=== PATIENT | female | born 1950 | race Caucasian/White ===

== ENCOUNTER → 2017-12-19 08:38 | Outpatient (CLI) | payer MEDICARE, SELFPAY ==
[2017-12-19 09:57] LABS: Absolute Lymphocyte Count 1.97 X10^3/ul (0.83-4.51); Absolute Neutrophil Count 3.1 X10^3/uL (2.0-7.7); Basophil# 0.03 X10^3/uL; Basophil% 0.5 % (0-1); Eosinophils% 1.7 % (0-5); Hematocrit 41.9 % (37-47); Hemoglobin 14.1 g/dl (12.0-15.0); Lymphocyte # 1.97 X10^3/ul (4.0); Lymphocyte % 34.1 % (19-41); Mean Corp Hgb Conc 33.7 g/gl (32-36); Mean Corpuscular Hgb 29.4 pg (27.0-32.0); Mean Corpuscular Volume 87.3 fL (81-99); Mean Platelet Vol. 10.4 fl (6.2-12.0); Monocyte# 0.55 X10^3/uL; Monocyte% 9.5 % (0-10); Neutrophil # 3.12 X10^3/uL (2.7-7.7); Platelet Count 243 K/mm3 (150-450); RBC Distribution Width CV 12.9 % (11.6-14.6); RBC Distribution Width SD 40.8 fl (35.1-43.9); White Blood Count 5.8 K/mm3 (4.4-11.0)
[2017-12-19 10:00] LABS: POSITIVE COUNT NO; POSITIVE DIFFERENTIAL NO; POSITIVE MORPHOLOGY NO
[2017-12-19 10:33] LABS: ALB/GLOB Ratio 0.9 RATIO (0.9-2.4); AST(SGOT) 13 U/L (15-37); Alanine Aminotransfer ALT/SGPT 21 U/L (13-56); Albumin, Serum 3.5 g/dL (3.2-5.0); Alkaline Phosphatase 87 U/L (45-117); Anion Gap 8 (5-15); BUN 12 mg/dL (7-18); BUN/Creat Ratio 16.1 RATIO (10-20); Calcium,Total 9.2 mg/dL (8.5-10.1); Chloride 103 mmol/L (98-107); Cholesterol 166 mg/dL (200); Creatinine, Serum 0.74 mg/dL (0.55-1.02); EST Glomerular Filtration Rate 83 mL/min (>60); Est Glom Filt Rate - Afr Amer 100 mL/min (>60); Globulin 3.7 g/dL (2.2-4.2); Glucose 88 mg/dL (74-106); High Density Lipoprotein 56 mg/dL; Potassium 4.2 mmol/L (3.5-5.1); Protein, Total 7.2 g/dL (6.4-8.2); Sodium Level 141 mmol/L (136-145); Triglycerides 107 mg/dL; Very Low Density Lipoprotein 21 mg/dL (5-40)
[2017-12-19 10:37] LABS: Vitamin D,25 Hydroxy 19.8 ng/mL (29.95-100.01)
== END ==
PROVIDERS: Family Provider Internal Medicine; PCP Internal Medicine; Visit Provider Internal Medicine
DX: Z13.220 Encounter for screening for lipoid disorders (principal); E55.9 Vitamin D deficiency, unspecified
CPT/HCPCS: 36415; 80053; 80061; 82306; 85025

== ENCOUNTER → 2018-01-02 12:33 | Outpatient (CLI) | payer MEDICARE, SELFPAY ==
--- NOTE | 2018-01-02 12:37 | BI_ITS ---
MAMMOGRAPHY - BILATERAL SCREENING 3-D ANDRES SYNTHESIS REASON FOR EXAM: Female, 67 years old. Bilateral Screening 3-D tomosynthesis PERTINENT HISTORY: Asymptomatic. Left needle biopsy and left excisional biopsy 1990s for calcifications. Family history breast carcinoma mother age 70 sex, sister age 53, first maternal cousin and paternal grandmother. TECHNIQUE: 2-D mammograms and 3-D Andres synthesis of the breast (s) were performed. CAD was performed. COMPARISON: 09/29/2014 mammogram. FINDINGS: The breast composition is heterogeneously dense that can obscure small breast masses. No new asymmetric density, dominant mass, dense spiculated masses, abnormal clustered microcalcifications, architectural distortion, skin thickening or nipple retraction identified. Coarse benign-appearing calcifications. No new abnormality identified with tomosynthesis. There has been no significant change since the prior study. BI/SCREENING MAMM (CAD), BILAT IMPRESSION: No mammographic signs of malignancy. Routine yearly mammograms recommended. ASSESSMENT CATEGORY: BIRADS Category 2: Benign. A letter regarding these results will be sent to the patient by the facility within 30 days. FOLLOW UP RECOMMENDATION: Yearly follow up mammogram recommended. (A) Negative results should not deter biopsy as a palpable lesion should be followed on clinical grounds and biopsy performed if clinically persistent for 3 months or increasing size. Approximately 10% of breast cancers are not detected by mammography. A normal mammogram should not delay biopsy of a clinically suspicious abnormality. Electronically Signed: Servando Dominguez, at 17:25 EDT Tel , Service support ,
== END ==
PROVIDERS: Family Provider Internal Medicine; PCP Internal Medicine; Visit Provider Nurse Practitioner Primary Care
DX: Z12.31 Encounter for screening mammogram for malignant neoplasm of breast (principal)
CPT/HCPCS: 77063; 77067

== ENCOUNTER → 2019-01-11 14:40 | Outpatient (CLI) | payer MEDICARE, SELFPAY ==
--- NOTE | 2019-01-11 14:45 | BI_ITS ---
MAMMOGRAPHY - BILATERAL SCREENING REASON FOR EXAM: Female, 68 years old. Routine annual screening examination. PERTINENT HISTORY: Sister with breast cancer. Mother with breast cancer. TECHNIQUE: Digital bilateral breast andres (3D mammographic acquisition) in the CC and MLO projections. 2-D mediolateral oblique (MLO) and craniocaudad (CC) views of both breasts were obtained. CAD: Full Field Digital Mammography with Computer Added Detection was performed. COMPARISON: Comparison is made with prior study January 02, 2018 FINDINGS: Breast Composition: The breasts are heterogeneously dense, which may obscure small masses. There are no dominant masses or suspicious calcifications. Stable appearance of the benign-appearing bilateral axillary lymph nodes. No other significant abnormalities are identified. There has been no significant change since the prior study. BI/SCREEN MAMM (CAD) W/ANDRES BILAT IMPRESSION: Stable bilateral screening mammogram. Yearly follow-up mammogram recommended. (A) ASSESSMENT CATEGORY: BIRADS Category 2: Benign. A letter regarding these results will be sent to the patient by the facility within 30 days. Approximately 10% of breast cancers are not detected by mammography. A normal mammogram should not delay biopsy of a clinically suspicious abnormality. [id number] Electronically Signed: Blake Zayas, at 15:48 EDT , Service support ,
== END ==
PROVIDERS: Family Provider Internal Medicine; PCP Internal Medicine; Referring Provider Nurse Practitioner Primary Care; Visit Provider Nurse Practitioner Primary Care
DX: Z12.31 Encounter for screening mammogram for malignant neoplasm of breast (principal); Z80.3 Family history of malignant neoplasm of breast
CPT/HCPCS: 77063; 77067

== ENCOUNTER → 2020-01-19 08:30 | Outpatient (CLI) | payer MEDICARE, SELFPAY ==
--- NOTE | 2020-01-19 08:33 | BI_ITS ---
MAMMOGRAPHY - BILATERAL SCREENING 3-D TOMOSYNTHESIS REASON FOR EXAM: Female, 69 years old. Annual screening mammogram. PERTINENT HISTORY: Family history of breast cancer in 2 sisters and mother. History of left needle biopsy and left excisional biopsy. TECHNIQUE: 2-D mammograms and 3-D Tomosynthesis of the breast (s) were performed. CAD was performed. COMPARISON: 01/11/2019, 01/02/2018 FINDINGS: The breast composition is composed of scattered fibroglandular density. Asymmetry in central portion of the left breast seen only on MLO view. The patient should return for compression spot views of this area. If the area persists, ultrasound may also be needed. Right breast unchanged. BI/SCREEN MAMM (CAD) W/ANDRES BILAT IMPRESSION: Asymmetry in the left breast for which further workup is recommended, as outlined above. ASSESSMENT CATEGORY: BIRADS Category 0: Incomplete. Need additional imaging evaluation as above. A letter regarding these results will be sent to the patient by the facility within 30 days. FOLLOW UP RECOMMENDATION: Yearly follow up mammogram recommended. (A) Approximately 10% of breast cancers are not detected by mammography. A normal mammogram should not delay biopsy of a clinically suspicious abnormality. Electronically Signed: Spike Hernandez MD at 16:21 EDT , Service support ,
== END ==
PROVIDERS: PCP Internal Medicine; Referring Provider Nurse Practitioner; Visit Provider Nurse Practitioner
DX: Z12.31 Encounter for screening mammogram for malignant neoplasm of breast (principal); Z80.3 Family history of malignant neoplasm of breast
CPT/HCPCS: 77063; 77067

== ENCOUNTER → 2020-01-24 13:14 | Outpatient (CLI) | payer MEDICARE, SELFPAY ==
--- NOTE | 2020-01-24 13:16 | BI_ITS ---
MAMMOGRAPHY - UNILATERAL DIAGNOSTIC: LEFT BREAST REASON FOR EXAM: Female, 69 years old. Abnormal screening mammogram. PERTINENT HISTORY: Sisters with breast cancer. Mother with breast cancer. Prior left breast biopsy. TECHNIQUE: Compression spot views of the left breast in the mediolateral oblique and craniocaudad views were obtained. CAD: Full Field Digital Mammography with Computer Added Detection was performed. COMPARISON: Comparison is made with prior study dated 01/19/2020. FINDINGS: Breast Composition: There are scattered areas of fibroglandular density. There are no dominant masses or suspicious calcifications. No evidence of architectural distortion at this time. No other significant abnormalities are identified. BI/DIAG MAMM W/CAD, UNILAT IMPRESSION: Unremarkable unilateral diagnostic mammogram. One year follow-up mammogram recommended. (A) ASSESSMENT CATEGORY: BIRADS Category 1: Negative. A letter regarding these results will be sent to the patient by the facility within 30 days. Approximately 10% of breast cancers are not detected by mammography. A normal mammogram should not delay biopsy of a clinically suspicious abnormality. Electronically Signed: Blake Zayas, at 14:22 EDT , Service support ,
== END ==
PROVIDERS: PCP Internal Medicine; Referring Provider Nurse Practitioner; Visit Provider Nurse Practitioner
DX: R92.8 Other abnormal and inconclusive findings on diagnostic imaging of breast (principal); Z80.3 Family history of malignant neoplasm of breast
CPT/HCPCS: 77065

== ENCOUNTER → 2021-02-07 13:04 | Outpatient (CLI) | payer MEDICARE, SELFPAY ==
--- NOTE | 2021-02-07 13:06 | BI_ITS ---
MAMMOGRAPHY - BILATERAL SCREENING REASON FOR EXAM: Female, 70 years old. Routine annual screening examination. PERTINENT HISTORY: Sisters with breast cancer. Mother with breast cancer. TECHNIQUE: Digital bilateral breast andres (3D mammographic acquisition) in the CC and MLO projections. 2-D mediolateral oblique (MLO) and craniocaudad (CC) views of both breasts were obtained. CAD: Full Field Digital Mammography with Computer Added Detection was performed. COMPARISON: Comparison is made with prior study 01/19/2020 and 01/11/2019. FINDINGS: Breast Composition: The breasts are heterogeneously dense, which may obscure small masses. There are no dominant masses or suspicious calcifications. No other significant abnormalities are identified. There has been no significant change since the prior study. BI/SCRN MAMM (CAD)W/ANDRES BILAT IMPRESSION: Stable bilateral screening mammogram. Yearly follow-up mammogram recommended. (A) ASSESSMENT CATEGORY: BIRADS Category 1: Negative. A letter regarding these results will be sent to the patient by the facility within 30 days. Approximately 10% of breast cancers are not detected by mammography. A normal mammogram should not delay biopsy of a clinically suspicious abnormality. [id number] Electronically Signed: Blake Zayas MD at 14:15 EDT , Service support ,
== END ==
PROVIDERS: PCP Internal Medicine; Referring Provider Internal Medicine; Visit Provider Internal Medicine
DX: Z12.31 Encounter for screening mammogram for malignant neoplasm of breast (principal); Z80.3 Family history of malignant neoplasm of breast
CPT/HCPCS: 77063; 77067

== ENCOUNTER → 2022-03-19 | Outpatient (CLI) | payer MEDICARE, SELFPAY ==
--- NOTE | 2022-03-19 10:10 | BI_ITS ---
MAMMOGRAPHY - BILATERAL SCREENING REASON FOR EXAM: Female, 71 years old. Routine annual screening examination. PERTINENT HISTORY: Sisters with breast cancer. Mother with breast cancer. Remote left needle biopsy and excisional breast biopsy. TECHNIQUE: Digital bilateral breast andres (3D mammographic acquisition) in the CC and MLO projections. 2-D mediolateral oblique (MLO) and craniocaudad (CC) views of both breasts were obtained. CAD: Full Field Digital Mammography with Computer Added Detection was performed. COMPARISON: Comparison is made with prior examination of 02/07/2021. FINDINGS: Breast Composition: The breasts are heterogeneously dense, which may obscure small masses. There are no dominant masses or suspicious calcifications. Stable small benign-appearing bilateral lymph nodes. No other significant abnormalities are identified. There has been no significant change since the prior study. BI/SCRN MAMM (CAD)W/ANDRES BILAT IMPRESSION: Stable bilateral screening mammogram. Yearly follow-up mammogram recommended. (A) ASSESSMENT CATEGORY: BIRADS Category 2: Benign. A letter regarding these results will be sent to the patient by the facility within 30 days. Approximately 10% of breast cancers are not detected by mammography. A normal mammogram should not delay biopsy of a clinically suspicious abnormality. [id number] Electronically Signed: Blake Zayas MD at 11:13 EDT ,
== END | disposition home or self-care (01) ==
LOC: OPBI 10:09
PROVIDERS: PCP Internal Medicine; Visit Provider Nurse Practitioner
DX: Z12.31 Encounter for screening mammogram for malignant neoplasm of breast (principal); Z80.3 Family history of malignant neoplasm of breast
CPT/HCPCS: 77063; 77067

== ENCOUNTER → 2023-04-29 | Outpatient (CLI) | payer MEDICARE, SELFPAY ==
--- NOTE | 2023-04-29 12:38 | BI_ITS ---
MAMMOGRAPHY - BILATERAL SCREENING REASON FOR EXAM: Female, 72 years old. Routine annual screening examination. PERTINENT HISTORY: Sisters with breast cancer. Mother with breast cancer. Grandmother with breast cancer. Prior left excisional breast biopsy. TECHNIQUE: Digital bilateral breast andres (3D mammographic acquisition) in the CC and MLO projections. 2-D mediolateral oblique (MLO) and craniocaudad (CC) views of both breasts were obtained. CAD: Full Field Digital Mammography with Computer Added Detection was performed. COMPARISON: Comparison is made with prior examination March 19, 2022 and February 07, 2021. FINDINGS: Breast Composition: The breasts are heterogeneously dense, which may obscure small masses. There are no dominant masses or suspicious calcifications. Stable small benign-appearing bilateral axillary lymph nodes. No other significant abnormalities are identified. There has been no significant change since the prior study. BI/SCRN MAMM (CAD)W/ANDRES BILAT IMPRESSION: Stable bilateral screening mammogram. Yearly follow-up mammogram recommended. (A) ASSESSMENT CATEGORY: BIRADS Category 2: Benign. A letter regarding these results will be sent to the patient by the facility within 30 days. Approximately 10% of breast cancers are not detected by mammography. A normal mammogram should not delay biopsy of a clinically suspicious abnormality. [id number] Electronically Signed: Blake Zayas MD at 15:40 EST ,
== END | disposition home or self-care (01) ==
LOC: OPBI 12:36
PROVIDERS: PCP Internal Medicine; Referring Provider Clinical Nurse Specialist; Visit Provider Clinical Nurse Specialist
DX: Z12.31 Encounter for screening mammogram for malignant neoplasm of breast (principal); Z80.3 Family history of malignant neoplasm of breast
CPT/HCPCS: 77063; 77067

== ENCOUNTER 2023-12-11 02:41 | Emergency (ER) | payer MEDICARE, SELFPAY ==
[2023-12-11] VITALS (8 sets, daily range): BP systolic 103–165; BP diastolic 47–98; PULSE 83–105; RESP 14–19; TEMP 36.5–37.9; O2SAT 92–98; BMI 24.0
[2023-12-11 03:01] LABS: Bacteria 0 SEEN /hpf (None Seen); Mucous, Urine 0 SEEN /hpf (<or=2+); Red Blood Cells-Urine 0 SEEN /hpf (0-5); Squamous Epithelial Cells - UA 0 SEEN /hpf (5-10); White Blood Cells 0 SEEN /hpf (0-5)
[2023-12-11 03:05] LABS: Color, Urine Yellow (Yellow); Glucose, Dipstick Normal (Normal); Ketone-Dipstick Negative (Negative); Leukocyte Esterase-Dipstick Negative /ul (Negative); Nitrite-Dipstick Negative (Negative); Occult Blood-Urine Negative /ul (Negative); Protein-Dipstick Negative (Negative); Urine Bilirubin Dipstick Negative (Negative); Urine Clarity Clear (Clear); Urine Urobilinogen Normal (Normal); Urine pH 6.5 (5.0 - 8.0)
--- NOTE | 2023-12-11 03:34 | RAD_ITS ---
INDICATION: fever EXAMINATION/TECHNIQUE: X-RAY - XR Chest 2 Views COMPARISON: No relevant prior comparison study available FINDINGS: LINES/DEVICES: None. LUNGS: No consolidation. Calcified granuloma at both lung bases. No pneumothorax. MEDIASTINUM: Aorta is atherosclerotic. CARDIAC SILHOUETTE: Not enlarged. BONES AND SOFT TISSUES: No acute abnormalities. Surgical clips right upper abdomen cholecystectomy. RAD/Chest PA and Lateral IMPRESSION: No evidence of active intrathoracic disease. Electronically Signed: Flores Rodríguez MD at 4:52 EDT ,
--- NOTE | 2023-12-11 03:46 | EX.ED.DYSGE1 ---
HPI History of Present Illness Chief Complaint: General Illness Informant: patient Narrative Narrative: Patient is a 73-year-old female with no significant past medical history presenting for an episode of shaking chills. She states she was laying in bed and she started shaking uncontrollably and felt very cold. She took her oral temperature at home and it was 99.5. She denies any recent URI symptoms but she has had a mild cough which she attributes to allergies. Has had some mild nausea but no vomiting. Denies any abdominal pain. Did have a loose bowel movement today but denies true diarrhea. Denies any blood in her stool. Denies any urinary symptoms. However, she does note the last time she had symptoms like that she had a urinary tract infection but that was sometime ago. Does have a mild headache. As had some mild back pain but feels more like her muscles are sore. While here it felt that her hands were tingling/burning but they did not actually feel hot. No other complaints or concerns reported at this time. No sick contacts reported. PFSH PFSH Medical History no medical history Allergy/AdvReac Type Severity Reaction Status Date / Time Penicillins Allergy Mild Rash Verified 12/11/23 02:42 Social History Smoking Status: Never smoker ROS ROS ED Constitutional Constitutional ED: Reports chills and fever(s) Eyes Eyes: Denies change in vision ENT ENT ED: Denies sore throat Cardiovascular Cardiovascular: Denies chest pain Respiratory/Chest Respiratory/Chest: Reports cough; Denies dyspnea Gastrointestinal Gastrointestinal: Reports nausea; Denies abdominal pain, diarrhea or vomiting Genitourinary Genitourinary ED: Denies dysuria or urinary frequency Musculoskeletal Musculoskeletal: Reports back pain; Denies myalgias Integumentary Denies rash Neurologic Neurologic: Reports headache(s); Denies weakness Hematologic/Lymphatic Hematologic/Lymphatic: Denies easy bleeding or easy bruising EXAM Physical Exam Const Vital Signs: 12/11/23 02:43 12/11/23 03:34 12/11/23 03:49 Temperature 97.7 F L 100.3 F H 100.3 F H Temperature Source Temporal Oral Oral Pulse Rate 105 H 100 Respiratory Rate 18 18 Blood Pressure 165/98 H 164/47 H Blood Pressure Mean 120 86 Pulse Ox 98 94 Oxygen Delivery Method Room Air Room Air 12/11/23 04:48 12/11/23 06:00 Temperature 98.4 F 98.1 F Temperature Source Oral Temporal Pulse Rate 98 95 Respiratory Rate 16 19 H Blood Pressure 135/54 H 118/56 L Blood Pressure Mean 81 76 Pulse Ox 92 95 Oxygen Delivery Method Room Air Positive well nourished and well developed General Appearance ED: well developed and NAD HEENT Reports TM's clear and moist mucous membranes Tympanic Membrane ED: Yes TM's clear Eyes PERRL and EOMs intact bilaterally Neck no lymphadenopathy and supple Neck Narrative: No meningeal signs Chest Wall inspection of chest normal Resp normal respiratory effort and clear to auscultation bilaterally Auscultation: Negative for rhonchi or wheezes Cardio regular rhythm Rate: tachycardic GI normal to inspection, nondistended, normoactive bowel sounds and non-tender Palpation: Negative for guarding Back/Spine no CVA tenderness Extremity normal to inspection General Extremety ED: Negative for edema General Extremity: Negative for edema Neuro oriented x3 Sensorium / Orientation: alert Motor Exam: Negative for general weakness Psych mental status grossly normal Skin no rashes or lesions noted MDM MDM MDM Narrative Medical decision making narrative: Patient is evaluated for fever and chills/rigors. She has had some vague symptoms including a mild cough and nausea but no other localized symptoms. States the last time she felt this way she had a urinary tract infection. Patient is tachycardic and has a low-grade fever of 100.3 orally in the ER. Sepsis workup is initiated which is remarkable only for an elevated lactate of 2.7. Patient is given a liter of IV fluid, Tylenol and Zofran. Abdomen is soft and nontender and I do not think she requires any abdominal imaging at this time. Chest x-ray viewed by myself as well as radiology does not show any acute process. Repeat lactate is downtrending to 2.2. Clinically patient is quite well-appearing, her vital signs are normalized. She is ambulated in the emergency room and feels well. She is not hypoxic. Blood cultures are pending but at this time a do not think she requires antibiotics that she is not high risk for infection and we can follow-up on the blood cultures outpatient. She is encouraged to return to the emergency room if she has a progression or worsening of her symptoms. She is quite agreeable this plan of care. Discharged home in improved and stable condition. Lab Data Attestation: I reviewed the patient's lab results. Labs: Laboratory Results - last 24 hr 12/11/23 12/11/23 12/11/23 02:52 03:47 06:27 WBC 6.8 RBC 4.60 Hgb 13.2 Hct 40.1 MCV 87.2 MCH 28.7 MCHC 32.9 RDW Std Deviation 42.2 RDW Coeff of Odalis 13.3 Plt Count 195 MPV 8.9 Immature Gran % (Auto) 0.400 Neut % (Auto) 84.7 H Lymph % (Auto) 12.8 L [facility] % (Auto) 1.3 Eos % (Auto) 0.4 Baso % (Auto) 0.4 Absolute Neuts (auto) 5.7 Absolute Lymphs (auto) 0.87 Nucleated RBC % 0 Sodium 138 Potassium 4.3 Chloride 103 Carbon Dioxide 28.0 Anion Gap 7 BUN 15 Creatinine 0.92 Estim Creat Clear Calc 43.29 Est GFR (MDRD) Af Amer 77 Est GFR (MDRD) Non-Af 64 BUN/Creatinine Ratio 16.3 Glucose 112 H Lactic Acid 2.7 H* 2.2 H* Calcium 9.1 Total Bilirubin 0.70 AST 31 ALT 28 Alkaline Phosphatase 78 Total Protein 6.7 Albumin 3.5 Globulin 3.2 Albumin/Globulin Ratio 1.1 Urine Color Yellow Urine Clarity Clear Urine pH 6.5 Ur Specific [place] 1.010 Urine Protein Negative Urine Glucose (UA) Normal Urine Ketones Negative Urine Occult Blood Negative Urine Nitrite Negative Urine Bilirubin Negative Urine Urobilinogen Normal Ur Leukocyte Esterase Negative Urine RBC 0 SEEN Urine WBC 0 SEEN Ur Squamous Epith Cells 0 SEEN Urine Bacteria 0 SEEN Urine Mucus 0 SEEN Radiography Chest X-Ray - ED: 2 View, Read by ED Physician, Read by Radiologist and No Acute Disease Diagnostic Testing: Clinical Impression(s) from Imaging Studies Chest X-Ray 12/11/23 03:34 IMPRESSION: No evidence of active intrathoracic disease. Electronically Signed: Flores Rodríguez MD at 4:52 EDT , Discharge Plan Triage Chief Complaint: General Illness ED Provider: Noelle Trinh Dx/Rx/DC Orders Clinical Impression: Fever, unknown origin, Elevated lactic acid level Instructions: ED FUO Adult Primary Care Provider: Phoebe Lee Referrals: Phoebe Lee MD [Primary Care Provider] - Activity Restrictions/Additional Instructions: Drink plenty of fluids. Alternate ibuprofen and Tylenol as needed for fever. Return to the ER if you have a progression or worsening of your symptoms or further concerns. You will be contacted within 48 hours if your blood cultures come back positive and you require IV antibiotics. Print Language: Slovak Disposition Disposition: Home, Self Care
[2023-12-11] MEDS: 0.9% Normal Saline (1000mL) 1,000 ML 1000 ML IV (03:50)
[2023-12-11] MEDS: Acetaminophen 325 MG Tablet 650 MG PO (03:50)
[2023-12-11] MEDS: Ondansetron 4 MG/2 ML Vial IV (03:50)
[2023-12-11 03:55] LABS: Absolute Lymphocyte Count 0.87 X10^3/uL (0.83-4.51); Absolute Neutrophil Count 5.7 X10^3/uL (2.0-7.7); Basophil# 0.03 X10^3/uL; Basophil% 0.4 % (0-1); Eosinophil# 0.03 X10^3/uL; Eosinophils% 0.4 % (0-5); Hematocrit 40.1 % (37-47); Hemoglobin 13.2 g/dL (12.0-15.0); Lymphocyte # 0.87 X10^3/ul (0.83-4.51); Lymphocyte % 12.8 % (19-41); Mean Corp Hgb Conc 32.9 g/dL (32-36); Mean Corpuscular Hgb 28.7 pg (27.0-32.0); Mean Corpuscular Volume 87.2 fL (81-99); Mean Platelet Vol. 8.9 fl (6.2-12.0); Monocyte# 0.09 X10^3/uL; Monocyte% 1.3 % (0-10); NRBC Flagged by Analyzer 0 % (0-5); Neutrophil # 5.73 X10^3/uL (2.7-7.7); Neutrophil % 84.7 % (47-70); Platelet Count 195 K/mm3 (150-450); RBC Distribution Width CV 13.3 % (11.6-14.6); RBC Distribution Width SD 42.2 fl (35.1-43.9); White Blood Count 6.8 K/mm3 (4.4-11.0)
[2023-12-11 04:34] LABS: ALB/GLOB Ratio 1.1 RATIO (0.9-2.4); AST(SGOT) 31 U/L (15-37); Alanine Aminotransfer ALT/SGPT 28 U/L (13-56); Albumin, Serum 3.5 g/dL (3.2-5.0); Alkaline Phosphatase 78 U/L (45-117); Anion Gap 7 (5-15); BUN 15 mg/dL (7-18); BUN/Creat Ratio 16.3 RATIO (10-20); Calcium,Total 9.1 mg/dL (8.5-10.1); Chloride 103 mmol/L (98-107); Creatinine, Serum 0.92 mg/dL (0.55-1.02); EST Glomerular Filtration Rate 64 mL/min (>60); Est Glom Filt Rate - Afr Amer 77 mL/min (>60); Estimated Creatinine Clearance 43.29 ml/min; Globulin 3.2 g/dL (2.2-4.2); Glucose 112 mg/dL (74-106); Potassium 4.3 mmol/L (3.5-5.1); Protein, Total 6.7 g/dL (6.4-8.2); Sodium Level 138 mmol/L (136-145)
[2023-12-11 04:35] LABS: Lactic Acid 2.7 mmol/L (0.4-1.9)
[2023-12-11 07:31] LABS: Lactic Acid 2.2 mmol/L (0.4-1.9)
[2023-12-11 07:52] LABS: Reflex Lactate? Y
[2023-12-11 11:06] LABS: Reflex Lactate? Y
== END 2023-12-11 07:55 | disposition home or self-care (01) ==
PROVIDERS: Emergency Provider Emergency Medicine; PCP Internal Medicine; Visit Provider Emergency Medicine
DX: R50.9 Fever, unspecified (principal); R74.02 Elevation of levels of lactic acid dehydrogenase [LDH]
CPT/HCPCS: 36415; 71046; 80053; 81001; 83605; 85025; 87040; 87811; 96360; 96361; 99283; J7030; A4216; J2405

== ENCOUNTER → 2024-05-03 | Outpatient (CLI) | payer MEDICARE, SELFPAY ==
--- NOTE | 2024-05-03 10:30 | BI_ITS ---
MAMMOGRAPHY - BILATERAL SCREENING REASON FOR EXAM: Female, 73 years old. Routine annual screening examination. PERTINENT HISTORY: Sisters with breast cancer. Grandmother with breast cancer. Prior left excisional breast biopsy. TECHNIQUE: Digital bilateral breast andres (3D mammographic acquisition) in the CC and MLO projections. 2-D mediolateral oblique (MLO) and craniocaudad (CC) views of both breasts were obtained. CAD: Full Field Digital Mammography with Computer Added Detection was performed. COMPARISON: Comparison is made with prior study April 21, 2023 and March 19, 2022. FINDINGS: Breast Composition: The breasts are heterogeneously dense, which may obscure small masses. There are no dominant masses or suspicious calcifications. Stable bilateral fat-containing axillary lymph nodes. No other significant abnormalities are identified. There has been no significant change since the prior study. BI/SCRN MAMM (CAD)W/ANDRES BILAT IMPRESSION: Stable bilateral screening mammogram. Yearly follow-up mammogram recommended. (A) ASSESSMENT CATEGORY: BIRADS Category 2: Benign. A letter regarding these results will be sent to the patient by the facility within 30 days. Approximately 10% of breast cancers are not detected by mammography. A normal mammogram should not delay biopsy of a clinically suspicious abnormality. [id number] Electronically Signed: Blake Zayas MD at 14:07 EST ,
== END | disposition home or self-care (01) ==
LOC: OPBI 10:30
PROVIDERS: PCP Internal Medicine; Referring Provider Nurse Practitioner; Visit Provider Nurse Practitioner
DX: Z12.31 Encounter for screening mammogram for malignant neoplasm of breast (principal)
CPT/HCPCS: 77063; 77067

== ENCOUNTER 2024-10-27 19:23 | Emergency (ER) | payer MEDICARE, SELFPAY ==
[2024-10-27 19:24] VITALS: BP 157/72; PULSE 104; RESP 15; TEMP 37; O2SAT 95
[2024-10-27 19:26] VITALS: BP 157/72; PULSE 104; RESP 15; TEMP 37; O2SAT 95
[2024-10-27 21:50] VITALS: BP 163/73; PULSE 97; RESP 16; TEMP 36.9; O2SAT 96; BMI 23.3
[2024-10-27 22:00] VITALS: BP 140/68; PULSE 85; RESP 16; TEMP 36.9; O2SAT 96
--- NOTE | 2024-10-27 22:30 | RAD_ITS ---
PROCEDURE: CHEST PA AND LATERAL 10/27/2024 REASON FOR EXAM: FEVER TECHNIQUE: Frontal and lateral views of the chest. COMPARISON: 12/11/2023. FINDINGS: Hardware: None. Heart: The heart size is normal. Mediastinum: The mediastinal contour is unremarkable. Lungs: Bilateral calcified granulomas. No pleural effusion or pneumothorax. No consolidation. Bones: The bones are unremarkable. RAD/Chest PA and Lateral IMPRESSION: NO ACUTE FINDINGS. Calcified granulomas. Reading Location: [id number]
[2024-10-27 22:33] LABS: Bacteria 0 SEEN /hpf (None Seen); Mucous, Urine 0 SEEN /hpf (<or=2+)
[2024-10-27 22:35] LABS: Absolute Lymphocyte Count 1.61 X10^3/uL (0.83-4.51); Absolute Neutrophil Count 8.3 X10^3/uL (2.0-7.7); Basophil# 0.05 X10^3/uL; Basophil% 0.4 % (0-1); Eosinophil# 0.15 X10^3/uL; Eosinophils% 1.3 % (0-5); Hematocrit 36.9 % (37-47); Hemoglobin 12.2 g/dL (12.0-15.0); Lymphocyte # 1.61 X10^3/ul (0.83-4.51); Lymphocyte % 14.4 % (19-41); Mean Corp Hgb Conc 33.1 g/dL (32-36); Mean Corpuscular Hgb 28.9 pg (27.0-32.0); Mean Corpuscular Volume 87.4 fL (81-99); Mean Platelet Vol. 9.1 fl (6.2-12.0); Monocyte# 0.98 X10^3/uL; Monocyte% 8.8 % (0-10); NRBC Flagged by Analyzer 0 % (0-5); Neutrophil # 8.32 X10^3/uL (2.7-7.7); Neutrophil % 74.4 % (47-70); Platelet Count 271 K/mm3 (150-450); RBC Distribution Width CV 13.5 % (11.6-14.6); RBC Distribution Width SD 43.5 fl (35.1-43.9); Red Blood Count 4.22 M/mm3 (4.2-5.4); White Blood Count 11.2 K/mm3 (4.4-11.0)
[2024-10-27 22:36] LABS: Color, Urine Yellow (Yellow); Glucose, Dipstick Normal (Normal); Ketone-Dipstick 5 mg/dl (Negative); Leukocyte Esterase-Dipstick 100 /ul (Negative); Nitrite-Dipstick Negative (Negative); Occult Blood-Urine 150 /ul (Negative); Protein-Dipstick 15 mg/dl (Negative); Specific Gravity, Urine 1.005 (1.002-1.030); Urine Bilirubin Dipstick Negative (Negative); Urine Clarity Clear (Clear); Urine Urobilinogen Normal (Normal); Urine pH 6.5 (5.0 - 8.0)
[2024-10-27 22:52] LABS: Anion Gap 12 (5-15); BUN 13 mg/dL (4-19); BUN/Creat Ratio 18.8 RATIO (10-20); Carbon Dioxide 23.7 mmol/L (21.0-32.0); Chloride 99 mmol/L (98-108); Creatinine, Serum 0.71 mg/dL (0.70-1.20); EST Glomerular Filtration Rate 89 (>60); Estimated Creatinine Clearance 44.99 ml/min (50-250); Glucose 118 mg/dL (70-99); Sodium Level 135 mmol/L (133-145)
[2024-10-27 23:00] VITALS: BP 146/57; PULSE 84; RESP 16; TEMP 37; O2SAT 99
[2024-10-27 23:15] LABS: Lactic Acid < 1.0 mmol/L (0.0-2.0)
[2024-10-27 23:30] LABS: Red Blood Cells-Urine 0-5 SEEN /hpf (0-5); Squamous Epithelial Cells - UA 0-5 SEEN /hpf (5-10); White Blood Cells 0-5 SEEN /hpf (0-5)
--- NOTE | 2024-10-27 23:42 | EDS_ITS ---
HPI History of Present Illness Chief Complaint: Fever Informant: patient and spouse/S.O. Narrative Narrative: Patient is a 74-year-old female with past medical history of osteoporosis osteoarthritis hyperlipidemia hyperlipidemia. 1 week ago she underwent laparosc opic surgery to remove her ovaries and she states that they plan to remove her uterus as well but it was adhered to her bowel and therefore they did not perform this aspect of the hysterectomy. She states that she stayed roughly 5 hours in PACU and was discharged home. She reports she has been doing well but this evening she felt chills and then checked her temperature and it was elevated at 100.4. She states she did not take any Tylenol or Motrin but with the fever and her recent surgery presents to the ER for evaluation. She states that otherwise she has been feeling normal without significant abdominal pain dysuria nausea vomiting congestion cough or sore throat. PFSH PFSH Medical History (Updated 10/28/24 @ 01:[address] Barrett Almendarez DO) Osteoarthritis Osteoporosis Home Medications ?Medication ?Instructions ?Recorded ?Last Taken ?Type ibuprofen 600 mg tablet 600 mg PO Q6H PRN PRN fever or pain 10/27/24 Unknown History ondansetron 4 mg disintegrating 4 mg PO Q8H PRN PRN na usea and 10/27/24 Unknown History tablet vomiting oxycodone 5 mg tablet 5 mg PO PRN pain 10/27/24 Un known History rosuvastatin 5 mg tablet 5 mg PO DAILY 10/27/24 Unkno wn History Allergy/AdvReac Type Severity Reaction Status Date / Time Penicillins Allergy Mild Rash Verified 10/27/24 19:24 Surgical History (Updated 10/27/24 @ 21:53 by Yasemin Jalloh) Hx of tonsillectomy H/O bilateral salpingo-oophorectomy History of cholecystectomy History of partial hysterectomy Social History Smoking Status: Never smoker ROS ROS ED Constitutional Constitutional ED: Reports chills and fever(s) Eyes Eyes: Denies change in vision ENT ENT ED: Denies rhinorrhea or sore throat Cardiovascular Cardiovascular: Denies chest pain Respiratory/Chest Respiratory/Chest: Denies cough or dyspnea Gastrointestinal Gastrointestinal: Denies abdominal pain, diarrhea, nausea or vomiting Genitourinary Genitourinary ED: Denies dysuria or hematuria Musculoskeletal Musculoskeletal: Denies myalgias Integumentary Denies rash Neurologic Neurologic: Denies headache(s) Hematologic/Lymphatic Hematologic/Lymphatic: Denies easy bleeding or easy bruising EXAM Physical Exam Const Vital Signs: 10/27/24 19:24 10/27/24 19:26 10/27/24 21:50 Temperature 98.6 F 98.6 F 98.5 F Temperature Source Oral Oral Oral Pulse Rate 104 H 104 H 97 Respiratory Rate 15 15 16 Respiratory Effort Respiratory Pattern Blood Pressure 157/72 H 157/72 H 163/73 H Blood Pressure Mean 100 100 103 Pulse Ox 95 95 96 Oxygen Delivery Method Room Air Room Air Room Air 10/27/24 22:00 10/27/24 22:26 10/27/24 23:00 Temperature 98.5 F 98.6 F Temperature Source Oral Oral Pulse Rate 85 84 Respiratory Rate 16 16 Respiratory Effort Normal Respiratory Pattern Normal Blood Pressure 140/68 H 146/57 H Blood Pressure Mean 92 86 Pulse Ox 96 99 Oxygen Delivery Method Room Air Room Air 10/27/24 23:44 Temperature 98.6 F Temperature Source Pulse Rate 84 Respiratory Rate 16 Respiratory Effort Respiratory Pattern Blood Pressure 146/57 H Blood Pressure Mean 86 Pulse Ox 99 Oxygen Delivery Method Positive well nourished and well developed General Appearance ED: well developed HEENT Reports moist mucous membranes HEENT Narrative: No tongue or lip swelling no oral lesions no airway edema or compromise No signs of infection noted in the posterior pharynx Eyes PERRL and EOMs intact bilaterally General Eye ED: Negative for scleral icterus Neck supple Neck Narrative: No nuchal rigidity or meningeal signs Resp normal respiratory effort and clear to auscultation bilaterally Resp Narrative: No nasal flaring retractions tachypnea or accessory muscle use No pleuritic chest pain reported Cardio regular rate and regular rhythm Rate: other Other Details: Regular rate and rhythm without murmurs rubs or gallops Radial and carotid pulses are equal and symmetric GI non-distended and no masses GI Narrative: Abdomen is soft and nondistended with hypoactive bowel sounds. There is mild diffuse pain with palpation consistent with history of recent laparoscopic surgery. The wounds are clean dry and intact. There is no voluntary guarding or rigidity. No pulsatile mass or fluid wave. No peritoneal signs Auscultation: hypoactive bowel sounds Palpation: soft Extremity normal to inspection Extremity Narrative: No asymmetric edema no pitting edema negative Homans' sign bilaterally Neuro oriented x3, CN's II-XII intact bilaterally and no sensory deficits noted Sensorium / Orientation: alert Motor Exam: strength 5/5 throughout Psych mental status grossly normal Skin no rashes or lesions noted Skin Narrative: Postoperative wounds to the abdomen that are clean dry and intact; otherwise skin exam is normal MDM MDM MDM Narrative Medical decision making narrative: Patient presented to the ER hypertensive otherwise with stable vitals. She reported chills at home and secondary to this checked her temperature which was reportedly elevated at 100.4. With her recent surgical history there is concern for postoperative infection such as pneumonia UTI viral infection such as COVID influenza RSV or postoperative abdominal infection. As her temperature was normal in the ER and she did not take any antipyretic medication my concern for systemic infection/sepsis is low. However in order to ensure there is no overt cause for her reported fever basic blood work and a chest x-ray were obtained. Patient's white count is 11.2 which is not a clinically significant elevation. Lactic acid is normal going against systemic infection as well. Urine sample shows no signs of UTI. Chest x-ray reveals no lung pathology such as pneumonia. Vitals remained stable in ER and she did not spike a fever while here. Her abdominal wounds do not show signs of infection and she does not have peritoneal signs going against a postoperative complication leading to intestinal infection. Therefore this time as vitals are stable and workup is negative not showing any signs of systemic infection I do not feel there is need for further evaluation and she is otherwise safe for discharge History & Record Review Discussion w/independent historian: Patient and Significant other Lab Data Attestation: I reviewed the patient's lab results. Labs: Laboratory Results - last 24 hr 10/27/24 10/27/24 22:22 22:27 WBC 11.2 H RBC 4.22 Hgb 12.2 Hct 36.9 L MCV 87.4 MCH 28.9 MCHC 33.1 RDW Std Deviation 43.5 RDW Coeff of [place] 13.5 Plt Count 271 MPV 9.1 Immature Gran % (Auto) 0.700 Neut % (Auto) 74.4 H Lymph % (Auto) 14.4 L [place] % (Auto) 8.8 Eos % (Auto) 1.3 Baso % (Auto) 0.4 Absolute Neuts (auto) 8.3 H Absolute Lymphs (auto) 1.61 Nucleated RBC % 0 Sodium 135 Potassium 4.0 Chloride 99 Carbon Dioxide 23.7 Anion Gap 12 BUN 13 Creatinine 0.71 Estim Creat Clear Calc 44.99 L Est GFR (MDRD) Non-Af 89 BUN/Creatinine Ratio 18.8 Glucose 118 H Lactic Acid < 1.0 Calcium 9.0 Urine Color Yellow Urine Clarity Clear Urine pH 6.5 Ur Specific [place] 1.005 Urine Protein 15 H Urine Glucose (UA) Normal Urine Ketones 5 H Urine Occult Blood 150 H Urine Nitrite Negative Urine Bilirubin Negative Urine Urobilinogen Normal Ur Leukocyte Esterase 100 H Urine RBC 0-5 SEEN Urine WBC 0-5 SEEN Ur Squamous Epith Cells 0-5 SEEN Urine Bacteria 0 SEEN Urine Mucus 0 SEEN Radiography Diagnostic Testing: Clinical Impression(s) from Imaging Studies Chest X-Ray 10/27/24 22:30 IMPRESSION: NO ACUTE FINDINGS. Calcified granulomas. Reading Location: [place] [id number] Chest x-ray is interpreted by the emergency medicine physician reveals no acute infiltrate pneumothorax or pleural effusion Discharge Plan Triage Chief Complaint: Fever ED Provider: Barrett Almendarez Dx/Rx/DC Orders Clinical Impression: Postoperative fever, Hyperlipidemia, Osteoporosis Instructions: ED Fever Control (Adult) Prescriptions: No Action ondansetron 4 mg tablet,disintegrating 4 mg PO Q8H PRN PRN (Reason: nausea and vomiting) oxycodone 5 mg tablet 5 mg PO PRN (Reason: pain) ibuprofen 600 mg tablet 600 mg PO Q6H PRN PRN (Reason: fever or pain) rosuvastatin 5 mg tablet 5 mg PO DAILY Primary Care Provider: Phoebe Lee Referrals: Phoebe Lee MD [Primary Care Provider] - Activity Restrictions/Additional Instructions: Your workup today did not show any signs of infection such as UTI or pneumonia or COVID. Continue to monitor your temperature and if you develop any repeat fever that does not respond to Tylenol/Motrin or you have any further concerns or worsening symptoms please return to the ER for repeat evaluation Print Language: Kinyarwanda Disposition Disposition: Home, Self Care Discharge Date/Time: 10/27/24 23:52
[2024-10-27 23:44] VITALS: BP 146/57; PULSE 84; RESP 16; TEMP 37; O2SAT 99
== END 2024-10-27 23:52 | disposition home or self-care (01) ==
PROVIDERS: Emergency Provider Emergency Medicine; PCP Internal Medicine; Referring Provider Emergency Medicine; Visit Provider Emergency Medicine
DX: R50.82 Postprocedural fever (principal); E78.5 Hyperlipidemia, unspecified; M81.0 Age-related osteoporosis without current pathological fracture; Z79.899 Other long term (current) drug therapy
CPT/HCPCS: 71046; 80048; 81001; 83605; 85025; 87631; 99283; A4216

== ENCOUNTER → 2025-05-12 | Outpatient (CLI) | payer MEDICARE, SELFPAY ==
--- NOTE | 2025-05-12 10:03 | BI_ITS ---
EXAM: SCRN MAMM (CAD)W/ANDRES BILAT DATE: 05/12/2025 CLINICAL HISTORY: F, Age 74 y/o , SCREENING Sisters with breast cancer. Grandmother with breast cancer. Prior left excisional breast biopsy. TECHNIQUE: Procedure Code: [id number] Modality: MG Procedure: SCRN MAMM (CAD)W/ANDRES BILAT COMPARISON: Prior exam(s) dated May 03, 2024.. FINDINGS: TISSUE DENSITY: The breasts are heterogeneously dense, which may obscure small masses. Bilateral Breast Mammographic Findings: No significant masses, calcifications or other abnormalities are identified. Stable benign-appearing bilateral axillary lymph nodes. No suspicious masses, areas of developing architectural distortion, or suspicious calcifications. There has been no significant interval change. BI/SCRN MAMM (CAD)W/ANDRES BILAT IMPRESSION: Stable bilateral screening mammogram. OVERALL FINAL ASSESSMENT BI-RADS 2: BENIGN RECOMMENDATION: Routine annual follow-up in 1 Year Additional Recommendation none A letter with findings and recommendations will be mailed to the patient. Reading Location: [place] [id number]
--- OUTSIDE RECORDS SUMMARY | 2025-05-12 12:27 | XMS RPT_ITS | CCD ---
Author Organization [facility] Care Team Providers Care Cross Tie Maker Name Role Phone Jesus HOWE, Silva Primary Care Provider Silva Pepper MD Primary Care Provider Renée Caraballo PA-C Unavailable Older CONDUCTOR FREIGHT.HUSSEIN, Marielle Unavailable Carola Simeon PA-C Unavailable Dr. Silva Pepper MD Primary Care Provider Dr. Barrett Almendarez DO Referring Provider Dr. Barrett Almendarez DO Emergency Provider RAUH-JOSE, YANI A Attending Unavailable WISWELL, MK Referring Unavailable GANTA, SILVA Primary Care Unavailable RAUH-JOSE, YANI A Attending Unavailable GANTA, SILVA Primary Care Unavailable RAUH-JOSE, YANI A Admitting Unavailable RAUH-JOSE, YANI A Attending Unavailable RAUH-JOSE, YANI A Referring Unavailable GANTA, SILVA Primary Care Unavailable RAUH-JOSE, YANI A Referring Unavailable GANTA, SILVA Primary Care Unavailable RAUH-JOSE, YANI A Attending Unavailable SELF Referring Unavailable GANTA, SILVA Primary Care Unavailable Ganta, Silva Primary Care Unavailable OLDER, MARIELLE Referring Unavailable OLDER, MARIELLE Attending Unavailable Noelle Trinh Attending Unavailable Ganta, Silva Primary Care Unavailable Ganta, Silva Primary Care Unavailable Barrett Almendarez Referring Unavailable Barrett Almendarez Attending Unavailable ZULEMA CAVAZOS Referring Unavailable GANTA, SILVA Primary Care Unavailable GANTA, SILVA Primary Care Unavailable OLDER, MARIELLE Attending Unavailable GANTA, SILVA Primary Care Unavailable WISWELL, MK Referring Unavailable OLDER, MARIELLE Attending Unavailable GANTA, SILVA Primary Care Unavailable GANTA, SILVA Primary Care Unavailable WISWELL, MK Referring Unavailable RA-JOSE, YANI A Referring Unavailable GANTA, SILVA Primary Care Unavailable GANTA, SILVA Primary Care Unavailable RA-JOSE, YANI A Referring Unavailable GANTA, SILVA Primary Care Unavailable WISWELL, MK Referring Unavailable GANTA, SILVA Primary Care Unavailable WISWELL, MK Attending Unavailable GANTA, SILVA Primary Care Unavailable CAVAZOS, ZULEMA Attending Unavailable CAVAZOS, ZULEMA Referring Unavailable GANTA, SILVA Primary Care Unavailable OLDER, MARIELLE Referring Unavailable CAVAZOS, ZULEMA Attending Unavailable GANTA, SILVA Primary Care Unavailable GANTA, SILVA Primary Care Unavailable GANTA, ISLVA Referring Unavailable OLDER, MARIELLE Referring Unavailable GANTA, SILVA Primary Care Unavailable Allergies Allergy Classification Reported Allergen(s) Allergy Type Date of Onset Reaction(s) Facility (20 sources) Amoxicillin; Translations: [AMOXICILLIN] Drug Allergy 6 [facility] Work Phone: (20 sources) Sulfonamides (Antibiotic); Translations: [SULFA (SULFONAMIDE ANTIBIOTICS)] Drug Allergy 6 [facility] (1 source) Penicillins Allergy to substance [address] [place] [address] (1 source) Penicillins Drug allergy (disorder) [address] [place] [address] Repository Medications Current Medications Medication Drug Class(es) Dates Sig (Normalized) Sig (Original) acetaminophen 325 mg oral tablet (3 sources) Start: 10-20-2024 take 2 tablets by mouth every four hours as needed acetaminophen (TYLENOL) 325 mg tablet Take 2 tablets by mouth every 4 hours as needed for pain. 30 tablet 10/20/2024 Active enteric contrast (will be provided with radiology test) (1 source) Start: 08-02-2024 End: 08-03-2024 enteric contrast (will be provided with radiology test) Indications: Cyst of ovary, unspecified laterality , Elevated cancer antigen 125 (CA-125) For CT ABD/PEL W IVCON Routine order Administer, As Directed One Time Only, via Oral, Rectal, both Oral and Rectal, Enteric Tube, Stoma or Indwelling Catheter, Enteric Contrast as designated per enteric contrast guidelines 1 Each 08/02/2024 08/03/2024 Active ibuprofen 600 mg oral tablet (2 sources) Nonsteroidal Anti-inflammatory Drug Start: 10-20-2024 End: 11-19-2024 take 1 tablet by mouth every six hours as needed for pain Ibuprofen 600 mg tablet Active 600 mg PO EVERY 6 HOURS NEEDED as needed for fever or pain October 27, 2024 12:00am iv contrast (will be provided with radiology test) (1 source) Start: 08-02-2024 End: 08-03-2024 iv contrast (will be provided with radiology test) Indications: Cyst of ovary, unspecified laterality , Elevated cancer antigen 125 (CA-125) CT ABD/PEL -Inject, intravenously, once for 1 dose.No IV access, insert saline lock prior to the beginning of sedation, infusion, injection of imaging exam. Discontinue saline lock post exam. If Pt. has a central line or IVAD, may access for administration according to line specific nursing protocol. Once exam is complete flush line and de-access according to line specific nursing protocol in the CT contrast administration guidelines link. 1 Each 08/02/2024 08/03/2024 Active Lactobacillus acidophilus (4 sources) Lactobacillus acidophilus (PROBIOTIC ACIDOPHILUS ORAL) Take by mouth once daily. Active nirmatrelvir tablet 300 mg (150 mg x 2) and ritonavir tablet 100 mg in a dose pack (PAXLOVID) (1 source) Start: 03-28-2023 End: 04-02-2023 nirmatrelvir tablet 300 mg (150 mg x 2) and ritonavir tablet 100 mg in a dose pack (PAXLOVID) Indications: COVID-19 virus infection Administer TWO pink nirmatrelvir 150 mg tablets and ONE white ritonavir 100 mg tablet for a total of three tablets twice daily. 30 tablet 0 03/28/2023 04/02/2023 Active Comment on above: Administer TWO pink nirmatrelvir 150 mg tablets and ONE white ritonavir 100 mg tablet for a total of three tablets twice daily. ondansetron 4 mg disintegrating oral tablet (4 sources) Serotonin-3 Receptor Antagonist Start: 10-20-2024 take 1 tablet by mouth every eight hours as needed ondansetron orally disintegrating (ZOFRAN ODT) 4 mg disintegrating tablet Take 1 tablet by mouth every 8 hours as needed for nausea/vomiting. 10 tablet 10/20/2024 12:27 PM EDT 10/20/2024 Active oxyCODONE hydrochloride 5 mg oral tablet (1 source) Opioid Agonist Start: 10-27-2024 Oxycodone 5 mg tablet Active 5 mg PO as needed for pain October 27, 2024 12:00am psyllium seed, with sugar, (METAMUCIL, SUGAR, ORAL) (4 sources) psyllium seed, w ith sugar, (METAMUCIL, SUGAR, ORAL) Take by mouth once daily. Active rosuvastatin calcium 5 mg oral tablet (5 sources) HMG-CoA Reductase Inhibitor Start: 10-27-2024 take 1 tablet by mouth once daily Rosuvastatin 5 mg tablet Active 5 mg PO DAILY October 27, 2024 12:00am Start: 12-16-2023 End: 04-19-2024 take 1 tablet by mouth once daily rosuvastatin (CRESTOR) 5 mg tablet Take 1 tablet by mouth once daily. 30 tablet 5 12/16/2023 04/19/2024 Discontinued Problems Active Problems Problem Classification Problem Date Documented Da te Episodic/Chronic Complications of surgical procedures or medical care (1 source) Postoperative fever; Translations: [Postprocedural fever] 10-27-2024 Episodic Disorders of lipid metabolism (20 sources) Mixed hyperlipidemia; Translations: [Mixed hyperlipidemia] Onset: 01-09-2016 01-09-2016 Chronic E Codes: Natural/environment (2 sources) Repetitive motion disorder; Translations: [Overexertion from repetitive movements, initial encounter] Episodic Endometriosis (1 source) Endometriosis, unspecified; Translations: [Endometriosis] Onset: 11-01-2024 Chronic Fever of unknown origin (2 sources) Pyrexia of unknown origin; Translations: [Fever, unspecified] Onset: 11-02-2024 12-19-2023 Episodic Menopausal disorders (1 source) Atrophy of vagina; Translations: [Postmenopausal atrophic vaginitis] 06-08-2024 Chronic Nonmalignant breast conditions (1 source) Breast finding ; Translations: [Dense breast tissue] 06-08-2024 Episodic Other aftercare (1 source) Surgical follow-up; Translations: [Encounter for follow-up examination after completed treatment for conditions other than malignant neoplasm] 11-01-2024 Episodic Other and unspecified benign neoplasm (2 sources) Neuroma; Translations: [Benign neoplasm of peripheral nerves and autonomic nervous system, unspecified] Episodic Other and unspecified benign neoplasm (1 source) Multiple benign melanocytic nevi ; Translations: [Melanocytic nevi, unspecified] Episodic Other and unspecified benign neoplasm (1 source) Senile angioma; Translations: [Hemangioma of skin and subcutaneous tissue] Episodic Other and unspecified benign neoplasm (1 source) Dermatofibroma of right lower limb; Translations: [Other benign neoplasm of skin of right lower limb, including hip] Episodic Other connective tissue disease (1 source) Pain in both feet; Translations: [Pain in right foot] Episodic Other gastrointestinal disorders (3 sources) Abdominal bloating; Translations: [Abdominal distension (gaseous)] 06-08-2024 Episodic Other nervous system disorders (20 sources) Piriformis syndrome; Translations: [Lesion of sciatic nerve, unspecified lower limb] Onset: 01-09-2016 01-09-2016 Chronic Other nervous system disorders (1 source) Other acute postprocedural pain; Translations: [Postoperative pain] Onset: 10-20-2024 Episodic Other skin disorders (1 source) Lentiginosis; Translations: [Other melanin hyperpigmentation] Episodic Other skin disorders (1 source) Seborrheic keratosis; Translations: [Other seborrheic keratosis] Episodic Residual codes; unclassified (3 sources) Family history of malignant neoplasm of skin; Translations: [Family history of malignant neoplasm of other organs or systems] Episodic Residual codes; unclassified (2 sources) Early satiety; Translations: [Early satiety] 06-08-2024 Episodic Viral infection (1 source) Disease caused by 2019-nCoV; Translations: [COVID-19] 03-28-2023 Episodic Past or Other Problems Problem Classification Problem Date Documented Da te Episodic/Chronic Abdominal pain (20 sources) Female genital organ symptoms; Translations: [Pelvic and perineal pain] Onset: 06-08-2021 06-08-2021 Episodic Other connective tissue disease (20 sources) Female pelvic floor dysfunction; Translations: [Other specified disorders of muscle] Onset: 06-08-2021 06-08-2021 Episodic Other female genital disorders (20 sources) Finding of contents of uterus; Translations: [Noninflammatory disorder of uterus, unspecified] Onset: 06-15-2024 06-15-2024 Episodic Other female genital disorders (20 sources) Cyst of uterine adnexa; Translations: [Other noninflammatory disorders of ovary, fallopian tube and broad ligament] Onset: 06-15-2024 06-15-2024 Episodic Other gastrointestinal disorders (1 source) Constipation, unspecified; Translations: [Constipation, unspecified constipation type] Onset: 09-22-2024 Episodic Other gastrointestinal disorders (1 source) Abdominal distension (gaseous); Translations: [Bloating] Onset: 06-08-2024 Episodic Other screening for suspected conditions (not mental disorders or infectious disease) (19 sources) Patient encounter status; Translations: [Encounter for screening for diabetes mellitus] Onset: 06-03-2024 Episodic Ovarian cyst (20 sources) Complex cyst of left ovary; Translations: [Other ovarian cyst, left side] Onset: 06-15-2024 06-15-2024 Episodic Residual codes; unclassified (20 sources) Family history of neoplasm of breast; Translations: [Family history of other specified conditions] Onset: 01-09-2016 01-09-2016 Episodic Residual codes; unclassified (1 source) Early satiety; Translations: [Early satiety] Onset: 06-08-2024 Episodic Results Test Name Value Interpretation Reference Range Facility [facility] 11-01-2024 [facility] Visit (SP) Office (REBECCA) -- TRAY BOBBY ([id number]) 1950 F Date Time Provider Department 11/01/24 10:30 AM YANI CASANOVA During your visit today, we recorded the following information about you: Temperature Pulse Blood pressure Weight 97.7 degrees 82/minute 145/81 54 kg Yani Casanova MD 11/01/2024 11:09 AM Signed Gynecologic Oncology Note [facility] Chief complaint: Postop visit HPI: This is a 74 year old patient with a history of endometriosis and HLD s/p Exam under anesthesia, Laparoscopic lysis of adhesions, Laparoscopic left salpingo-oophorectomy, Proctoinsuffulation, Cystoscopy on 10/20/24 for a left sided ovarian cyst and endometrial cavity fluid here for postop visit. During surgery, she was found to have adhesive disease likely 2/2 to endometriosis and also had a uterine perforation. Due to adhesions to of the uterus to the bowel and lack of bowel prep, decision was made to not proceed with hysterectomy portion in the setting of suspected benign disease. Today she feels well. No complaints. Eating and drinking well. Having normal bowel movements. Patient notes at home fever earlier this week, for which she went to outside ED. Temp on arrival to ED was wnl. Work up revealed mild leukocytosis, of 11k, but was otherwise unremarkable. Of note they did not obtain a CT of her abdomen. She notes that she has not had any further fevers since, and overall feels well. Some mild pain at incision sites, but otherwise minimal pain. ROS: 14 point ROS negative unless indicated in above HPI. Medical history: PAST MEDICAL HISTORY Diagnosis Date Arthritis Calculus of gallbladder without mention of cholecystitis or obstruction cholecystectomy Endometriosis Infertility, female Ovarian cyst Surgical history: PAST SURGICAL HISTORY Procedure Laterality Date ABDOMINAL SURGERY HX BREAST BIOPSY X2- negative COLONOSCOPY FLX DX W/COLLJ SPEC WHEN PFRMD 05/04/2021 tubular adenoma, repeat in 5 years ENDOMETRIAL BIOPSY 06/25/2024 LAPS SURG CHOLECYSTECTOMY W/CHOLANGIOGRAPHY Jennifer OOPHORECTOMY PARTIAL/TOTAL UNI/BI 1983 RIGHT-ENDOMETRIOSIS REMOVAL GALLBLADDER laparoscopic TONSILLECTOMY AND ADENOIDECTOMY TONSILLECTOMY HX Director Report history: Endometriosis with removal of left ovary many years ago. 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 Family history: Family History Problem Relation Age of Onset Breast Cancer Mother DC, CVA Skin Cancer Father Breast Cancer Sister Skin Cancer Sister Breast Cancer Sister Breast Cancer Paternal Grandmother Breast Cancer Other cousin Colon Cancer No Family History Uterine Cancer No Family History Pancreatic Cancer No Family History Social history: Social History Tobacco Use Smoking status: Never Smokeless tobacco: Never Vaping Use Vaping status: Never Used Substance Use Topics Alcohol use: No Drug use: No Medications: Current Outpatient Medications Medication Sig Dispense Refill ondansetron orally disintegrating (ZOFRAN ODT) 4 mg disintegrating tablet Take 1 tablet by mouth every 8 hours as needed for nausea/vomiting. 10 tablet 0 acetaminophen (TYLENOL) 325 mg tablet Take 2 tablets by mouth every 4 hours as needed for pain. 30 tablet 0 ibuprofen (MOTRIN) 600 mg tablet Take 1 tablet by mouth every 6 hours as needed for pain. 30 tablet 0 Lactobacillus acidophilus (PROBIOTIC ACIDOPHILUS ORAL) Take by mouth once daily. psyllium seed, with sugar, (METAMUCIL, SUGAR, ORAL) Take by mouth once daily. No current facility-administered medications for this visit. Healthcare maintenance: Colonoscopy: up to date, repeat recommended in 2025 Mammogram: up to date, negative Pap smear: up to date, all negative PE: EGOG PS 0 BP 145/81 (BP Site: Left Arm, BP Position: Sitting, BP Cuff Size: Regular Adult) Pulse 82 Temp 36.5 ?C (97.7 ?F) (Oral) Wt 54 kg (119 lb) SpO2 99% BMI 23.24 kg/m? Gen: well appearing Card: regular rate Resp: comfortable on room air Abd: soft, non-tender. 4 well healing port sites covered with skin glue. No surrounding erythema. Extremity: No edema or erythema Pelvic: deferred Labs/Imaging: TVUS 06/15/24: The uterus is anteverted and measures 51 mm x 15 mm x 30 mm. The endometrial thickness is 2 mm. There is fundal anechoic endometrial fluid. There is a left lateral wall posterior calcified fibroid that measures 7 mm x 7 mm x 5 mm. The right ovary is not visualized. There is a right 6 mm x 4 mm x 4 mm. simple paraovarian/paratubal cyst. The left ovary measures 22 mm x 27 mm x 11 mm and contains a 7 mm x 15 mm x 15 mm. Unilocular non-simple cyst (internal debris and/or incomplete septation) with smooth inner wall. O-RADS 2 There is no free fluid visualized. CT A/P 08/05/24: IMPRESSION: 1. No acute intra-abdominal (more content not included)... Normal [facility] Absolute lymphocyte countOrd ered By: Barrett Almendarez on 10-27-2024 Lymphocytes Auto (Unsp spec) [#/Vol] 1.61 10*3/uL 0.83-4.51 [facility] Absolute neutrophil countOrd ered By: Barrett Almendarez on 10-27-2024 Neutrophils (Bld) [#/Vol] 8.3 10*3/uL High 2.0-7.7 [facility] Anion gap in Serum or Plasma Ordered By: Barrett Almendarez on 10-27-2024 Anion gap [Moles/Vol] 12 mmol/L 5-15 [facility] Automated lymphocyte count a s percentage of total leukocytesOrdered By: Barrett Almendarez on 10-27-2024 Lymphocytes/100 WBC Auto (Unsp spec) 14.4 % Low - [facility] BUN/creatinine ratioOrdered By: Barrett Almendarez on 10-27-2024 Urea nitrogen/Creatinine [Mass ratio] 18.8 mg/mg - [facility] Basic Metabolic Profile (BMP )on 10-27-2024 BUN/CRE 18.8 RATIO Normal - [facility] Comment on above: Performed By: #### M 100.505 #### [facility] Laboratory [address] [place], [address] Calcium [Mass/Vol] 9.0 mg/dL Normal 7.6-11.0 [facility] Comment on above: Performed By: #### M 100.505 #### [facility] [address] [place], [address] Chloride [Moles/Vol] 99 mmol/L Normal 98-108 [facility] Comment on above: Performed By: #### M 100.505 #### [facility] [address] [place], [address] CO2 [Moles/Vol] 23.7 mmol/L Normal 21.0-32.0 [facility] Comment on above: Performed By: #### M [id number] #### [facility] [address] [place], [address] Creatinine [Mass/Vol] 0.71 mg/dL Normal 0.70-1.20 [facility] Comment on above: Performed By: #### M 100.505 #### [facility] [address] [place], [address] ECRCL 44.99 ml/min Low 50-250 [facility] Comment on above: Performed By: #### M 100.505 #### [facility] [address] [place], [address] GAP 12 Normal 5-15 [facility] Comment on above: Performed By: #### M 100.505 #### [facility] [address] [place], [address] GFR/1.73 sq M.predicted among non-blacks MDRD (S/P/Bld) [Vol rate/Area] 89 mL/min/{1.73_m2} Normal >60 [facility] Comment on above: Result Comment: mL/m in/1.73m2 CKD-EPI Creatinine Equation (2020) Performed By: #### M 100.505 #### [facility] [address] [place], [address] Glucose [Mass/Vol] 118 mg/dL High 70-99 [facility] Comment on above: Performed By: #### M 100.505 #### [facility] [address] [place], [address] Potassium [Moles/Vol] 4.0 mmol/L Normal 3.3-5.1 [facility] Comment on above: Performed By: #### M 100.505 #### [facility] [address] [place], [address] Sodium [Moles/Vol] 135 mmol/L Normal 133-145 [facility] Comment on above: Performed By: #### M 100.505 #### [facility] [address] [place], [address] Urea nitrogen [Mass/Vol] 13 mg/dL Normal 4-19 [facility] Comment on above: Performed By: #### M 100.505 #### [facility] [address] [place], [address] Basophil percentageOrdered B y: Barrett Almendarez on 10-27-2024 Basophils/100 WBC (Bld) 0.4 % 0-1 [facility] Bilirubin Test strip Ql (U)O rdered By: Barrett Almendarez on 10-27-2024 Bilirubin Ql (U) Negative Negative [facility] CBC W/Diff, Automatedon 10-01 Absolute Lymph 1.61 X10 3/uL Normal 0.83-4.51 [facility] Comment on above: Performed By: #### M 100.505 #### [facility] [address] [place], [address] Absolute Neut 8.3 X10 3/uL High 2.0-7.7 [facility] Comment on above: Performed By: #### M 100.505 #### [facility] [address] [place], [address] Basophils/100 WBC (Bld) 0.4 % Normal 0-1 [facility] Comment on above: Performed By: #### M 100.505 #### [facility] [address] [place], [address] Eosinophils/100 WBC (Bld) 1.3 % Normal 0-5 [facility] Comment on above: Performed By: #### M 100.505 #### [facility] [address] [place], [address] Erythrocyte distribution width (RBC) [Ratio] 13.5 % Normal 11.6-14.6 [facility] Comment on above: Performed By: #### M 100.505 #### [facility] [address] [place], [address] Hematocrit (Bld) [Volume fraction] 36.9 % Low 37-47 [facility] Comment on above: Performed By: #### M [id number] #### [facility] [address] [place], [address] Hemoglobin (Bld) [Mass/Vol] 12.2 g/dL Normal 12.0-15.0 [facility] Comment on above: Performed By: #### M 100.505 #### [facility] [address] [place], [address] IG% 0.700 Normal 0.0-0.9 [facility] Comment on above: Result Comment: IG% - Immature Granulocytes (promyelocytes, myelocytes and metamyelocytes) > 1% indicates that a LEFT SHIFT is Present. Performed By: #### M 100.505 #### [facility] [address] [place], [address] Lymphocytes/100 WBC (Bld) 14.4 % Low 19-41 [facility] Comment on above: Performed By: #### M 100.505 #### [facility] [place], [address] MCH (RBC) [Entitic mass] 28.9 pg Normal 27.0-32.0 [facility] Comment on above: Performed By: #### M 100.505 #### [facility] [address] [place], [address] MCHC (RBC) [Mass/Vol] 33.1 g/dL Normal 32-36 [facility] Comment on above: Performed By: #### M 100.505 #### [facility] [address] [place], [address] MCV (RBC) [Entitic vol] 87.4 fL Normal 81-99 [facility] Comment on above: Performed By: #### M [id number] #### [facility] [address] [place], [address] Monocytes/100 WBC (Bld) 8.8 % Normal 0-10 [facility] Comment on above: Performed By: #### M 100.505 #### [facility] [address] [place], [address] Neutrophils/100 WBC (Bld) 74.4 % High 47-70 [facility] Comment on above: Performed By: #### M 100.505 #### [facility] [address] [place], [address] Nucleated RBC (Bld) [#/Vol] 0 10*3/uL Normal 0-5 [facility] Comment on above: Performed By: #### M 100.505 #### [facility] [address] [place], [address] Platelet mean volume (Bld) [Entitic vol] 9.1 fL Normal 6.2-12.0 [facility] Comment on above: Performed By: #### M 100.505 #### [facility] [address] [place], [address] Platelets (Bld) [#/Vol] 271 10*3/uL Normal 150-450 [facility] Comment on above: Performed By: #### M 100.505 #### [facility] Laboratory [address] [place], [address] RBC (Bld) [#/Vol] 4.22 10*6/uL Normal 4.2-5.4 [facility] Comment on above: Performed By: #### M 100.505 #### [facility] Laboratory [address] [place], [address] RDW SD 43.5 fl Normal 35.1-43.9 [facility] Comment on above: Performed By: #### M 100.505 #### [facility] Laboratory [address] [place], [address] WBC (Bld) [#/Vol] 11.2 10*3/uL High 4.4-11.0 [facility] Comment on above: Performed By: #### M 100.505 #### [facility] Laboratory [address] [place], [address] Carbon dioxide, total [Moles /volume] in Central venous bloodOrdered By: Barrett Almendarez on 10-27-2024 CO2 [Moles/Vol] 23.7 mmol/L 21.0-32.0 [facility] Chest PA and Lateralon 10-27 Chest PA and Lateral [facility] Imaging Services [address] [place] [address] Chest PA and Lateral MR#: [id number] Acct: [id number] Name: TRAY BOBBY Rep #: [id number] : 1950 F 74 From: Derrick Berry MD PCP: Dr. Silva Pepper MD Status: REG ER Study: Chest PA and Lateral Date of Exam: 10/27/24 Exam# [id number] Ordering Dr: Barrett Almendarez DO PROCEDURE: CHEST PA AND LATERAL 10/27/2024 REASON FOR EXAM: FEVER TECHNIQUE: Frontal and lateral views of the chest. COMPARISON: 12/11/2023. FINDINGS: Hardware: None. Heart: The heart size is normal. Mediastinum: The mediastinal contour is unremarkable. Lungs: Bilateral calcified granulomas. No pleural effusion or pneumothorax. No consolidation. Bones: The bones are unremarkable. RAD/Chest PA and Lateral IMPRESSION: NO ACUTE FINDINGS. Calcified granulomas. Reading Location: [place] [address] CC: Dr. Silva Pepper MD; Barrett Almendarez DO Last Puller: Signed Normal [facility] Chloride assayOrdered By: Karen Almendarez on 10-27-2024 Chloride [Moles/Vol] 99 mmol/L 98-108 [facility] Emergency Department Summary on 10-27-2024 Emergency Department Summary [facility] Medical Records Department [address] [place] [address] Emergency Department Summary 10/27/24 MR#: [id number] Acct: [id number] Name: DIAMANTETRAY BULLADR Rep #: [id number] : 1950 74 From: Barrett Almendarez DO PCP: Dr. Silva Pepper MD Status:DEP ER Location: ED HPI History of Present Illness Chief Complaint: Fever Informant: patient and spouse/S.O. Narrative Narrative: Patient is a 74-year-old female with past medical history of osteoporosis osteoarthritis hyperlipidemia hyperlipidemia. 1 week ago she underwent laparoscopic surgery to remove her ovaries and she states that they plan to remove her uterus as well but it was adhered to her bowel and therefore they did not perform this aspect of the hysterectomy. She states that she stayed roughly 5 hours in PACU and was discharged home. She reports she has been doing well but this evening she felt chills and then checked her temperature and it was elevated at 100.4. She states she did not take any Tylenol or Motrin but with the fever and her recent surgery presents to the ER for evaluation. She states that otherwise she has been feeling normal without significant abdominal pain dysuria nausea vomiting congestion cough or sore throat. [facility] Medical History (Updated 10/28/24 @ 01:[address] Barrett Almendarez DO) Osteoarthritis Osteoporosis Home Medications ???Medication ???Instructions ???Recorded ???Last Taken ???Type ibuprofen 600 mg tablet 600 mg PO Q6H PRN PRN fever or lalit n 10/27/24 Unknown History ondansetron 4 mg disintegrating 4 mg PO Q8H PRN PRN nausea and Unknown History tablet vomiting oxycodone 5 mg tablet 5 mg PO PRN pain 10/27/24 Unknown History rosuvastatin 5 mg tablet 5 mg PO DAILY 10/27/24 Unknown His tory Allergy/AdvReac Type Severity Reaction Status Date / Time Penicillins Allergy Mild Rash Verified 10/27/24 19:24 Surgical History (Updated 10/27/24 @ 21:53 by Yasemin Jalloh) Hx of tonsillectomy H/O bilateral salpingo-oophorectomy History of cholecystectomy History of partial hysterectomy Social History Smoking Status: Never smoker ROS ROS ED Constitutional Constitutional ED: Reports chills and fever(s) Eyes Eyes: Denies change in vision ENT ENT ED: Denies rhinorrhea or sore throat Cardiovascular Cardiovascular: Denies chest pain Respiratory/Chest Respiratory/Chest: Denies cough or dyspnea Gastrointestinal Gastrointestinal: Denies abdominal pain, diarrhea, nausea or vomiting Genitourinary Genitourinary ED: Denies dysuria or hematuria Musculoskeletal Musculoskeletal: Denies myalgias Integumentary Denies rash Neurologic Neurologic: Denies headache(s) Hematologic/Lymphatic Hematologic/Lymphatic: Denies easy bleeding or easy bruising EXAM Physical Exam Const Vital Signs: 10/27/24 19:24 10/27/24 19:26 10/27/24 21:50 Temperature 98.6 F 98.6 F 98.5 F Temperature Source Oral Oral Oral Pulse Rate 104 H 104 H 97 Respiratory Rate 15 15 16 Respiratory Effort Respiratory Pattern Blood Pressure 157/72 H 157/72 H 163/73 H Blood Pressure Mean 100 100 103 Pulse Ox 95 95 96 Oxygen Delivery Method Room Air Room Air Room Air 10/27/24 22:00 10/27/24 22:26 10/27/24 23:00 Temperature 98.5 F 98.6 F Temperature Source Oral Oral Pulse Rate 85 84 Respiratory Rate 16 16 Respiratory Effort Normal Respiratory Pattern Normal Blood Pressure 140/68 H 146/57 H Blood Pressure Mean 92 86 Pulse Ox 96 99 Oxygen Delivery Method Room Air Room Air 10/27/24 23:44 Temperature 98.6 F Temperature Source Pulse Rate 84 Respiratory Rate 16 Respiratory Effort Respiratory Pattern Blood Pressure 146/57 H Blood Pressure Mean 86 Pulse Ox 99 Oxygen Delivery Method Positive well nourished and well developed General Appearance ED: well developed HEENT Reports moist mucous membranes HEENT Narrative: No tongue or lip swelling no oral lesions no airway edema or compromise No signs of infection noted in the posterior pharynx Eyes PERRL and EOMs intact bilaterally General Eye ED: Negative for scleral icterus Neck supple Neck Narrative: No nuchal rigidity or meningeal signs Resp normal respiratory effort and clear to auscultation bilaterally Resp Narrative: No nasal flaring retractions tachypnea or accessory muscle use No pleuritic chest pain reported Cardio regular rate and regular rhythm Rate: other Other Details: Regular rate and rhythm without murmurs rubs or gallops Radial and carotid pulses are equal and symmetric GI non-distended and no masses GI Narrative: Abdomen is soft and nondistended with hypoactive bowel sounds. There is mild diffus (more content not included)... Normal [facility] Eosinophil percentageOrdered By: Barrett Almendarez on 10-27-2024 Eosinophils/100 WBC (Bld) 1.3 % 0-5 [facility] Erythrocyte distribution wid th ratioOrdered By: Barrett Almendarez on 10-27-2024 Erythrocyte distribution width (RBC) [Ratio] 13.5 % 11.6-14.6 [facility] Erythrocyte distribution wid th standard deviationOrdered By: Barrett Almendarez on 10-27-2024 Erythrocyte distribution width (RBC) [Ratio] 43.5 fl 35.1-43.9 [facility] Glomerular filtration rate ( GFR) estimation/1.73 sq m using serum, plasma, or whole bOrdered By: Barrett Almendarez on 10-27-2024 GFR/1.73 sq M.predicted among non-blacks MDRD (S/P/Bld) [Vol rate/Area] 89 mL/min/{1.73_m2} >60 [facility] Comment on above: mL/min/1.73m2 CKD-EP I Creatinine Equation (2020) Hematocrit Auto (Bld) [Volum e fraction]Ordered By: Barrett Almendarez on 10-27-2024 Hematocrit (Bld) [Volume fraction] 36.9 % Low 37-47 [facility] Hemoglobin measurementOrdere d By: Barrett Almendarez on 10-27-2024 Hemoglobin (Bld) [Mass/Vol] 12.2 g/dL 12.0-15.0 [facility] Immature granulocytes/100 WB C Auto (Bld)Ordered By: Barrett Almendarez on 10-27-2024 Immature granulocytes/100 WBC (Bld) 0.700 % 0.0-0.9 [facility] Comment on above: IG% - Immature Granu locytes (promyelocytes, myelocytes and metamyelocytes) > 1% indicates that a LEFT SHIFT is Present. Influenza virus A and B and SARS-CoV-2 (COVID-19) and Respiratory syncytial virus RNAOrdered By: Barrett Almendarez on 10-27-2024 SARS-CoV-2 (COVID-19) RNA NIMISHA+probe Ql (Unsp spec) [facility] Ketones Test strip Ql (U)Ord ered By: Barrett Almendarez on 10-27-2024 Ketones Ql (U) 5 mg/dl High Negative [facility] Lactic Acidon 05-28-2025 Lactate [Moles/Vol] mmol/L Normal 0.0-2.0 [facility] Comment on above: Order Comment: Y Performed By: #### M 100.505 #### [facility] Laboratory [address] [facility] [place], [place], [id number] Lactic acid measurementOrder ed By: Barrett Almendarez on 10-27-2024 Lactate [Moles/Vol] mmol/L 0.0-2.0 [facility] M100.678on 10-27-2024 M100.678 Pending SARS-CoV-2 (COVID 19) Negative INFLUENZA A Negative INFLUENZA B Negative RSV PCR Negative Normal [facility] Comment on above: Performed By: #### M 100.678 #### [facility] Laboratory [address] [facility] [place], [place], [id number] MCV (mean corpuscular volume ) determinationOrdered By: Barrett Almendarez on 10-27-2024 MCV (RBC) [Entitic vol] 87.4 fL 81-99 [facility] Mean corpuscular hemoglobin (MCH) determinationOrdered By: Barrett Almendarez on 10-27-2024 MCH (RBC) [Entitic mass] 28.9 pg 27.0-32.0 [facility] Mean corpuscular hemoglobin concentration (MCHC) determinationOrdered By: Barrett Almendarez on 10-27-2024 MCHC (RBC) [Mass/Vol] 33.1 g/dL 32-36 [facility] Mean platelet volume determi nationOrdered By: Barrett Almendarez on 10-27-2024 Platelet mean volume (Bld) [Entitic vol] 9.1 fL 6.2-12.0 [facility] Microscopic analysis of urin e for red blood cells (RBC)Ordered By: Barrett Almendarez on 10-27-2024 Microscopic analysis of urine for red blood cells (RBC) 0-5 SEEN /hpf 0-5 [facility] Monocyte percentageOrdered B y: Barrett Almendarez on 10-27-2024 Monocytes/100 WBC (Bld) 8.8 % 0-10 [facility] Mucus LM Ql (Urine sed)Order ed By: Barrett Almendarez on 10-27-2024 Mucus Ql (Urine sed) 0 SEEN /hpf [facility] Neutrophil percentageOrdered By: Barrett Almendarez on 10-27-2024 Neutrophils/100 WBC (Bld) 74.4 % High 47-70 [facility] Nitrite Test strip Ql (U)Ord ered By: Barrett Almendarez on 10-27-2024 Nitrite Ql (U) Negative Negative [facility] Nucleated red blood cell per centageOrdered By: Barrett Almendarez on 10-27-2024 Nucleated RBC/100 WBC (Bld) [Ratio] 0 % 0-5 [facility] Platelet countOrdered By: Karen Almendarez on 10-27-2024 Platelets (Bld) [#/Vol] 271 10*3/uL 150-450 [facility] Potassium measurement (mass/ volume)Ordered By: Barrett Almendarez on 10-27-2024 Potassium (Unsp spec) [Mass/Vol] 4.0 mmol/L 3.3-5.1 [facility] Protein Test strip Ql (U)Ord ered By: Barrett Almendarez on 10-27-2024 Protein Ql (U) 15 mg/dl High Negative [facility] RBC Auto (Bld) [#/Vol]Ordere d By: Barrett Almendarez on 10-27-2024 RBC (Bld) [#/Vol] 4.22 10*6/uL 4.2-5.4 [facility] Serum creatinine measurement (mass/volume)Ordered By: Barrett Almendarez on 10-27-2024 Creatinine [Mass/Vol] 0.71 mg/dL 0.70-1.20 [facility] Serum glucose measurement (m ass/volume)Ordered By: Barrett Almendarez on 10-27-2024 Glucose [Mass/Vol] 118 mg/dL High 70-99 [facility] Serum or plasma calcium luis miguel urement (mass/volume)Ordered By: Barrett Almendarez on 10-27-2024 Calcium [Mass/Vol] 9.0 mg/dL 7.6-11.0 [facility] Serum or plasma urea nitroge n measurement (mass/volume)Ordered By: Barrett Almendarez on 10-27-2024 Urea nitrogen [Mass/Vol] 13 mg/dL 4-19 [facility] Sodium levelOrdered By: Markel Almendarez on 10-27-2024 Sodium [Moles/Vol] 135 mmol/L 133-145 [facility] Squamous epithelial cells de tection in urine sediment by light microscopyOrdered By: Barrett Almendarez on 10-27-2024 Epithelial cells.squamous LM Ql (Urine sed) 0-5 SEEN /hpf 5-10 [facility] Urinalysis, Completeon 10-27 EPI,SQUAMOUS 0-5 SEEN Normal 5-10 [facility] Comment on above: Order Comment: LEIGHA CTOR TO SPECIFY Performed By: #### M 100.505 #### [facility] Laboratory [address] [place], [address] RBC 0-5 SEEN Normal 0-5 [facility] Comment on above: Order Comment: LEIGHA CTOR TO SPECIFY Performed By: #### M 100.505 #### [facility] Laboratory [address] [place], [address] WBC 0-5 SEEN Normal 0-5 [facility] Comment on above: Order Comment: LEIGHA CTOR TO SPECIFY Performed By: #### M 100.505 #### [facility] Laboratory [address] [place], [address] BACTERIA 0 SEEN Normal None Seen [facility] Comment on above: Order Comment: LEIGHA CTOR TO SPECIFY Performed By: #### M 100.505 #### [facility] Laboratory [address] [place], [address] Mucus Ql (Urine sed) [address] [facility] Comment on above: Order Comment: LEIGHA CTOR TO SPECIFY Performed By: #### M 100.505 #### [facility] Laboratory [address] [place], [address] Urine clarityOrdered By: Norberto Almendarez on 10-27-2024 Clarity (U) Clear Clear [facility] Urine color determinationOrd ered By: Barrett Almendarez on 10-27-2024 Color (U) Yellow Yellow [facility] Urine glucose detectionOrder ed By: Barrett Almendarez on 10-27-2024 Glucose Ql (U) Normal mg/dl Normal [facility] Urine leukocyte esterase det ection by dipstickOrdered By: Barrett Almendarez on 10-27-2024 Leukocyte esterase Test strip Ql (U) 100 /ul High Negative [facility] Urine pHOrdered By: Barrett chao on 10-27-2024 pH (U) 6.5 [pH] 5.0 - 8.0 [facility] Urine sediment bacteria coun t by microscopy (number/high power field)Ordered By: Barrett Almendarez on 10-27-2024 Bacteria LM.HPF (Urine sed) [#/Area] 0 /[HPF] None Seen [facility] Urine specific gravity measu rementOrdered By: Barrett Almendarez on 10-27-2024 Specific gravity (U) [Rel density] 1.005 1.002-1.030 [facility] Urine urobilinogen measureme ntOrdered By: Barrett Almendarez on 10-27-2024 Urobilinogen Ql (U) Normal mg/dl Normal [facility] White blood cell (WBC) count Ordered By: Barrett Almendarez on 10-27-2024 WBC (Bld) [#/Vol] 11.2 10*3/uL High 4.4-11.0 [facility] White blood cell countOrdere d By: Barrett Almendarez on 10-27-2024 White blood cell count 0-5 SEEN /hpf 0-5 [facility] ANES POSTPROC EVALon 025 ANES POSTPROC EVAL HNO ID: [id number] Author: REFUGIO SANTOS MD Service: Anesthesiology Author Type: Anesthesiologist Type: Anesthesia Postprocedure Evaluation Filed: 10/22/2024 08:17 Note Text: POST ANESTHESIA EVALUATION NOTE : 1950 Procedure Summary Date: 10/20/24 Room / Location: [facility] OR 05 / [place] OR Anesthesia Start: 1109 Anesthesia Stop: 1334 Procedures: EXAM UNDER ANESTHESIA PELVIC / VAGINAL (Pelvis) CYSTOSCOPY (Bladder) SALPINGO-OOPHORECTOMY - Laparoscopic (Left) ENTEROLYSIS ADULT (Abdomen) PROCTOSCOPY (Colon Sigmoid) Diagnosis: Complex cyst of left ovary (Complex cyst of left ovary [N83.292]) Surgeons: Yani Casanova MD Responsible Provider: Refugio Santos MD Anesthesia Type: general ASA Status: 2 Anesthesia Type: general Airway Type: ETT Last Vitals Vitals Value Taken Time BP 137/59 10/20/24 1730 Temp 36.1 ?C (97 ?F) 10/20/24 1515 HR SpO2 68 10/20/24 1745 Resp 11 10/20/24 1616 SpO2 93 % 10/20/24 1745 Vitals shown include unfiled device data. Post Anesthesia Patient Status Patient Evaluation: PACU. PACU/ICU Patient Condition: stable. Anticipated Disposition: phase 2 then home. Neurological Status: aware and responsive. Pulmonary Status: breathing comfortably on room air Airway Control: returned to baseline unsupported. Cardiovascular Status: stable. Pain Management: clinically adequate Postoperative Hydration: acceptable. Intraoperative Events: no significant anesthesia events Post Operative Nausea/Vomiting Status: no significant post operative nausea or vomiting Recommendation: continue current plan of care. Anesthesia Observations No Documentation SIGNATURE: Refugio Santos MD PATIENT NAME: Tray Bobby DATE: October 22, 2024 TIME: 8:16 AM CSN: [id number] Normal [facility] ANES PRE-OPon 10-20-2024 ANES PRE-OP HNO ID: [id number] Author: REFUGIO SANTOS MD Service: Anesthesiology Author Type: Anesthesiologist Type: Anesthesia Preprocedure Evaluation Filed: 10/20/2024 09:59 Note Text: ANESTHESIOLOGY DAY OF SURGERY NOTE : 1950 Procedure Information Date/Time: 10/20/24 1030 Procedures: LAPAROSCOPIC HYSTERECTOMY TOTAL FOR UTERUS 250 G OR LESS W/REMOVAL TUBE(S) AND/OR OVARY(S) (Bilateral: Pelvis) EXAM UNDER ANESTHESIA PELVIC / VAGINAL (Pelvis) CYSTOSCOPY (Bladder) Location: [place] OR / OR Surgeons: Yani Casanova MD Estimated body mass index is 23.32 kg/m? as calculated from the following: Height as of 10/13/24: 152.4 cm (5'). Weight as of 10/13/24: 54.2 kg (119 lb 6.4 oz). Most recent hematocrit and potassium results: Hematocrit 40.7 10/11/2024 Potassium 4.0 10/11/2024 Relevant Problems No relevant active problems I - PHYSICAL EVALUATION AIRWAY Patient intubated: No. Tracheostomy tube not present Mallampati: II. TM distance: >3 FB. Neck ROM: full ROM without neurological symptoms. Mouth opening: adequate. Short neck: no. Thick neck: no DENTAL Dental findings: teeth intact. Additional exam findings: yes. CARDIOVASCULAR Rhythm: regular Rate: normal PULMONARY Breath sounds clear to auscultation. II - ANESTHESIA PLAN ASA Score: 2 Anesthetic Plan: general Airway type: ETT The patient is not a current smoker. NPO Status: adequate [facility] Monitoring Plan Monitoring plan: standard ASA. Post Procedure Analgesic Plan Postoperative analgesic plan: multimodal analgesia. Informed Consent Anesthetic risks, benefits, alternatives, personnel and consent discussed: yes. Patient / Responsible Alliance Party agrees to proceed: yes Patient / Surrogate agrees to blood products: Yes Vitals Value Taken Time BP 140/86 10/20/24927 Pulse 75 10/20/24927 Resp 18 10/20/24927 Temp 36.7 ?C (98.1 ?F) 10/20/24927 SpO2 96 % 10/20/24927 Facility-Administered Medications as of 10/20/2024 Medication Dose Route Frequency lidocaine (PF) 10 mg/mL (1 %) 1-2 mg injection (XYLOCAINE) 0.1-0.2 mL INTRADERMAL PRN lactated ringers iv infusion 5-30 mL/hr INTRAVENOUS CONTINUOUS NaCl 0.9% iv flush bag 20 mL INTRAVENOUS PRN [COMPLETED] heparin 5,000 Units injection 5,000 Units SUBCUTANEOUS Pre-Op Once [COMPLETED] acetaminophen 975 mg tab(s) (TYLENOL) 975 mg ORAL Pre-Op Once [COMPLETED] celecoxib 400 mg cap(s) (CeleBREX) 400 mg ORAL Pre-Op Once metroNIDAZOLE iv piggyback 500 mg in NaCl (iso-osmotic) 100 mL (FLAGYL) 500 mg INTRAVENOUS Pre-Op Once And aztreonam 2 g in D5W 100 mL Vial-Bag (AZACTAM) 2 g INTRAVENOUS Pre-Op Once [COMPLETED] phenazopyridine 200 mg tab(s) (PYRIDIUM) 200 mg ORAL Pre-Op Once Outpatient Medications as of 10/20/2024 Medication Sig Lactobacillus acidophilus (PROBIOTIC ACIDOPHILUS ORAL) Take by mouth once daily. psyllium seed, with sugar, (METAMUCIL, SUGAR, ORAL) Take by mouth once daily. I have interviewed and examined the patient. I have reviewed the medical record and/or the pre-anesthesia evaluation, pertinent labs, and test results. This contains updated information obtained within 48 hours of Surgery/Procedure. SIGNATURE: Refugio Santos MD PATIENT NAME: Tray Bobby DATE: October 20, 2024 TIME: 9:59 AM CSN: [id number] Normal [facility] CONFIRM BLOOD TYPEon 025 ABO B Normal [facility] Comment on above: Order Comment: Speci men Type: BLOOD SPECIMEN Ordering Facility: [facility] Address: [address] [place] [address] Performed By: #### C ONABO #### [facility] CLIA [id number] [address] [place] Rh Nom (Bld) Positive Normal [facility] Comment on above: Order Comment: Speci men Type: BLOOD SPECIMEN Ordering Facility: [facility] Address: [address] [place] [address] Performed By: #### C ONABO #### [facility] CLIA [id number] [address] [place] [address] [place] CYTOLOGY NON-GYNon 5 AP DISCLAIMER Normal [facility] Comment on above: Order Comment: Speci men Type: SPECIMEN OBTAINED BY LAVAGEOrdering Facility: [facility] Address: [address] [place] [address] Result Comment: Yvette perez Developed Test (LDT) Disclaimer: Performance characteristics of immunohistochemical, immunofluorescent, and chromogenic in-situ hybridization tests have been determined by the performing laboratory within [facility]'s [facility] Pathology and Laboratory Medicine Department ([facility], [facility], [facility], [facility], [facility], [facility], or [facility]) in a manner consistent with CLIA requirements. One or more of these tests may not have been cleared or approved by the FDA. [facility] is regulated under CLIA as qualified to perform high-complexity testing. These tests are used for clinical purposes. These should not be regarded as investigational or for research. Positive and negative controls stain appropriately. Performed By: #### C YTONON ####[facility] [id number] [address] CASE REPORT Normal [facility] Comment on above: Order Comment: Speci men Type: SPECIMEN OBTAINED BY LAVAGEOrdering Facility: [facility] Address: [address] [place] [address] Result Comment: [facility] Cytology Report Case: [id number] Authorizing Provider: Yani Casanova MD Collected: 10/20/2024 11:50 AM Ordering Location: [facility] Received: 10/21/2024 05:28 AM Pathologist: Leti Bush MD Specimen: Pelvic, PELVIC WASHINGS Performed By: #### C YTONON ####[facility] [id number] [address] CLINICAL HISTORY Normal [facility] Comment on above: Order Comment: Speci men Type: SPECIMEN OBTAINED BY LAVAGEOrdering Facility: [facility] Address: [address] [place] [address] Result Comment: Pre- op diagnosis: Complex cyst of left ovary [N83.292] Performed By: #### C YTONON ####[facility] [id number] [address] FINAL DIAGNOSIS Normal [facility] Comment on above: Order Comment: Speci men Type: SPECIMEN OBTAINED BY LAVAGEOrdering Facility: [facility] Address: [address] [place] [address] Result Comment: A - Pelvic, Wash - PELVIC WASHINGS Negative for malignant cells. The following cell blocks were associated with this case: A1\X09\Cell Block, Formalin Fixed\X09\ at 1349 EDT Performed By: #### C YTONON ####[facility]ATORYCLIA [id number] [address] FINAL PERFORMING LAB Normal [facility] Comment on above: Order Comment: Speci men Type: SPECIMEN OBTAINED BY LAVAGEOrdering Facility: [facility] Address: [address] [place] [address] Result Comment: Tech nical component, software configuration engineer screening performed at: [facility], [address] [address] CLIA: [id number] Diagnostic interpretation performed at: [facility], [address] [address] CLIA# [id number] Fabric Machine Operator: Suman Posey MD Performed By: #### C YTONON ####[facility]ATORYCLIA [id number] [address] GROSS DESCRIPTION A. Pelvic Normal [facility] Comment on above: Order Comment: Speci men Type: SPECIMEN OBTAINED BY LAVAGEOrdering Facility: [facility] Address: [address] [place] [address] Result Comment: 30 c c hazy pink fluid. ThinPrep and Cell Block prepared. Performed By: #### C YTONON ####[facility]ATORYCLIA [id number] [address] ORDER COMMENT Normal [facility] Comment on above: Order Comment: Speci men Type: SPECIMEN OBTAINED BY LAVAGEOrdering Facility: [facility] Address: [address] [place] [address] Result Comment: Pre- op diagnosis: Complex cyst of left ovary [N83.292] Performed By: #### C YTONON ####[facility]ATORYCLIA [id number] [address] [place] NURSING PROGon 10-20-2024 NURSING PROG HNO ID: [id number] Author: STEPHIE COOK RN Service: Nursing Author Type: Registered Nurse Type: Nursing Progress Note Filed: 10/20/2024 09:35 Note Text: Sent epic message to Dr Saldana regarding patient having a ring on bilateral ring fingers, will let Dr Santos know Normal [facility] OPERATIVE NOon 10-20-2024 OPERATIVE NO HNO ID: [id number] Author: YANI CASANOVA MD Service: Gynecology Oncology Author Type: Physician Type: Operative Report Filed: 10/20/2024 13:53 Note Text: OPERATIVE/PROCEDURE REPORT LOG ID: [id number] SURGERY/PROCEDURE DATE: 10/20/2024 INCISION/PROCEDURE START TIME: 11:37 AM INCISION CLOSE/PROCEDURE END TIME: 1:21 PM SURGEON(S)/PROCEDURALIST(S ) AND ASSEMBLER FITTER(S): Surgeons and Role: * Yani Casanova MD - Primary * Flores Serrato MD - Resident - Assisting * Angy Canas DO - Resident - Assisting No Additional Staff PREOPERATIVE DIAGNOSIS: Elevated Ca-125 Left ovarian cyst H/o of endometriosis H/o of prior RSO POSTOPERATIVE DIAGNOSIS: Same Left ovary cyst 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 Surgically absent right ovary. Small left ovarian cyst, left adnexa densely adhere to sigmoid mesentery. Obliterated posterior cul de sac on left - rectum inseparable from uterus. Grossly normal uterus. Proctoinsuffulation neg x 2. Cystoscopy with brisk efflux from bilateral ureteral orifices and intact bladder dome. SPECIMENS: Pelvic washings Left ovary and fallopian tube EBL: 25 cc UOP: 400 cc COMPLICATIONS: None INDICATIONS FOR PROCEDURE: This is a 74 yo with episode of bloating found to have small left ovarian cyst and CA125 60 and repeat 68. Given this, we discussed possible ovarian or fallopian tube pathology and this could only be ruled out with surgical removal. She agreed to proceed after discussion of risks and benefits. SURGERY DETAILS: Huddle was performed in preoperative holding. Heparin was given. She was taken to the OR, where general anesthesia was found to be adequate. Arms were carefully tucked at her sides and she was placed in dorsal lithotomy position. OG tube was placed. She was prepped and draped in the usual sterile fashion. Hurtado was inserted. Timeout was performed and we confirmed antibiotics were given. A 5 mm incision was made at Lr's point and Veress needle introduced with an opening pressure of 5. Once a pressure of 15 was reached, a 5 mm port was placed using the Optiview technique. We confirmed no injury upon entry and survey was performed with findings as noted above. 3 additional 5 mm ports were placed at bilateral lower quadrants and above umbilicus. Filmy adhesions between omentum and abdominal wall were taken down with Ligasure. She was placed in Trendelenburg and more adhesions were taken down to allow bowel to fully shift to the upper abdomen. Washings were obtained. We turned to the pelvis and speculum was inserted and cervix grasped with tenaculum. Even with gentle dilation, fundal perforation occurred leaving a 2 cm defect. The RLQ port was increased to 10 mm port to allow passage of a suture. This was sutured with 0 Vlock in a running two layer fashion. We were then able to place a GALINDO II manipulator. We turned to the left adnexa. It was densely adhere to the sigmoid and uterus. The left round was coagulated and cut and retroperitoneum opened and we identified external and internal iliac artery, uterine artery at the origin and ureter. We then coagulated and cut the IP and utero-ovarian ligaments. The ovary remained densely stuck to the peritoneum and this was lifted off with sharply dissection - left ovary and fallopian tube were placed in an endobag and removed for frozen. Further exploration indicated obliterated posterior cul de sac on the left. I was concerned that any attempt to separate the uterus from the rectum would result in injury. Given no uterine symptoms and normal stripe on ultrasound, I ultimately decided to leave the uterus due to high risk of rectal injury, unprepped bowel, and no preop discussion regarding bowel resection - the risks outweighed benefits. Abdomen was filled with sterile water and leak test was negative x 2. Cystoscopy was performed with findings as noted above. Frozen returned as benign. Abdomen and pelvis were irrigated and Floseal used for excellent hemostasis. Fascia was closed on RLQ port was 0 Vicryl using Moises-Lucia device. All other ports were removed. Skin was closed with 4-0 Monocryl. Hurtado was removed. Speculum was reinserted and Monsel's was placed on tenaculum sites. She was taken out of dorsal lithotomy, extubated, and taken to PACU in good condition after all counts were correct. A digital sweep of the vaginal canal was performed by myself and it was ascertained that no instruments or other foreign bodies are retained within the cavity. PARTICIPATION IN SURGERY/PROCEDURE: I/primary surgeon/proceduralist performed the procedure with assistance. Yani Casanova MD, MPH Gynecologic Oncologist Normal [facility] Pathology biopsy report Danny (Tiss)on 10-20-2024 AP DISCLAIMER [facility] Comment on above: Order Comment: Speci men Type: TISSUE SPECIMENOrdering Facility: [facility] Address: [address] [place] [address] Result Comment: Yvette perez Developed Test (LDT) Disclaimer: Performance characteristics of immunohistochemical, immunofluorescent, and chromogenic in-situ hybridization tests have been determined by the performing laboratory within [facility] Pathology and Laboratory Medicine Department ([facility], [facility], [facility], [facility], [facility], [facility], or [facility]) in a manner consistent with CLIA requirements. One or more of these tests may not have been cleared or approved by the FDA. [facility] is regulated under CLIA as qualified to perform high-complexity testing. These tests are used for clinical purposes. These should not be regarded as investigational or for research. Positive and negative controls stain appropriately. Performed By: #### 6 6121-5 ####[facility]ITALIA [id number] [address] [place] CASE REPORT Normal [facility] Comment on above: Order Comment: Speci men Type: TISSUE SPECIMENOrdering Facility: [facility] Address: [address] [place] [address] Result Comment: Surg ica Pathology Report Case: [id number] Authorizing Provider: Yani Casanova MD Collected: 10/20/2024 12:32 PM Ordering Location: [place] [facility] Received: 10/20/2024 12:45 PM Pathologist: Harman Hernandez DO Intraop: Bea Dumont MD Specimen: Fallopian Tube And Ovary Left, LEFT OVARY & TUBE Performed By: #### 6 6121-5 ####[facility]ORATORYCLIA [id number] [address] [place] CLINICAL HISTORY Normal [facility] Comment on above: Order Comment: Speci men Type: TISSUE SPECIMENOrdering Facility: [facility] Address: [address] [place] [address] Result Comment: Pre- op diagnosis: Complex cyst of left ovary [N83.292] Performed By: #### 6 6121-5 ####[facility]ATORYCLIA [id number] [address] FINAL DIAGNOSIS Normal [facility] Comment on above: Order Comment: Speci men Type: TISSUE SPECIMENOrdering Facility: [facility] Address: [address] [place] [address] Result Comment: A. L eft fallopian tube and ovary, left salpingo-oophorectomy: - Ovary with serous cystadenofibroma. - Unremarkable fallopian tube. at 1135 EDT Performed By: #### 6 6121-5 ####[facility]ATORYCLIA [id number] [address] FINAL PERFORMING LAB Normal [facility] Comment on above: Order Comment: Speci men Type: TISSUE SPECIMENOrdering Facility: [facility] Address: [address] [place] [address] Result Comment: Diag nostic interpretation performed at: [facility], [address] [address] CLIA# [id number] Fabric Machine Operator: Suman Posey MD Performed By: #### 6 6121-5 ####[facility]ATORYCLIA [id number] [address] GROSS DESCRIPTION Normal [facility] Comment on above: Order Comment: Speci men Type: TISSUE SPECIMENOrdering Facility: [facility] Address: [address] [place] [address] Result Comment: A. F allopian Tube And Ovary Left Received fresh for intraoperative consultation labeled left loping tube and ovary is a fallopian tube measuring 5 cm in length and 0.5 cm in diameter. A fimbriated end s. no paratubal cysts are identified. Also attached is a irregular fragment of pink-garcia membranous possible ovarian tissue measuring 3 x 2 x 0.4 cm and weighing 2 g. No areas of nodularity or induration are identified. Labor Arbitrator Hearing Office sections are submitted as follows: FSA 1: Labor Arbitrator Hearing Office sections of membranous ovarian tissue A2: Remainder of membranous ovarian tissue A3: Fallopian tube fimbriated end and mid cross-sections Gross examination performed at [facility], [address] [place] [address] CLIA#[id number] OLS October 20, 2024 1:51 PM Performed By: #### 6 6121-5 ####[facility]ORATORYCLIA [id number] [address] [place] INTRAOPERATIVE DIAGNOSIS Normal [facility] Comment on above: Order Comment: Speci men Type: TISSUE SPECIMENOrdering Facility: [facility] Address: [address] [place] [address] Result Comment: A. F allopian Tube And Ovary Left FSA 1: Left ovary: Serous cystadenoma on client care representative section (Dr. Dumont/Dr. Garcia) Intraoperative examination performed at [facility], [address] [place] [address] CLIA# [id number] Performed By: #### 6 6121-5 ####[facility]ATORYCLIA [id number] [address] CNPNeris 10-19-2024 CNPN Telephone (IVORY Lara) -- TRAY BOBBY ([id number]) 1950 F Date Time Provider Department 10/19/24 YANI CASANOVA During your visit today, we recorded the following information about you: Bea Hallman RN 10/19/2024 2:02 PM Signed Called Tray reviewed surgery and arrival times for 5/21, at [facility], arrive at 8:30 am and surgery at 10:30 am. Reviewed nothing to eat or drink past midnight and to wash with hibiclens. Tray verbalized understanding. Encouraged her to call the office with any other questions or concerns. Bea Hallman RN Allergies As of Date: 10/19/2024 Noted Allergy Reaction AMOXICILLIN 06/07/2005 4 - Hives SULFA (SULFONAMIDE ANTIBIOTICS) 01/09/2016 4 - Hives Date Reviewed: 10/13/2024 Reviewed by: Kimberly Hsu APRN.CNP - Fully Assessed Reason for Visit: Preparations For Surgery [898] Prescriptions as of 10/19/2024 - Lactobacillus acidophilus (PROBIOTIC ACIDOPHILUS ORAL) Take by mouth once daily. - psyllium seed, with sugar, (METAMUCIL, SUGAR, ORAL) Take by mouth once daily. 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 Author Type: Nurse Practitioner Type: H&P Filed: 10/13/2024 13:30 Note Text: [facility] HISTORY AND PHYSICAL EXAMINATION SERVICE DATE: 10/13/2024 SERVICE TIME: 1:00 PM PRIMARY CARE PHYSICIAN: Silva Pepper MD Assessment Patient has the following medical conditions which may affect luz maria-operative course: Preop testing Assessment : See Note for medical conditions which may affect luz maria-operative course was addressed in visit today. Mixed hyperlipidemia Assessment: Diet controlled ANESTHESIA FINDINGS: Intubation History: No history of difficult intubation Significant Anesthesia Considerations: none Airway History: No history of difficult airway [place] Activity Status Index: METS: Climb a flight of stairs or walk up a hill (5.50 METs) DASI Score: 5.5 Patient denies any chest pain or undue shortness of breath with the above physical activity. Clinical Frailty Scale: 3. Well, with treated comorbid disease ARISCAT Score: Age: 51-80 Preoperative SpO2: >=96% Respiratory infection in the last month: No Preoperative anemia: No Surgical incision: peripheral Duration of surgery: >3 hrs Emergency procedure: No ARISCAT Score: 26 I - PHYSICAL EVALUATION AIRWAY Patient intubated: No. DENTAL Dental findings: teeth intact. II - ANESTHESIA PLAN Anesthetic Plan: general Beta Christian Monitoring Plan Post Procedure Analgesic Plan Prepared for Surgery: CONSULTS: Patient does not require consults for optimization at this time Planned Anesthetic: general The Following Tests/Procedures Have Been Initiated: No orders of the defined types were placed in this encounter. REASON FOR VISIT: Tray Bobby is a 74 year old female who is scheduled for Procedure(s): LAPAROSCOPIC HYSTERECTOMY TOTAL FOR UTERUS 250 G OR LESS W/REMOVAL TUBE(S) AND/OR OVARY(S) (Bilateral) EXAM UNDER ANESTHESIA PELVIC / VAGINAL (N/A) CYSTOSCOPY (N/A) at the request of Dr. Yani Casanova for routine HANDP. My final recommendation will be communicated back to the requesting physician by way of shared medical record or letter. The reason for this visit is to perform a comprehensive review of the patient's past medical history, assess their current health status and obtain any additional testing required based on anesthesia guidelines. We will also identify any potential anesthesia problems or contraindications to the planned procedure. Subjective The patient has the following: COVID-19 Immunization Status Upcoming Covid-19 Vaccine () Next due on 12/18/2024 06/20/2024 Imm Admin: COVID-19 vaccine (NOVAVAX) 04/19/2024 Postponed until 04/19/2025 by Marielle Lombardo APRN.HOUSEKEEPER CAREGIVER (Declined at this time) 01/06/2024 Imm Admin: COVID-19 vaccine, age 12+ yr ([employer] [facility]) Only the first 3 history entries have been loaded, but more history exists. CHIEF COMPLAINT: Ovarian cyst HPI: Patient has history of endometriosis. She reports she was diagnosed with a ovarian cyst many months ago. Today, patient denies pain, rating 0 out of 10 on numeric pain scale. She denies abdominal pain or cramping at this time. She denies vaginal discharge or bleeding at this time. Postmenopausal. After discussion with surgeon patient agreeable to surgical intervention. REVIEW OF SYSTEMS: General: No weight loss, malaise or fevers. Neurological: Negative for: headaches, seizures and strokes. Respiratory: Negative for: asthma, COPD, current cough, pneumonia within 6 weeks and obstructive sleep apnea. Cardiovascular: Positive for: hyperlipidemia Negative for: arrhythmia, CAD, chest pain, CHF, DVT/PE and murmur/valvular heart disease. GI: No history of GI symptoms or problems. No history of esophageal varices, recent ascites, or ETOH greater than 2 drinks per day. : No history of dysuria, frequency or incontinence, stones or chronic kidney disease. No difficulty urinating, nocturia > 1 time per night or hematuria. ECOLOGICAL RISK ASSESSOR: See HPI. Endocrine: Negative for: diabetes mellitus and hypothyroidism. Hematology: No history of bleeding or clotting disorder. Patient is not taking anti-coagulation or platelet medications. No history of hematological symptoms or problems. Negative for: anemia and factor V Leiden. Oncology: No history of CA metastasis, chemo within 30 days, or radiotherapy within 90 days. No history of oncological symptoms or problems. Psych: No history of psychiatric symptoms or problems. Musculoskeletal: Negative for joint pain or swelling, back pain or muscle pain. Skin: Negative for lesions, rash and itching. Implanted Devices: No implanted devices. PAST MEDICAL HISTORY Diagnosis Date Arthritis Calculus of gallbladder without mention of cholecystitis or obstruction cholecystectomy Endometriosis Infertility, female (more content not included)... Normal [facility] Basic metabolic 2000 panelon 10-11-2024 Anion gap [Moles/Vol] 10 mmol/L Normal 8-15 [facility] Comment on above: Order Comment: Speci men Type: BLOOD SPECIMEN [facility] Address: [address] [place] [address] Performed By: #### 2 4323-8, 59181-5 #### [facility] CLIA [id number] [address] [place] [address] [place] Calcium [Mass/Vol] 9.4 mg/dL Normal 8.5-10.2 [facility] Comment on above: Order Comment: Speci men Type: BLOOD SPECIMEN [facility] Address: [address] [place] [address] Performed By: #### 2 4323-8, 32994-9 #### [facility] CLIA [id number] [address] [place] [address] [place] Chloride [Moles/Vol] 104 mmol/L Normal 98-107 [facility] Comment on above: Order Comment: Speci men Type: BLOOD SPECIMEN [facility] Facility: [facility] Address: [address] [place] [address] Performed By: #### 2 4323-8, 15977-6 #### [facility] CLIA [id number] [address] [place] [address] [place] CO2 [Moles/Vol] 26 mmol/L Normal 22-30 [facility] Comment on above: Order Comment: Speci men Type: BLOOD SPECIMEN [facility] Address: [address] [place] [address] Performed By: #### 2 4323-8, 30715-1 #### [facility] CLIA [id number] [address] [place] [address] [place] Creatinine [Mass/Vol] 0.75 mg/dL Normal 0.58-0.96 [facility] Comment on above: Order Comment: Speci men Type: BLOOD SPECIMEN [facility]: [facility] Address: [address] [place] [address] Performed By: #### 2 4323-8, 23297-5 #### [facility] CLIA [id number] [address] [place] [address] [place] Creatinine and Glomerular filtration rate.predicted panel (S/P/Bld) 84 mL/min/1.73m??? Normal >=60 [facility] Comment on above: Order Comment: Jenniffer blank Type: BLOOD SPECIMEN [facility] Address: [address] [place] [address] Result Comment: Carolyn mated Glomerular Filtration Rate (eGFR) is calculated using the 2020 CKD-EPI creatinine equation. This equation utilizes serum creatinine, sex, and age as parameters. The creatinine assay has traceable calibration to isotope dilution-mass spectrometry. Refer to KDIGO guidelines for clinical interpretation. In patients with unstable renal function, e.g. those with acute kidney injury, the eGFR may not accurately reflect actual GFR. Performed By: #### 2 4323-8, 01667-1 #### [facility] CLIA [id number] [address] [place] [address] [place] Glucose [Mass/Vol] 93 mg/dL Normal 74-99 [facility] Comment on above: Order Comment: Jenniffer blank Type: BLOOD SPECIMEN [facility] Address: [address] [place] [address] Result Comment: The [place] Diabetes Association (ADA) provides guidance for cutoff values for fasting glucose and random glucose. The ADA defines fasting as no caloric intake for at least 8 hours. Fasting plasma glucose results between 100 to 125 mg/dL indicate increased risk for diabetes (prediabetes). Fasting plasma glucose results greater than or equal to 126 mg/dL meet the criteria for diagnosis of diabetes. In the absence of unequivocal hyperglycemia, results should be confirmed by repeat testing. In a patient with classic symptoms of hyperglycemia or hyperglycemic crisis, random plasma glucose results greater than or equal to 200 mg/dL meet the criteria for diagnosis of diabetes. Reference: Standards of Medical Care in Diabetes 2016, [place] [employer] Association. Diabetes Care. 2016.39(Suppl 1). Performed By: #### 2 4323-8, 71540-0 #### [facility] CLIA [id number] [address] [place] [address] [place] Potassium [Moles/Vol] 4.0 mmol/L Normal 3.7-5.1 [facility] Comment on above: Order Comment: Speci men Type: BLOOD SPECIMEN [facility]ing Facility: [facility] Address: [address] [place] [address] Performed By: #### 2 4323-8, 83518-2 #### [facility] CLIA [id number] [address] [place] [address] [place] Sodium [Moles/Vol] 140 mmol/L Normal 136-144 [facility] Comment on above: Order Comment: Speci men Type: BLOOD SPECIMEN [facility]ing Facility: [facility] Address: [address] [place] [address] Performed By: #### 2 4323-8, 51556-1 #### [facility] CLIA [id number] [address] [place] [address] [place] Urea nitrogen [Mass/Vol] 12 mg/dL Normal 7-21 [facility] Comment on above: Order Comment: Speci men Type: BLOOD SPECIMEN [facility] Facility: [facility] Address: [address] [place] [address] Performed By: #### 2 4323-8, 88375-4 #### [facility] CLIA [id number] [address] [place] [address] [place] CBC panel Auto (Bld)on 10-11 Erythrocyte distribution width (RBC) [Ratio] 13.2 % Normal 11.5-15.0 [facility] Comment on above: Order Comment: Speci men Type: BLOOD SPECIMEN [facility] Facility: [facility] Address: [address] [place] [address] Performed By: #### 2 4323-8, 97640-1 #### [facility] CLIA [id number] [address] [place] [address] [place] Hematocrit (Bld) [Volume fraction] 40.7 % Normal 36.0-46.0 [facility] Comment on above: Order Comment: Speci men Type: BLOOD SPECIMEN [facility] Address: [address] [place] [address] Performed By: #### 2 4323-8, 53155-3 #### [facility] CLIA [id number] [address] [place] [address] [place] Hemoglobin (Bld) [Mass/Vol] 13.3 g/dL Normal 11.5-15.5 [facility] Comment on above: Order Comment: Speci men Type: BLOOD SPECIMEN Ordering Facility: [facility] Address: [address] [place] [address] Performed By: #### 2 4323-8, 56655-3 #### [facility] CLIA [id number] [address] [place] [address] [place] MCH (RBC) [Entitic mass] 28.7 pg Normal 26.0-34.0 [facility] Comment on above: Order Comment: Speci men Type: BLOOD SPECIMEN Ordering Facility: [facility] Address: [address] [place] [address] Performed By: #### 2 4323-8, 19880-2 #### [facility] CLIA [id number] [address] [place] [address] [place] MCHC (RBC) [Mass/Vol] 32.7 g/dL Normal 30.5-36.0 [facility] Comment on above: Order Comment: Speci men Type: BLOOD SPECIMEN Ordering Facility: [facility] Address: [address] [place] [address] Performed By: #### 2 4323-8, 99185-9 #### [facility] CLIA [id number] [address] [place] [address] [place] MCV (RBC) [Entitic vol] 87.7 fL Normal 80.0-100.0 [facility] Comment on above: Order Comment: Speci men Type: BLOOD SPECIMEN Ordering Facility: [facility] Address: [address] [place] [address] Performed By: #### 2 4323-8, 12975-7 #### [facility] CLIA [id number] [address] [place] [address] [place] Nucleated RBC (Bld) [#/Vol] 10*3/uL Normal <0.01 [facility] Comment on above: Order Comment: Speci men Type: BLOOD SPECIMEN Ordering Facility: [facility] Address: [address] [place] [address] Performed By: #### 2 4323-8, 27992-5 #### [facility] CLIA [id number] [address] [place] [address] [place] Platelet mean volume (Bld) [Entitic vol] 9.7 fL Normal 9.0-12.7 [facility] Comment on above: Order Comment: Speci men Type: BLOOD SPECIMEN Ordering Facility: [facility] Address: [address] [place] [address] Performed By: #### 2 4323-8, 72356-4 #### [facility] CLIA [id number] [address] [place] [address] [place] Platelets (Bld) [#/Vol] 318 10*3/uL Normal 150-400 [facility] Comment on above: Order Comment: Speci men Type: BLOOD SPECIMEN Ordering Facility: [facility] Address: [address] [place] [address] Performed By: #### 2 4323-8, 91479-3 #### [facility] CLIA [id number] [address] [place] [address] [place] RBC (Bld) [#/Vol] 4.64 10*6/uL Normal 3.90-5.[address] [facility] Comment on above: Order Comment: Speci men Type: BLOOD SPECIMEN Ordering Facility: [facility] Address: [address] [place] [address] Performed By: #### 2 4323-8, 23870-0 #### [facility] CLIA [id number] [address] [place] [address] [place] WBC (Bld) [#/Vol] 4.54 10*3/uL Normal 3.70-11.[address] [facility] Comment on above: Order Comment: Speci men Type: BLOOD SPECIMEN Ordering Facility: [facility] Address: [address] [place] [address] Performed By: #### 2 4323-8, 83761-6 #### [facility] CLIA [id number] [address] [place] [address] [place] TYPE AND SCREEN,30 DAYon ABO B Normal [facility] Comment on above: Order Comment: Speci men Type: BLOOD SPECIMEN Ordering Facility: [facility] Address: [address] [place] [address] Performed By: #### R TRISTON MINER, MUMPSG #### [facility] CLIA [id number] [address] [place] [address] [place] Rh Nom (Bld) Positive Normal [facility] Comment on above: Order Comment: Speci men Type: BLOOD SPECIMEN Ordering Facility: [facility] Address: [address] [place] [address] Performed By: #### R UBMARTINEZGGODWING, MUMPSG #### [facility] CLIA [id number] [address] [place] [address] [place] CNOVon 09-22-2024 CNOV Office Visit (INTMWS ) -- TRAY BOBBY ([id number]) 1950 F Date Time Provider Department 09/22/24 7:40 AM MARIELLE LOMBARDO During your visit today, we recorded the following information about you: Pulse Respiration Blood pressure Weight 87/minute 16/minute 118/72 55.3 kg Marielle Lombardo APRN.CNP 09/22/2024 5:02 PM Signed CC: Patient presents with: Recheck: Follow up, discuss measels HPI Tray Bobby is a 73 year old female who presents today for concerns of measles immunity and constipation. Recording using Plaid software for draft documentation of the visit was discussed with the patient/authorized client care representative; all questions welcomed and answered. Patient/authorized client care representative agreed to proceed Measles Immunity: - Concerned about measles outbreak in [employer], where she has contact with residents. No recent known contact with infected individuals or ill concerns. - Uncertain about previous measles vaccinations as a child. Constipation: - Recent constipation attributed to high cheese intake. - Using stool softeners, usually effective within 3 days, but not this time. - Took milk of magnesia for 2 nights, with some improvement. - Last bowel movement this morning, described as small little pieces. - Denies abdominal pain, nausea, emesis, dysuria, or dark urine. - Reports gas buildup and cramping. - Denies liquid incontinence, fever, chills, or dyspnea. Has upcoming surgical procedure. Denies needing preop clearance. : - Walks 1-2 miles at a time, maintaining a pace of less than 20 minutes per mile. - Able to perform activities like mowing grass, raking, sweeping floors, washing floors, and carrying groceries without chest pain or dyspnea. - Denies exercise intolerance, difficulty swallowing, neck pain, recent infections, weight concerns, or energy issues. REVIEW OF SYSTEMS Constitutional: (-) fever, (-) chills, (-) weight changes, (-) fatigue Neck: (-) neck pain, (-) limited range of motion Cardiovascular: (-) chest pain, (-) palpitations, (-) edema, (-) exercise intolerance Respiratory: (-) shortness of breath Gastrointestinal: (+) constipation, (+) gas, (+) cramping, (-) nausea, (-) vomiting, (-) difficulty swallowing Genitourinary: (-) dysuria, (-) dark urine PAST MEDICAL HISTORY Diagnosis Date Arthritis Calculus of gallbladder without mention of cholecystitis or obstruction cholecystectomy Endometriosis Infertility, female Ovarian cyst PAST SURGICAL HISTORY Procedure Laterality Date ABDOMINAL SURGERY HX BREAST BIOPSY X2- negative COLONOSCOPY FLX DX W/COLLJ SPEC WHEN PFRMD 05/04/2021 tubular adenoma, repeat in 5 years ENDOMETRIAL BIOPSY 06/25/2024 LAPS SURG CHOLECYSTECTOMY W/CHOLANGIOGRAPHY Jennifer OOPHORECTOMY PARTIAL/TOTAL UNI/BI 1983 RIGHT-ENDOMETRIOSIS TONSILLECTOMY AND ADENOIDECTOMY TONSILLECTOMY HX ALLERGIES Amoxicillin and Sulfa (Sulfonamide Antibiotics) MEDICATIONS No prescriptions on file. FAMILY HISTORY Problem Relation Age of Onset Breast Cancer Mother DC, CVA Skin Cancer Father Breast Cancer Sister Skin Cancer Sister Breast Cancer Sister Breast Cancer Paternal Grandmother Breast Cancer Other cousin Colon Cancer No Family History Uterine Cancer No Family History Pancreatic Cancer No Family History Social History Tobacco Use Smoking status: Never Smokeless tobacco: Never Vaping Use Vaping status: Never Used Substance Use Topics Alcohol use: No Drug use: No PHYSICAL EXAM BP 118/72 Pulse 87 Resp 16 Wt 55.3 kg (122 lb) SpO2 98% BMI 23.83 kg/m? General Appearance: well appearing, in no acute distress, alert Pysch: mood and affect broad and appropriate Eyes: conjunctiva pink and moist, no icterus, sclera white, non-injected Lungs: Lungs clear to auscultation. No wheezing, rhonchi, rales. Heart: RRR without murmur, gallop, or rubs. No ectopy Abdomen: Abdomen soft, non-tender. Bowel sounds normal. No masses, organomegaly Health maintenance reviewed with patient: Shingrix Vaccine(1 of 2) Never done Mammogram Screening due on 04/29/2024 Advance Directive Discussion due on 06/02/2024 Covid-19 Vaccine(2023- season) due on 12/18/2024 Depression Screening due on 04/19/2025 Anxiety Screening due on 04/19/2025 Colorectal Cancer Screening due on 05/04/2026 RSV Vaccine(1 - 1-dose 75+ series) due on 09/23/2026 Diabetes Screening due on 03/22/2027 DTaP,Tdap,Td Vaccine(2 - Td or Tdap) due on 01/20/2028 Lipid Screening due on 03/22/2029 Influenza Vaccine Completed Hepatitis C Screening Completed Pneumococcal Vaccine: 50+ Completed Bone Density Screening Addressed DATA REVIEWED: No new labs Assessment/Plan 1. Immunity status testing (Z01.84) - Uncertain vaccination history for measles. - Ordered measles titers to assess immunity status. - Advised to avoid contact (more content not included)... Normal [facility] MUMPS IGG ABon 09-22-2024 MuV IgG Ql (S) Positive Normal Positive [facility] Comment on above: Order Comment: Jenniffer blank Type: BLOOD SPECIMEN Ordering Facility: [facility] Address: [address] [place] [address] Result Comment: The result suggests recent or past exposure to Mumps virus or Mumps vaccination. The current test does not detect neutralizing antibodies. Positive result may also be seen due to presence of passively-transferred antibodies. Please correlate with patient's history. Performed By: #### R UBIGG, MEASLG, MUMPSG #### [facility] CLIA [id number] [address] [place] [address] [place] RUBELLA IGG ANTIBODYon 09-22 RUBELLA IGG AB, QUAL Negative Abnormal Positive [facility] Comment on above: Order Comment: Jenniffer [facility] Type: BLOOD SPECIMEN Ordering Facility: [facility] Address: [address] [place] [address] Result Comment: The result suggests no history of Rubella vaccination or exposure to Rubella virus, however, some individuals with past history of Rubella vaccination may test negative using this test as immunity to Rubella virus wanes over time after vaccination. Please correlate with vaccination history if applicable. Performed By: #### R UBIGG, MEASLG, MUMPSG #### [facility] CLIA [id number] [address] [place] [address] [place] RUBEOLA (MEASLES)IGGon 09-22 MEASLES IGG AB, QUAL Positive Normal Positive [facility] Comment on above: Order Comment: Jenniffer blank Type: BLOOD SPECIMEN Ordering Facility: [facility] Address: [address] [place] [address] Result Comment: The result suggests recent or past exposure to Measles virus or Measles vaccination. The current test does not detect neutralizing antibodies. Positive result may also be seen due to presence of passively-transferred antibodies. Please correlate with patient's history. Performed By: #### R TRISTON MINER MUMPSG #### [facility] CLIA [id number] [address] [place] [address] [place] CNOVSPon 09-09-2024 CNOVSP Visit (SP) Office ([facility]) -- TRAY BOBBY ([id number]) 1950 F Date Time Provider Department 09/09/24 2:30 PM YANI CASANOVA During your visit today, we recorded the following information about you: Temperature Pulse Blood pressure Weight 97 degrees 85/minute 133/82 56.7 kg Yani Casanova MD 09/10/2024 11:29 AM Signed Gynecologic Oncology Note [facility] Chief complaint: Ovarian mass, endometrial fluid HPI: This is a 73 year old patient with a history of endometriosis and HLD here for discussion of surgical management of a right sided ovarian cyst and endometrial cavity fluid here for follow-up and preop visit. 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 TVUS showed cyst on ultrasound as well. Since removing lactose from her diet, her bloating has resolved. No nausea, vomiting, issues with voiding or bowel movements. Repeat Ca-125 68 after last visit. She was also noted to have a thin uterine lining but with some fluid in the uterus. No vaginal bleeding. Menopausal many years ago. EMB was completed which was inconclusive. Her two sisters had breast cancer with negative BRCA testing. She is completing genetic testing in the upcoming months. After meeting last time and change in Ca-125, she now desires surgical interventions. ROS: 14 point ROS negative unless indicated in above HPI. Medical history: PAST MEDICAL HISTORY Diagnosis Date - Arthritis - Calculus of gallbladder without mention of cholecystitis or obstruction cholecystectomy - Endometriosis - Infertility, female - Ovarian cyst Surgical history: PAST SURGICAL HISTORY Procedure Laterality Date - ABDOMINAL SURGERY HX - BREAST BIOPSY X2- negative - COLONOSCOPY FLX DX W/COLLJ SPEC WHEN PFRMD 05/04/2021 tubular adenoma, repeat in 5 years - ENDOMETRIAL BIOPSY 06/25/2024 - LAPS SURG CHOLECYSTECTOMY W/CHOLANGIOGRAPHY Jennifer - OOPHORECTOMY PARTIAL/TOTAL UNI/BI 1983 RIGHT-ENDOMETRIOSIS - TONSILLECTOMY AND ADENOIDECTOMY - TONSILLECTOMY HX Director Report history: Endometriosis with removal of left ovary many years ago. 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 Family history: Family History Problem Relation Age of Onset - Breast Cancer Mother DC, CVA - Skin Cancer Father - Breast Cancer Sister - Skin Cancer Sister - Breast Cancer Sister - Breast Cancer Paternal Grandmother - Breast Cancer Other cousin - Colon Cancer No Family History - Uterine Cancer No Family History - Pancreatic Cancer No Family History Social history: Social History Tobacco Use - Smoking status: Never - Smokeless tobacco: Never Vaping Use - Vaping status: Never Used Substance Use Topics - Alcohol use: No - Drug use: No Medications: No current outpatient medications on file. No current facility-administered medications for this visit. Healthcare maintenance: Colonoscopy: up to date, repeat recommended in 2025 Mammogram: up to date, negative Pap smear: up to date, all negative PE: EGOG PS 0 BP 133/82 (BP Site: Left Arm, BP Position: Sitting, BP Cuff Size: Large Adult) Pulse 85 Temp 36.1 ?C (97 ?F) Wt 56.7 kg (125 lb) SpO2 98% BMI 24.41 kg/m? Gen: well appearing Card: regular rate Resp: comfortable on room air Abd: soft, non-tender. No masses Extremity: No edema or erythema Pelvic: Patient declined Labs/Imaging: TVUS 06/15/24: The uterus is anteverted and measures 51 mm x 15 mm x 30 mm. The endometrial thickness is 2 mm. There is fundal anechoic endometrial fluid. There is a left lateral wall posterior calcified fibroid that measures 7 mm x 7 mm x 5 mm. The right ovary is not visualized. There is a right 6 mm x 4 mm x 4 mm. simple paraovarian/paratubal cyst. The left ovary measures 22 mm x 27 mm x 11 mm and contains a 7 mm x 15 mm x 15 mm. Unilocular non-simple cyst (internal debris and/or incomplete septation) with smooth inner wall. O-RADS 2 There is no free fluid visualized. CT A/P 08/05/24: IMPRESSION: 1. No acute intra-abdominal/pelvic abnormalities are identified. 2. Diverticulosis. 3. 1.6 cm cystic focus in the region of the left adnexa which may represent left ovarian cyst or cystic lesion. Pelvic ultrasound may be helpful for further characterization if warranted. A/P: This is a 73 year old patient here for follow up discussion of management for a ORADS-2 lesion of the right adnexa and endometrial fluid here for preop visit. Pelvic mass: - Discussed differential including benign, borderline, malignant, or metastatic tumors to the ovary. - CA-125 60 --> 68. - After history and reviewing of labs/imaging, I feel this is most likely a benign lesion but slight rise in Ca-125 does give me some minor increase concern. However, we discussed that ultimately the onl (more content not included)... Normal [facility] Cancer Ag125 SerPl-aCncon Cancer Ag 125 Qn 68 [arb'U]/mL High <[address] [facility] Comment on above: Order Comment: Speci men Type: BLOOD SPECIMEN Ordering Facility: [facility] Address: [address] [place] [address] Result Comment: CA 1 25 test methodology used is the Electrochemiluminescence Immunoassay by [employer]. Results obtained with different methods or kits cannot be used interchangeably. The reference interval is based on the 95th percentile of 240 apparently healthy premenopausal and postmenopausal women. At a cutoff value of 65 U/mL, the test sensitivity to distinguish ovarian carcinoma (FIGO stage I to IV) versus benign gynecological disease is 79%, with a specificity of 82%. Reference: Cancer Antigen 125 (CA 125 II) [package insert V 1.0 Lebanese]. [employer], [place], [place] (March 2015) Performed By: #### R UBIGG, MEASLG, MUMPSG #### [facility] CLIA [id number] [address] [place] [address] OF [place] CNOVSPon 08-19-2024 CNOVSP Visit (SP) Office ([facility]POB) -- TRAY BOBBY ([id number]) 1950 F Date Time Provider Department 08/19/24 1:00 PM YANI CASANOVA During your visit today, we recorded the following information about you: Temperature Pulse Blood pressure Weight 97.8 degrees 70/minute 148/90 56.2 kg Height 1.524 m Yani Casanova MD 08/20/2024 9:08 PM Signed Gynecologic Oncology Consultation Note [facility] Referring provider: Dr. Morales Chief complaint: Ovarian mass, endometrial fluid HPI: This is a 73 year old patient with a history of endometriosis and HLD referred for right sided ovarian cyst and endometrial cavity fluid. 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 TVUS showed cyst on ultrasound as well. Since this visit, she has removed lactose from her diet and the bloating has resolved. No nausea, vomiting, issues with voiding or bowel movements. She was also noted to have a thin uterine lining but with some fluid in the uterus. No vaginal bleeding. Menopausal many years ago. EMB was completed which was inconclusive. Her two sisters had breast cancer with negative BRCA testing. She is completing genetic testing in the upcoming months. ROS: 14 point ROS negative unless indicated in above HPI. Medical history: PAST MEDICAL HISTORY Diagnosis Date - Arthritis - Calculus of gallbladder without mention of cholecystitis or obstruction cholecystectomy - Endometriosis - Infertility, female - Ovarian cyst Surgical history: PAST SURGICAL HISTORY Procedure Laterality Date - ABDOMINAL SURGERY HX - BREAST BIOPSY X2- negative - COLONOSCOPY FLX DX W/COLLJ SPEC WHEN PFRMD 05/04/2021 tubular adenoma, repeat in 5 years - ENDOMETRIAL BIOPSY 06/25/2024 - LAPS SURG CHOLECYSTECTOMY W/CHOLANGIOGRAPHY Jennifer - OOPHORECTOMY PARTIAL/TOTAL UNI/BI 1984 RIGHT-ENDOMETRIOSIS - TONSILLECTOMY AND ADENOIDECTOMY - TONSILLECTOMY HX Director Report history: Endometriosis with removal of left ovary many years ago. 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 Family history: Family History Problem Relation Age of Onset - Breast Cancer Mother DC, CVA - Skin Cancer Father - Breast Cancer Sister - Skin Cancer Sister - Breast Cancer Sister - Breast Cancer Paternal Grandmother - Breast Cancer Other cousin - Colon Cancer No Family History - Uterine Cancer No Family History - Pancreatic Cancer No Family History Social history: Social History Tobacco Use - Smoking status: Never - Smokeless tobacco: Never Vaping Use - Vaping status: Never Used Substance Use Topics - Alcohol use: No - Drug use: No Medications: No current outpatient medications on file. No current facility-administered medications for this visit. Healthcare maintenance: Colonoscopy: up to date, repeat recommended in 2025 Mammogram: up to date, negative Pap smear: up to date, all negative PE: EGOG PS 0 BP 148/90 (BP Site: Left Arm, BP Position: Sitting, BP Cuff Size: Regular Adult) Pulse 70 Temp 36.6 ?C (97.8 ?F) (Oral) Ht 152.4 cm (5') Wt 56.2 kg (124 lb) SpO2 98% BMI 24.22 kg/m? Gen: well appearing Card: regular rate Resp: comfortable on room air Abd: soft, non-tender. No masses Extremity: No edema or erythema Pelvic: deferred Labs/Imagin06/08/24: CA-125 60 TVUS 06/15/24: The uterus is anteverted and measures 51 mm x 15 mm x 30 mm. The endometrial thickness is 2 mm. There is fundal anechoic endometrial fluid. There is a left lateral wall posterior calcified fibroid that measures 7 mm x 7 mm x 5 mm. The right ovary is not visualized. There is a right 6 mm x 4 mm x 4 mm. simple paraovarian/paratubal cyst. The left ovary measures 22 mm x 27 mm x 11 mm and contains a 7 mm x 15 mm x 15 mm. Unilocular non-simple cyst (internal debris and/or incomplete septation) with smooth inner wall. O-RADS 2 There is no free fluid visualized. CT A/P 08/05/24: IMPRESSION: 1. No acute intra-abdominal/pelvic abnormalities are identified. 2. Diverticulosis. 3. 1.6 cm cystic focus in the region of the left adnexa which may represent left ovarian cyst or cystic lesion. Pelvic ultrasound may be helpful for further characterization if warranted. A/P: This is a 73 year old patient here for consultation for a ORADS-2 lesion of the right adnexa and endometrial fluid. Pelvic mass: - Discussed differential including benign, borderline, malignant, or metastatic tumors to the ovary. - After history and reviewing of labs/imaging, I feel this is most likely a benign lesion. However, we discussed that ultimately the only way to accurately diagnose an ovarian mass is through removal and pathologic evaluation. - We discussed her options including surgical removal of all pelvic organs via TLH, BSO versus surveillan (more content not included)... Normal [facility] CT ABD/PEL W IVCONon 025 CT ABD/PEL W IVCON * * *Final Report* * * DATE OF EXAM: Aug 05 2024 2:08PM [facility] 0530 - CT ABD/PEL W IVCON / PROCEDURE REASON: multiple diagnoses * * * * Physician Interpretation * * * * EXAMINATION: CT ABDOMEN AND PELVIS WITH IV CONTRAST CLINICAL HISTORY: Elevated CA-125 TECHNIQUE: CT of the abdomen and pelvis was performed using standard technique, scanning from just above the dome of the diaphragm to the symphysis pubis. MQ: CTAP_3 Contrast: IV: 100 ml of Omnipaque 350 Oral: 10 ml of Omni 240 10-25ml diluted with water CT Radiation dose: Integrated Dose-length product (DLP) for this visit = 345 mGy*cm. CT Dose Reduction Employed: Automated exposure control(AEC) and iterative recon COMPARISON: None. RESULT: Liver: There are a few subtle small subcentimeter hypodensity is noted in the left lobe of liver which are too small to characterize. Biliary: No bile duct dilation. The gallbladder is surgically absent. Spleen: No mass. No splenomegaly. There is a 6 mm calcification is noted in the spleen consistent with old granulomatous disease. Pancreas: No mass or duct dilation. Adrenals: No mass. Kidneys: No hydronephrosis is identified. A 2.8 cm cyst is noted in the mid right kidney. No hydronephrosis, renal calculi or ureteral stones are identified. GI tract: No evidence of bowel obstruction. Scattered colonic diverticula are noted. No CT evidence of diverticulitis. The appendix appears normal. Lymph nodes: No abdominal or pelvic lymphadenopathy. Mesentery/Peritoneum: No ascites or mass. Retroperitoneum: No mass. Vasculature: - Abdominal aorta and iliac arteries: No aneurysm. - Celiac and SMA: Atherosclerotic calcifications at the origins. - Portal venous system (SMV, splenic vein, portal vein and branches): Patent. - Hepatic veins: Patent. Pelvis: There is a 1.6 cm cystic focus in the region of the left adnexa. There is a 1 cm calcification noted in the uterus consistent with a calcified fibroid. Bones/Soft Tissues: There is grade 1 anterolisthesis of L4 on L5. Marked central canal stenosis is noted at L4-5. Marked facet degenerative changes are noted. Lower thorax: Calcified nodules are noted in the lower lobes consistent with old granulomatous disease. Localizer images: IMPRESSION: 1. No acute intra-abdominal/pelvic abnormalities are identified. 2. Diverticulosis. 3. 1.6 cm cystic focus in the region of the left adnexa which may represent left ovarian cyst or cystic lesion. Pelvic ultrasound may be helpful for further characterization if warranted. Last Puller: ALIRIO Transcribe Date/Time: Aug 05 2024 2:19P Dictated by : DARREN HOPPER MD This examination was interpreted and the report reviewed and electronically signed by: DARREN HOPPER MD on Aug 05 2024 2:32PM EST [id number] Normal [facility] CT Abdomen and Pelvis W cont rast Alexis 08-05-2024 IMPRESSION: 1. No acute intra-abdominal/pelvic abnormalities are identified. 2. Diverticulosis. 3. 1.6 cm cystic focus in the region of the left adnexa which may represent left ovarian cyst or cystic lesion. Pelvic ultrasound may be helpful for further characterization if warranted. Last Puller: ALIRIO Transcribe Date/Time: Aug 05 2024 2:19P Dictated by : DARREN HOPPER MD This examination was interpreted and the report reviewed and electronically signed by: DARREN HOPPER MD on Aug 05 2024 2:32PM EST DIVISION OF RADIOLOGY * * *Final Report* * * DATE OF EXAM: Aug 05 2024 2:08PM [facility] 0530 - CT ABD/PEL W IVCON / PROCEDURE REASON: multiple diagnoses * * * * Physician Interpretation * * * * EXAMINATION: CT ABDOMEN AND PELVIS WITH IV CONTRAST CLINICAL HISTORY: Elevated CA-125 TECHNIQUE: CT of the abdomen and pelvis was performed using standard technique, scanning from just above the dome of the diaphragm to the symphysis pubis. MQ: CTAP_3 Contrast: IV: 100 ml of Omnipaque 350 Oral: 10 ml of Omni 240 10-25ml diluted with water CT Radiation dose: Integrated Dose-length product (DLP) for this visit = 345 mGy*cm. CT Dose Reduction Employed: Automated exposure control(AEC) and iterative recon COMPARISON: None. RESULT: Liver: There are a few subtle small subcentimeter hypodensity is noted in the left lobe of liver which are too small to characterize. Biliary: No bile duct dilation. The gallbladder is surgically absent. Spleen: No mass. No splenomegaly. There is a 6 mm calcification is noted in the spleen consistent with old granulomatous disease. Pancreas: No mass or duct dilation. Adrenals: No mass. Kidneys: No hydronephrosis is identified. A 2.8 cm cyst is noted in the mid right kidney. No hydronephrosis, renal calculi or ureteral stones are identified. GI tract: No evidence of bowel obstruction. Scattered colonic diverticula are noted. No CT evidence of diverticulitis. The appendix appears normal. Lymph nodes: No abdominal or pelvic lymphadenopathy. Mesentery/Peritoneum: No ascites or mass. Retroperitoneum: No mass. Vasculature: - Abdominal aorta and iliac arteries: No aneurysm. - Celiac and SMA: Atherosclerotic calcifications at the origins. - Portal venous system (SMV, splenic vein, portal vein and branches): Patent. - Hepatic veins: Patent. Pelvis: There is a 1.6 cm cystic focus in the region of the left adnexa. There is a 1 cm calcification noted in the uterus consistent with a calcified fibroid. Bones/Soft Tissues: There is grade 1 anterolisthesis of L4 on L5. Marked central canal stenosis is noted at L4-5. Marked facet degenerative changes are noted. Lower thorax: Calcified nodules are noted in the lower lobes consistent with old granulomatous disease. Localizer images: DIVISION OF RADIOLOGY Provider, [facility] - 08/05/2024 * * *Final Report* * * DATE OF EXAM: Aug 05 2024 2:08PM [facility] 0530 - CT ABD/PEL W IVCON / PROCEDURE REASON: multiple diagnoses * * * * Physician Interpretation * * * * EXAMINATION: CT ABDOMEN AND PELVIS WITH IV CONTRAST CLINICAL HISTORY: Elevated CA-125 TECHNIQUE: CT of the abdomen and pelvis was performed using standard technique, scanning from just above the dome of the diaphragm to the symphysis pubis. MQ: CTAP_3 Contrast: IV: 100 ml of Omnipaque 350 Oral: 10 ml of Omni 240 10-25ml diluted with water CT Radiation dose: Integrated Dose-length product (DLP) for this visit = 345 mGy*cm. CT Dose Reduction Employed: Automated exposure control(AEC) and iterative recon COMPARISON: None. RESULT: Liver: There are a few subtle small subcentimeter hypodensity is noted in the left lobe of liver which are too small to characterize. Biliary: No bile duct dilation. The gallbladder is surgically absent. Spleen: No mass. No splenomegaly. There is a 6 mm calcification is noted in the spleen consistent with old granulomatous disease. Pancreas: No mass or duct dilation. Adrenals: No mass. Kidneys: No hydronephrosis is identified. A 2.8 cm cyst is noted in the mid right kidney. No hydronephrosis, renal calculi or ureteral stones are identified. GI tract: No evidence of bowel obstruction. Scattered colonic diverticula are noted. No CT evidence of diverticulitis. The appendix appears normal. Lymph nodes: No abdominal or pelvic lymphadenopathy. Mesentery/Peritoneum: No ascites or mass. Retroperitoneum: No mass. Vasculature: - Abdominal aorta and iliac arteries: No aneurysm. - Celiac and SMA: Atherosclerotic calcifications at the origins. - Portal venous system (SMV, splenic vein, portal vein and branches): Patent. - Hepatic veins: Patent. Pelvis: There is a 1.6 cm cystic focus in the region of the left adnexa. There is a 1 cm calcification noted in the uterus consistent with a calcified fibroid. Bones/Soft Tissues: There is grade 1 anterolisthesis of L4 on L5. Marked central canal stenosis is noted at L4-5. Marked facet degenerative changes are noted. Lower thorax: Calcified nodules are noted in the lower lobes consistent with old granulomatous disease. Localizer images: IMPRESSION IMPRESSION: 1. No acute intra-abdominal/pelvic abnormalities are identified. 2. Diverticulosis. 3. 1.6 cm cystic focus in the region of the left adnexa which may represent left ovarian cyst or cystic lesion. Pelvic ultrasound may be helpful for further characterization if warranted. Last Puller: ALIRIO Transcribe Date/Time: Aug 05 2024 2:19P Dictated by : DARREN HOPPER MD This examination was interpreted and the report reviewed and electronically signed by: DARREN HOPPER MD on Aug 05 2024 2:32PM EST [facility] Radiology Study observation (narrative) [facility] CT Abdomen and Pelvis W cont rast IVOrdered By: [facility] Provider on 08-05-2024 [facility] CREATININE BLDon 08-03-2024 Creatinine [Mass/Vol] 0.72 mg/dL Normal 0.58-0.96 [facility] Comment on above: Order Comment: Speci men Type: BLOOD SPECIMEN Ordering Facility: [facility] Address: [address] [place] [address] Performed By: #### 2 4323-8, 80981-6 #### [facility] CLIA [id number] [address] [place] [address] [place] Creatinine and Glomerular filtration rate.predicted panel (S/P/Bld) 89 mL/min/1.73m??? Normal >=60 [facility] Comment on above: Order Comment: Speci men Type: BLOOD SPECIMEN Ordering Facility: [facility] Address: [address] [place] [address] Result Comment: Carolyn mated Glomerular Filtration Rate (eGFR) is calculated using the 2020 CKD-EPI creatinine equation. This equation utilizes serum creatinine, sex, and age as parameters. The creatinine assay has traceable calibration to isotope dilution-mass spectrometry. Refer to KDIGO guidelines for clinical interpretation. In patients with unstable renal function, e.g. those with acute kidney injury, the eGFR may not accurately reflect actual GFR. Performed By: #### 2 4323-8, 89662-4 #### [facility] CLIA [id number] [address] [place] [address] [place] CNPNon 08-02-2024 CNPN Telephone (OBGYWM) -- TRAY BOBBY ([id number]) 1950 F Date Time Provider Department 08/02/24 MK MORALES OBGYWM During your visit today, we recorded the following information about you: Bonita Cruz, RN 08/02/2024 3:19 PM Signed Mk Morales MD P [facility] Ob-Disability Attorney Pool Please let the pt know I touched based with [facility] and they agree she does not need a DANDC first. She recommended genetics referral, CTAP and [facility] consult so orders placed. Thanks Previous Messages ----- Message ----- From: Yani Casanova MD Sent: 08/02/2024 8:41 AM EST To: Mk Morales MD; [facility] Ob-Disability Attorney Pool No that is fine. She needs a CT A/P with oral and IV contrast though so that would be helpful to have done. Best order stat otherwise insurance can take 2 weeks to approve. She also needs to see genetics it sounds like if she has not had testing (or if her family has not been tested). Yani Astudillo ----- Message ----- From: Mk Morales MD Sent: 07/30/2024 5:27 PM EST To: Yani Casanova MD; [facility] Ob-Disability Attorney Pool Murali Lomeli I was hoping for your opinion on this patient. She was new to me today, and came to discuss a DANDC. 73 y/o who had a pelvic US for bloating and pain. She has a small left ovarian cyst and CA-125 is 60. Strong family history of breast cancer (mother and 2 sisters). When I look at the images I have some concern that there are solid components to the cyst, rather than it being debris. She was sent to me to schedule a DANDC because her EMS is thin at 2 mm but there was a small amount of fluid in the endometrial cavity. Her EMB was non diagnostic and she has not had PMB. I am a little more worried about the ovary. Would you want me to schedule a hysteroscopy [facility] prior to referring her to you? She declined a repeat EMB today. Thanks for the help! Bonita Alvarado RN 08/02/2024 3:19 PM Signed Patient notified and transferred to imaging. She will get on [facility] to schedule genetics appointment and aware [facility]c will reach out to her. Bonita Cruz RN Allergies As of Date: 08/02/2024 Noted Allergy Reaction AMOXICILLIN 06/07/2005 4 - Hives SULFA (SULFONAMIDE ANTIBIOTICS) 01/09/2016 4 - Hives Date Reviewed: 07/30/2024 Reviewed by: Maria Luisa Montgomery LPN - Fully Assessed Reason for Visit: Referral Information [[id number]] Prescriptions as of 08/02/2024 - iv contrast (will be provided with radiology test) CT ABD/PEL -Inject, intravenously, once for 1 dose.No IV access, insert saline lock prior to the beginning of sedation, infusion, injection of imaging exam. Discontinue saline lock post exam. If Pt. has a central line or IVAD, may access for administration according to line specific nursing protocol. Once exam is complete flush line and de-access according to line specific nursing protocol in the CT contrast administration guidelines link. 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] 01/09/2016 Family history of carcinoma in situ of breast [*01/09/2016 Pelvic pressure in female [R10.2] 06/08/2021 Pelvic floor dysfunction in female [M62.89] 06/08/2021 Complex cyst of left ovary [N83.292] 06/15/2024 Fluid in endometrial cavity [N85.9] 06/15/2024 Paratubal cyst [N83.8] 06/15/2024 Encounter Status:Closed by BONITA CRUZ on 08/02/24 Normal [facility] CNOVon 07-30-2024 CNOV Office Visit (OBGYWM ) -- TRAY BOBBY ([id number]) 1950 F Date Time Provider Department 07/30/24 3:20 PM MK MORALES OBGYWM During your visit today, we recorded the following information about you: Pulse Respiration Blood pressure Weight 84/minute 16/minute 114/60 56.9 kg Mk Morales MD 07/30/2024 5:27 PM Signed Tray Bobby is a 73 year old female who presents to discuss a DANDC. Limited sampling on the EMB and here to discuss hysteroscopy DANDC. HPI: The patient was having bloating and pain which prompted the pelvic ultrasound. No PMB. Pelvic ultrasound shows a left ovarian cyst. Elevated CA 125. Mother had breast cancer in 70's. Her two sisters had breast cancer in 50's and 60's. Tray is unsure if there was genetic testing completed. She has never had PMB. OB History Gravida0 Para0 Term0 Preterm0 AB0 Living0 SAB0 IAB0 Ectopic0 Multiple0 Live Births0 Disability Attorney History LMP: Postmenopausal Age at Menarche: Age at First : Age at Menopause: Disability Attorney History Comments: Sexual Activity: Not Currently; Male Contraception: None PAST MEDICAL HISTORY Diagnosis Date Arthritis Calculus of gallbladder without mention of cholecystitis or obstruction cholecystectomy Coitus painful for female Endometriosis Infertility, female Ovarian cyst PAST SURGICAL HISTORY Procedure Laterality Date ABDOMINAL SURGERY HX BREAST BIOPSY X2- negative COLONOSCOPY FLX DX W/COLLJ SPEC WHEN PFRMD 05/04/2021 tubular adenoma, repeat in 5 years ENDOMETRIAL BIOPSY 06/25/2024 LAPS SURG CHOLECYSTECTOMY W/CHOLANGIOGRAPHY Jennifer OOPHORECTOMY PARTIAL/TOTAL UNI/BI 1983 RIGHT-ENDOMETRIOSIS TONSILLECTOMY AND ADENOIDECTOMY TONSILLECTOMY HX FAMILY HISTORY Problem Relation Age of Onset Breast Cancer Mother [place], CVA Skin Cancer Father Breast Cancer Sister Skin Cancer Sister Breast Cancer Sister Breast Cancer Paternal Grandmother Breast Cancer Other cousin Social History Tobacco Use Smoking status: Never Smokeless tobacco: Never Vaping Use Vaping status: Never Used Substance Use Topics Alcohol use: No Drug use: No No current outpatient medications on file. No current facility-administered medications for this visit. Allergies As of Date: 07/30/2024 Allergen Noted Reaction AMOXICILLIN 06/07/2005 Hives SULFA (SULFONAMIDE ANTIBIOTICS) 01/09/2016 Hives Fully Assessed 07/30/2024 REVIEW OF SYSTEMS Expanded ROS: N/A Allergies and current medication updated:Yes SENSITIVE EXAM: Sensitive exam not performed. EXAM: BP 114/60 Pulse 84 Resp 16 Wt 125 lb 6.4 oz (56.9kg) SpO2 97% GENERAL: pleasant, female in no apparent distress HEENT: Normocephalic and atraumatic NECK: full range of motion CHEST: Normal inspiratory effort NEURO: exam grossly non-focal EXTREMITIES: normal ASSESSMENT AND PLAN: Assessment AND Plan Fluid in endometrial cavity Bloating Cyst of ovary, unspecified laterality Elevated cancer antigen 125 (CA-125) Tray presents today to discuss a hysteroscopy DANDC. She has not had PMB. Had a pelvic US with EMS 2 mm and endometrial fluid noted. EMB non diagnostic. Pelvic US images and report reviewed in detail with patient. Given thin EMS and a small amount of endometrial fluid present, discussed likely benign but cannot rule out hyperplasia or malignancy. Some possible solid components vs debris in the ovarian cyst, elevated CA 125, and family history of breast cancer. Would want [facility] opinion first prior to scheduling her for a hysteroscopy DANDC regarding ovarian cyst and next steps. Patient declines repeat EMB today in the office as procedure was very painful for her. Will message [facility] for an opinion. Discussed may need genetics referral at some point as well. Mk Morales, DO I spent 20 minutes in the visit, with more than 50% of the total qdyz-fj-slgn time of the visit in counseling / coordination of care. Mk Morales MD 07/30/2024 5:27 PM Written Mk Morales MD 08/02/2024 2:59 PM Signed Addended by: MK MORALES on: 08/02/2024 02:59 PM Modules accepted: Orders Allergies As of Date: 07/30/2024 Noted Allergy Reaction AMOXICILLIN 06/07/2005 4 - Hives SULFA (SULFONAMIDE ANTIBIOTICS) 01/09/2016 4 - Hives Date Reviewed: 07/30/2024 Reviewed by: Maria Luisa Montgomery LPN - Fully Assessed Reason for Visit: Problem Visit [Other] Primary Visit Diagnosis:Fluid in endometrial cavity [N85.9] Other Visit Diagnoses:Bloating [R14.0] Cyst of ovary, unspecified laterality [N83.209] Elevated cancer antigen 125 (CA-125) [R97.1] Family history of breast cancer [Z80.3] Order(s):CT ABD/PEL W IVCON [[id number]] Order #: [id number] FUTURE iv contrast (will be provided with radiology test)CT ABD/PEL -Inject, intravenously, once for 1 dose.No IV access, insert saline lock prior to the beginning of sedation, infusion, injectio (more content not included)... Normal [facility] Hung 07-06-2024 CNPN Telephone (OBGYWM) -- TRAY BOBBY ([id number]) 1950 F Date Time Provider Department 07/06/24 ZULEMA CAVAZOS During your visit today, we recorded the following information about you: Emilee Amaya, RN 07/06/2024 4:04 PM Signed ----- Message from Zulema Cavazos APRN.CNM sent at 07/06/2024 3:50 PM EST ----- Please call patient and let her know there was limited sampling on the EMB and would recommend hysteroscopy [facility]. I would like her to have a better sample and also make sure everything else is ok. She can schedule with physician to discuss further for preop and management. HAYDEN Perez Jennifer, RN 07/06/2024 4:05 PM Signed Patient notified. Appointment scheduled with to discuss. 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] 01/09/2016 Family history of carcinoma in situ of breast [*01/09/2016 Pelvic pressure in female [R10.2] 06/08/2021 Pelvic floor dysfunction in female [M62.89] 06/08/2021 Complex cyst of left ovary [N83.292] 06/15/2024 Fluid in endometrial cavity [N85.9] 06/15/2024 Paratubal cyst [N83.8] 06/15/2024 Encounter Status:Closed by EMILEE AMAYA on 07/06/24 [facility] CNOVon 06-25-2024 CNOV Office Visit (OBGYWM ) -- TRAY BOBBY ([id number]) 1950 F Date Time Provider Department 06/25/24 8:15 AM ZULEMA CAVAZOS OBGYWM During your visit today, we recorded the following information about you: Blood pressure Weight 110/68 55.8 kg Zulema Cavazos APRN.CNM 06/25/2024 4:05 PM Signed Lockstitch Zipper Setter offered: patient jairo Tray is a 73 year old Female who presents today for an endometrial biopsy for fluid in endometrium. test: n/a UNIVERSAL PROTOCOL / SAFETY CHECKLIST Procedure to be Performed: Endometrial Biopsy Sign In: A Moment of CARE was completed. Personnel directly involved with the procedure wore the appropriate PPE (Personal Protective Equipment). No special equipment needed. Patient/Surrogate Stated/Verified: PATIENT VERIFIED(optional for EMERGENT procedures): Patient name, Date of , Relevant allergies, and The intended procedure Time Out Communication: Intended patient and procedure match the source documents. Consent documented and matches the intended procedure. Relevant labs, photos, and/or imaging studies have been reviewed. Correct side/site marked and visible. No medications required for procedure. No fire risk assessment and interventions applicable. No implant(s) inserted. Sign Out: SIGN OUT (optional for EMERGENT procedures): All specimen containers correctly labeled. All instruments, equipment, possible retained foreign bodies accounted for. Post-procedure follow-up management communicated and Plan of Care Visit completed when applicable. PROCEDURE: EXTERNAL GENITALIA: Normal in appearance without lesions VAGINA: Normal in appearance without lesions BIOPSY: Speculum placed into the vagina with excellent visualization of the cervix. Cervix cleaned with betadine. Anterior lip of cervix grasped with single toothed tenaculum. Pipelle inserted into the uterus without difficulty and endometrial biopsy obtained. Specimen labeled and sent to pathology. Hemostasis achieved. Procedure Summary: Patient tolerated procedure well. Indication bloating, pelvic pain Impression The uterus is anteverted and measures 51 mm x 15 mm x 30 mm. The endometrial thickness is 2 mm. There is fundal anechoic endometrial fluid. There is a left lateral wall posterior calcified fibroid that measures 7 mm x 7 mm x 5 mm. The right ovary is not visualized. There is a right 6 mm x 4 mm x 4 mm. simple paraovarian/paratubal cyst. The left ovary measures 22 mm x 27 mm x 11 mm and contains a 7 mm x 15 mm x 15 mm. Unilocular non-simple cyst (internal debris and/or incomplete septation) with smooth inner wall O-RADS 2 There is no free fluid visualized. Recommendations O-RADS 2 ovarian lesion, non-simple cyst, almost certainly benign. Follow up ultrasound is recommended in 6 months. Simple paraovarian/paratubal cyst, no follow up imaging is needed. Fibroid uterus. Clinical correlation is recommended. Consider endometrial sampling. Latest Ref Rng 06/08/2024 CA 125 <39 U/mL 60 (H) ASSESSMENT/PLAN: 1. Fluid in endometrial cavity - ICD9: 621.8, ICD10: N85.9 (primary diagnosis) - ENDOMETRIAL BIOPSY - SURGICAL PATHOLOGY 2. Elevated CA-125 - ICD9: 795.82, ICD10: R97.1 -Will consult ECOLOGICAL RISK ASSESSOR/ONC once EMB results. Discussed with previously and agrees with plan. PLAN: Specimens labeled and sent to Pathology. Will notify patient of results in 1-2 weeks. Follow up in 1-2 weeks to discuss results. Post-procedure instructions reviewed and written material given to the patient. HAYDEN Perez Toni, MA 06/25/2024 8:03 AM Signed YOUR RECOVERY After your biopsy you may have: Vaginal bleeding (less than a normal menstrual period) Mild cramping Do NOT put anything in the vagina for 1 week after your endometrial biopsy. This includes: tampons douches and refraining from having sexual intercourse If you have any discomfort, you may take an over the counter pain medication (motrin, advil, ibuprofen, tylenol, etc). If this does not relieve your discomfort, contact the office. It is okay to wear a sanitary pad until the discharge and spotting stops. RISKS Although problems seldom occur with endometrial biopsies, there can be some complications. You may feel faint during and shortly after the procedure as well as have some bleeding after the procedure. There is also a risk of infection after the procedure. These complications are rare and can be easily treated. You should contact you doctor is you have any of the following: Heavy bleeding (more than your normal period) Bleeding with clots Severe abdominal pain Fever (more than 100.4F) Foul smelling vaginal discharge RESULTS We will have the results of your biopsy in 1-2 weeks. If you do not hear the results of your biopsy after 2 weeks, please contact the office for the (more content not included)... Normal [facility] SURGICAL PATHOLOGYon 025 CASE REPORT Normal [facility] Comment on above: Order Comment: Speci men Type: BLOOD SPECIMEN Ordering Facility: [facility] Address: [address] [place] [address] Result Comment: Surg [facility] Pathology Report Case: [id number] Authorizing Provider: Zulema Cavazos APRN.CNM Collected: 06/25/2024 08:59 AM Ordering Location: OB/Gynecology Received: 06/25/2024 12:23 PM Pathologist: Kimber Holman MD Specimen: Endometrium, Biopsy Performed By: #### R UBIGG, MEASLG, MUMPSG #### [facility] CLIA [id number] [address] [place], [place] [id number] [place] CLINICAL HISTORY fluid in endometrium Normal [facility] Comment on above: Order Comment: Speci men Type: BLOOD SPECIMEN Ordering Facility: [facility] Address: [address] [place] [address] Performed By: #### R UBIGG, MEASLG, MUMPSG #### [facility] CLIA [id number] [address] [place] [address] DIAGNOSIS COMMENT Another sampling is recommended if clinically indicated. Normal [facility] Comment on above: Order Comment: Speci men Type: BLOOD SPECIMEN Ordering Facility: [facility] Address: [address] [place] [address] Performed By: #### R UBIGG, MEASLG, MUMPSG #### [facility] CLIA [id number] [address] [place] [address] FINAL DIAGNOSIS Normal [facility] Comment on above: Order Comment: Speci men Type: BLOOD SPECIMEN Ordering Facility: [facility] Address: [address] [place] [address] Result Comment: A. E ndometrium, biopsy: - Predominantly mucus with limited benign endocervical epithelium, endometrium is not present (see comment). Performed By: #### R UBIGG, MEASLG, MUMPSG #### [facility] CLIA [id number] [address] [place] [address] OF [facility] FINAL PERFORMING LAB Normal [facility] Comment on above: Order Comment: Speci men Type: BLOOD SPECIMEN Ordering Facility: [facility] Address: [address] [place] [address] Result Comment: Diag nostic interpretation performed at: [facility], [address] [place] [address] CLIA# [id number] Fabric Machine Operator: Dariel Dubose MD Performed By: #### R ELIASGGODWING, MUMPSG #### [facility] CLIA [id number] [address] [place] [address] STATES OF [place] GROSS DESCRIPTION Normal [facility] Comment on above: Order Comment: Speci men Type: BLOOD SPECIMEN Ordering Facility: [facility] Address: [address] [place] [address] Result Comment: A. E ndometrium, Biopsy Received in formalin are multiple garcia and garcia-white, soft feathery segments of tissue admixed with mucinous material aggregating to 2.8 x 1.2 x 0.3 cm. Totally submitted in one cassette. [facility] June 25, 2024 5:15 PM Gross examination performed at [facility], [address] [place] [address] Performed By: #### R GODWIN MINERG, MUMPSG #### [facility] CLIA [id number] [address] [place] [address] OF [place] Hung 06-17-2024 CNPN Telephone (OBGYWM) -- TRAY BOBBY ([id number]) 1950 F Date Time Provider Department 06/17/24 ZULEMA CAVAZOS During your visit today, we recorded the following information about you: Bonita Cruz, CINTHYA 06/17/2024 3:37 PM Signed ----- Message from Abi Garcia MD sent at 06/17/2024 3:25 PM EST ----- Let patient know that she has some fluid in endometrium. Recommend EMB and f/u US in 6 months. KISHORE patient, she can sign orders. MD Jo Ann Gage Lindsey, CINTHYA 06/18/2024 3:07 PM Signed ----- Message from Zulema Cavazos APRN.CNM sent at 06/18/2024 3:03 PM EST ----- Please assist patient in scheduling EMB with me and US in 6 months. I can discuss lab results and follow up plan at visit. HAYDEN Perez Lindsey, RN 06/18/2024 3:08 PM Signed Please file pended orders. CINTHYA Freeman Jessica, APRN.CNM 06/18/2024 4:07 PM Signed Orders signed. HAYDEN Perez Lindsey, RN 06/18/2024 4:31 PM Signed Patient notified and voiced understanding of results and instructions. EMB appointment scheduled. Shannan Dunn RN Allergies As of Date: 06/17/2024 Noted Allergy Reaction AMOXICILLIN 06/07/2005 4 - Hives SULFA (SULFONAMIDE ANTIBIOTICS) 01/09/2016 4 - Hives Date Reviewed: 06/08/2024 Reviewed by: Pelon Fonseca MA - Fully Assessed Reason for Visit: Results [95] Orders [681] Primary Visit Diagnosis:Fluid in endometrial cavity [N85.9] Other Visit Diagnosis:Cyst of ovary, unspecified laterality [N83.209] Order(s):ENDOMETRIAL BIOPSY [[id number]] Order #: [id number] PELVIC US WHI [[id number]] Order #: [id number]: 1 FUTURE Problem List As Of Date 06/17/2024 Noted Resolved Mixed hyperlipidemia [E78.2] 01/09/2016 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 The endometrial thickness is 2 mm. There is fundal anechoic endometrial fluid. There is a left lateral wall posterior calcified fibroid that measures 7 mm x 7 mm x 5 mm. The right ovary is not visualized. There is a right 6 mm x 4 mm x 4 mm. simple paraovarian/paratubal cyst. The left ovary measures 22 mm x 27 mm x 11 mm and contains a 7 mm x 15 mm x 15 mm. Unilocular non-simple cyst (internal debris and/or incomplete septation) with smooth inner wall O-RADS 2 There is no free fluid visualized. Recommendations O-RADS 2 ovarian lesion, non-simple cyst, almost certainly benign. Follow up ultrasound is recommended in 6 months. Simple paraovarian/paratubal cyst, no follow up imaging is needed. Fibroid uterus. Clinical correlation is recommended. Consider endometrial sampling. History Medical History Surgery: Right oophorectomy ECOLOGICAL RISK ASSESSOR History Postmenopausal: Postmenopausal Menstrual History HRT: No Method Transabdominal, transvaginal, 3D ultrasound examination, Color Doppler examination. View: Adequate visualization Uterus Uterus: Visualized Uterus position: anteverted Description of uterine malformations: none Myometrium: heterogeneous Endometrium: fundal intracavitary fluid: anechogenic Uterus length 51 mm Uterus width 30 mm Uterus height 15 mm Uterus Vol 11.8 cm Endometrial thickness, total 2.0 mm Fibroids: Fibroids identified Uterine fibroid D1 7 mm Uterine fibroid D2 7 mm Uterine fibroid D3 5 mm Uterine fibroid mean 6.3 mm Uterine fibroid vol 0.128 cm Uterine fibroids findings: calcification Left lateral posterior wall Polyps: No polyps identified Right Ovary Rt ovary: Not visualized Rt ovary details: right oophorectomy noted Rt ovarian cyst D1 6 mm Rt ovarian cyst D2 4 mm Rt ovarian cyst D3 4 mm Rt ovarian cyst mean 4.7 mm Rt ovarian cyst vol 0.050 cm Rt ovarian cyst findings: Simple paraovarian/paratubal cyst Left Ovary Lt ovary: Visualized Lt ovary D1 22 mm Lt ovary D2 27 mm Lt ovary D3 11 mm Lt ovary Vol 3.2 cm Lt ovarian cyst(s): Cysts identified Lt ovarian cyst D1 7 mm Lt ovarian cyst D2 15 mm Lt ovarian cyst D3 15 mm Lt ovarian cyst mean 12.3 mm Lt ovarian cyst vol 0.825 cm Lt ovarian cyst findings: Unilocular non-simple cyst (internal debris and/or incomplete septation) with smooth inner wall Cul de Sac Visualized. no free fluid visualized Performed By: Jo Ann Kennedy RDMS Read By: Rolando Albarado M.D. MATERNAL MEDICINE [facility] Radiology Study observation (narrative) [facility] CNPNon 06-09-2024 CNPN Telephone (OBGYWM) -- TRAY BOBBY ([id number]) 1950 F Date Time Provider Department 06/09/24 ZULEMA CAVAZOS OBGYWM During your visit today, we recorded the following information about you: Emilee Amaya RN 06/09/2024 8:41 AM Signed Left message for patient to call office. Need to move patient's 0830 pelvic ultrasound on 06/10. Please offer patient another day next week or a sooner appt in Radiology if she wants and ok with provider. Will need a new order if she wants in Radiology. CINTHYA Lloyd Jennifer, RN 06/09/2024 9:00 AM Signed Patient called back. Moved appt to 06/15. 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] 01/09/2016 Family history of carcinoma in situ of breast [*01/09/2016 Pelvic pressure in female [R10.2] 06/08/2021 Pelvic floor dysfunction in female [M62.89] 06/08/2021 Encounter Status:Closed by EMILEE AMAYA on 06/09/24 [facility] CNOVon 06-08-2024 CNOV Office Visit (OBGYWM ) -- BOBBYTRAY J ([id number]) 1950 F Date Time Provider Department 06/08/24 10:00 AM ZULEMA CAVAZOS OBGYWM During your visit today, we recorded the following information about you: Blood pressure Weight Height 110/66 56.2 kg 1.524 m Zulema Cavazos APRN.CNM 06/08/2024 10:49 AM Signed Lockstitch Zipper Setter offered: Patient declines. Tray is a 73 year old who presents for an annual gynecologic exam with complaints. Mild pelvic pain/discomfort, bloating, and early satiety in the last year. Admits to some heartburn. Complains of vaginal dryness/burning. History of UTI but not frequent. Postmenopausal: Yes since late 40's, uncertain of age HRT use: No. Still get period: No LMP: NA Menopause symptoms: Vaginal dryness, will have vaginal burning and discomfort. History of UTI that caused chills and shaking. control frequency: Never HPV vaccine: No; Last pap smear: unsure History of abnormal pap: No, all prior PAP smears have been normal Colposcopy: No. Leep: No. Cone biopsy: No. Bothersome pelvic pain: Yes, pelvic pressure over last year Last mammogram: 2023 normal @ [facility] History of abnormal mammogram: Yes , very dense breast tissue, completed at [facility] and ordered by primary care provider. Mood swings: No Insomnia: No Exercise: Walks daily on treadmill or outside if weather is nice Diet: No restrictions Seatbelt use: Yes OB History T0 L0 SAB0 IAB0 Ectopic0 Multiple0 Live Births0 Disability Attorney History LMP: Postmenopausal Age at Menarche: Age at First : Age at Menopause: Disability Attorney History Comments: Sexual Activity: Not Currently; Male Contraception: None PAST MEDICAL HISTORY Diagnosis Date Arthritis Calculus of gallbladder without mention of cholecystitis or obstruction cholecystectomy Coitus painful for female Endometriosis Infertility, female Ovarian cyst PAST SURGICAL HISTORY Procedure Laterality Date ABDOMINAL SURGERY HX BREAST BIOPSY X2- negative COLONOSCOPY FLX DX W/COLLJ SPEC WHEN PFRMD 05/04/2021 tubular adenoma, repeat in 5 years LAPS SURG CHOLECYSTECTOMY W/CHOLANGIOGRAPHY Jennifer OOPHORECTOMY PARTIAL/TOTAL UNI/BI 1983 RIGHT-ENDOMETRIOSIS TONSILLECTOMY AND ADENOIDECTOMY TONSILLECTOMY HX FAMILY HISTORY Problem Relation Age of Onset Breast Cancer Mother [place], CVA Skin Cancer Father Breast Cancer Sister Skin Cancer Sister Breast Cancer Sister Breast Cancer Paternal Grandmother Breast Cancer Other cousin SOCIAL HISTORY Social History Tobacco Use Smoking status: Never Smokeless tobacco: Never Vaping Use Vaping status: Never Used Substance Use Topics Alcohol use: No Drug use: No REVIEW OF SYSTEMS Abdomen: No abdominal pain, nausea, vomiting, diarrhea, or constipation. No indigestion, or increased flatulence. Admits to bloating, early satiety, Bladder: No dysuria, gross hematuria, urinary frequency, urinary urgency, or incontinence Breast: No breast lumps, nipple d/c, overlying skin changes, redness or skin retraction Allergies and current medication updated:Yes SENSITIVE EXAM: The sensitive examination was discussed with the Patient or Patient's Authorized Labor Arbitrator Hearing Office. As applicable, any other physician, advance practice provider, medical student, or other health professional student that will be observing or involved in the sensitive examination for educational or training purposes was discussed with the Patient or Authorized Labor Arbitrator Hearing Office. The Patient or Authorized Labor Arbitrator Hearing Office has agreed to proceed with the sensitive examination. (Sensitive examination includes inspection and/or palpation of the breasts, pelvis, prostate and anorectal regions). EXAM: BP 110/66 Ht 5' 0 (1.52m) Wt 124 lb (56.2kg) BMI 24.22 kg/(m2). GENERAL: pleasant, female in no apparent distress HEENT: Normocephalic, atraumatic, mucus membranes moist, and no lesions NECK: Supple, full range of motion DERMATOLOGY: Normal, without lesions, non-icteric, and non-hirsute BREAST: soft, non-tender, symmetric, no dominant mass, normal nipple-areolar complex, no lymphadenopathy, and no nipple discharge. Left breast with scar on left upper outer breast quadrant from prior breast biopsy. Dense breast tissue bilaterally. CHEST: Normal inspiratory effort ABDOMEN: soft, non-tender, and no masses PELVIC: external genitalia normal, normal Bartholin's glands, urethra, [place]'s glands, no vulvar lesions, no cervical lesions, good vaginal support, physiologic discharge present, normal appearing perineal body and perianal region, atrophic changes BIMANUAL: uterus normal size, shape and consistency, no adnexal masses, and non-tender RECTOVAGINAL: deferred. NEURO: alert and oriented x3,exam grossly non-focal EXTREMITIES: normal ASSESSMENT/PLAN: 1. Encounter for gynecological examination wi (more content not included)... Normal [facility] Cancer Ag125 SerPl-aCncon Cancer Ag 125 Qn 60 [arb'U]/mL High <[address] [facility] Comment on above: Order Comment: Speci men Type: BLOOD SPECIMEN Ordering Facility: [facility] Address: [address] [place] [address] Result Comment: CA 1 25 test methodology used is the Electrochemiluminescence Immunoassay by [employer]. Results obtained with different methods or kits cannot be used interchangeably. The reference interval is based on the 95th percentile of 240 apparently healthy premenopausal and postmenopausal women. At a cutoff value of 65 U/mL, the test sensitivity to distinguish ovarian carcinoma (FIGO stage I to IV) versus benign gynecological disease is 79%, with a specificity of 82%. Reference: Cancer Antigen 125 (CA 125 II) [package insert V 1.0 Lebanese]. [employer], [place], [place] (March 2015) Performed By: #### 2 4323-8, 32974-4 #### [facility] CLIA [id number] [address] [place] [address] [place] HIGH RISK HUMAN PAPILLOMA SHARITA (HPV), PCR FOR DETECTION AND GENOTYPINGon 06-08-2024 HPV 16 Ag Ql (Unsp spec) Not detected Normal Not detected [facility] Comment on above: Order Comment: Speci men Type: BLOOD SPECIMEN Ordering Facility: [facility] Address: [address] [place] [address] Performed By: #### 2 4323-8, 33257-1 #### [facility] CLIA [id number] [address] [place] [address] [place] HPV 18 Ag Ql (Unsp spec) Not detected Normal Not detected [facility] Comment on above: Order Comment: Speci men Type: BLOOD SPECIMEN Ordering Facility: [facility] Address: [address] [place] [address] Performed By: #### 2 4323-8, 57744-5 #### [facility] CLIA [id number] [address] [place] [address] [place] HPV 31+33+35+39+45+51+52+5 6+58+59+66+68 DNA NIMISHA+probe Ql (Cvx) Not detected Normal Not detected [facility] Comment on above: Order Comment: Speci men Type: BLOOD SPECIMEN Ordering Facility: [facility] Address: [address] [place] [address] Result Comment: High Risk HPV Other Type includes HPV types 31, 33, 35, 39, 45, 51, 52, 56, 58, 59, 66 and 68. Performed By: #### 2 4323-8, 07802-8 #### [facility] CLIA [id number] [address] [place] [address] [place] PAP TESTon 06-08-2024 ADEQUACY Satisfactory for interpretation. Normal [facility] Comment on above: Order Comment: Speci men Type: BLOOD SPECIMEN Ordering Facility: [facility] Address: [address] [place] [address] Performed By: #### R TRISTON MINER MUMPSG #### [facility] CLIA [id number] [address] [place] [address] [place] CASE REPORT Normal [facility] Comment on above: Order Comment: Speci men Type: BLOOD SPECIMEN Ordering Facility: [facility] Address: [address] [place] [address] Result Comment: Gyne cologic Cytology Report Case: [id number] Authorizing Provider: Zulema Cavazos APRN.CNM Collected: 06/08/2024 10:47 AM Ordering Location: OB/Gynecology Received: 06/08/2024 11:38 AM First Screen: Evert, Zoë, CT, ASCP Rescreen: Deeds, Raghavendra, CT, ASCP Specimen: Pap Test, ThinPrep, Cervix Performed By: #### R UBIGG, MEASLG, MUMPSG #### [facility] CLIA [id number] [address] [place] [address] [place] CLINICAL HISTORY, CYTOLOGY, ECOLOGICAL RISK ASSESSOR Post Menopausal Normal [facility] Comment on above: Order Comment: Speci men Type: BLOOD SPECIMEN Ordering Facility: [facility] Address: [address] [place] [address] Performed By: #### R UBIGGLUIS MIGUELLG, MUMPSG #### [facility] CLIA [id number] [address] [place] [address] [place] CYTOLOGY PAP OTHER INTERPRETATION Atrophic specimen. Normal [facility] Comment on above: Order Comment: Speci men Type: BLOOD SPECIMEN Ordering Facility: [facility] Address: [address] [place] [address] Performed By: #### R UBIGG, LUIS MIGUELLG, MUMPSG #### [facility] CLIA [id number] [address] [place], [place] [id number] [place] FINAL PERFORMING LAB Normal [facility] Comment on above: Order Comment: Speci men Type: BLOOD SPECIMEN Ordering Facility: [facility] Address: [address] [place] [address] Result Comment: Tech nical component, software configuration engineer screening performed at [facility], [address] [place] [id number] CLIA# [id number] Diagnostic interpretation performed at [facility], [address] [place], [place] [id number] CLIA# [id number] Fabric Machine Operator: Dariel Dubose M.D. Performed By: #### R UBIGG, MEASLG, MUMPSG #### [facility] CLIA [id number] [address] [place] [address] [place] INTERPRETATION, CYTOLOGY, ECOLOGICAL RISK ASSESSOR Normal [facility] Comment on above: Order Comment: Speci men Type: BLOOD SPECIMEN Ordering Facility: [facility] Address: [address] [place] [address] Result Comment: Nega tive for intraepithelial lesion or malignancy. Performed By: #### R UBIGG, MEASLG, MUMPSG #### [facility] CLIA [id number] [address] [place] [address] [place] PAP DISCLAIMER COMMENT The Pap Smear is a screening test for cervical cancer. False negative results occur with all screening tests, emphasizing the need for rescreening at recommended intervals, and clinical correlation. Normal [facility] Comment on above: Order Comment: Speci men Type: BLOOD SPECIMEN Ordering Facility: [facility] Address: [address] [place] [address] Performed By: #### R UBIGG, MEASLG, MUMPSG #### [facility] CLIA [id number] [address] [place] [address] [place] PAP MANAGER PACKAGE COMMENT This specimen has be en analyzed by the ThinPrep Imaging System, an automated imaging and review system, which assists the laboratory in evaluating cells on ThinPrep Pap tests. Following automated imaging, selected mendez from every slide are reviewed by a software configuration engineer. Normal [facility] Comment on above: Order Comment: Speci men Type: BLOOD SPECIMEN Ordering Facility: [facility] Address: [address] [place] [address] Performed By: #### R UBIGG, MEASLG, MUMPSG #### [facility] CLIA [id number] [address] [place] [address] [address] [place] [facility] SCRN MAMM (CAD)W/ANDRES BILATo n 05-03-2024 SCRN MAMM (CAD)W/ANDRES BILAT [facility] Imaging Services [address] [place] [address] SCRN MAMM (CAD)W/ANDRES BILAT MR#: [id number] Acct: [id number] Name: TRAY BOBBY Rep #: [id number] : 1950 F 73 From: Blake rubio MD PCP: Dr. Silva Pepper MD Status: REG [facility] Study: SCRN MAMM (CAD)W/ANDRES BILAT Date of Exam: 07/26 Exam# [id number] Ordering Dr: MARIELLE LOMBARDO C PROGRAMMER-C [id number] MAMMOGRAPHY - BILATERAL SCREENING REASON FOR EXAM: Female, 73 years old. Routine annual screening examination. PERTINENT HISTORY: Sisters with breast cancer. Grandmother with breast cancer. Prior left excisional breast biopsy. TECHNIQUE: Digital bilateral breast andres (3D mammographic acquisition) in the CC and MLO projections. 2-D mediolateral oblique (MLO) and craniocaudad (CC) views of both breasts were obtained. CAD: Full Field Digital Mammography with Computer Added Detection was performed. COMPARISON: Comparison is made with prior study April 21, 2023 and March 19, 2022. FINDINGS: Breast Composition: The breasts are heterogeneously dense, which may obscure small masses. There are no dominant masses or suspicious calcifications. Stable bilateral fat-containing axillary lymph nodes. No other significant abnormalities are identified. There has been no significant change since the prior study. BI/SCRN MAMM (CAD)W/ANDRES BILAT IMPRESSION: Stable bilateral screening mammogram. Yearly follow-up mammogram recommended. (A) ASSESSMENT CATEGORY: BIRADS Category 2: Benign. A letter regarding these results will be sent to the patient by the facility within 30 days. Approximately 10% of breast cancers are not detected by mammography. A normal mammogram should not delay biopsy of a clinically suspicious abnormality. [id number] Electronically Signed: Blaek Zayas MD at 14:07 EST , CC: ANGELITO LOMBARDO; Dr. Silva Pepper MD Last Puller: Signed Normal [facility] 04-20-2024 CNPN Telephone (DERMST) -- TRAY BOBBY ([id number]) 1950 F Date Time Provider Department 04/20/24 HILLARY LEOS During your visit today, we recorded the following information about you: Shyam Nance 04/20/2024 10:55 AM Signed Attempt #1 - first (1) attempt made on 04/20/24 to inform patient that their 04/20/24 appt with Hillary Leos , has been cancelled/rescheduled. Special Instructions: N/A Shyam Nance 04/20/2024 12:15 PM Signed [facility] message read. Last read by Tray Bobby at 12:00 PM on 04/20/2024. 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] 01/09/2016 Family history of carcinoma in situ of breast [*01/09/2016 Pelvic pressure in female [R10.2] 06/08/2021 Pelvic floor dysfunction in female [M62.89] 06/08/2021 Encounter Status:Closed by SHYAM NANCE on 04/20/24 Normal [facility] CNOVon 04-19-2024 CNOV Office Visit (INTMWS ) -- TRAY BOBBY ([id number]) 1950 F Date Time Provider Department 04/19/24 10:40 AM MARIELLE LOMBARDO During your visit today, we recorded the following information about you: Pulse Respiration Blood pressure Weight 72/minute 16/minute 122/70 57.6 kg Marielle Lombardo APRN.CNP 04/19/2024 11:11 AM Signed Tray Bobby is a 73 year old female here for a Medicare wellness visit. Medicare Health Risk Assessment General Health Good Exercise: Minutes/Day 40 min Exercise: Days/Week 6 days Alcohol: Daily Use Never Alcohol: Drinks/Day Patient does not drink Alcohol: 6 or more drinks Never Feel off balance No Concerns: Teeth/Dentures No Concerns: Sexual function No Troubled by feelings None of the above Frequency: Eating healthy diet Nearly every day ADLs requiring help None of the above Safety precautions in home/vehicle Yes Smoke, vape, chews tobacco No Difficulty hearing No Difficulty seeing Yes - has cataracts and awaiting surgery Current Providers Specialists: I have reviewed specialist-related care of the patient in the medical record. Ophthalmology: Dr. Lance Medical/Family history review Reviewed and updated problem list, medical/surgical/family/so cial history, medications, and allergies. Opioid use review Opioid Medications (last 90 days) No data to display Anxiety/Depression screening PHQ-2 Score: 0 (Lower risk for depression) SEBAS-2 Score: 0 (Lower risk for anxiety) Recommendation: no further intervention at this time Cognitive screening Mini Cog Score: 5 Cognitive screening reviewed and No further action needed (score 3-5). Functional Observation Was the patient's Timed Up AND Go test unsteady or >= 12 seconds? No Advance Care Planning Patient was not able to provide a surrogate decision maker or written advance directives Measurements BP 122/70 Pulse 72 Resp 16 Wt 57.6 kg (127 lb) SpO2 97% BMI 24.80 kg/m? Vision Screening: Follows with optometry/ophthalmology Assessment/Plan Medicare annual wellness visit, subsequent (Z00.) - Counseled on healthy diet and regular exercise - Fall avoidance information provided - Personalized prevention plan provided ASSESSMENT/PLAN: 1. Medicare annual wellness visit, subsequent - ICD9: V70.0, ICD10: Z00.00 (primary diagnosis) - Counseled on healthy diet and regular exercise - Mammogram ordered - exam recommended once yearly - Patient counseled on and acknowledged vaccine benefits/risks/side effects; VIS provided: Shingrix - Follow up for annual exam in one year 2. Screening for depression - ICD9: V79.0, ICD10: Z13.31 negative - DEPRESSION SCREENING 3. Encounter for screening examination for other mental health and behavioral disorders - ICD9: V79.8, ICD10: Z13.39 negative - ANXIETY SCREENING 4. Encounter for immunization - ICD9: V03.89, ICD10: Z23 - SHINGRIX PRINTED PHARMACY INSTRUCTIONS 5. Encounter for screening mammogram for breast cancer - ICD9: V76.12, ICD10: Z12.31 - NARESH SCREENING W ANDRES Lombardo APRN.Marielle Chauhan APRN.CNP 04/19/2024 10:56 AM Signed Screening schedule The following prevention plan is recommended: Depression Screening Never done Anxiety Screening Never done Shingrix Vaccine(1 of 2) Never done Advance Directive Discussion Never done Mammogram Screening due on 04/29/2024 WHAT YOU CAN DO TO PREVENT FALLS Many falls can be prevented. By making some changes, you can lower your chances of falling. Four things YOU can do to prevent falls for you* and your caregiver 1. Begin a regular exercise program Exercise is one of the most important ways to lower your chances of falling. It makes you stronger and helps you feel better. Exercises that improve balance and coordination (like Sukhdeep Chi) are the most helpful. Lack of exercise leads to weakness and increases your chances of falling. Ask your doctor or health care provider about the best type of exercise program for you. 2. Have your health care provider review your medicines Have your doctor or pharmacist review all the medicines you take, even begr-arl-oyzorpj medicines. As you get older, the way medicines work in your body can change. Some medicines, or combinations of medicines, can make you sleepy or dizzy and can cause you to fall. 3. Have your vision checked Have your eyes checked by an eye doctor at least once a year. You may be wearing the wrong glasses or have a condition like glaucoma or cataracts that limits your vision. Poor vision can increase your chances of falling. 4. Make your home safer About half of all falls happen at home. To make your home safer: Remove things you can trip over (like papers, books, clothes, and shoes) from stairs and places where you walk. Remove small throw rugs or use double-sided tape to keep the rugs from slipping. Keep item (more content not included)... [facility] ([place]) -- TRAY BOBBY ([id number]) 1950 F Date Time Provider Department 04/19/24 MARIELLE LOMBARDO During your visit today, we recorded the following information about you: Marielle Lombardo APRN.CNP 04/19/2024 11:01 AM Signed Needs consult for new dermatolgist. Last one is no longer available. No current concerns but gets regular check ups with family history of skin cancer. Also is due for routine pap smear and needs consult. Marielle Lombardo APRN.CNP Allergies As of Date: 04/19/2024 Noted Allergy Reaction AMOXICILLIN 06/07/2005 4 - Hives SULFA (SULFONAMIDE ANTIBIOTICS) 01/09/2016 4 - Hives Date Reviewed: 04/19/2024 Reviewed by: Marielle Lombardo APRN.CNP - Fully Assessed Reason for Visit: Patient Update [1234] Primary Visit Diagnosis:Family history of skin cancer [Z80.8] Other Visit Diagnosis:Women's annual routine gynecological examination [Z01.419] Order(s):CONSULT TO DERMATOLOGY [9006] Order #: [id number]: 1 FUTURE CONSULT TO GYNECOLOGY [9013] Order #: [id number]: 1 FUTURE Problem List As Of Date 04/19/2024 Noted Resolved Mixed hyperlipidemia [E78.2] 01/09/2016 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] 01/09/2016 Family history of carcinoma in situ of breast [*01/09/2016 Pelvic pressure in female [R10.2] 06/08/2021 Pelvic floor dysfunction in female [M62.89] 06/08/2021 Encounter Status:Closed by MARIELLE LOMBARDO on 04/19/24 Normal [facility] Comprehensive metabolic 2000 panelon 03-22-2024 Albumin [Mass/Vol] 3.9 g/dL Normal 3.9-4.9 [facility] Comment on above: Order Comment: Speci men Type: BLOOD SPECIMEN Ordering Facility: [facility] Address: [address] [place] [address] Performed By: #### 2 4323-8, 68571-9 #### [facility] CLIA [id number] [address] [place] [address] [place] ALP [Catalytic activity/Vol] 75 U/L Normal 34-123 [facility] Comment on above: Order Comment: Speci men Type: BLOOD SPECIMEN Ordering Facility: [facility] Address: [address] [place] [address] Performed By: #### 2 4323-8, 12790-3 #### [facility] CLIA [id number] [address] [id number] [address] [place] ALT [Catalytic activity/Vol] 24 U/L Normal 7-38 [facility] Comment on above: Order Comment: Speci men Type: BLOOD SPECIMEN Ordering Facility: [facility] Address: [address] [place] [address] Performed By: #### 2 4323-8, 72866-2 #### [facility] CLIA [id number] [address] [place] [address] [place] Anion gap [Moles/Vol] 12 mmol/L Normal 8-15 [facility] Comment on above: Order Comment: Speci men Type: BLOOD SPECIMEN Ordering Facility: [facility] Address: [address] [place] [address] Performed By: #### 2 4323-8, 04471-5 #### [facility] CLIA [id number] [address] [place] [address] [place] AST [Catalytic activity/Vol] 25 U/L Normal 13-35 [facility] Comment on above: Order Comment: Speci men Type: BLOOD SPECIMEN Ordering Facility: [facility] Address: [address] [place] [address] Performed By: #### 2 4323-8, 86632-9 #### [facility] CLIA [id number] [address] [place] [address] [place] Bilirubin [Mass/Vol] 0.4 mg/dL Normal 0.2-1.3 [facility] Comment on above: Order Comment: Speci men Type: BLOOD SPECIMEN Ordering Facility: [facility] Address: [address] [place], [place] [address] Performed By: #### 2 4323-8, 23061-7 #### [facility] CLIA [id number] [address] [place] [address] [place] Calcium [Mass/Vol] 9.2 mg/dL Normal 8.5-10.2 [facility] Comment on above: Order Comment: Speci men Type: BLOOD SPECIMEN Ordering Facility: [facility] Address: [address] [place] [address] Performed By: #### 2 4323-8, 32852-4 #### [facility] CLIA [id number] [address] [place] [address] [place] Chloride [Moles/Vol] 104 mmol/L Normal 98-107 [facility] Comment on above: Order Comment: Speci men Type: BLOOD SPECIMEN Ordering Facility: [facility] Address: [address] [place] [address] Performed By: #### 2 4323-8, 41009-0 #### [facility] CLIA [id number] [address] [place] [address] [place] CO2 [Moles/Vol] 24 mmol/L Normal 22-30 [facility] Comment on above: Order Comment: Speci men Type: BLOOD SPECIMEN Ordering Facility: [facility] Address: [address] [place] [address] Performed By: #### 2 4323-8, 87719-1 #### [facility] CLIA [id number] [address] [place] [address] [place] Creatinine [Mass/Vol] 0.82 mg/dL Normal 0.58-0.96 [facility] Comment on above: Order Comment: Speci men Type: BLOOD SPECIMEN Ordering Facility: [facility] Address: [address] [place] [address] Performed By: #### 2 4323-8, 95644-5 #### [facility] CLIA [id number] [address] [place] [address] [place] Creatinine and Glomerular filtration rate.predicted panel (S/P/Bld) 76 mL/min/1.73m??? Normal >=60 [facility] Comment on above: Order Comment: Speci men Type: BLOOD SPECIMEN Ordering Facility: [facility] Address: [address] [place] [address] Result Comment: Carolyn mated Glomerular Filtration Rate (eGFR) is calculated using the 2020 CKD-EPI creatinine equation. This equation utilizes serum creatinine, sex, and age as parameters. The creatinine assay has traceable calibration to isotope dilution-mass spectrometry. Refer to KDIGO guidelines for clinical interpretation. In patients with unstable renal function, e.g. those with acute kidney injury, the eGFR may not accurately reflect actual GFR. Performed By: #### 2 4323-8, 46797-1 #### [facility] CLIA [id number] [address] [place] [address] [place] Glucose [Mass/Vol] 90 mg/dL Normal 74-99 [facility] Comment on above: Order Comment: Jenniffer blank Type: BLOOD SPECIMEN Ordering Facility: [facility] Address: [address] [place] [address] Result Comment: The [place] Diabetes Association (ADA) provides guidance for cutoff values for fasting glucose and random glucose. The ADA defines fasting as no caloric intake for at least 8 hours. Fasting plasma glucose results between 100 to 125 mg/dL indicate increased risk for diabetes (prediabetes). Fasting plasma glucose results greater than or equal to 126 mg/dL meet the criteria for diagnosis of diabetes. In the absence of unequivocal hyperglycemia, results should be confirmed by repeat testing. In a patient with classic symptoms of hyperglycemia or hyperglycemic crisis, random plasma glucose results greater than or equal to 200 mg/dL meet the criteria for diagnosis of diabetes. Reference: Standards of Medical Care in Diabetes 2016, [place] [employer] Association. Diabetes Care. 2016.39(Suppl 1). Performed By: #### 2 4323-8, 57654-5 #### [facility] CLIA [id number] [address] [place] [address] [place] Potassium [Moles/Vol] 4.2 mmol/L Normal 3.7-5.1 [facility] Comment on above: Order Comment: Jenniffer blank Type: BLOOD SPECIMEN Ordering Facility: [facility] Address: [address] [place] [address] Performed By: #### 2 4323-8, 07362-2 #### [facility] CLIA [id number] [address] [place] [address] [place] Protein [Mass/Vol] 6.6 g/dL Normal 6.3-8.0 [facility] Comment on above: Order Comment: Speci men Type: BLOOD SPECIMEN Ordering Facility: [facility] Address: [address] [place] [address] Performed By: #### 2 4323-8, 86490-4 #### [facility] CLIA [id number] [address] [place] [address] [place] Sodium [Moles/Vol] 140 mmol/L Normal 136-144 [facility] Comment on above: Order Comment: Speci men Type: BLOOD SPECIMEN Ordering Facility: [facility] Address: [address] [place] [address] Performed By: #### 2 4323-8, 56250-0 #### [facility] CLIA [id number] [address] [place] [address] [place] Urea nitrogen [Mass/Vol] 15 mg/dL Normal 7-21 [facility] Comment on above: Order Comment: Speci men Type: BLOOD SPECIMEN Ordering Facility: [facility] Address: [address] [place] [address] Performed By: #### 2 4323-8, 62693-7 #### [facility] CLIA [id number] [address] [place] [address] [place] Lipid 1996 panelon 4 Cholesterol [Mass/Vol] 197 mg/dL Normal <200 [facility] Comment on above: Order Comment: Speci men Type: BLOOD SPECIMEN Ordering Facility: [facility] Address: [address] [place] [address] Result Comment: <200 mg/dL, Desirable 200-239 mg/dL, Borderline high >239 mg/dL, High Performed By: #### 2 4323-8, 63207-6 #### [facility] CLIA [id number] [address] Cholesterol in HDL [Mass/Vol] 52 mg/dL Normal >39 [facility] Comment on above: Order Comment: Jenniffer blank Type: BLOOD SPECIMEN Ordering Facility: [facility] Address: [address] [place] [address] Result Comment: 40-5 9 mg/dL, Acceptable >59 mg/dL, High: Negative risk factor for coronary heart disease <40 mg/dL, Low: Positive risk factor for coronary heart disease Performed By: #### 2 4323-8, 17231-0 #### [facility] CLIA [id number] [address] [place] [address] OF [facility] Cholesterol in LDL [Mass/Vol] 111 mg/dL High <100 [facility] Comment on above: Order Comment: Jenniffer blank Type: BLOOD SPECIMEN Ordering Facility: [facility] Address: [address] [place] [address] Result Comment: <100 mg/dL, Optimal 100-129 mg/dL, Near optimal/above optimal 130-159 mg/dL, Borderline high 160-189 mg/dL, High >189 mg/dL, Very high Secondary prevention optimal LDL Cholesterol levels are recommended to be < 70 mg/dL Performed By: #### 2 4323-8, 99746-6 #### [facility] CLIA [id number] [address] [place] [address] [place] Cholesterol in LDL/Cholesterol in HDL [Mass ratio] 2.13 {ratio} Normal <2.54 [facility] Comment on above: Order Comment: Jenniffer blank Type: BLOOD SPECIMEN Ordering Facility: [facility] Address: [address] [place] [address] Result Comment: Yumiko tejada: 1. National Cholesterol Education Program ATP III Guideline At-A-Glance Quick Desk Reference: National Heart, Lung, and Blood [place]. National Institutes of Health. 2001: NIH Publication No. 01-3305. 2. An International Atherosclerosis Society position paper: global recommendations for the management of dyslipidemia: executive summary, Atherosclerosis. 2014: 232(2):410-413. Performed By: #### 2 4323-8, 70756-8 #### [facility] CLIA [id number] [address] [place] [address] [place] Cholesterol in VLDL [Mass/Vol] 34 mg/dL High <30 [facility] Comment on above: Order Comment: Speci men Type: BLOOD SPECIMEN Ordering Facility: [facility] Address: [address] [place] [address] Performed By: #### 2 4323-8, 19480-9 #### [facility] CLIA [id number] [address] [place] [address] [place] Cholesterol non HDL [Mass/Vol] 145 mg/dL High <130 [facility] Comment on above: Order Comment: Speci men Type: BLOOD SPECIMEN Ordering Facility: [facility] Address: [address] [place] [address] Result Comment: <130 mg/dL, Optimal 130-159 mg/dL, Near optimal/above optimal 160-189 mg/dL, Borderline high 190-219 mg/dL, High >219 mg/dL, Very high Secondary prevention optimal non HDL Cholesterol levels are recommended to be <100 mg/dL Performed By: #### 2 4323-8, 28808-7 #### [facility] CLIA [id number] [address] [place] [address] [place] Cholesterol.total/Chol esterol in HDL [Mass ratio] 3.79 {ratio} Normal <5.10 [facility] Comment on above: Order Comment: Speci men Type: BLOOD SPECIMEN Ordering Facility: [facility] Address: [address] [place] [id number] Performed By: #### 2 4323-8, 08792-0 #### [facility] CLIA [id number] [address] [place] [address] [place] FASTING TIME 12 hrs Normal [facility] Comment on above: Order Comment: Speci men Type: BLOOD SPECIMEN Ordering Facility: [facility] Address: [address] [place] [address] Performed By: #### 2 4323-8, 49983-9 #### [facility] CLIA [id number] [address] [place] [address] [place] Triglyceride [Mass/Vol] 168 mg/dL High <150 [facility] Comment on above: Order Comment: Speci men Type: BLOOD SPECIMEN Ordering Facility: [facility] Address: [address] [place] [address] Result Comment: <150 mg/dL, Normal 150-199 mg/dL, Borderline high 200-499 mg/dL, High >499 mg/dL, Very high Performed By: #### 2 4323-8, 67401-3 #### [facility] CLIA [id number] [address] [place] [address] [place] Culture, Blood (WB)on 2023 CUB Blood cultures x2 fr om two different sites No growth in 5 days. Normal [facility] Comment on above: Performed By: #### M 200.1000 #### [facility] [address] [place], [address] CBC W/Diff, Automatedon 11-30 Absolute Lymph 0.87 X10 3/uL Normal 0.83-4.51 [facility] Comment on above: Performed By: #### L 503.6005, L500.4050, L100.0100 #### [facility] [address] [place], [address] Absolute Neut 5.7 X10 3/uL Normal 2.0-7.7 [facility] Comment on above: Performed By: #### L 503.6005, L500.4050, L100.0100 #### [facility] [address] [place], [address] Basophils/100 WBC (Bld) 0.4 % Normal 0-1 [facility] Comment on above: Performed By: #### L 503.6005, L500.4050, L100.0100 #### [facility] [address] [place], [address] Eosinophils/100 WBC (Bld) 0.4 % Normal 0-5 [facility] Comment on above: Performed By: #### L 503.6005, L500.4050, L100.0100 #### [facility] [address] [place], [address] Erythrocyte distribution width (RBC) [Ratio] 13.3 % Normal 11.6-14.6 [facility] Comment on above: Performed By: #### L 503.6005, L500.4050, L100.0100 #### [facility] [address] [place], [address] Hematocrit (Bld) [Volume fraction] 40.1 % Normal 37-47 [facility] Comment on above: Performed By: #### L 503.6005, L500.4050, L100.0100 #### [facility] [address] [place], [address] Hemoglobin (Bld) [Mass/Vol] 13.2 g/dL Normal 12.0-15.0 [facility] Comment on above: Performed By: #### L 503.6005, L500.4050, L100.0100 #### [facility] [address] [place], [address] IG% 0.400 Normal 0.0-0.9 [facility] Comment on above: Result Comment: IG% - Immature Granulocytes (promyelocytes, myelocytes and metamyelocytes) > 1% indicates that a LEFT SHIFT is Present. Performed By: #### L 503.6005, L500.4050, L100.0100 #### [facility] [address] [place], [address] Lymphocytes/100 WBC (Bld) 12.8 % Low 19-41 [facility] Comment on above: Performed By: #### L 503.6005, L500.4050, L100.0100 #### [facility] [address] [place], [address] MCH (RBC) [Entitic mass] 28.7 pg Normal 27.0-32.0 [facility] Comment on above: Performed By: #### L 503.6005, L500.4050, L100.0100 #### [facility] [address] [place], [address] MCHC (RBC) [Mass/Vol] 32.9 g/dL Normal 32-36 [facility] Comment on above: Performed By: #### L 503.6005, L500.4050, L100.0100 #### [facility] [address] [place], [address] MCV (RBC) [Entitic vol] 87.2 fL Normal 81-99 [facility] Comment on above: Performed By: #### L 503.6005, L500.4050, L100.0100 #### [facility] [address] [place], [address] Monocytes/100 WBC (Bld) 1.3 % Normal 0-10 [facility] Comment on above: Performed By: #### L 503.6005, L500.4050, L100.0100 #### [facility] [address] [place], [address] Neutrophils/100 WBC (Bld) 84.7 % High 47-70 [facility] Comment on above: Performed By: #### L 503.6005, L500.4050, L100.0100 #### [facility] [address] [place], [address] Nucleated RBC (Bld) [#/Vol] 0 10*3/uL Normal 0-5 [facility] Comment on above: Performed By: #### L 503.6005, L500.4050, L100.0100 #### [facility] [address] [place], [address] Platelet mean volume (Bld) [Entitic vol] 8.9 fL Normal 6.2-12.0 [facility] Comment on above: Performed By: #### L 503.6005, L500.4050, L100.0100 #### [facility] [address] [place], [address] Platelets (Bld) [#/Vol] 195 10*3/uL Normal 150-450 [facility] Comment on above: Performed By: #### L 503.6005, L500.4050, L100.0100 #### [facility] [address] [place], [address] RBC (Bld) [#/Vol] 4.60 10*6/uL Normal 4.2-5.4 [facility] Comment on above: Performed By: #### L 503.6005, L500.4050, L100.0100 #### [facility] [address] [place], [address] RDW SD 42.2 fl Normal 35.1-43.9 [facility] Comment on above: Performed By: #### L 503.6005, L500.4050, L100.0100 #### [facility] [address] [place], [address] WBC (Bld) [#/Vol] 6.8 10*3/uL Normal 4.4-11.0 [facility] Comment on above: Performed By: #### L 503.6005, L500.4050, L100.0100 #### [facility] [address] [place], [address] COVID 19 AG RAPID (CINTHYA Zhang)on 12-11-2023 SARS-CoV-2 (COVID-19) RNA NIMISHA+probe Ql (Unsp spec) *Negative results from patients with symptom onset beyond five days should be treated as presumptive and confirmed by a molecular assay if clinically necessary. Negative results should not be used as the sole basis for treatment or for patient management. SARS-CoV-2 Ag Resp Ql IA.rapid *Positive results do not differentiate between SARS-CoV and SARS-CoV-2. If differentiation of the specific SARS virus is desired an additional sample and an additional order is required. SARS-CoV-2 Ag Resp Ql IA.rapid * This test has not been FDA cleared or approved; the test has been authorized by FDA under an Emergency Use Authorization (EAU) for use by laboratories certified under CLIA that meet the requirements to perform moderate, high, or waived complexity tests. SARS-CoV-2 Ag Resp Ql IA.rapid Normal Reference Range: Negative SARS-CoV-2 (COVID 19) Negative RAPID METHOD [employer] COVID19 Ag Card Normal [facility] Comment on above: Performed By: #### M 100.505 #### [facility] [address] [place], [place], [address] Chest PA and Lateralon 12-10 Chest PA and Lateral [facility] [address] [place], [place] [address] Chest PA and Lateral MR#: [id number] Acct: [id number] Name: TRAY BOBBY Rep #: [id number] : 1950 F 73 From: [place] PCP: Dr. Silva Pepper MD Status: REG ER Study: Chest PA and Lateral Date of Exam: 12/11/23 Exam# [id number] Ordering Dr: Noelle Trinh DO [id number] INDICATION: fever EXAMINATION/TECHNIQUE: X-RAY - XR Chest 2 Views COMPARISON: No relevant prior comparison study available FINDINGS: LINES/DEVICES: None. LUNGS: No consolidation. Calcified granuloma at both lung bases. No pneumothorax. MEDIASTINUM: Aorta is atherosclerotic. CARDIAC SILHOUETTE: Not enlarged. BONES AND SOFT TISSUES: No acute abnormalities. Surgical clips right upper abdomen cholecystectomy. RAD/Chest PA and Lateral IMPRESSION: No evidence of active intrathoracic disease. Electronically Signed: Flores Rodríguez MD at 4:52 EDT , CC: Dr. Silva Pepper MD; Dr. Noelle Trinh DO Last Puller: Signed Normal [facility] Comprehensive Metabolic Prof ilon 12-11-2023 Albumin [Mass/Vol] 3.5 g/dL Normal 3.2-5.0 [facility] Comment on above: Performed By: #### L 503.6005, L500.4050, L100.0100 #### [facility] [address] [facility] [place], [address] Albumin/Globulin [Mass ratio] 1.1 {ratio} Normal 0.9-2.4 [facility] Comment on above: Performed By: #### L 503.6005, L500.4050, L100.0100 #### [facility] [address] [facility] [place], [address] ALK P 78 U/L Normal 45-117 [facility] Comment on above: Performed By: #### L 503.6005, L500.4050, L100.0100 #### [facility] [address] [facility] [place], [address] ALT [Catalytic activity/Vol] 28 U/L Normal 13-56 [facility] Comment on above: Performed By: #### L 503.6005, L500.4050, L100.0100 #### [facility] [address] [place], [address] AST [Catalytic activity/Vol] 31 U/L Normal 15-37 [facility] Comment on above: Result Comment: Mode rate Hemolysis, Result may be falsely increased. Performed By: #### L 503.6005, L500.4050, L100.0100 #### [facility] [address] [place], [address] Bilirubin [Mass/Vol] 0.70 mg/dL Normal 0.20-1.00 [facility] Comment on above: Result Comment: For patients on eltrombopag therapy, use of Dimension [place] TBIL is not recommended. Performed By: #### L 503.6005, L500.4050, L100.0100 #### [facility] [address] [place], [address] BUN/CRE 16.3 RATIO Normal 10-20 [facility] Comment on above: Performed By: #### L 503.6005, L500.4050, L100.0100 #### [facility] [address] [place], [address] CA,Total 9.1 mg/dL Normal 8.5-10.1 [facility] Comment on above: Performed By: #### L 503.6005, L500.4050, L100.0100 #### [facility] [address] [place], [address] Chloride [Moles/Vol] 103 mmol/L Normal 98-107 [facility] Comment on above: Performed By: #### L 503.6005, L500.4050, L100.0100 #### [facility] [address] [place], [address] CO2 [Moles/Vol] 28.0 mmol/L Normal 21.0-32.0 [facility] Comment on above: Performed By: #### L 503.6005, L500.4050, L100.0100 #### [facility] [address] [place], [address] Creatinine [Mass/Vol] 0.92 mg/dL Normal 0.55-1.02 [facility] Comment on above: Result Comment: The validity of the calculated GFR GFRAA in patients over 70 years has not been determined. Clinical correlation is essential. Performed By: #### L 503.6005, L500.4050, L100.0100 #### [facility] [address] [place], [address] ECRCL 43.29 ml/min Normal [facility] Comment on above: Performed By: #### L 503.6005, L500.4050, L100.0100 #### [facility] [address] [place], [address] EST GFR - AA 77 mL/min Normal >60 [facility] Comment on above: Result Comment: Afri can Estonian GFR Calc Performed By: #### L 503.6005, L500.4050, L100.0100 #### [facility] [address] [place], [address] GAP 7 Normal 5-15 [facility] Comment on above: Performed By: #### L 503.6005, L500.4050, L100.0100 #### [facility] [address] [place], [address] GFR/1.73 sq M.predicted among non-blacks MDRD (S/P/Bld) [Vol rate/Area] 64 mL/min/{1.73_m2} Normal >60 [facility] Comment on above: Result Comment: Non- GFR Calc Performed By: #### L 503.6005, L500.4050, L100.0100 #### [facility] [address] [place], [address] Globulin (S) [Mass/Vol] 3.2 g/dL Normal 2.2-4.2 [facility] Comment on above: Performed By: #### L 503.6005, L500.4050, L100.0100 #### [facility] [address] [place], [address] Glucose [Mass/Vol] 112 mg/dL High 74-106 [facility] Comment on above: Result Comment: Fast ing Glucose result from 100 to 125 mg/dL suggests IMPAIRED HOMEOSTASIS per A.D.A. criteria. Performed By: #### L 503.6005, L500.4050, L100.0100 #### [facility] [address] [place], [address] Potassium [Moles/Vol] 4.3 mmol/L Normal 3.5-5.1 [facility] Comment on above: Result Comment: Mode rate Hemolysis, Result may be falsely increased. Performed By: #### L 503.6005, L500.4050, L100.0100 #### [facility] [address] [place], [address] Sodium [Moles/Vol] 138 mmol/L Normal 136-145 [facility] Comment on above: Performed By: #### L 503.6005, L500.4050, L100.0100 #### [facility] [address] [place], [address] T PROT 6.7 g/dL Normal 6.4-8.2 [facility] Comment on above: Performed By: #### L 503.6005, L500.4050, L100.0100 #### [facility] [address] [place], [address] Urea nitrogen [Mass/Vol] 15 mg/dL Normal 7-18 [facility] Comment on above: Performed By: #### L 503.6005, L500.4050, L100.0100 #### [facility] [address] [place], [address] Emergency Department Summary on 12-11-2023 Emergency Department Summary [facility] Medical Records Department [address] [place] [address] Emergency Department Summary 12/11/23 MR#: [id number] Acct: [id number] Name: TRAY BOBBY Rep #: [id number] : 1950 73 From: Noelle Trinh DO PCP: Dr. Silva Pepper MD Status:REG ER Location: ED HPI History of Present Illness Chief Complaint: General Illness Informant: patient Narrative Narrative: Patient is a 73-year-old female with no significant past medical history presenting for an episode of shaking chills. She states she was laying in bed and she started shaking uncontrollably and felt very cold. She took her oral temperature at home and it was 99.5. She denies any recent URI symptoms but she has had a mild cough which she attributes to allergies. Has had some mild nausea but no vomiting. Denies any abdominal pain. Did have a loose bowel movement today but denies true diarrhea. Denies any blood in her stool. Denies any urinary symptoms. However, she does note the last time she had symptoms like that she had a urinary tract infection but that was sometime ago. Does have a mild headache. As had some mild back pain but feels more like her muscles are sore. While here it felt that her hands were tingling/burning but they did not actually feel hot. No other complaints or concerns reported at this time. No sick contacts reported. PFSH PFSH Medical History no medical history Allergy/AdvReac Type Severity Reaction Status Date / Time Penicillins Allergy Mild Rash Verified 12/11/23 02:42 Social History Smoking Status: Never smoker ROS ROS ED Constitutional Constitutional ED: Reports chills and fever(s) Eyes Eyes: Denies change in vision ENT ENT ED: Denies sore throat Cardiovascular Cardiovascular: Denies chest pain Respiratory/Chest Respiratory/Chest: Reports cough; Denies dyspnea Gastrointestinal Gastrointestinal: Reports nausea; Denies abdominal pain, diarrhea or vomiting Genitourinary Genitourinary ED: Denies dysuria or urinary frequency Musculoskeletal Musculoskeletal: Reports back pain; Denies myalgias Integumentary Denies rash Neurologic Neurologic: Reports headache(s); Denies weakness Hematologic/Lymphatic Hematologic/Lymphatic: Denies easy bleeding or easy bruising EXAM Physical Exam Const Vital Signs: 12/11/23 02:43 12/11/23 03:34 12/11/23 03:49 Temperature 97.7 F L 100.3 F H 100.3 F H Temperature Source Temporal Oral Oral Pulse Rate 105 H 100 Respiratory Rate 18 18 Blood Pressure 165/98 H 164/47 H Blood Pressure Mean 120 86 Pulse Ox 98 94 Oxygen Delivery Method Room Air Room Air 12/11/23 04:48 12/11/23 06:00 Temperature 98.4 F 98.1 F Temperature Source Oral Temporal Pulse Rate 98 95 Respiratory Rate 16 19 H Blood Pressure 135/54 H 118/56 L Blood Pressure Mean 81 76 Pulse Ox 92 95 Oxygen Delivery Method Room Air Positive well nourished and well developed General Appearance ED: well developed and NAD HEENT Reports TM's clear and moist mucous membranes Tympanic Membrane ED: Yes TM's clear Eyes PERRL and EOMs intact bilaterally Neck no lymphadenopathy and supple Neck Narrative: No meningeal signs Chest Wall inspection of chest normal Resp normal respiratory effort and clear to auscultation bilaterally Auscultation: Negative for rhonchi or wheezes Cardio regular rhythm Rate: tachycardic GI normal to inspection, nondistended, normoactive bowel sounds and non-tender Palpation: Negative for guarding Back/Spine no CVA tenderness Extremity normal to inspection General Extremety ED: Negative for edema General Extremity: Negative for edema Neuro oriented x3 Sensorium / Orientation: alert Motor Exam: Negative for general weakness Psych mental status grossly normal Skin no rashes or lesions noted MDM MDM MDM Narrative Medical decision making narrative: Patient is evaluated for fever and chills/rigors. She has had some vague symptoms including a mild cough and nausea but no other localized symptoms. States the last time she felt this way she had a urinary tract infection. Patient is tachycardic and has a low-grade fever of 100.3 orally in the ER. Sepsis workup is initiated which is remarkable only for an elevated lactate of 2.7. Patient is given a liter of IV fluid, Tylenol and Zofran. Abdomen is soft and nontender and I do not think she requires any abdominal imaging at this time. Chest x-ray viewed by myself as well as radiology does not show any acute process. Repeat lactate is downtrending to 2.2. Clinically patient is quite well-appearing, her vital signs are normalized. She is ambulated in the emergency room and feels well. She is not hypoxic. Blood cultures are pending but at (more content not included)... Normal [facility] Lactic Acidon 12-11-2023 Lactate [Moles/Vol] 2.2 mmol/L Invalid Interpretation Code 0.4-1.9 [facility] Comment on above: Order Comment: Y Result Comment: Crit ical Result(s) Called at: 07:30:52 12/11/2023 by: AUSTEN ANDINO to Judy Oneill. Results read back by same. Performed By: #### M 100.505 #### [facility] [address] [place], [address] Lactate [Moles/Vol] 2.7 mmol/L Invalid Interpretation Code 0.4-1.9 [facility] Comment on above: Order Comment: Y Result Comment: Crit ical Result(s) Called at: 04:34:29 12/11/2023 by: Dustin Collazo. to Buster TRAINING PROGRAM ASSISTANT. Results read back by same. Performed By: #### L 503.6005, L500.4050, L100.0100 #### [facility] [address] [place], [place], [address] Urinalysis, Completeon 12-10 BACTERIA 0 SEEN Normal None Seen [facility] Comment on above: Order Comment: CLEAN CATCH Performed By: #### M 100.505 #### [facility] [address] [place], [place], [id number] EPI,SQUAMOUS 0 SEEN Normal 5-10 [facility] Comment on above: Order Comment: CLEAN CATCH Performed By: #### M 100.505 #### [facility] [address] [place], [place], [address] Mucus Ql (Urine sed) [address] [facility] Comment on above: Order Comment: CLEAN CATCH Performed By: #### M 100.505 #### [facility] [address] [place], [address] RBC 0 SEEN Normal 0-5 [facility] Comment on above: Order Comment: CLEAN CATCH Performed By: #### M 100.505 #### [facility] [address] [place], [address] WBC 0 SEEN Normal 0-5 [facility] Comment on above: Order Comment: CLEAN CATCH Performed By: #### M 100.505 #### [facility] [address] [place], [place], [address] XR FOOT GENERAL 3V AP/LAT/OB L LEFTon 07-29-2022 [facility] Vital Signs Date Time Vital Sign Value Performing Clinician Facility 11-01-2024 10:15-0400 Body mass index (BMI) [Ratio] 23.24 kg/m2 Yani Casanova MD Work Phone: [facility] 11-01-2024 10:15-0400 Body temperature 97.7 [degF] Yani Casanova MD Work Phone: [facility] 11-01-2024 10:15-0400 Body weight 53.98 kg Yani Casanova MD Work Phone: [facility] 11-01-2024 10:15-0400 Diastolic blood pressure 81 mm[Hg] Yani Casanova MD Work Phone: [facility] 11-01-2024 10:15-0400 Heart rate 82 /min Yani Casanova MD Work Phone: [facility] 11-01-2024 10:15-0400 SaO2% (BldA) [Mass fraction] 99 % Yani Casanova MD Work Phone: [facility] 11-01-2024 10:15-0400 Systolic blood pressure 145 mm[Hg] Yani Casanova MD Work Phone: [facility] 10-27-2024 23:44-0400 Body temperature 98.6 [degF] Dr. Silva Pepper MD Work Phone: 0(487)445-376224 [place] [address] 10-27-2024 23:44-0400 Diastolic blood pressure 57 mm[Hg] Dr. Silva Pepper MD Work Phone: 7(268)501-792624 [place] [address] 10-27-2024 23:44-0400 Heart rate 84 /min Dr. Silva Pepper MD Work Phone: 0(934)330-159924 [place] [address] 10-27-2024 23:44-0400 Respiratory rate 16 /min Dr. Silva Pepper MD Work Phone: 4(781)078-484024 [place] [address] 10-27-2024 23:44-0400 SaO2% (BldA) [Mass fraction] 99 % Dr. Silva Pepper MD Work Phone: 9(149)974-209724 [place] [address] 10-27-2024 23:44-0400 Systolic blood pressure 146 mm[Hg] Dr. Silva Pepper MD Work Phone: 0(939)148-395924 [place] [address] 10-27-2024 21:50-0400 Body mass index (BMI) [Ratio] 23.3 kg/m2 Dr. Silva Pepper MD Work Phone: 0(322)566-313224 [place] [address] 10-27-2024 21:50-0400 Body weight 54.[address] Silva Pepper MD Work Phone: 9(544)652-883324 [place] [address] 10-27-2024 19:24-0400 Body height 152.[address] Silva Pepper MD Work Phone: 8(529)705-040124 [place] [address] 10-13-2024 13:04-0400 Body height 152.[address] 1 [facility] 10-13-2024 13:04-0400 Body mass index (BMI) [Ratio] 23.32 kg/m2 Pst 1 [facility] 10-13-2024 13:04-0400 Body temperature 96.91 [degF] Pst [address] [facility] 10-13-2024 13:04-0400 Body weight 54.16 kg Pst 1 [facility] 10-13-2024 13:04-0400 Diastolic blood pressure 80 mm[Hg] Pst 1 [facility] 10-13-2024 13:04-0400 Heart rate 64 /min Pst 1 [facility] 10-13-2024 13:04-0400 Respiratory rate 16 /min Pst [address] [facility] 10-13-2024 13:04-0400 SaO2% (BldA) [Mass fraction] 99 % Pst 1 [facility] 10-13-2024 13:04-0400 Systolic blood pressure 129 mm[Hg] Pst 1 [facility] 09-09-2024 14:24-0400 Body mass index (BMI) [Ratio] 24.41 kg/m2 Yani Casanova MD Work Phone: [facility] 09-09-2024 14:24-0400 Body temperature 97 [degF] Yani Casanova MD Work Phone: [facility] 09-09-2024 14:24-0400 Body weight 56.7 kg Yani Casanova MD Work Phone: [facility] 09-09-2024 14:24-0400 Diastolic blood pressure 82 mm[Hg] Yani Casanova MD Work Phone: [facility] 09-09-2024 14:24-0400 Heart rate 85 /min Yani Casanova MD Work Phone: [facility] 09-09-2024 14:24-0400 SaO2% (BldA) [Mass fraction] 98 % Yani Casanova MD Work Phone: [facility] 09-09-2024 14:24-0400 Systolic blood pressure 133 mm[Hg] Yani Casanova MD Work Phone: [facility] 08-19-2024 12:52-0400 Body height 152.4 cm Yani Casanova MD Work Phone: [facility] 08-19-2024 12:52-0400 Body mass index (BMI) [Ratio] 24.22 kg/m2 Yani Casanova MD Work Phone: [facility] 08-19-2024 12:52-0400 Body temperature 97.81 [degF] Yani Casanova MD Work Phone: [facility] 08-19-2024 12:52-0400 Body weight 56.25 kg Yani Casanova MD Work Phone: [facility] 08-19-2024 12:52-0400 Diastolic blood pressure 90 mm[Hg] Yani Casanova MD Work Phone: [facility] 08-19-2024 12:52-0400 Heart rate 70 /min Yani Casanova MD Work Phone: [facility] 08-19-2024 12:52-0400 SaO2% (BldA) [Mass fraction] 98 % Yani Casanova MD Work Phone: [facility] 08-19-2024 12:52-0400 Systolic blood pressure 148 mm[Hg] Yani Casanova MD Work Phone: [facility] 07-30-2024 15:23-0500 Body mass index (BMI) [Ratio] 24.49 kg/m2 Mk Morales MD Work Phone: [facility] 07-30-2024 15:23-0500 Body weight 56.88 kg Mk Morales MD Work Phone: [facility] 07-30-2024 15:23-0500 Diastolic blood pressure 60 mm[Hg] Mk Morales MD Work Phone: [facility] 07-30-2024 15:23-0500 Heart rate 84 /min Mk Morales MD Work Phone: [facility] 07-30-2024 15:23-0500 Respiratory rate 16 /min Mk Morales MD Work Phone: [facility] 07-30-2024 15:23-0500 SaO2% (BldA) [Mass fraction] 97 % Mk Morales MD Work Phone: [facility] 07-30-2024 15:23-0500 Systolic blood pressure 114 mm[Hg] Mk Morales MD Work Phone: [facility] 06-25-2024 08:49-0500 Diastolic blood pressure 68 mm[Hg] Zulema Cavazos CONDUCTOR FREIGHT.CNM Work Phone: [facility] Comment on above: post procedure 06-25-2024 08:49-0500 Systolic blood pressure 110 mm[Hg] Zulema Cavazos CONDUCTOR FREIGHT.CNM Work Phone: [facility] Comment on above: post procedure 06-25-2024 08:07-0500 Body mass index (BMI) [Ratio] 24.02 kg/m2 Zulema Cavazos CONDUCTOR FREIGHT.CNM Work Phone: [facility] 06-25-2024 08:07-0500 Body weight 55.79 kg Zulema Cavazos CONDUCTOR FREIGHT.CNM Work Phone: [facility] 06-08-2024 09:46-0500 Body height 152.4 cm Zulema Cavazos CONDUCTOR FREIGHT.CNM Work Phone: [facility] 06-08-2024 09:46-0500 Body mass index (BMI) [Ratio] 24.22 kg/m2 Zulema Cavazos CONDUCTOR FREIGHT.CNM Work Phone: [facility] 06-08-2024 09:46-0500 Body weight 56.25 kg Zulema Cavazos CONDUCTOR FREIGHT.CNM Work Phone: [facility] 06-08-2024 09:46-0500 Diastolic blood pressure 66 mm[Hg] Zulema Cavazos CONDUCTOR FREIGHT.CNM Work Phone: [facility] 06-08-2024 09:46-0500 Systolic blood pressure 110 mm[Hg] Zulema Dirk COSTELLON.CNM Work Phone: [facility] 04-19-2024 10:36-0500 Body mass index (BMI) [Ratio] 24.8 kg/m2 Marielle Older CONDUCTOR FREIGHT.HOUSEKEEPER CAREGIVER Work Phone: [facility] 04-19-2024 10:36-0500 Body weight 57.61 kg Marielle Older CONDUCTOR FREIGHT.HOUSEKEEPER CAREGIVER Work Phone: [facility] 04-19-2024 10:36-0500 Diastolic blood pressure 70 mm[Hg] Marielle Older CONDUCTOR FREIGHT.HOUSEKEEPER CAREGIVER Work Phone: [facility] 04-19-2024 10:36-0500 Heart rate 72 /min Marielle Older CONDUCTOR FREIGHT.HOUSEKEEPER CAREGIVER Work Phone: [facility] 04-19-2024 10:36-0500 Respiratory rate 16 /min Marielle Older CONDUCTOR FREIGHT.HOUSEKEEPER CAREGIVER Work Phone: [facility] 04-19-2024 10:36-0500 SaO2% (BldA) [Mass fraction] 97 % CONDUCTOR FREIGHT.HOUSEKEEPER CAREGIVER Work Phone: [facility] 04-19-2024 10:36-0500 Systolic blood pressure 122 mm[Hg] CONDUCTOR FREIGHT.HOUSEKEEPER CAREGIVER Work Phone: [facility] 12-16-2023 11:14-0400 Body mass index (BMI) [Ratio] 23.87 kg/m2 Silva Pepper MD Work Phone: [facility] 12-16-2023 11:14-0400 Body weight 55.43 kg Silva Pepper MD Work Phone: [facility] 12-16-2023 11:14-0400 Diastolic blood pressure 80 mm[Hg] Silva Pepper MD Work Phone: [facility] 12-16-2023 11:14-0400 Heart rate 74 /min Silva Pepper MD Work Phone: [facility] 12-16-2023 11:14-0400 Respiratory rate 16 /min Silva Pepper MD Work Phone: [facility] 12-16-2023 11:14-0400 Systolic blood pressure 128 mm[Hg] Silva Pepper MD Work Phone: [facility] 07-26-2022 10:57-0500 Body height 152.4 cm Silva Pepper MD Work Phone: [facility] 07-26-2022 10:57-0500 Body temperature 98.1 [degF] Silva Pepper MD Work Phone: [facility] 07-26-2022 10:57-0500 Body weight 56.7 kg Silva Pepper MD Work Phone: [facility] 07-26-2022 10:57-0500 Diastolic blood pressure 70 mm[Hg] Silva Pepper MD Work Phone: [facility] 07-26-2022 10:57-0500 Heart rate 74 /min Silva Pepper MD Work Phone: [facility] 07-26-2022 10:57-0500 Respiratory rate 12 /min Silva Pepper MD Work Phone: [facility] 07-26-2022 10:57-0500 SaO2% (BldA) [Mass fraction] 95 % Silva Pepper MD Work Phone: [facility] 07-26-2022 10:57-0500 Systolic blood pressure 126 mm[Hg] Silva Pepper MD Work Phone: [facility] Encounters Encounter Date Encounter Type Care Provider Facility Start: 02-15-2025 End: 02-15-2025 ambulatory Silva Pepper MD Work Phone: [facility] Start: 02-15-2025 End: 02-15-2025 Patient encounter procedure Silva Pepper MD Work Phone: [facility] Comment on above: Population Health Na vigation Outreach ([employer] [place]/) Start: 11-01-2024 End: 11-01-2024 Patient encounter procedure Yani Casanova MD Work Phone: [facility] Gynecology Oncology Start: 11-01-2024 End: 11-01-2024 ambulatory YANI CASANOVA Facility:[facility] Comment on above: Postop check (Primar y Dx) Start: 10-27-2024 End: 10-27-2024 Emergency department patient visit Dr. Silva Pepper MD Work Phone: -Emergency Department Work Phone: Start: 10-26-2024 End: 12-26-2024 Follow-up encounter Yani Casanova MD Work Phone: [facility] Gynecology Oncology Start: 10-20-2024 End: 10-20-2024 ambulatory YANI Khanna [facility] Facility:[facility] Start: 10-13-2024 End: 10-13-2024 Admission to establishment [facility] 1 Pre Surgical Testing Start: 10-13-2024 End: 10-13-2024 Patient encounter status Pst [facility] Work Phone: Start: 10-13-2024 End: 10-13-2024 amb[facility] Comment on above: Preop testing (Prima ry Dx); Mixed hyperlipidemia; Complex cyst of left ovary [N83.292] Start: 10-13-2024 Encounter for other [place]ced[place] Start: 10-11-2024 End: 10-11-2024 ambulatory [facility] Facility:[facility] Start: 10-11-2024 Encounter for other preprocedural examination ZULEMA CAVAZOS [facility] Start: 10-04-2024 End: 10-04-2024 ambulatory Khurram Johnson RN Work Phone: [employer] Comment on above: Primary Care Coordin ator- Other Start: 10-01-2024 End: 10-01-2024 E-mail encounter from caregiver Janel Ohara MS Work Phone: [facility] Start: 10-01-2024 End: 10-01-2024 Patient encounter procedure Janel Ohara MS Work Phone: [facility] Comment on above: Genetic counseling a ppointment Start: 2024 End: 09-27-2024 Follow-up encounter Marielle Older CONDUCTOR FREIGHT.HOUSEKEEPER CAREGIVER Work Phone: [facility] [place] Start: 09-22-2024 End: 09-22-2024 ambulatory MRAIELLE LOMBARDO Facility:[facility] Start: 09-22-2024 Encounter for antibo dy response examination MARIELLE OLMBARDO [facility] Start: 09-09-2024 End: 09-09-2024 Preprocedural examination done Yani Casanova MD Work Phone: [facility] [facility] Work Phone: Start: 09-09-2024 Encounter for other preprocedural examination YANI CASANOVA [facility] Start: 09-09-2024 End: 09-09-2024 Orders Only Yani Casanova MD Work Phone: [facility] Gynecology Oncology Comment on above: Complex cyst of left ovary (Primary Dx) Preoperative examina tion (Primary Dx); Cyst of ovary, unspecified laterality; Fluid in endometrial cavity Start: 08-31-2024 End: 10-31-2024 Follow-up encounter Yani Casanova MD Work Phone: [facility] Gynecology Oncology Start: 08-30-2024 End: 08-30-2024 ambulatory SILVA PEPPER Facility:[facility] Start: 08-26-2024 End: 08-26-2024 ambulatory Casi Meier MA [facility] Start: 08-26-2024 End: 08-26-2024 Patient encounter procedure Casidl Meier [facility] Comment on above: Population Health Na vigation Outreach ([employer] High Risk Attempt One ) Start: 08-19-2024 End: 08-19-2024 Patient encounter procedure Yani Casanova MD Work Phone: [facility] Gynecology Oncology Start: 08-19-2024 End: 08-19-2024 ambulatory Yani Casanova MD Work Phone: [facility] Gynecology Oncology Comment on above: Cyst of ovary, unspe cified laterality (Primary Dx); Elevated cancer antigen 125 (CA-125); Fluid in endometrial cavity Start: 08-05-2024 End: 08-05-2024 [facility] Facility:[facility] Start: 08-05-2024 End: 08-05-2024 Subsequent hospital visit by physician Chata [facility]) Work Phone: Cat Scan Comment on above: Cyst of ovary, unspe cified laterality [N83.209] Start: 08-03-2024 End: 08-03-2024 [facility] Facility:[facility] Start: 08-02-2024 End: 08-02-2024 Telephone encounter Mk Morales MD Work Phone: OB/Gynecology Comment on above: Referral Information Start: 07-30-2024 End: 07-30-2024 [facility] Facility:[facility] Start: 07-30-2024 End: 07-30-2024 Patient encounter procedure Mk Morales MD Work Phone: OB/Gynecology Comment on above: Fluid in endometrial cavity (Primary Dx); Bloating; Cyst of ovary, unspecified laterality; Elevated cancer antigen 125 (CA-125) Start: 07-06-2024 End: 07-06-2024 Telephone encounter Zulema Cavazos APRN.CNM Work Phone: OB/Gynecology Comment on above: Results Start: 06-25-2024 End: 06-25-2024 [facility] Facility:[facility] Start: 06-25-2024 End: 06-25-2024 Patient encounter procedure Zulema Cavazos APRN.CNM Work Phone: OB/Gynecology Comment on above: Fluid in endometrial cavity (Primary Dx); Elevated CA-125 Start: 06-17-2024 End: 06-18-2024 Telephone encounter Zulema Cavazos APRN.CNM Work Phone: OB/Gynecology Comment on above: Results; Orders Start: 06-15-2024 End: 06-15-2024 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 Work Phone: OB/Gynecology Start: 06-15-2024 End: 06-15-2024 Patient encounter procedure Us [employer] OB/Gynecology Start: 06-09-2024 End: 06-09-2024 Telephone encounter Zulema Cavazos APRN.CNM Work Phone: OB/Gynecology Comment on above: Appointment Start: 06-08-2024 End: 06-08-2024 ambulatory ZULEMA CAVAZOS Facility:[facility] Start: 06-08-2024 End: 06-08-2024 Patient encounter procedure Zulema Cavazos CONDUCTOR FREIGHT.CNM Work Phone: OB/Gynecology Comment on above: Encounter for gyneco logical examination with abnormal finding (Primary Dx); Encounter for screening mammogram for breast cancer; Screening for cervical cancer; Screening for human papillomavirus; Dense breast tissue; Bloating; Early satiety; Pelvic pain in female; Vaginal atrophy Start: 06-08-2024 End: 06-08-2024 Patient encounter status Zulema Cavazos APRN.CNAdwoa Work Phone: [facility] Start: 05-03-2024 End: 05-03-2024 [facility] Facility:[facility] Start: 04-20-2024 End: 04-20-2024 Telephone encounter Hillary Leos APRN.HOUSEKEEPER CAREGIVER Work Phone: Dermatology Comment on above: Appointment Cancelle d (04/20/24 - Provider OUT ) Start: 04-19-2024 End: 04-19-2024 Telephone encounter Marielle Lombardo APRN.HOUSEKEEPER CAREGIVER Work Phone: Internal Medicine [place] Comment on above: Patient Update Start: 04-19-2024 End: 04-19-2024 ambulatory [facility] Facility:[facility] Start: 04-19-2024 End: 04-19-2024 Patient encounter procedure Marielle Lombardo APRN.HOUSEKEEPER CAREGIVER Work Phone: [facility] Comment on above: Medicare annual well ness visit, subsequent (Primary Dx); Screening for depression; Encounter for screening examination for other mental health and behavioral disorders; Encounter for immunization; Encounter for screening mammogram for breast cancer Start: 03-22-2024 End: 03-22-2024 [facility] Facility:[facility] Start: 02-11-2024 End: 02-11-2024 ambulatory [facility] Start: 02-11-2024 End: 02-11-2024 [facility] on above: Population Health Na vigation Outreach ([employer],Workbench,[place] ) Start: 02-09-2024 End: 02-09-2024 ambulatory Silva Pepper MD Work Phone: [facility] Comment on above: Allied Health Visit (Medication Adherence Outreach/) Start: 12-16-2023 End: 12-16-2023 Office outpatient visit 25 minutes Silva Pepper MD Work Phone: Internal Medicine [place] Comment on above: Mixed hyperlipidemia (Primary Dx) Start: 12-11-2023 End: 12-11-2023 Emergency department patient visit [facility] Facility:[facility] Start: 11-06-2023 ambulatory Emilee Cesar MA [facility] Start: 11-06-2023 [facility] Comment on above: Population Health Na vigation Outreach ([employer],Workbench,[place]gg[place] ) Start: 10-06-2023 ambulatory Emilee Cesar MA [facility] Start: 10-06-2023 Patient encounter procedure Emilee Cesar MA [facility] Comment on above: Population Health Na vigation Outreach ([employer],Workbejamarh,Tonio ) Start: 04-29-2023 End: 04-29-2023 ambulatory [facility] Work Phone: Start: 04-29-2023 End: 04-29-2023 Patient encounter procedure [facility] Work Phone: Start: 04-18-2023 Telephone encounter Silva chapin MD Work Phone: Internal Medicine [place] Comment on above: Mammogram order Start: 03-28-2023 End: 03-28-2023 ambulatory Whit Flaherty CONDUCTOR FREIGHTJewelRIM ROLLER SETTER Work Phone: Internal Medicine [place] Comment on above: COVID-19 virus infec tion (Primary Dx) Start: 03-28-2023 End: 03-28-2023 Telemedicine consultation with patient Whit Flaherty APRN.RIM ROLLER SETTER Work Phone: [facility] Start: 08-27-2022 End: 08-27-2022 Patient encounter procedure Mirna uGido PA-C Work Phone: Dermatology Comment on above: Lentigines (Primary Dx); Multiple benign nevi; Berman angioma; Seborrheic keratoses; Skin exam, screening for cancer; Family history of nonmelanoma skin cancer; Dermatofibroma of right lower leg Start: 07-29-2022 End: 07-29-2022 Subsequent hospital visit by physician Xr [facility] Work Phone: Radiology Comment on above: Repetitive stress in jury [X50.3XXA] Start: 07-29-2022 End: 07-29-2022 Patient encounter procedure Derrick Delores Work Phone: Podiatry Comment on above: Repetitive stress in jury (Primary Dx); Neuroma Start: 07-26-2022 End: 07-26-2022 Patient encounter procedure Silva Pepper MD Work Phone: Internal Medicine [place] Comment on above: Medicare annual well ness visit, subsequent (Primary Dx); Pain in both feet; Family history of skin cancer; Encounter for screening for diabetes mellitus Start: 03-19-2022 End: 03-19-2022 ambulatory [facility] Work Phone: Start: 03-19-2022 End: 03-19-2022 Patient encounter procedure [facility] Breast Imaging Procedures Date Procedure Procedure Detail Performing Clinician Start: 10-27-2024 X-ray of chest, PA a nd lateral views Dr. Silva Pepper MD Work Phone: Start: 10-27-2024 Urnls dip stick/tabl et reagent auto microscopy Dr. Silva Pepper MD Work Phone: Start: 10-27-[address] Silva Pepper MD Work Phone: Start: 10-27-2024 SARS-CoV-2, Influenz a & RSV (PCR) Dr. Silva Pepper MD Work Phone: Start: 10-11-2024 Antibody screen ZULEMA CAVAZOS Comment on above: Order Comment: Speci men Type: BLOOD SPECIMEN Ordering Facility: [facility] Address: [address] [place] [address] Performed By: #### R UBIGG, MEASLG, MUMPSG #### [facility] CLIA [id number] [address] [place] [address] [place] [address] [place] Start: 08-05-2024 Ct abdomen & pelvis w/contrast material Mk Morales MD Work Phone: Start: 06-15-2024 Us pelvic nonobstetr ic real-time image complete Zulema Cavazos CONDUCTOR FREIGHT.CNM Work Phone: Start: 04-19-2024 Adult depression scr eening assessment Marielle Lombardo CONDUCTOR FREIGHT.HOUSEKEEPER CAREGIVER Work Phone: Start: 03-22-2024 Lipid 1996 panel - S nany or Plasma Marielle Lombardo CONDUCTOR FREIGHT.HOUSEKEEPER CAREGIVER Work Phone: Start: 04-29-2023 Screening mammography Start: 07-29-2022 Radex foot complete minimum 3 views Derrick Estrella Work Phone: Start: 03-19-2022 End: 03-19-2022 Screening mammography Start: 05-04-2021 Colonoscopy Silva chapin MD Work Phone: Start: 03-26-2021 Lipid 1996 panel - S nany or Plasma Whit Flaherty CONDUCTOR FREIGHT.RIM ROLLER SETTER Work Phone: Plan of Treatment Date Care Activity Detail Author Start: 03-22-2029 Lipid panel Lipid Screening [facility] Start: 01-20-2028 Urine microalbumin profile [facility] Start: 10-12-2027 Diabetes Screening Diabetes Screening [facility] Start: 03-22-2027 Diabetes Screening Diabetes Screening [facility] Start: 09-23-2026 RSV Vaccine (1 - 1-dose 75+ series) RSV Vaccine (1 - 1-dose 75+ series) [facility] Start: 05-04-2026 Colonoscopy COLONOSCOPY [facility] Start: 05-04-2026 COLORECTAL CANCER SCREENING COLORECTAL CANCER SCREENING [facility] Start: 05-04-2026 Screening for malignant neoplasm of colon [facility] Start: 03-26-2026 Lipid 1996 panel - Serum or Plasma Lipid Screening [facility] Start: 03-26-2026 Lipid panel Lipid Screening [facility] Start: 03-26-2026 LIPID SCREEN LIPID SCREEN [facility] Start: 07-27-2025 DIABETES SCREEN DIABETES SCREEN [facility] Start: 07-27-2025 Diabetes Screening Diabetes Screening [facility] Start: 06-08-2025 End: 07-08-2025 DBT Breast - bilateral screening NARESH SCREENING W ANDRES Radiology Routine Encounter for gynecological examination with abnormal finding Encounter for screening mammogram for breast cancer Dense breast tissue Expected: 06/08/2025 (Approximate), Expires: 07/08/2025 [facility] Work Phone: Comment on above: Expected: 06/08/2025 (Approximate), Expi res: 07/08/2025 Start: 04-20-2025 End: 04-20-2025 Patient encounter procedure [facility] Medicine [place] Comment on above: Medicare wellness Flu vaccine, Medicar e wellness *care gap closure* Start: 04-19-2025 Anxiety Screening Anxiety Screening [facility] Start: 04-19-2025 Covid-19 Vaccine ( season) Covid-19 Vaccine () [facility] Comment on above: Postponed from 03/02/2024 (Declined at t his time) Start: 04-19-2025 Depression Screening Depression Screening [facility] Start: 03-18-2025 End: 03-18-2025 Patient encounter procedure 03/18/2025 10:00 AM EDT Office Visit [facility] [address] [place] [address] Janel [place], [place] [address] [place] [address] Check for BRCA mutation Gen[facility] Comment on above: Check for BRCA mutation Start: 01-31-2025 Influenza vaccination Influenza Vaccine (#1) [facility] Start: 12-23-2024 End: 12-23-2024 ambulatory 12/23/2024 9:30 AM EDT Procedure OB/Gynecology [address] [place] [address] 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, 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[employer] [address] [place] [address] Fluid in endometrial cavity [N85.9]; Cyst of ovary, unspecified laterality [N83.209] OB/Gynecology Comment on above: Fluid in endometrial cavity [N85.9]; Cys t of ovary, unspecified laterality [N83.209] Start: 12-18-2024 Covid-19 Vaccine () Covid-19 Vaccine () [facility] Start: 12-16-2024 End: 06-17-2025 US Pelvis PELVIC [facility] Anc Imaging Routine Fluid in endometrial cavity Cyst of ovary, unspecified laterality Expected: 12/16/2024, Expires: 06/17/2025 [facility] Comment on above: Expected: 12/16/2024, Expires: 6 Start: 12-01-2024 End: 03-02-2025 Cancer Ag 125 [Units/volume] in Serum or Plasma CA 125 Lab Routine Expected: 12/01/2024, Expires: 03/02/2025 [facility] Work Phone: Comment on above: Expected: 12/01/2024, Expires: 5 Start: 11-01-2024 End: 11-01-2024 ambulatory 11/01/2024 10:30 AM EDT Visit (SP) Office [facility] [address] [place] [address] Yani Casanova MD [address] [address] post op [facility] Comment on above: post op Start: 10-28-2024 End: 10-28-2024 Patient encounter procedure 10/28/2024 9:00 AM EDT Office Visit Internal Medicine [place] [address] [place], [place] [id number] Silva Pepper MD [address] [place], [place] [id number] Six month follow up [employer] High Risk [facility] [place] Comment on above: Six month follow up [employer] High Risk Start: 10-27-2024 [facility] Start: 10-22-2024 End: 10-22-2024 Patient encounter procedure 10/22/2024 12:30 PM EDT Office Visit [facility] [address] [place] [address] Janel Ohara, [place] [address] [place] [address] Check for BRCA mutation [facility] Comment on above: Check for BRCA mutation Start: 10-20-2024 End: 10-20-2024 Admission to same day surgery center 10/20/2024 8:30 AM EDT - 10/20/2024 12:05 PM EDT Surgery [facility] [address] [place] [address] Yani Casanova MD [address] [place] [address] LAPAROSCOPIC HYSTERECTOMY TOTAL FOR UTERUS 250 G OR LESS W/REMOVAL TUBE(S) AND/OR OVARY(S) [facility] Comment on above: LAPAROSCOPIC HYSTERECTOMY TOTAL FOR UTER US 250 G OR LESS W/REMOVAL TUBE(S) AND/OR OVARY(S) Start: 10-20-2024 End: 10-20-2024 Cystourethroscopy CYSTOSCOPY Complex cyst of left ovary 10/20/2024 8:30 AM EDT [facility] Start: 10-20-2024 End: 10-20-2024 Laps total hysterect 250 gm/< w/rmvl tube/ovary LAPAROSCOPIC HYSTERECTOMY TOTAL FOR UTERUS 250 G OR LESS W/REMOVAL TUBE(S) AND/OR OVARY(S) Complex cyst of left ovary 10/20/2024 8:30 AM EDT [facility] Start: 10-20-2024 End: 10-20-2024 Pelvic examination w/anesthesia other than local EXAM UNDER ANESTHESIA PELVIC / VAGINAL Complex cyst of left ovary 10/20/2024 8:30 AM EDT [facility] Start: 10-20-2024 Subsequent hospital visit by physician [facility] Comment on above: Complex cyst of left ovary [N83.292] Start: 10-13-2024 End: 10-13-2024 Manual pelvic examination 10/13/2024 1:00 PM EDT PAT Pre Surgical Testing [address] [place] [address] 1. EXAM UNDER ANESTHESIA PELVIC / VAGINAL Pre Surgical Testing Comment on above: 1. EXAM UNDER ANESTHESIA PELVIC / VAGINA L Start: 10-11-2024 End: 10-11-2024 ambulatory 10/11/2024 7:45 AM EDT Results Only [facility] Draw Station [address] [facility] [place] [address] [facility] Start: 09-09-2024 End: 12-09-2024 Basic metabolic 2000 panel - Serum or Plasma BASIC METABOLIC PANEL Lab Routine Preoperative examination Expected: 09/09/2024, Expires: 12/09/2024 [facility] Comment on above: Expected: 09/09/2024, Expires: Start: 09-09-2024 End: 12-09-2024 CBC panel - Blood by Automated count COMPLETE BLOOD COUNT Lab Routine Preoperative examination Expected: 09/09/2024, Expires: 12/09/2024 [facility] Work Phone: Comment on above: Expected: 09/09/2024, Expires: Start: 09-09-2024 End: 12-09-2024 TYPE AND SCREEN,30 DAY TYPE AND SCREEN,30 DAY Blood Bank Routine Preoperative examination Expected: 09/09/2024, Expires: 12/09/2024 [facility] Comment on above: Expected: 09/09/2024, Expires: Start: 08-20-2024 End: 08-20-2024 ambulatory 08/20/2024 3:00 PM EDT Visit (SP) Office [facility] [address] [place] [address] Yani Casaonva MD [address] [address] GENETIC MUTATION/FAMILY HISTORY OF ECOLOGICAL RISK ASSESSOR CANCER [facility] Comment on above: GENETIC MUTATION/FAMILY HISTORY OF ECOLOGICAL RISK ASSESSOR C ANCER Start: 08-19-2024 End: 11-18-2024 Cancer Ag 125 [Units/volume] in Serum or Plasma CA 125 Lab Routine Cyst of ovary, unspecified laterality Elevated cancer antigen 125 (CA-125) Expected: 08/19/2024, Expires: 11/18/2024 [facility] Work Phone: Comment on above: Expected: 08/19/2024, Expires: 5 Start: 08-19-2024 End: 08-19-2025 US Pelvis PELVIC US [facility] Anc Imaging Routine Cyst of ovary, unspecified laterality Expected: 08/19/2024, Expires: 08/19/2025 [facility] Comment on above: Expected: 08/19/2024, Expires: Start: 08-05-2024 End: 08-05-2024 Patient encounter procedure Cat Scan Comment on above: Cyst of ovary, unspecified laterality [N 83.209] Start: 08-03-2024 End: 08-03-2024 ambulatory 08/03/2024 8:30 AM EST [facility] [address] [place] [address] [place] [facility] Draw Station Start: 07-30-2024 End: 07-30-2024 Patient encounter procedure 07/30/2024 3:20 PM EST Office Visit OB/Gynecology [address] [place] [address] Mk Morales MD [address] [place] [address] Discuss Hysteroscopy D&C OB/Gynecology Comment on above: Discuss Hysteroscopy D&C Start: 06-25-2024 End: 06-25-2024 Patient encounter procedure 06/25/2024 8:15 AM EST Office Visit OB/Gynecology [address] [place] [address] Zulema Cavazos APRN.CN [address] 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[employer] [address] [place] [address] Bloating [R14.0]; Early satiety [R68.81]; Pelvic pain in female [R10.2] (moved from 06/09) OB/Gynecology Comment on above: Bloating [R14.0]; Early satiety [R68.81] ; Pelvic pain in female [R10.2] (moved from 06/09) Start: 06-10-2024 End: 06-10-2024 Manual pelvic examination 06/10/2024 11:30 AM EST Procedure OB/Gynecology [address] [place] [address] 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, 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[employer] [address] [place] [address] Bloating [R14.0]; Early satiety [R68.81]; Pelvic pain in female [R10.2] OB/Gynecology Comment on above: Bloating [R14.0]; Early satiety [R68.81] ; Pelvic pain in female [R10.2] Start: 06-08-2024 End: 09-07-2024 Cancer Ag 125 [Units/volume] in Serum or Plasma [facility] Comment on above: Expected: 06/08/2024, Expires: Start: 06-08-2024 End: 06-08-2025 US Pelvis PELVIC US [facility] Anc Imaging Routine Bloating Early satiety Pelvic pain in female Expected: 06/08/2024, Expires: 06/08/2025 [facility] Comment on above: Expected: 06/08/2024, Expires: Start: 06-08-2024 End: 06-08-2024 Patient encounter procedure 06/08/2024 10:00 AM EST Office Visit OB/Gynecology [address] [place] [address] Zulema Cavazos APRN.CNM [address] [place] [address] New Patient/ Establish care OB/Gynecology Comment on above: New Patient/ Establish care Start: 06-02-2024 Advance Directive Discussion Advance Directive Discussion [facility] Start: 06-02-2024 Medicare Advantage Annual Wellness Visit Medicare Advantage Annual Wellness Visit [facility] Start: 04-29-2024 Screening for malignant neoplasm of breast Mammogram Screening [facility] Start: 04-20-2024 End: 04-20-2024 Patient encounter procedure 04/20/2024 4:30 PM EST Office Visit Dermatology [address] [place] [address] Hillary Leos, CONDUCTOR FREIGHT.HOUSEKEEPER CAREGIVER [address] [place] [address] Family history of skin cancer [Z80.8] Dermatology Comment on above: Family history of skin cancer [Z80.8] Start: 04-19-2024 End: 04-19-2024 Patient encounter procedure 04/19/2024 10:00 AM EST Office Visit Internal Medicine [place] [address] [facility] [place] [address] Silva Pepper MD [address] [facility] [place] [address] medicare wellness Internal Medicine [place] Comment on above: medicare wellness Start: 03-26-2024 DIABETES SCREEN DIABETES SCREEN [facility] Start: 03-22-2024 End: 03-22-2024 ambulatory 03/22/2024 7:00 AM EDT Results Only [facility] [address] [facility] [place] [address] [facility] Start: 03-17-2024 End: 06-16-2024 Comprehensive metabolic 2000 panel - Serum or Plasma COMPREHENSIVE METABOLIC PANEL Lab Routine Mixed hyperlipidemia Expected: 03/17/2024, Expires: 06/16/2024 [facility] Comment on above: Expected: 03/17/2024, Expires: 5 Start: 03-17-2024 End: 06-16-2024 Lipid 1996 panel - Serum or Plasma LIPID PANEL BASIC Lab Routine Mixed hyperlipidemia Expected: 03/17/2024, Expires: 06/16/2024 [facility] Work Phone: Comment on above: Expected: 03/17/2024, Expires: 5 Start: 02-01-2024 Influenza vaccination Influenza Vaccine (#1) [facility] Start: 06-30-2023 Covid-19 Vaccine () Covid-19 Vaccine () [facility] Start: 06-02-2023 Advance Directive Discussion Advance Directive Discussion [facility] Start: 06-02-2023 Behavioral Health Screening Behavioral Health Screening [facility] Start: 03-19-2023 Mammography [facility] Start: 07-26-2022 End: 09-25-2022 Fasting glucose [Mass/volume] in Serum or Plasma GLUCOSE FASTING BLD Lab Routine Encounter for screening for diabetes mellitus Expected: 07/26/2022, Expires: 09/25/2022 [facility] Work Phone: Comment on above: Expected: 07/26/2022, Expires: 3 Start: 06-02-2022 ADVANCE DIRECTIVE DISCUSSION ADVANCE DIRECTIVE DISCUSSION [facility] Start: 2011 RSV Vaccine (1 - 1-dose 60+ series) RSV Vaccine (1 - 1-dose 60+ series) [facility] Start: 2011 RSV Vaccine (1 - Risk 60-74 years 1-dose series) RSV Vaccine (1 - Risk 60-74 years 1-dose series) [facility] Start: 09-23-2001 SHINGRIX VACCINE (1 of 2) SHINGRIX VACCINE (1 of 2) [facility] Start: 09-23-1996 COLOGUARD (FIT-DNA) COLOGUARD (FIT-DNA) [facility] Start: 09-23-[address] COLONOGRAPHY [facility] Start: 09-23-1996 FECAL OCCULT BLOOD FECAL OCCULT BLOOD [facility] Start: 09-23-1996 Screening for malignant neoplasm of colon [facility] Start: 09-23-1996 SIGMOIDOSCOPY SIGMOIDOSCOPY [facility] Start: 09-23-1969 Anxiety Screening Anxiety Screening [facility] Start: 09-23-1969 Depression Screening Depression Screening [facility] Cystourethroscopy CYSTOSCOPY Com plex cyst of left ovary [facility] End: 05-19-2025 DBT Breast - bilateral screening NARESH SCREENING W ANDRES Radiology Routine Encounter for screening mammogram for breast cancer 1 Occurrences starting 04/19/2024 until 05/19/2025 [facility] Work Phone: Comment on above: 1 Occurrences starting 04/19/2024 until 05/19/2025 Endometrial bx w/wo endocervix bx w/o dilat spx ENDOMETRIAL BIOPSY Procedures Routine Fluid in endometrial cavity Cyst of ovary, unspecified laterality Ordered: 06/18/2024 [facility] Work Phone: Comment on above: Ordered: 06/18/2024 Endometrial bx w/wo endocervix bx w/o dilat spx ENDOMETRIAL BIOPSY Procedures Routine Fluid in endometrial cavity Ordered: 06/25/2024 [facility] Work Phone: Comment on above: Ordered: 06/25/2024 Laps total hysterect 250 gm/< w/rmvl tube/ovary LAPAROSCOPIC HYSTERECTOMY TOTAL FOR UTERUS 250 G OR LESS W/REMOVAL TUBE(S) AND/OR OVARY(S) Complex cyst of left ovary [facility] End: 05-17-2024 NARESH SCREENING W ANDRES NARESH SCREENING W ANDRES Radiology Routine Encounter for screening mammogram for breast cancer 1 Occurrences starting 04/18/2023 until 05/17/2024 [facility] Work Phone: Comment on above: 1 Occurrences starting 04/18/2023 until 05/17/2024 PAP TEST PAP TEST Lab Evert santos Encounter for gynecological examination with abnormal finding Screening for cervical cancer Screening for human papillomavirus 06/08/2024 10:47 AM EST [facility] Patient Education ED Fever Contr ol (Adult) [facility] Work Phone: Patient referral [facility] Work Phone: Pelvic examination w/anesthesia other than local EXAM UNDER ANESTHESIA PELVIC / VAGINAL Complex cyst of left ovary AK OR SURGICAL PATHOLOGY SURGICAL PATH OLOGY Lab Routine Fluid in endometrial cavity 06/25/2024 8:59 AM EST [facility] End: 08-28-2023 XR FOOT GENERAL 3V AP/LAT/OBL LEFT XR FOOT GENERAL 3V AP/LAT/OBL LEFT Radiology Routine Repetitive stress injury Neuroma 1 Occurrences starting 07/29/2022 until 08/28/2023 [facility] Work Phone: Comment on above: 1 Occurrences starting 07/29/2022 until 08/28/2023 XR FOOT GENERAL 3V AP/LAT/OBL LEFT XR FOOT GENERAL 3V AP/LAT/OBL LEFT Radiology Routine Repetitive stress injury Neuroma 07/29/2022 3:59 PM EST [facility] Work Phone: [facility] Immunizations Immunization Date Immunization Notes Care Provider Fa [facility] 02-06-2024 influenza virus vacc ine, unspecified formulation Yani Casanova MD Work Phone: [facility] 02-28-2023 influenza virus vacc ine, unspecified formulation Silva Pepper MD Work Phone: [facility] 10-24-2021 COVID-19 original vaccine, full dose, monovalent (MODERNA) Silva Pepper MD Work Phone: [facility] Work Phone: 03-19-2021 pneumococcal polysaccharide vaccine, 23 valent Silva Pepper MD Work Phone: [facility] Work Phone: 03-13-2021 influenza, high dose seasonal, preservative-free Silva Pepper MD Work Phone: [facility] Work Phone: 08-25-2020 COVID-19 original vaccine, full dose, monovalent (MODERNA) Silva Pepper MD Work Phone: [facility] 07-28-2020 COVID-19 original vaccine, full dose, monovalent (MODERNA) Silva Pepper MD Work Phone: [facility] 07-08-2019 pneumococcal conjuga te vaccine, 13 valent Silva Pepper MD Work Phone: [facility] Work Phone: 01-19-2018 tetanus toxoid, redu ronald diphtheria toxoid, and acellular pertussis vaccine, adsorbed Silva Pepper MD Work Phone: [facility] Work Phone: Payers Date Payer Category Payer Self-pay [id number] 2021 Medicare AETNA MEDICARE A ETNA MEDICARE PPO [id number] 2021-Present [phone] [address] [place] [address] PP [id number] 2021 Medicare (Managed Care) [place] [id number] 2021 Private Health Insurance [facility] [id number] Medicare [id number] Unknown [employer] [facility] [id number] Unknown [id number] Unknown [id number] Unknown [id number] Social History Date Type Detail Facility Tobacco smoking stat us NHIS Unknown if ever smoked [facility] Work Phone: Start: 1950 Sex Assigned At Female [facility] Start: 07-26-2022 End: 10-27-2024 Tobacco smoking status NHIS Never smoked tobacco [facility] Work Phone: Start: 07-26-2022 Tobacco use and exposure Smokeless tobacco non-user [facility] Work Phone: Start: 07-26-2022 End: 11-02-2024 Alcohol intake Current non-drinker of alcohol (finding) [facility] Start: 07-25-2022 History SDOH Alcohol Frequency 1 [facility] Start: 07-25-2022 History SDOH Alcohol Std Drinks 0 [facility] Start: 07-25-2022 History SDOH Social Connections Get Together 4 [facility] Start: 07-25-2022 History SDOH Social Connections Uatsdin 3 [facility] Start: 07-25-2022 History SDOH Physical Activity DPW 7 [facility] Start: 07-25-2022 History SDOH Stress 2 [facility] Start: 07-25-2022 History SDOH Financial 5 [facility] Start: 03-19-2021 Education 18 [facility] Start: 07-25-2022 End: 12-15-2023 History of Social function [facility] Start: 07-25-2022 End: 12-15-2023 Social connection and isolation panel [facility] Do you belong to any clubs or organizations such as evangelical groups, unions, fraternal or athletic groups, or school groups? Yes [facility] Are you now , , , , never or living with a partner? [facility] How often to you hav e a drink containing alcohol? Never [facility] Start: 05-03-2012 How many standard drinks containing alcohol do you have on a typical day? Patient does not drink [facility] Do you feel stress - tense, restless, nervous, or anxious, or unable to sleep at night because your mind is troubled all the time - these days [OSQ] Only a little [facility] (I/We) worried melanie er (my/our) food would run out before (I/we) got money to buy more. Never true [facility] In the past 12 month s, was there a time when you were not able to pay the mortgage or rent on time? No [facility] Start: 03-19-2021 Gender identity Identifies as female gender (finding) [facility] Start: 03-19-2021 Sexual orientation Heterosexual (finding) [facility] Functional Status Date Assessment Result Facility 07-26-2022 Are you deaf, or do you have serious difficulty hearing No 07/26/2022 11:25 AM Silva Montanez MD No [facility] 07-26-2022 Are you blind, or do you have serious difficulty seeing, even when wearing glasses No 07/26/2022 11:25 AM Silva Montanez MD No [facility] 07-26-2022 Do you have serious difficulty walking or climbing stairs No 07/26/2022 11:25 AM Silva Montanez MD [facility] 07-26-2022 Do you have difficul ty dressing or bathing No 07/26/2022 11:25 AM Silva Montanez MD [facility] 07-26-2022 Because of a physica l, mental, or emotional condition, do you have difficulty doing errands alone such as visiting a physician's office or shopping No 07/26/2022 11:25 AM Silva Montanez MD [facility] Mental Status Date Assessment Result Facility 10-27-2024 Cognitive function Level Of Cons ciousness Awake;Alert;Appropriate;Fol lows Commands [facility] Work Phone: 07-26-2022 Because of a physica l, mental, or emotional condition, do you have serious difficulty concentrating, remembering, or making decisions No 07/26/2022 11:25 AM Silva Montanez MD No [facility] Clinical Notes 07-26-2022 to 02-15-2025 Sara Chaudhari - 02/15/2025 2:53 PM Yani Cuello MD - 11/01/2024 10:14 AM EDTPatient Bakari ChavarriaaAPRN.HOUSEKEEPER CAREGIVER - 10/13/2024 1:00 PM EDTPatient Instructions Note Date & Type Note Facility 02-15-2025 Note HNO ID: [id number] Author: ?, ?, ? Service: ? Author Type: ? Type: Progress Notes Filed: 02/15/2025 15:02 Note Text: POPULATION HEALTH NAVIGATION OUTREACH Action/- 0 HCC Naresh: Overdue since 04/29/2024 Flu: Due for dose 1 since 01/31/2025 Updated appt notes to address HCC/Care Gap ------ Called Patient: Naresh: Goes to outside [facility], advised to send results to PCP to update chart Flu: would like to get at Nov appt - updated appt notes Reason for Outreach Care Gap/HCC or Scheduling Wellness Visits Care Gaps due: Breast Cancer Screening Flu Vaccine Patient Contacted: Spoke to patient/parent/or legal guardian Patient identified by name and : Yes Care Gap/HCC/Scheduling Wellness actions taken: Goes to outside [facility], advised to send results to PCP to update chart Navigation Signature: Sara Chaudhari February 15, 2025 2:56 PM [facility] 02-15-2025 History of Presen t illness Narrative POPULATION HEALTH NAVIGATION OUTREACH Action/- 0 HCC Naresh: Overdue since 04/29/2024 Flu: Due for dose 1 since 01/31/2025 Updated appt notes to address HCC/Care Gap ------ Called Patient: Naresh: Goes to outside [facility], advised to send results to PCP to update chart Flu: would like to get at Nov appt - updated appt notes Reason for Outreach Care Gap/HCC or Scheduling Wellness Visits Care Gaps due: Breast Cancer Screening Flu Vaccine Patient Contacted: Spoke to patient/parent/or legal guardian Patient identified by name and : Yes Care Gap/HCC/Scheduling Wellness actions taken: Goes to outside [facility], advised to send results to PCP to update chart Navigation Signature: Sara Chaudhari February 15, 2025 2:56 PM documented in this encounter [facility] 02-15-2025 Note Patient Outreach (NE TNAV) TRAY BOBBY ([id number]) 1950 F Date Time Provider Department 02/15/25 SILVA PEPPER During your visit today, we recorded the following information about you: Sara Chaudhari 02/15/2025 3:02 PM Signed POPULATION HEALTH NAVIGATION OUTREACH Action/- 0 HCC Naresh: Overdue since 04/29/2024 Flu: Due for dose 1 since 01/31/2025 Updated appt notes to address HCC/Care Gap ------ Called Patient: Naresh: Goes to outside [facility], advised to send results to PCP to update chart Flu: would like to get at Nov appt - updated appt notes Reason for Outreach Care Gap/HCC or Scheduling Wellness Visits Care Gaps due: Breast Cancer Screening Flu Vaccine Patient Contacted: Spoke to patient/parent/or legal guardian Patient identified by name and : Yes Care Gap/HCC/Scheduling Wellness actions taken: Goes to outside [facility], advised to send results to PCP to update chart Navigation Signature: Sara Chaudhari February 15, 2025 2:56 PM Allergies As of Date: 02/15/2025 Noted Allergy Reaction AMOXICILLIN 06/07/2005 4 - Hives SULFA (SULFONAMIDE ANTIBIOTICS) 01/09/2016 4 - Hives Date Reviewed: 11/01/2024 Reviewed by: Yani Casanova MD - Fully Assessed Reason for Visit: Population Health Navigation Outreach [3910] Cmt: Bhupendra Rootoster Prescriptions as of 02/15/2025 - ondansetron orally disintegrating (ZOFRAN ODT) 4 mg disintegrating tablet Take 1 tablet by mouth every 8 hours as needed for nausea/vomiting. - acetaminophen (TYLENOL) 325 mg tablet Take 2 tablets by mouth every 4 hours as needed for pain. - Lactobacillus acidophilus (PROBIOTIC ACIDOPHILUS ORAL) Take by mouth once daily. - psyllium seed, with sugar, (METAMUCIL, SUGAR, ORAL) Take by mouth once daily. 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 Author Type: Physician Type: Progress Notes Filed: 11/01/2024 11:09 Note Text: Gynecologic Oncology Note [facility] Chief complaint: Postop visit HPI: This is a 74 year old patient with a history of endometriosis and HLD s/p Exam under anesthesia, Laparoscopic lysis of adhesions, Laparoscopic left salpingo-oophorectomy, Proctoinsuffulation, Cystoscopy on 10/20/24 for a left sided ovarian cyst and endometrial cavity fluid here for postop visit. During surgery, she was found to have adhesive disease likely 2/2 to endometriosis and also had a uterine perforation. Due to adhesions to of the uterus to the bowel and lack of bowel prep, decision was made to not proceed with hysterectomy portion in the setting of suspected benign disease. Today she feels well. No complaints. Eating and drinking well. Having normal bowel movements. Patient notes at home fever earlier this week, for which she went to outside ED. Temp on arrival to ED was wnl. Work up revealed mild leukocytosis, of 11k, but was otherwise unremarkable. Of note they did not obtain a CT of her abdomen. She notes that she has not had any further fevers since, and overall feels well. Some mild pain at incision sites, but otherwise minimal pain. ROS: 14 point ROS negative unless indicated in above HPI. Medical history: PAST MEDICAL HISTORY Diagnosis Date Arthritis Calculus of gallbladder without mention of cholecystitis or obstruction cholecystectomy Endometriosis Infertility, female Ovarian cyst Surgical history: PAST SURGICAL HISTORY Procedure Laterality Date ABDOMINAL SURGERY HX BREAST BIOPSY X2- negative COLONOSCOPY FLX DX W/COLLJ SPEC WHEN PFRMD 05/04/2021 tubular adenoma, repeat in 5 years ENDOMETRIAL BIOPSY 06/25/2024 LAPS SURG CHOLECYSTECTOMY W/CHOLANGIOGRAPHY Jennifer OOPHORECTOMY PARTIAL/TOTAL UNI/BI 1983 RIGHT-ENDOMETRIOSIS REMOVAL GALLBLADDER laparoscopic TONSILLECTOMY AND ADENOIDECTOMY TONSILLECTOMY HX Director Report history: Endometriosis with removal of left ovary many years ago. 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 Family history: Family History Problem Relation Age of Onset Breast Cancer Mother DC, CVA Skin Cancer Father Breast Cancer Sister Skin Cancer Sister Breast Cancer Sister Breast Cancer Paternal Grandmother Breast Cancer Other cousin Colon Cancer No Family History Uterine Cancer No Family History Pancreatic Cancer No Family History Social history: Social History Tobacco Use Smoking status: Never Smokeless tobacco: Never Vaping Use Vaping status: Never Used Substance Use Topics Alcohol use: No Drug use: No Medications: Current Outpatient Medications Medication Sig Dispense Refill ondansetron orally disintegrating (ZOFRAN ODT) 4 mg disintegrating tablet Take 1 tablet by mouth every 8 hours as needed for nausea/vomiting. 10 tablet 0 acetaminophen (TYLENOL) 325 mg tablet Take 2 tablets by mouth every 4 hours as needed for pain. 30 tablet 0 ibuprofen (MOTRIN) 600 mg tablet Take 1 tablet by mouth every 6 hours as needed for pain. 30 tablet 0 Lactobacillus acidophilus (PROBIOTIC ACIDOPHILUS ORAL) Take by mouth once daily. psyllium seed, with sugar, (METAMUCIL, SUGAR, ORAL) Take by mouth once daily. No current facility-administered medications for this visit. Healthcare maintenance: Colonoscopy: up to date, repeat recommended in 2026 Mammogram: up to date, negative Pap smear: up to date, all negative PE: EGOG PS 0 BP 145/81 (BP Site: Left Arm, BP Position: Sitting, BP Cuff Size: Regular Adult) Pulse 82 Temp 36.5 ?C (97.7 ?F) (Oral) Wt 54 kg (119 lb) SpO2 99% BMI 23.24 kg/m? Gen: well appearing Card: regular rate Resp: comfortable on room air Abd: soft, non-tender. 4 well healing port sites covered with skin glue. No surrounding erythema. Extremity: No edema or erythema Pelvic: deferred Labs/Imaging: TVUS 06/15/24: The uterus is anteverted and measures 51 mm x 15 mm x 30 mm. The endometrial thickness is 2 mm. There is fundal anechoic endometrial fluid. There is a left lateral wall posterior calcified fibroid that measures 7 mm x 7 mm x 5 mm. The right ovary is not visualized. There is a right 6 mm x 4 mm x 4 mm. simple paraovarian/paratubal cyst. The left ovary measures 22 mm x 27 mm x 11 mm and contains a 7 mm x 15 mm x 15 mm. Unilocular non-simple cyst (internal debris and/or incomplete septation) with smooth inner wall. O-RADS 2 There is no free fluid visualized. CT A/P 08/05/24: IMPRESSION: 1. No acute intra-abdominal/pelvic abnormalities are identified. 2. Diverticulosis. 3. 1.6 cm cystic focus in the region of the left adnexa which may represent left ovarian cyst or cystic lesion. Pelvic ultrasound may be helpful for further characterization if warranted. Pathology: A. Left fallopian tube and (more content not included)... [facility] 11-01-2024 History of Presen t illness Narrative Gynecologic Oncology Note [facility] Chief complaint: Postop visit HPI: This is a 74 year old patient with a history of endometriosis and HLD s/p Exam under anesthesia, Laparoscopic lysis of adhesions, Laparoscopic left salpingo-oophorectomy, Proctoinsuffulation, Cystoscopy on 10/20/24 for a left sided ovarian cyst and endometrial cavity fluid here for postop visit. During surgery, she was found to have adhesive disease likely 2/2 to endometriosis and also had a uterine perforation. Due to adhesions to of the uterus to the bowel and lack of bowel prep, decision was made to not proceed with hysterectomy portion in the setting of suspected benign disease. Today she feels well. No complaints. Eating and drinking well. Having normal bowel movements. Patient notes at home fever earlier this week, for which she went to outside ED. Temp on arrival to ED was wnl. Work up revealed mild leukocytosis, of 11k, but was otherwise unremarkable. Of note they did not obtain a CT of her abdomen. She notes that she has not had any further fevers since, and overall feels well. Some mild pain at incision sites, but otherwise minimal pain. ROS: 14 point ROS negative unless indicated in above HPI. Medical history: PAST MEDICAL HISTORY Diagnosis Date Arthritis Calculus of gallbladder without mention of cholecystitis or obstruction cholecystectomy Endometriosis Infertility, female Ovarian cyst Surgical history: PAST SURGICAL HISTORY Procedure Laterality Date ABDOMINAL SURGERY HX BREAST BIOPSY X2- negative COLONOSCOPY FLX DX W/COLLJ SPEC WHEN PFRMD 05/04/2021 tubular adenoma, repeat in 5 years ENDOMETRIAL BIOPSY 06/25/2024 LAPS SURG CHOLECYSTECTOMY W/CHOLANGIOGRAPHY Jennifer OOPHORECTOMY PARTIAL/TOTAL UNI/BI 1983 RIGHT-ENDOMETRIOSIS REMOVAL GALLBLADDER laparoscopic TONSILLECTOMY & ADENOIDECTOMY <AGE 13 1956 TONSILLECTOMY HX Director Report history: Endometriosis with removal of left ovary many years ago. 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 Family history: Family History Problem Relation Age of Onset Breast Cancer Mother DC, CVA Skin Cancer Father Breast Cancer Sister Skin Cancer Sister Breast Cancer Sister Breast Cancer Paternal Grandmother Breast Cancer Other cousin Colon Cancer No Family History Uterine Cancer No Family History Pancreatic Cancer No Family History Social history: Social History Tobacco Use Smoking status: Never Smokeless tobacco: Never Vaping Use Vaping status: Never Used Substance Use Topics Alcohol use: No Drug use: No Medications: Current Outpatient Medications Medication Sig Dispense Refill ondansetron orally disintegrating (ZOFRAN ODT) 4 mg disintegrating tablet Take 1 tablet by mouth every 8 hours as needed for nausea/vomiting. 10 tablet 0 acetaminophen (TYLENOL) 325 mg tablet Take 2 tablets by mouth every 4 hours as needed for pain. 30 tablet 0 ibuprofen (MOTRIN) 600 mg tablet Take 1 tablet by mouth every 6 hours as needed for pain. 30 tablet 0 Lactobacillus acidophilus (PROBIOTIC ACIDOPHILUS ORAL) Take by mouth once daily. psyllium seed, with sugar, (METAMUCIL, SUGAR, ORAL) Take by mouth once daily. No current facility-administered medications for this visit. Healthcare maintenance: Colonoscopy: up to date, repeat recommended in 2025 Mammogram: up to date, negative Pap smear: up to date, all negative PE: EGOG PS 0 BP 145/81 (BP Site: Left Arm, BP Position: Sitting, BP Cuff Size: Regular Adult) Pulse 82 Temp 36.5 C (97.7 F) (Oral) Wt 54 kg (119 lb) SpO2 99% BMI 23.24 kg/m Gen: well appearing Card: regular rate Resp: comfortable on room air Abd: soft, non-tender. 4 well healing port sites covered with skin glue. No surrounding erythema. Extremity: No edema or erythema Pelvic: deferred Labs/Imaging: TVUS 06/15/24: The uterus is anteverted and measures 51 mm x 15 mm x 30 mm. The endometrial thickness is 2 mm. There is fundal anechoic endometrial fluid. There is a left lateral wall posterior calcified fibroid that measures 7 mm x 7 mm x 5 mm. The right ovary is not visualized. There is a right 6 mm x 4 mm x 4 mm. simple paraovarian/paratubal cyst. The left ovary measures 22 mm x 27 mm x 11 mm and contains a 7 mm x 15 mm x 15 mm. Unilocular non-simple cyst (internal debris and/or incomplete septation) with smooth inner wall. O-RADS 2 There is no free fluid visualized. CT A/P 08/05/24: IMPRESSION: 1. No acute intra-abdominal/pelvic abnormalities are identified. 2. Diverticulosis. 3. 1.6 cm cystic focus in the region of the left adnexa which may represent left ovarian cyst or cystic lesion. Pelvic ultrasound may be helpful for further characterization if warranted. Pathology: A. Left fallopian tube and ovary, left salpingo-oophorectomy: - Ovary with serous cystadenofibroma. - Unremarkable fallopian tube. A/P: This is a 74 year old patient here for follow up discussion of management for a ORADS-2 lesion of the right adnexa and endometrial fluid here for postop visit. Pelvic mass: - Pathology shows benign serous cystadenofibroma. - CA-125 60 --> 68. - Discussed patient can repeat CA 125 in 4-6 weeks if she desires, though recognized that if CA 125 is stablely elevated then it has low clinical utility - Follow up with benign gynecology, RTC only as needed Endometrial fluid - Unable to get significant sample on OR - Low concern for malignancy as source of fluid Postoperative state: - Afebrile today, well - appearing - Meeting all milestones - Incisions well healing Flores Serrato MD I have seen and evaluated the patient and discussed the case with the resident physician. I agree with the assessment and plan as documented in the resident s note. Signature: Yani Casanova MD Date: 11/01/2024 Time: 11:08 AM documented in this encounter [facility] 10-27-2024 Radiology Diagnostic study note [facility] Imaging Services [address], [place] [address] Chest PA and Lateral MR#: [id number] Acct: [id number] Name: TRAY BOBBY Rep #: [id number] : 1950 F 74 From: Shahid Berry MD PCP: Dr. Silva Pepper MD Status: REG E R Study:Chest PA and Lateral Date of Exam: 10/27/24 Exam# [id number] Ordering Dr: Karen Almendarez DO PROCEDURE: CHEST PA AND LATERAL 10/27/2024 REASON FOR EXAM: FEVER TECHNIQUE: Frontal and lateral views of the chest. COMPARISON: 12/11/2023. FINDINGS: Hardware: None. Heart: The heart size is normal. Mediastinum: The mediastinal contour is unremarkable. Lungs: Bilateral calcified granulomas. No pleural effusion or pneumothorax. Noconsolidation. Bones: The bones are unremarkable. RAD/Chest PA and Lateral IMPRESSION: NO ACUTE FINDINGS. Calcified granulomas. Reading Location: [place] [address] CC: Dr. Silva Pepper MD; Barrett Almendarez DO ~ Last Puller: Signed [facility] 10-20-2024 Note HNO ID: [id number] Author: FRANTZ HANNON APRN.AUTO BRAKE MECHANIC Service: Anesthesiology Author Type: Nurse Mac Operator Type: Anesthesia Procedure Notes Filed: 10/20/2024 11:34 Note Text: ANESTHESIOLOGY PROCEDURE NOTE PIV General Information Procedure Start Time/Medication Administration: 10/20/2024 11:24 AM Procedure End Time: 10/20/2024 11:25 AM Patient Location: OR Staffing AUTO BRAKE MECHANIC: Frantz Hannon APRN.AUTO BRAKE MECHANIC Performed by: JONY Preparation Sterility Preparation: hand hygiene performed prior to procedure, surgical cap used, mask used, skin prep agent completely dried prior to procedure Sterility Technique Not Completely Performed Due to Extreme Emergency: No Site Prep: alcohol Procedure Details Indication: need for IV access Needle Size/Type: 18 gauge angiocath Orientation: Left Location: Wrist Imaging Guidance Used: No SIGNATURE: Frantz Hannon APRN.CRNA PATIENT NAME: Tray Bobby DATE: October 20, 2024 TIME: 11:33 AM CSN: [id number] [facility] 10-20-2024 Note HNO ID: [id number] Author: FRANTZ HANNON APRN.AUTO BRAKE MECHANIC Service: Anesthesiology Author Type: Nurse Mac Operator Type: Anesthesia Procedure Notes Filed: 10/20/2024 11:33 Note Text: ANESTHESIOLOGY PROCEDURE NOTE Airway General Information Procedure Start Time/Medication Administration: 10/20/2024 11:19 AM Procedure End Time: 10/20/2024 11:21 AM Patient location during procedure: OR Timeout Performed Pre-procedure: timeout performed Consent Obtained: Yes Patient identity confirmed: arm band Staffing AUTO BRAKE MECHANIC: Frantz Hannon APRN.AUTO BRAKE MECHANIC Performed by: JONY Indications and Patient Condition Indications for airway management: anesthesia and airway protection Preoxygenated: yes anesthesia circuit Patient position: sniffing Method: asleep Cricoid Pressure: No Manual In-Line Stabilization: No Difficult Mask: No Airway Accessory: oral airway (90 mm) Final Airway Details Final airway type: endotracheal airway Final Endotracheal Airway: ETT Cuffed: yes Successful intubation technique: direct laryngoscopy Devices used: intubating stylet Endotracheal tube insertion site: oral Blade: Live Blade size: #4 ETT size (mm): 7.5 Measured from: lips Measurement (cm): 19 Placement verified by: chest auscultation Cormack-Lehane Classification: grade IIa - partial view of glottis Number of attempts at approach: 1 Failed airway: no Unrecognized esophageal intubation: no Airway not difficult SIGNATURE: Frantz Hannon APRN.CRNA PATIENT NAME: Tray Bobby DATE: October 20, 2024 TIME: 11:32 AM CSN: [id number] [facility] 10-13-2024 Instructions Linda, Kimberly, HOUSEKEEPER CAREGIVER - 10/13/2024 1:07 PM EDT PATIENT PREOPERATIVE INSTRUCTIONS Your surgeon has scheduled you for your procedure at this surgery center: [facility] [phone] [address] [phone] Please enter through the main entrance, and proceed to the blue elevators. The surgery center is located left of the blue elevators. Please read below carefully for your personalized instructions. Arrival Time for Surgery: DATE: 10/20/2024 Your surgeon's office will provide you with your ARRIVAL TIME for surgery. -If you have not received an arrival time by the afternoon before your surgery date, please follow up with your surgeon's office. - If you are scheduled for Friday surgery, please make sure you have your arrival time by Friday afternoon. -Please be aware that emergency situations arise, which may delay or change your surgical time. If this happens, your surgeon's office will notify you as soon as possible and regret any inconvenience. Dietary Restrictions: -Nothing to eat or drink after midnight except for a sip of water with approved medications. -This is important because if you do, your surgery may have to be cancelled Blood Thinning Medications: - Stop NSAIDS (Ibuprofen, Advil, Aleve, Motrin, Celebrex, Mobic, Voltaren, Diclofenac, etc.) 7 days before surgery, as directed by your surgeon. -You may take Tylenol or pain medications that do not contain Aspirin or NSAIDs. - Stop Vitamin E, fish oil, multivitamins, Marijuana, CBD oil and other over the counter herbals and dietary supplements 7 days before surgery. ?-This would not apply to cancer patients who are prescribed Marinol or any other prescription form on marijuana or CBD. -IF YOU TAKE ANY OF THE FOLLOWING BLOOD THINNERS, PLEASE CONTACT YOUR SURGEON AND THE PHYSICIAN WHO PRESCRIBES IT FOR YOU IN ORDER TO GET PERIOPERATIVE INSTRUCTIONS SOON POSSIBLE. BLOOD THINNERS: Aspirin , Coumadin, Plavix, Eliquis, Pradaxa, Xarelto, Lovenox, Brilinta, Effient, Savaysa, Arixtra, etc Medications: Approved medications to take the morning of surgery with a sip of water: BP, Heart, thyroid, psych, seizure, and pain medications excluding NSAIDS. Use inhalers as prescribed. Please bring inhalers. Medications to be taken with small amount of fluid on the morning of surgery: If these are morning medications, go ahead and take: Approved medications to take the morning of surgery with a sip of water: BP, Heart, thyroid, psych, seizure, and pain medications excluding NSAIDS. Use inhalers as prescribed. Please bring inhalers. Pre Surgery Med Instructions Medication instructions Lactobacillus acidophilus (PROBIOTIC ACIDOPHILUS ORAL) Stop 7 days before surgery. psyllium seed, with sugar, (METAMUCIL, SUGAR, ORAL) Continue as prescribed. Preoperative Instructions for Patients with Diabetes Mellitus: Please follow up with the provider that manages your diabetes and how to prepare you for surgery. Do not take the morning of surgery; Metformin, Actos/Pioglitazone and Amaryl/Glimepiride, Linagliptin ( Tradjenta) For the following Medications, please HOLD 2 DAYS PRIOR TO SURGERY: Glucotrol/Glipizide, Januvia/Sitagliptin, Glyburide, Prandin/Repaglinide, Starlix/Nateglinide, Symlin/Pramlintide, Kazano ( Alogliptin/Metformin) For the following Medications, please HOLD 3 DAYS PRIOR TO SURGERY: Canagliflozin/Invokana, Dapagliflozin/Farxiga ,Empagliflozin/Jardiance, Invokamet/canagliflozin and metformin, Xigduo XR/ dapagliglozin and metformin, Glyxambi/ empagliflozin and metformin, Syndardy/ empagliflozin and metformin For the following Medications, please HOLD 4 DAYS PRIOR TO SURGERY: Ertugliflozin/Steglatro For the following Medications, please HOLD 7 DAYS PRIOR TO SURGERY: GLP-1 AGONIST: Adlyxin (lixisenatide), Bydureon BCise (exenatide suspension), Byetta (exenatide), Mounjaro (tirzepatide), Ozempic(semaglutide injection) Tanzeum (albiglutide), Trulicity (dulaglutide), Victoza (liraglutide), Wegovy (semaglutide), Saxenda (liraglutide),Xultophy (degludec/liraglutide) . Oral form- Rybelsus (semaglutide tablets) Insulin Medication Instructions: Please follow up with the provider that manages your Insulin and how to prepare you for surgery. It is recommended ALL Pre-Op patients and Endoscopy patients hold all GLP-1 agonists for 7 days prior to surgery. If you start any new medications after today's visit, please contact the surgeon's office. Important Reminders: - You need a responsible person to stay and wait for you at the hospital or surgery center during your procedure. - If you are undergoing an outpatient procedure you must have someone drive you home and stay with you for 24 hours. Your surgery may be cancelled if you do not have someone to drive you home or take care of you for 24 hours. - If you use CPAP/BIPAP, bring the machine with you to the surgery center. - If you are prescribed inhalers for breathing, continue using them AND bring them to the surgery center. - Candy, mints, gum and tobacco products are NOT permitted the morning of surgery. - Hearing aids, dentures and glasses may be worn the morning of surgery. - NO jewelry, body piercings, makeup, hairpins or contacts are to be worn the day of surgery. -Oral hygiene and a shower or bath is required the evening before or the morning of surgery. Use the Hibiclens body wash supplied to you along with the instruction. - NO lotion, creams, powders or deodorants on the skin the day of surgery -Wear loose, comfortable clothing that will accommodate bandages. -Your length of stay will be determined by your surgeon - You will need to have someone else (Family or friend) drive you home once discharged from the hospital. You are not allowed to drive yourself home after surgery. - YOU MUST HAVE A RESPONSIBLE RN CARDIAC REHAB TAKE YOU HOME. A COMMERCIAL TRUCK DRIVER, CAB OR UBER RN CARDIAC REHAB CANNOT BE MADE A RESPONSIBLE RN CARDIAC REHAB. - We recommend that a responsible person stays with you overnight to take care of you. - You cannot stay in a hotel alone after outpatient surgery. You will not be permitted to have your surgery, if you do not have someone to take care of you. - If you have a stimulator, implant or pump that requires a remote please bring the remote with you day of surgery. If you develop symptoms such as a fever, cold, or flu, or have other changes to your health within TWO DAYS of scheduled surgery or the morning of surgery, please contact the surgery center above. Visitors to any [facility] facility: - An individual who is sick should not visit. - Visitors to patients with COVID-19 must follow these guidelines, which include wearing a mask, eye protection, gown and gloves. [facility]- Visitations are: - Visitation hours are from 7 a.m. to 9 p.m. - Pre- Surgery-Patients may have up to two visitors at a time. - PACU-Patients may have up to 1-2 visitors at a time. Personal Belongings: - Leave ALL valuables and money at home or with family members. - You will need a form of ID and insurance card to check in the morning of surgery. - You will have to wear a hospital gown during your stay but if you wish to bring undergarments for after surgery you may. -If you do not have a copy of advance directives on file with us, please bring a copy with you on the day of surgery. If you already have an Advance Directive, please fax a copy to [phone] or Laisha BREAUX at [phone] or email to for it to be added to your chart. If you do not have an Advance Directive, you can find the appropriate form and more information at [email or web address]. We recommend that you complete the Advance Directive form found on the website and bring it with you the day of your surgery. It can be witnessed and scanned into your chart that day. Kimberly Hsu APRN.CNP 10/13/24 documented in this encounter [facility] 10-13-2024 History and physical note Images from the original note were not included. [facility] HISTORY AND PHYSICAL EXAMINATION SERVICE DATE: 10/13/2024 SERVICE TIME: 1:00 PM PRIMARY CARE PHYSICIAN: Silva Pepper MD Assessment Patient has the following medical conditions which may affect luz maria-operative course: Preop testing Assessment : See Note for medical conditions which may affect luz maria-operative course was addressed in visit today. Mixed hyperlipidemia Assessment: Diet controlled ANESTHESIA FINDINGS: Intubation History: No history of difficult intubation Significant Anesthesia Considerations: none Airway History: No history of difficult airway [place] Activity Status Index: METS: Climb a flight of stairs or walk up a hill (5.50 METs) DASI Score: 5.5 Patient denies any chest pain or undue shortness of breath with the above physical activity. Clinical Frailty Scale: 3. Well, with treated comorbid disease ARISCAT Score: Age: 51-80 Preoperative SpO2: >=96% Respiratory infection in the last month: No Preoperative anemia: No Surgical incision: peripheral Duration of surgery: >3 hrs Emergency procedure: No ARISCAT Score: 26 I - PHYSICAL EVALUATION AIRWAY Patient intubated: No. DENTAL Dental findings: teeth intact. II - ANESTHESIA PLAN Anesthetic Plan: general Beta Christian Monitoring Plan Post Procedure Analgesic Plan Prepared for Surgery: CONSULTS: Patient does not require consults for optimization at this time Planned Anesthetic: general The Following Tests/Procedures Have Been Initiated: No orders of the defined types were placed in this encounter. REASON FOR VISIT: Tray Bobby is a 74 year old female who is scheduled for Procedure(s): LAPAROSCOPIC HYSTERECTOMY TOTAL FOR UTERUS 250 G OR LESS W/REMOVAL TUBE(S) AND/OR OVARY(S) (Bilateral) EXAM UNDER ANESTHESIA PELVIC / VAGINAL (N/A) CYSTOSCOPY (N/A) at the request of Dr. Yani Casanova for routine H&P. My final recommendation will be communicated back to the requesting physician by way of shared medical record or letter. The reason for this visit is to perform a comprehensive review of the patient's past medical history, assess their current health status and obtain any additional testing required based on anesthesia guidelines. We will also identify any potential anesthesia problems or contraindications to the planned procedure. Subjective The patient has the following: COVID-19 Immunization Status Upcoming Covid-19 Vaccine () Next due on 12/18/2024 06/20/2024 Imm Admin: COVID-19 vaccine (NOVAVAX) 04/19/2024 Postponed until 04/19/2025 by Marielle Lombardo APRN.HOUSEKEEPER CAREGIVER (Declined at this time) 01/06/2024 Imm Admin: COVID-19 vaccine, age 12+ yr ([employer] [facility]) Only the first 3 history entries have been loaded, but more history exists. CHIEF COMPLAINT: Ovarian cyst HPI: Patient has history of endometriosis. She reports she was diagnosed with a ovarian cyst many months ago. Today, patient denies pain, rating 0 out of 10 on numeric pain scale. She denies abdominal pain or cramping at this time. She denies vaginal discharge or bleeding at this time. Postmenopausal. After discussion with surgeon patient agreeable to surgical intervention. REVIEW OF SYSTEMS: General: No weight loss, malaise or fevers. Neurological: Negative for: headaches, seizures and strokes. Respiratory: Negative for: asthma, COPD, current cough, pneumonia within 6 weeks and obstructive sleep apnea. Cardiovascular: Positive for: hyperlipidemia Negative for: arrhythmia, CAD, chest pain, CHF, DVT/PE and murmur/valvular heart disease. GI: No history of GI symptoms or problems. No history of esophageal varices, recent ascites, or ETOH greater than 2 drinks per day. : No history of dysuria, frequency or incontinence, stones or chronic kidney disease. No difficulty urinating, nocturia > 1 time per night or hematuria. ECOLOGICAL RISK ASSESSOR: See HPI. Endocrine: Negative for: diabetes mellitus and hypothyroidism. Hematology: No history of bleeding or clotting disorder. Patient is not taking anti-coagulation or platelet medications. No history of hematological symptoms or problems. Negative for: anemia and factor V Leiden. Oncology: No history of CA metastasis, chemo within 30 days, or radiotherapy within 90 days. No history of oncological symptoms or problems. Psych: No history of psychiatric symptoms or problems. Musculoskeletal: Negative for joint pain or swelling, back pain or muscle pain. Skin: Negative for lesions, rash and itching. Implanted Devices: No implanted devices. PAST MEDICAL HISTORY Diagnosis Date Arthritis Calculus of gallbladder without mention of cholecystitis or obstruction cholecystectomy Endometriosis Infertility, female Ovarian cyst PAST SURGICAL HISTORY Procedure Laterality Date ABDOMINAL SURGERY HX BREAST BIOPSY X2- negative COLONOSCOPY FLX DX W/COLLJ SPEC WHEN PFRMD 05/04/2021 tubular adenoma, repeat in 5 years ENDOMETRIAL BIOPSY 06/25/2024 LAPS SURG CHOLECYSTECTOMY W/CHOLANGIOGRAPHY Jennifer OOPHORECTOMY PARTIAL/TOTAL UNI/BI 1984 RIGHT-ENDOMETRIOSIS TONSILLECTOMY & ADENOIDECTOMY TONSILLECTOMY HX FAMILY HISTORY Problem Relation Age of Onset Breast Cancer Mother [place], CVA Skin Cancer Father Breast Cancer Sister Skin Cancer Sister Breast Cancer Sister Breast Cancer Paternal Grandmother Breast Cancer Other cousin Colon Cancer No Family History Uterine Cancer No Family History Pancreatic Cancer No Family History Social History Tobacco Use Smoking status: Never Smokeless tobacco: Never Vaping Use Vaping status: Never Used Substance Use Topics Alcohol use: No Drug use: No Prior to Admission medications as of 10/13/24 1304 Medication Sig Last Dose Taking Lactobacillus acidophilus (PROBIOTIC ACIDOPHILUS ORAL) Take by mouth once daily. Yes psyllium seed, with sugar, (METAMUCIL, SUGAR, ORAL) Take by mouth once daily. Yes No medication comments found. ALLERGIES Allergen Reactions Amoxicillin Hives Sulfa (Sulfonamide * Hives Objective PHYSICAL EXAM: General: alert and oriented and healthy appearance. Pertinent negatives noted - not distressed. Skin: normal color, no rash or lesions. HEENT: EOM intact. Cardiovascular: regular rate and rhythm, normal S1 and S2, no rub, murmurs, or gallop. Respiratory: normal breath sounds, no wheezes or crackles. No chest wall deformity or tenderness. Abdomen: bowel sounds present. Extremities: no deformity, no edema or tenderness, no joint swelling or clubbing. Neurological: normal cognition and motor skills. Gait normal. No weakness or sensory deficit. PAIN ASSESSMENT: Pain Pain Level: 0 VITALS: BP 129/80 Pulse 64 Temp 96.9 Resp 16 Ht 5' 0 (1.52m) Wt 119 lb 6.4 oz (54.2kg) SpO2 99% BMI 23.32 kg/(m^2). Diagnostic tests reviewed for today's visit: Lab Value Units Date High Low HB 13.3 g/dL 10/11/2024 15.5 11.5 HCT 40.7 % 10/11/2024 46.0 36.0 WBC 4.54 k/uL 10/11/2024 11.00 3.70 PLT 318 k/uL 10/11/2024 400 150 NA 140 mmol/L 10/11/2024 144 136 K 4.0 mmol/L 10/11/2024 5.1 3.7 GLUC 93 mg/dL 10/11/2024 99 74 BUN 12 mg/dL 10/11/2024 21 7 CREAT 0.75 mg/dL 10/11/2024 0.96 0.58 PTSEC No results within date range. INR No results within date range. APTT No results within date range. ALT No results within date range. AST No results within date range. TBILI No results within date range. TSH No results within date range. Lab Value Units Date High Low HCGQT No results within date range. UHCG No results within date range. HCG, BODY* No results within date range. Lab Value Units Date High Low ABORHD No results within date range. ABSCREEN No results within date range. No results found for: HBA1C No results found for this or any previous visit (from the past 8760 hours). No results found for this or any previous visit (from the past 34157 hours). Implantable Devices: None Assessment/Plan Complex cyst of left ovary [N83.292] PLAN Planned Procedure: Procedure(s): LAPAROSCOPIC HYSTERECTOMY TOTAL FOR UTERUS 250 G OR LESS W/REMOVAL TUBE(S) AND/OR OVARY(S) (Bilateral) EXAM UNDER ANESTHESIA PELVIC / VAGINAL (N/A) CYSTOSCOPY (N/A) The Following Tests/Procedures Have Been Initiated: T&S, BMP, CBC were drawn and results in epic 10/11/2024 Instructions Given to Patient: Instructions located in the after visit summary. Hibiclens given and instructions provided. Patient given verbal and written preop instructions and voices comprehension and compliance. I spent a total of 40 minutes on the date of the service which included preparing to see the patient, [id number] patient care, completing clinical documentation, obtaining and/or reviewing separately obtained history, performing a medically appropriate examination, and counseling and educating the patient/family/caregiver. SIGNATURE: Kimberly Hsu APRN.CNP PATIENT NAME: Tray Bobby DATE: October 13, 2024 TIME: 7:43 AM PAGER/CONTACT #: [facility] 10-13-2024 History and physical note Images from the original note were not included. [facility] HISTORY AND PHYSICAL EXAMINATION SERVICE DATE: 10/13/2024 SERVICE TIME: 1:00 PM PRIMARY CARE PHYSICIAN: Silva Pepper MD Assessment Patient has the following medical conditions which may affect luz maria-operative course: Preop testing Assessment : See Note for medical conditions which may affect luz maria-operative course was addressed in visit today. Mixed hyperlipidemia Assessment: Diet controlled ANESTHESIA FINDINGS: Intubation History: No history of difficult intubation Significant Anesthesia Considerations: none Airway History: No history of difficult airway [place] Activity Status Index: METS: Climb a flight of stairs or walk up a hill (5.50 METs) DASI Score: 5.5 Patient denies any chest pain or undue shortness of breath with the above physical activity. Clinical Frailty Scale: 3. Well, with treated comorbid disease ARISCAT Score: Age: 51-80 Preoperative SpO2: >=96% Respiratory infection in the last month: No Preoperative anemia: No Surgical incision: peripheral Duration of surgery: >3 hrs Emergency procedure: No ARISCAT Score: 26 I - PHYSICAL EVALUATION AIRWAY Patient intubated: No. DENTAL Dental findings: teeth intact. II - ANESTHESIA PLAN Anesthetic Plan: general Beta Christian Monitoring Plan Post Procedure Analgesic Plan Prepared for Surgery: CONSULTS: Patient does not require consults for optimization at this time Planned Anesthetic: general The Following Tests/Procedures Have Been Initiated: No orders of the defined types were placed in this encounter. REASON FOR VISIT: Tray Bobby is a 74 year old female who is scheduled for Procedure(s): LAPAROSCOPIC HYSTERECTOMY TOTAL FOR UTERUS 250 G OR LESS W/REMOVAL TUBE(S) AND/OR OVARY(S) (Bilateral) EXAM UNDER ANESTHESIA PELVIC / VAGINAL (N/A) CYSTOSCOPY (N/A) at the request of Dr. Yani Casanova for routine H&P. My final recommendation will be communicated back to the requesting physician by way of shared medical record or letter. The reason for this visit is to perform a comprehensive review of the patient's past medical history, assess their current health status and obtain any additional testing required based on anesthesia guidelines. We will also identify any potential anesthesia problems or contraindications to the planned procedure. Subjective The patient has the following: COVID-19 Immunization Status Upcoming Covid-19 Vaccine () Next due on 12/18/2024 06/20/2024 Imm Admin: COVID-19 vaccine (NOVAVAX) 04/19/2024 Postponed until 04/19/2025 by Marielle Lombardo APRN.HOUSEKEEPER CAREGIVER (Declined at this time) 01/06/2024 Imm Admin: COVID-19 vaccine, age 12+ yr ([employer] [facility]) Only the first 3 history entries have been loaded, but more history exists. CHIEF COMPLAINT: Ovarian cyst HPI: Patient has history of endometriosis. She reports she was diagnosed with a ovarian cyst many months ago. Today, patient denies pain, rating 0 out of 10 on numeric pain scale. She denies abdominal pain or cramping at this time. She denies vaginal discharge or bleeding at this time. Postmenopausal. After discussion with surgeon patient agreeable to surgical intervention. REVIEW OF SYSTEMS: General: No weight loss, malaise or fevers. Neurological: Negative for: headaches, seizures and strokes. Respiratory: Negative for: asthma, COPD, current cough, pneumonia within 6 weeks and obstructive sleep apnea. Cardiovascular: Positive for: hyperlipidemia Negative for: arrhythmia, CAD, chest pain, CHF, DVT/PE and murmur/valvular heart disease. GI: No history of GI symptoms or problems. No history of esophageal varices, recent ascites, or ETOH greater than 2 drinks per day. : No history of dysuria, frequency or incontinence, stones or chronic kidney disease. No difficulty urinating, nocturia > 1 time per night or hematuria. ECOLOGICAL RISK ASSESSOR: See HPI. Endocrine: Negative for: diabetes mellitus and hypothyroidism. Hematology: No history of bleeding or clotting disorder. Patient is not taking anti-coagulation or platelet medications. No history of hematological symptoms or problems. Negative for: anemia and factor V Leiden. Oncology: No history of CA metastasis, chemo within 30 days, or radiotherapy within 90 days. No history of oncological symptoms or problems. Psych: No history of psychiatric symptoms or problems. Musculoskeletal: Negative for joint pain or swelling, back pain or muscle pain. Skin: Negative for lesions, rash and itching. Implanted Devices: No implanted devices. PAST MEDICAL HISTORY Diagnosis Date Arthritis Calculus of gallbladder without mention of cholecystitis or obstruction cholecystectomy Endometriosis Infertility, female Ovarian cyst PAST SURGICAL HISTORY Procedure Laterality Date ABDOMINAL SURGERY HX BREAST BIOPSY X2- negative COLONOSCOPY FLX DX W/COLLJ SPEC WHEN PFRMD 05/04/2021 tubular adenoma, repeat in 5 years ENDOMETRIAL BIOPSY 06/25/2024 LAPS SURG CHOLECYSTECTOMY W/CHOLANGIOGRAPHY Jennifer OOPHORECTOMY PARTIAL/TOTAL UNI/BI 1984 RIGHT-ENDOMETRIOSIS TONSILLECTOMY & ADENOIDECTOMY <AGE 13 1957 TONSILLECTOMY HX FAMILY HISTORY Problem Relation Age of Onset Breast Cancer Mother [place], CVA Skin Cancer Father Breast Cancer Sister Skin Cancer Sister Breast Cancer Sister Breast Cancer Paternal Grandmother Breast Cancer Other cousin Colon Cancer No Family History Uterine Cancer No Family History Pancreatic Cancer No Family History Social History Tobacco Use Smoking status: Never Smokeless tobacco: Never Vaping Use Vaping status: Never Used Substance Use Topics Alcohol use: No Drug use: No Prior to Admission medications as of 10/13/24 1304 Medication Sig Last Dose Taking Lactobacillus acidophilus (PROBIOTIC ACIDOPHILUS ORAL) Take by mouth once daily. Yes psyllium seed, with sugar, (METAMUCIL, SUGAR, ORAL) Take by mouth once daily. Yes No medication comments found. ALLERGIES Allergen Reactions Amoxicillin Hives Sulfa (Sulfonamide * Hives Objective PHYSICAL EXAM: General: alert and oriented and healthy appearance. Pertinent negatives noted - not distressed. Skin: normal color, no rash or lesions. HEENT: EOM intact. Cardiovascular: regular rate and rhythm, normal S1 and S2, no rub, murmurs, or gallop. Respiratory: normal breath sounds, no wheezes or crackles. No chest wall deformity or tenderness. Abdomen: bowel sounds present. Extremities: no deformity, no edema or tenderness, no joint swelling or clubbing. Neurological: normal cognition and motor skills. Gait normal. No weakness or sensory deficit. PAIN ASSESSMENT: Pain Pain Level: 0 VITALS: BP 129/80 Pulse 64 Temp 96.9 Resp 16 Ht 5' 0 (1.52m) Wt 119 lb 6.4 oz (54.2kg) SpO2 99% BMI 23.32 kg/(m^2). Diagnostic tests reviewed for today's visit: Lab Value Units Date High Low HB 13.3 g/dL 10/11/2024 15.5 11.5 HCT 40.7 % 10/11/2024 46.0 36.0 WBC 4.54 k/uL 10/11/2024 11.00 3.70 PLT 318 k/uL 10/11/2024 400 150 NA 140 mmol/L 10/11/2024 144 136 K 4.0 mmol/L 10/11/2024 5.1 3.7 GLUC 93 mg/dL 10/11/2024 99 74 BUN 12 mg/dL 10/11/2024 21 7 CREAT 0.75 mg/dL 10/11/2024 0.96 0.58 PTSEC No results within date range. INR No results within date range. APTT No results within date range. ALT No results within date range. AST No results within date range. TBILI No results within date range. TSH No results within date range. Lab Value Units Date High Low HCGQT No results within date range. UHCG No results within date range. HCG, BODY* No results within date range. Lab Value Units Date High Low ABORHD No results within date range. ABSCREEN No results within date range. No results found for: HBA1C No results found for this or any previous visit (from the past 8760 hours). No results found for this or any previous visit (from the past 60657 hours). Implantable Devices: None Assessment/Plan Complex cyst of left ovary [N83.292] PLAN Planned Procedure: Procedure(s): LAPAROSCOPIC HYSTERECTOMY TOTAL FOR UTERUS 250 G OR LESS W/REMOVAL TUBE(S) AND/OR OVARY(S) (Bilateral) EXAM UNDER ANESTHESIA PELVIC / VAGINAL (N/A) CYSTOSCOPY (N/A) The Following Tests/Procedures Have Been Initiated: T&S, BMP, CBC were drawn and results in epic 10/11/2024 Instructions Given to Patient: Instructions located in the after visit summary. Hibiclens given and instructions provided. Patient given verbal and written preop instructions and voices comprehension and compliance. I spent a total of 40 minutes on the date of the service which included preparing to see the patient, [id number] patient care, completing clinical documentation, obtaining and/or reviewing separately obtained history, performing a medically appropriate examination, and counseling and educating the patient/family/caregiver. SIGNATURE: Kimberly Hsu APRN.CNP PATIENT NAME: Tray Bobby DATE: October 13, 2024 TIME: 7:43 AM PAGER/CONTACT #: documented in this encounter [facility] 10-04-2024 Note HNO ID: [id number] Author: KHURRAM JOHNSON RN Service: ? Author Type: Registered Nurse Type: Progress Notes Filed: 10/04/2024 10:02 Note Text: Value Based Care Coordination Chart Review Provider Action / FYI: Upon review of patient chart, the patient is excluded from Chronic Disease Management Patient is not a candidate for CDM at this time and placed in the following status: Deferred Action taken: No action needed . Khurram Johnson RN October 04, 2024 9:52 AM [facility] 10-04-2024 History of Presen t illness Narrative Value Based Care Coordination Chart Review Provider Action / FYI: Upon review of patient chart, the patient is excluded from Chronic Disease Management Patient is not a candidate for CDM at this time and placed in the following status: Deferred Action taken: No action needed . Khurram Johnson RN October 04, 2024 9:52 AM documented in this encounter [facility] 10-04-2024 Note Patient Outreach (AM [facility]) TRAY BOBBY ([id number]) 1950 F Date Time Provider Department 10/04/24 KHURRAM JOHNSON AMBJOANG During your visit today, we recorded the following information about you: Kuhrram Johnson RN 10/04/2024 10:02 AM Signed Value Based Care Coordination Chart Review Provider Action / FYI: Upon review of patient chart, the patient is excluded from Chronic Disease Management Patient is not a candidate for CDM at this time and placed in the following status: Deferred Action taken: No action needed . 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 Author Type: Nurse Practitioner Type: Progress Notes Filed: 09/22/2024 17:02 Note Text: CC: Patient presents with: Recheck: Follow up, discuss aj BETANCOURT Tray Bobby is a 73 year old female who presents today for concerns of measles immunity and constipation. Recording using Plaid software for draft documentation of the visit was discussed with the patient/authorized client care representative; all questions welcomed and answered. Patient/authorized client care representative agreed to proceed Measles Immunity: - Concerned about measles outbreak in [facility], where she has contact with residents. No recent known contact with infected individuals or ill concerns. - Uncertain about previous measles vaccinations as a child. Constipation: - Recent constipation attributed to high cheese intake. - Using stool softeners, usually effective within 3 days, but not this time. - Took milk of magnesia for 2 nights, with some improvement. - Last bowel movement this morning, described as small little pieces. - Denies abdominal pain, nausea, emesis, dysuria, or dark urine. - Reports gas buildup and cramping. - Denies liquid incontinence, fever, chills, or dyspnea. Has upcoming surgical procedure. Denies needing preop clearance. : - Walks 1-2 miles at a time, maintaining a pace of less than 20 minutes per mile. - Able to perform activities like mowing grass, raking, sweeping floors, washing floors, and carrying groceries without chest pain or dyspnea. - Denies exercise intolerance, difficulty swallowing, neck pain, recent infections, weight concerns, or energy issues. REVIEW OF SYSTEMS Constitutional: (-) fever, (-) chills, (-) weight changes, (-) fatigue Neck: (-) neck pain, (-) limited range of motion Cardiovascular: (-) chest pain, (-) palpitations, (-) edema, (-) exercise intolerance Respiratory: (-) shortness of breath Gastrointestinal: (+) constipation, (+) gas, (+) cramping, (-) nausea, (-) vomiting, (-) difficulty swallowing Genitourinary: (-) dysuria, (-) dark urine PAST MEDICAL HISTORY Diagnosis Date Arthritis Calculus of gallbladder without mention of cholecystitis or obstruction cholecystectomy Endometriosis Infertility, female Ovarian cyst PAST SURGICAL HISTORY Procedure Laterality Date ABDOMINAL SURGERY HX BREAST BIOPSY X2- negative COLONOSCOPY FLX DX W/COLLJ SPEC WHEN PFRMD 05/04/2021 tubular adenoma, repeat in 5 years ENDOMETRIAL BIOPSY 06/25/2024 LAPS SURG CHOLECYSTECTOMY W/CHOLANGIOGRAPHY Jennifer OOPHORECTOMY PARTIAL/TOTAL UNI/BI 1983 RIGHT-ENDOMETRIOSIS TONSILLECTOMY AND ADENOIDECTOMY TONSILLECTOMY HX ALLERGIES Amoxicillin and Sulfa (Sulfonamide Antibiotics) MEDICATIONS No prescriptions on file. FAMILY HISTORY Problem Relation Age of Onset Breast Cancer Mother [place], CVA Skin Cancer Father Breast Cancer Sister Skin Cancer Sister Breast Cancer Sister Breast Cancer Paternal Grandmother Breast Cancer Other cousin Colon Cancer No Family History Uterine Cancer No Family History Pancreatic Cancer No Family History Social History Tobacco Use Smoking status: Never Smokeless tobacco: Never Vaping Use Vaping status: Never Used Substance Use Topics Alcohol use: No Drug use: No PHYSICAL EXAM BP 118/72 Pulse 87 Resp 16 Wt 55.3 kg (122 lb) SpO2 98% BMI 23.83 kg/m? General Appearance: well appearing, in no acute distress, alert Pysch: mood and affect broad and appropriate Eyes: conjunctiva pink and moist, no icterus, sclera white, non-injected Lungs: Lungs clear to auscultation. No wheezing, rhonchi, rales. Heart: RRR without murmur, gallop, or rubs. No ectopy Abdomen: Abdomen soft, non-tender. Bowel sounds normal. No masses, organomegaly Health maintenance reviewed with patient: Shingrix Vaccine(1 of 2) Never done Mammogram Screening due on 04/29/2024 Advance Directive Discussion due on 06/02/2024 Covid-19 Vaccine( season) due on 12/18/2024 Depression Screening due on 04/19/2025 Anxiety Screening due on 04/19/2025 Colorectal Cancer Screening due on 05/04/2026 RSV Vaccine(1 - 1-dose 75+ series) due on 09/23/2026 Diabetes Screening due on 03/22/2027 DTaP,Tdap,Td Vaccine(2 - Td or Tdap) due on 01/20/2028 Lipid Screening due on 03/22/2029 Influenza Vaccine Completed Hepatitis C Screening Completed Pneumococcal Vaccine: 50+ Completed Bone Density Screening Addressed DATA REVIEWED: No new labs Assessment/Plan 1. Immunity status testing (Z01.84) - Uncertain vaccination history for measles. - Ordered measles titers to assess immunity status. - Advised to avoid contact with unvaccinated individuals due to potential exposure risk. 2. Constipation, unspecified constipation type (K59.00) - Recent dietary intake of cheese likely contributing to constipation. - Initiated stool softeners and recommended Miralax to facili (more content not included)... [facility] 09-09-2024 Note HNO ID: [id number] Author: YANI CASANOVA MD Service: ? Author Type: Physician Type: Progress Notes Filed: 09/10/2024 11:29 Note Text: Gynecologic Oncology Note [facility] Chief complaint: Ovarian mass, endometrial fluid HPI: This is a 73 year old patient with a history of endometriosis and HLD here for discussion of surgical management of a right sided ovarian cyst and endometrial cavity fluid here for follow-up and preop visit. 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 TVUS showed cyst on ultrasound as well. Since removing lactose from her diet, her bloating has resolved. No nausea, vomiting, issues with voiding or bowel movements. Repeat Ca-125 68 after last visit. She was also noted to have a thin uterine lining but with some fluid in the uterus. No vaginal bleeding. Menopausal many years ago. EMB was completed which was inconclusive. Her two sisters had breast cancer with negative BRCA testing. She is completing genetic testing in the upcoming months. After meeting last time and change in Ca-125, she now desires surgical interventions. ROS: 14 point ROS negative unless indicated in above HPI. Medical history: PAST MEDICAL HISTORY Diagnosis Date - Arthritis - Calculus of gallbladder without mention of cholecystitis or obstruction cholecystectomy - Endometriosis - Infertility, female - Ovarian cyst Surgical history: PAST SURGICAL HISTORY Procedure Laterality Date - ABDOMINAL SURGERY HX - BREAST BIOPSY X2- negative - COLONOSCOPY FLX DX W/COLLJ SPEC WHEN PFRMD 05/04/2021 tubular adenoma, repeat in 5 years - ENDOMETRIAL BIOPSY 06/25/2024 - LAPS SURG CHOLECYSTECTOMY W/CHOLANGIOGRAPHY Jennifer - OOPHORECTOMY PARTIAL/TOTAL UNI/BI 1983 RIGHT-ENDOMETRIOSIS - TONSILLECTOMY AND ADENOIDECTOMY - TONSILLECTOMY HX Director Report history: Endometriosis with removal of left ovary many years ago. 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 Family history: Family History Problem Relation Age of Onset - Breast Cancer Mother DC, CVA - Skin Cancer Father - Breast Cancer Sister - Skin Cancer Sister - Breast Cancer Sister - Breast Cancer Paternal Grandmother - Breast Cancer Other cousin - Colon Cancer No Family History - Uterine Cancer No Family History - Pancreatic Cancer No Family History Social history: Social History Tobacco Use - Smoking status: Never - Smokeless tobacco: Never Vaping Use - Vaping status: Never Used Substance Use Topics - Alcohol use: No - Drug use: No Medications: No current outpatient medications on file. No current facility-administered medications for this visit. Healthcare maintenance: Colonoscopy: up to date, repeat recommended in 2025 Mammogram: up to date, negative Pap smear: up to date, all negative PE: EGOG PS 0 BP 133/82 (BP Site: Left Arm, BP Position: Sitting, BP Cuff Size: Large Adult) Pulse 85 Temp 36.1 ?C (97 ?F) Wt 56.7 kg (125 lb) SpO2 98% BMI 24.41 kg/m? Gen: well appearing Card: regular rate Resp: comfortable on room air Abd: soft, non-tender. No masses Extremity: No edema or erythema Pelvic: Patient declined Labs/Imaging: TVUS 06/15/24: The uterus is anteverted and measures 51 mm x 15 mm x 30 mm. The endometrial thickness is 2 mm. There is fundal anechoic endometrial fluid. There is a left lateral wall posterior calcified fibroid that measures 7 mm x 7 mm x 5 mm. The right ovary is not visualized. There is a right 6 mm x 4 mm x 4 mm. simple paraovarian/paratubal cyst. The left ovary measures 22 mm x 27 mm x 11 mm and contains a 7 mm x 15 mm x 15 mm. Unilocular non-simple cyst (internal debris and/or incomplete septation) with smooth inner wall. O-RADS 2 There is no free fluid visualized. CT A/P 08/05/24: IMPRESSION: 1. No acute intra-abdominal/pelvic abnormalities are identified. 2. Diverticulosis. 3. 1.6 cm cystic focus in the region of the left adnexa which may represent left ovarian cyst or cystic lesion. Pelvic ultrasound may be helpful for further characterization if warranted. A/P: This is a 73 year old patient here for follow up discussion of management for a ORADS-2 lesion of the right adnexa and endometrial fluid here for preop visit. Pelvic mass: - Discussed differential including benign, borderline, malignant, or metastatic tumors to the ovary. - CA-125 60 --> 68. - After history and reviewing of labs/imaging, I feel this is most likely a benign lesion but slight rise in Ca-125 does give me some minor increase concern. However, we discussed that ultimately the only way to accurately diagnose an ovarian mass is through removal and pathologic evaluation. - She desires concurrent hysterectomy with BSO rather than D+C. - Plan for TLH/BSO, frozen section, cystoscopy. We discussed staging surgery pending frozen and she agrees to proceed if indicated. (more content not included)... [facility] 09-09-2024 History of Presen t illness Narrative Gynecologic Oncology Note [facility] Chief complaint: Ovarian mass, endometrial fluid HPI: This is a 73 year old patient with a history of endometriosis and HLD here for discussion of surgical management of a right sided ovarian cyst and endometrial cavity fluid here for follow-up and preop visit. 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 TVUS showed cyst on ultrasound as well. Since removing lactose from her diet, her bloating has resolved. No nausea, vomiting, issues with voiding or bowel movements. Repeat Ca-125 68 after last visit. She was also noted to have a thin uterine lining but with some fluid in the uterus. No vaginal bleeding. Menopausal many years ago. EMB was completed which was inconclusive. Her two sisters had breast cancer with negative BRCA testing. She is completing genetic testing in the upcoming months. After meeting last time and change in Ca-125, she now desires surgical interventions. ROS: 14 point ROS negative unless indicated in above HPI. Medical history: PAST MEDICAL HISTORY Diagnosis Date Arthritis Calculus of gallbladder without mention of cholecystitis or obstruction cholecystectomy Endometriosis Infertility, female Ovarian cyst Surgical history: PAST SURGICAL HISTORY Procedure Laterality Date ABDOMINAL SURGERY HX BREAST BIOPSY X2- negative COLONOSCOPY FLX DX W/COLLJ SPEC WHEN PFRMD 05/04/2021 tubular adenoma, repeat in 5 years ENDOMETRIAL BIOPSY 06/25/2024 LAPS SURG CHOLECYSTECTOMY W/CHOLANGIOGRAPHY Jennifer OOPHORECTOMY PARTIAL/TOTAL UNI/BI 1983 RIGHT-ENDOMETRIOSIS TONSILLECTOMY & ADENOIDECTOMY <AGE 13 1956 TONSILLECTOMY HX Director Report history: Endometriosis with removal of left ovary many years ago. 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 Family history: Family History Problem Relation Age of Onset Breast Cancer Mother [place], CVA Skin Cancer Father Breast Cancer Sister Skin Cancer Sister Breast Cancer Sister Breast Cancer Paternal Grandmother Breast Cancer Other cousin Colon Cancer No Family History Uterine Cancer No Family History Pancreatic Cancer No Family History Social history: Social History Tobacco Use Smoking status: Never Smokeless tobacco: Never Vaping Use Vaping status: Never Used Substance Use Topics Alcohol use: No Drug use: No Medications: No current outpatient medications on file. No current facility-administered medications for this visit. Healthcare maintenance: Colonoscopy: up to date, repeat recommended in 2025 Mammogram: up to date, negative Pap smear: up to date, all negative PE: EGOG PS 0 BP 133/82 (BP Site: Left Arm, BP Position: Sitting, BP Cuff Size: Large Adult) Pulse 85 Temp 36.1 C (97 F) Wt 56.7 kg (125 lb) SpO2 98% BMI 24.41 kg/m Gen: well appearing Card: regular rate Resp: comfortable on room air Abd: soft, non-tender. No masses Extremity: No edema or erythema Pelvic: Patient declined Labs/Imaging: TVUS 06/15/24: The uterus is anteverted and measures 51 mm x 15 mm x 30 mm. The endometrial thickness is 2 mm. There is fundal anechoic endometrial fluid. There is a left lateral wall posterior calcified fibroid that measures 7 mm x 7 mm x 5 mm. The right ovary is not visualized. There is a right 6 mm x 4 mm x 4 mm. simple paraovarian/paratubal cyst. The left ovary measures 22 mm x 27 mm x 11 mm and contains a 7 mm x 15 mm x 15 mm. Unilocular non-simple cyst (internal debris and/or incomplete septation) with smooth inner wall. O-RADS 2 There is no free fluid visualized. CT A/P 08/05/24: IMPRESSION: 1. No acute intra-abdominal/pelvic abnormalities are identified. 2. Diverticulosis. 3. 1.6 cm cystic focus in the region of the left adnexa which may represent left ovarian cyst or cystic lesion. Pelvic ultrasound may be helpful for further characterization if warranted. A/P: This is a 73 year old patient here for follow up discussion of management for a ORADS-2 lesion of the right adnexa and endometrial fluid here for preop visit. Pelvic mass: - Discussed differential including benign, borderline, malignant, or metastatic tumors to the ovary. - CA-125 60 --> 68. - After history and reviewing of labs/imaging, I feel this is most likely a benign lesion but slight rise in Ca-125 does give me some minor increase concern. However, we discussed that ultimately the only way to accurately diagnose an ovarian mass is through removal and pathologic evaluation. - She desires concurrent hysterectomy with BSO rather than D+C. - Plan for TLH/BSO, frozen section, cystoscopy. We discussed staging surgery pending frozen and she agrees to proceed if indicated. - We reviewed the following risks of surgery: infection, blood loss, need for transfusion, intraoperative injury to other structures, DVT/PE, nerve injuries, anesthesia related risks.led. Endometrial fluid - Low concern for cancerous process at this time. Suspect component of cervical stenosis leading to fluid build up. She has normal endometrial lining and is asymptomatic. - Frozen on endometrium in addition to ovary Surgery: - T+S, CBC, BMP - PAT - Ancef/Heparin/Flagyl/SCDs Quentin Patel, [facility] WOODWORKING MACHINIST, PGY-1 I have seen and evaluated the patient and discussed the case with the resident physician. I agree with the assessment and plan as documented in the resident s note. Yani Casanova MD, MPH Gynecologic Oncologist Medical Decision Making: Problems: Low: Stable chronic illness Moderate: 1+ chronic illnesses with change Data: Unique test result(s) reviewed: 3+ Unique test(s) ordered: 3+ Independent interpretation of test from other physician/QHCP Risk: Moderate: Decision on elective major surgery w/o risk factors Medical Decision Making Level: 4 - Moderate documented in this encounter [facility] 08-26-2024 Note HNO ID: [id number] Author: CASI MEIER MA Service: ? Author Type: Assembler Insulator Type: Progress Notes Filed: 08/26/2024 13:05 Note Text: POPULATION HEALTH NAVIGATION OUTREACH Action/FYI August 26, 2024 1:02 PM [employer] High Risk Attempt One ~Patient is scheduled on April 20 2024 for her Medicare Wellness with PCP Health Maintenance Due: Mammogram Screening due on 04/29/2024 Outcome: Spoke with patient. ~She has been scheduled on October 28, 2024 for a six month follow up with Silva Pepper MD. ~Declined to schedule Mammogram. States she schedules this with [facility]. Reason for Outreach Care Gap/HCC or Scheduling Wellness Visits Care Gaps due: Follow-up Appointment Breast Cancer Screening Patient Contacted: Spoke to patient/parent/or legal guardian Patient identified by name and : Yes Care Gap/HCC/Scheduling Wellness actions taken: Patient scheduled/pended orders: Follow-up Appointment 10/22/2024 in [facility] with JANEL OHARA - Check for BRCA mutation 10/28/2024 in [facility] with SILVA PEPPER - Six month follow up [employer] High Risk 12/23/2024 in [facility] with US TECH 1 [facility] - Fluid in endometrial cavity [N85.9]; Cyst of ovary, unspecified laterality [N83.209] 04/20/2025 in [facility] with OLDER, MARIELLE - Medicare wellness Navigation Signature: Casi Meier MA August 26, 2024 1:02 PM [facility] 08-26-2024 History of Presen t illness Narrative POPULATION HEALTH NAVIGATION OUTREACH Action/FYI August 26, 2024 1:02 PM [employer] High Risk Attempt One ~Patient is scheduled on April 20 2024 for her Medicare Wellness with PCP Health Maintenance Due: Mammogram Screening due on 04/29/2024 Outcome: Spoke with patient. ~She has been scheduled on October 28, 2024 for a six month follow up with Silva Pepper MD. ~Declined to schedule Mammogram. States she schedules this with [facility]. Reason for Outreach Care Gap/HCC or Scheduling Wellness Visits Care Gaps due: Follow-up Appointment Breast Cancer Screening Patient Contacted: Spoke to patient/parent/or legal guardian Patient identified by name and : Yes Care Gap/HCC/Scheduling Wellness actions taken: Patient scheduled/pended orders: Follow-up Appointment 10/22/2024 in [facility] with JANEL OHARA - Check for BRCA mutation 10/28/2024 in [facility] with SILVA PEPPER - Six month follow up [employer] High Risk 12/23/2024 in [facility] with US TECH 1 [facility] - Fluid in endometrial cavity [N85.9]; Cyst of ovary, unspecified laterality [N83.209] 04/20/2025 in [facility] with MARIELLE LOMBARDO - Medicare wellness Navigation Signature: Casi Meier MA August 26, 2024 1:02 PM documented in this encounter [facility] 08-26-2024 Note Patient Outreach (CHRISTY TNAV) TRAY BOBBY ([id number]) 1950 F Date Time Provider Department 08/26/24 CASI MEIER During your visit today, we recorded the following information about you: Casi Meier MA 08/26/2024 1:05 PM Signed POPULATION HEALTH NAVIGATION OUTREACH Action/FYI August 26, 2024 1:02 PM [employer] High Risk Attempt One ~Patient is scheduled on April 20 2024 for her Medicare Wellness with PCP Health Maintenance Due: Mammogram Screening due on 04/29/2024 Outcome: Spoke with patient. ~She has been scheduled on October 28, 2024 for a six month follow up with Silva Pepper MD. ~Declined to schedule Mammogram. States she schedules this with [facility]. Reason for Outreach Care Gap/HCC or Scheduling Wellness Visits Care Gaps due: Follow-up Appointment Breast Cancer Screening Patient Contacted: Spoke to patient/parent/or legal guardian Patient identified by name and : Yes Care Gap/HCC/Scheduling Wellness actions taken: Patient scheduled/pended orders: Follow-up Appointment 10/22/2024 in [facility] with JANEL OHARA - Check for BRCA mutation 10/28/2024 in [facility] with SILVA PEPPER - Six month follow up [employer] High Risk 12/23/2024 in [facility] with US TECH 1 [facility] - Fluid in endometrial cavity [N85.9]; Cyst of ovary, unspecified laterality [N83.209] 04/20/2025 in [facility] with MARIELLE LOMBARDO - Medicare wellness Navigation Signature: Casi Meier MA August 26, 2024 1:02 PM Allergies As of Date: 08/26/2024 Noted Allergy Reaction AMOXICILLIN 06/07/2005 4 - Hives SULFA (SULFONAMIDE ANTIBIOTICS) 01/09/2016 4 - Hives Date Reviewed: 08/20/2024 Reviewed by: Yani Casanova MD - Fully Assessed Reason for Visit: Population Health Navigation Outreach [3910] Cmt: [employer] High Risk Attempt One Problem List As Of Date 08/26/2024 Noted Resolved Mixed hyperlipidemia [E78.2] 01/09/2016 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 Author Type: Physician Type: Progress Notes Filed: 08/20/2024 21:08 Note Text: Gynecologic Oncology Consultation Note [facility] Referring provider: Dr. Morales Chief complaint: Ovarian mass, endometrial fluid HPI: This is a 73 year old patient with a history of endometriosis and HLD referred for right sided ovarian cyst and endometrial cavity fluid. 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 TVUS showed cyst on ultrasound as well. Since this visit, she has removed lactose from her diet and the bloating has resolved. No nausea, vomiting, issues with voiding or bowel movements. She was also noted to have a thin uterine lining but with some fluid in the uterus. No vaginal bleeding. Menopausal many years ago. EMB was completed which was inconclusive. Her two sisters had breast cancer with negative BRCA testing. She is completing genetic testing in the upcoming months. ROS: 14 point ROS negative unless indicated in above HPI. Medical history: PAST MEDICAL HISTORY Diagnosis Date - Arthritis - Calculus of gallbladder without mention of cholecystitis or obstruction cholecystectomy - Endometriosis - Infertility, female - Ovarian cyst Surgical history: PAST SURGICAL HISTORY Procedure Laterality Date - ABDOMINAL SURGERY HX - BREAST BIOPSY X2- negative - COLONOSCOPY FLX DX W/COLLJ SPEC WHEN PFRMD 05/04/2021 tubular adenoma, repeat in 5 years - ENDOMETRIAL BIOPSY 06/25/2024 - LAPS SURG CHOLECYSTECTOMY W/CHOLANGIOGRAPHY Jennifer - OOPHORECTOMY PARTIAL/TOTAL UNI/BI 1983 RIGHT-ENDOMETRIOSIS - TONSILLECTOMY AND ADENOIDECTOMY - TONSILLECTOMY HX Director Report history: Endometriosis with removal of left ovary many years ago. 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 Family history: Family History Problem Relation Age of Onset - Breast Cancer Mother DC, CVA - Skin Cancer Father - Breast Cancer Sister - Skin Cancer Sister - Breast Cancer Sister - Breast Cancer Paternal Grandmother - Breast Cancer Other cousin - Colon Cancer No Family History - Uterine Cancer No Family History - Pancreatic Cancer No Family History Social history: Social History Tobacco Use - Smoking status: Never - Smokeless tobacco: Never Vaping Use - Vaping status: Never Used Substance Use Topics - Alcohol use: No - Drug use: No Medications: No current outpatient medications on file. No current facility-administered medications for this visit. Healthcare maintenance: Colonoscopy: up to date, repeat recommended in 2025 Mammogram: up to date, negative Pap smear: up to date, all negative PE: EGOG PS 0 BP 148/90 (BP Site: Left Arm, BP Position: Sitting, BP Cuff Size: Regular Adult) Pulse 70 Temp 36.6 ?C (97.8 ?F) (Oral) Ht 152.4 cm (5') Wt 56.2 kg (124 lb) SpO2 98% BMI 24.22 kg/m? Gen: well appearing Card: regular rate Resp: comfortable on room air Abd: soft, non-tender. No masses Extremity: No edema or erythema Pelvic: deferred Labs/Imagin06/08/24: CA-125 60 TVUS 06/15/24: The uterus is anteverted and measures 51 mm x 15 mm x 30 mm. The endometrial thickness is 2 mm. There is fundal anechoic endometrial fluid. There is a left lateral wall posterior calcified fibroid that measures 7 mm x 7 mm x 5 mm. The right ovary is not visualized. There is a right 6 mm x 4 mm x 4 mm. simple paraovarian/paratubal cyst. The left ovary measures 22 mm x 27 mm x 11 mm and contains a 7 mm x 15 mm x 15 mm. Unilocular non-simple cyst (internal debris and/or incomplete septation) with smooth inner wall. O-RADS 2 There is no free fluid visualized. CT A/P 08/05/24: IMPRESSION: 1. No acute intra-abdominal/pelvic abnormalities are identified. 2. Diverticulosis. 3. 1.6 cm cystic focus in the region of the left adnexa which may represent left ovarian cyst or cystic lesion. Pelvic ultrasound may be helpful for further characterization if warranted. A/P: This is a 73 year old patient here for consultation for a ORADS-2 lesion of the right adnexa and endometrial fluid. Pelvic mass: - Discussed differential including benign, borderline, malignant, or metastatic tumors to the ovary. - After history and reviewing of labs/imaging, I feel this is most likely a benign lesion. However, we discussed that ultimately the only way to accurately diagnose an ovarian mass is through removal and pathologic evaluation. - We discussed her options including surgical removal of all pelvic organs via TLH, BSO versus surveillance and close follow-up. - Given the above, the patient elects to repeat ultrasound in 2 months as it will be 6 months from the initial scan. Also recommend repeat CA-125 to determine if still elevated. - Asked patient to reach out to office earlier if she decides on another course moving forward Endomet (more content not included)... [facility] 08-19-2024 History of Presen t illness Narrative Gynecologic Oncology Consultation Note [facility] Referring provider: Dr. Morales Chief complaint: Ovarian mass, endometrial fluid HPI: This is a 73 year old patient with a history of endometriosis and HLD referred for right sided ovarian cyst and endometrial cavity fluid. 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 TVUS showed cyst on ultrasound as well. Since this visit, she has removed lactose from her diet and the bloating has resolved. No nausea, vomiting, issues with voiding or bowel movements. She was also noted to have a thin uterine lining but with some fluid in the uterus. No vaginal bleeding. Menopausal many years ago. EMB was completed which was inconclusive. Her two sisters had breast cancer with negative BRCA testing. She is completing genetic testing in the upcoming months. ROS: 14 point ROS negative unless indicated in above HPI. Medical history: PAST MEDICAL HISTORY Diagnosis Date Arthritis Calculus of gallbladder without mention of cholecystitis or obstruction cholecystectomy Endometriosis Infertility, female Ovarian cyst Surgical history: PAST SURGICAL HISTORY Procedure Laterality Date ABDOMINAL SURGERY HX BREAST BIOPSY X2- negative COLONOSCOPY FLX DX W/COLLJ SPEC WHEN PFRMD 05/04/2021 tubular adenoma, repeat in 5 years ENDOMETRIAL BIOPSY 06/25/2024 LAPS SURG CHOLECYSTECTOMY W/CHOLANGIOGRAPHY Jennifer OOPHORECTOMY PARTIAL/TOTAL UNI/BI 1983 RIGHT-ENDOMETRIOSIS TONSILLECTOMY & ADENOIDECTOMY <AGE 13 1956 TONSILLECTOMY HX Director Report history: Endometriosis with removal of left ovary many years ago. 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 Family history: Family History Problem Relation Age of Onset Breast Cancer Mother DC, CVA Skin Cancer Father Breast Cancer Sister Skin Cancer Sister Breast Cancer Sister Breast Cancer Paternal Grandmother Breast Cancer Other cousin Colon Cancer No Family History Uterine Cancer No Family History Pancreatic Cancer No Family History Social history: Social History Tobacco Use Smoking status: Never Smokeless tobacco: Never Vaping Use Vaping status: Never Used Substance Use Topics Alcohol use: No Drug use: No Medications: No current outpatient medications on file. No current facility-administered medications for this visit. Healthcare maintenance: Colonoscopy: up to date, repeat recommended in 2025 Mammogram: up to date, negative Pap smear: up to date, all negative PE: EGOG PS 0 BP 148/90 (BP Site: Left Arm, BP Position: Sitting, BP Cuff Size: Regular Adult) Pulse 70 Temp 36.6 C (97.8 F) (Oral) Ht 152.4 cm (5') Wt 56.2 kg (124 lb) SpO2 98% BMI 24.22 kg/m Gen: well appearing Card: regular rate Resp: comfortable on room air Abd: soft, non-tender. No masses Extremity: No edema or erythema Pelvic: deferred Labs/Imagin06/08/24: CA-125 60 TVUS 06/15/24: The uterus is anteverted and measures 51 mm x 15 mm x 30 mm. The endometrial thickness is 2 mm. There is fundal anechoic endometrial fluid. There is a left lateral wall posterior calcified fibroid that measures 7 mm x 7 mm x 5 mm. The right ovary is not visualized. There is a right 6 mm x 4 mm x 4 mm. simple paraovarian/paratubal cyst. The left ovary measures 22 mm x 27 mm x 11 mm and contains a 7 mm x 15 mm x 15 mm. Unilocular non-simple cyst (internal debris and/or incomplete septation) with smooth inner wall. O-RADS 2 There is no free fluid visualized. CT A/P 08/05/24: IMPRESSION: 1. No acute intra-abdominal/pelvic abnormalities are identified. 2. Diverticulosis. 3. 1.6 cm cystic focus in the region of the left adnexa which may represent left ovarian cyst or cystic lesion. Pelvic ultrasound may be helpful for further characterization if warranted. A/P: This is a 73 year old patient here for consultation for a ORADS-2 lesion of the right adnexa and endometrial fluid. Pelvic mass: - Discussed differential including benign, borderline, malignant, or metastatic tumors to the ovary. - After history and reviewing of labs/imaging, I feel this is most likely a benign lesion. However, we discussed that ultimately the only way to accurately diagnose an ovarian mass is through removal and pathologic evaluation. - We discussed her options including surgical removal of all pelvic organs via TLH, BSO versus surveillance and close follow-up. - Given the above, the patient elects to repeat ultrasound in 2 months as it will be 6 months from the initial scan. Also recommend repeat CA-125 to determine if still elevated. - Asked patient to reach out to office earlier if she decides on another course moving forward Endometrial fluid - Low concern for cancerous process at this time. Suspect component of cervical stenosis leading to fluid build up. She has normal endometrial lining and is asymptomatic. - Can consider D&C for further definitive sampling of the endometrium Estela Oreilly, PGY-2 I have seen and evaluated the patient and discussed the case with the resident physician. I agree with the assessment and plan as documented in the resident s note. Yani Casanova MD, MPH Gynecologic Oncologist Medical Decision Making: Problems: Moderate: New problem with uncertain prognosis Data: Unique source(s) for external note(s) reviewed: 3+ Unique test result(s) reviewed: 3+ Unique test(s) ordered: 3+ Independent interpretation of test from other physician/QHCP Risk: Minimal: Minimal risk from testing/treatment Low: Low risk from testing/treatment Medical Decision Making Level: 4 - Moderate documented in this encounter [facility] 08-05-2024 History of Presen t illness Narrative Radiology Service Progress Note DATE OF SERVICE: August 05, 2024 TIME: 3:30 PM PATIENT IDENTITY VERIFICATION COMPLETED USING TWO (2) STANDARD IDENTIFIERS: Name and Date of confirmed by patient verbally. FALL SCREENING: Has the patient had 2 falls in the last year or 1 fall with injury or currently using an Ambulatory Assistive Device (Walker, Cane, Wheelchair, Crutches, etc.)? No PATIENT GENDER DATA: Assigned female at . status: : No status: NO. PATIENT RELEVANT IMPLANT DATA REVIEWED: Yes PATIENT PRESENTS WITH AN IMPLANTABLE OR ATTACHED SYSTEMS SPECIALIST: No ALLERGIES: Reviewed and unchanged CONTRAST ALLERGY: NO. EXAM: CT -CONTRAST INDUCED NEPHROPATHY RISK FACTORS: Patient age > 60 years CREATININE: Creatinine Date Value Ref Range Status 08/03/2024 0.72 0.58 - 0.96 mg/dL Final 03/22/2024 0.82 0.58 - 0.96 mg/dL Final 03/26/2021 0.77 0.58 - 0.96 mg/dL Final Estimated Glomerular Filtration Rate Date Value Ref Range Status 08/03/2024 89 >=60 mL/min/1.73m Final Comment: Estimated Glomerular Filtration Rate (eGFR) is calculated using the 2020 CKD-EPI creatinine equation. This equation utilizes serum creatinine, sex, and age as parameters. The creatinine assay has traceable calibration to isotope dilution-mass spectrometry. Refer to KDIGO guidelines for clinical interpretation. In patients with unstable renal function, e.g. those with acute kidney injury, the eGFR may not accurately reflect actual GFR. eGFR- Date Value Ref Range Status 03/26/2021 >60 Final P.O.C.T. RESULTS: POC done: Yes, See Lab Tab August 05, 2024 TREATMENT: N/A PERIPHERAL IV DATA: Ambulatory: A peripheral IV was started in the Left antecubital site with a Angio cath: 22 gauge. RADIOLOGY DEPARTMENT: CT; Exam(s) Completed: Abdomen/Pelvis SIGNATURE: CARRIE Barnett) PATIENT NAME: Tray Bobby DATE: August 05, 2024 TIME: 3:30 PM documented in this encounter [facility] 08-05-2024 Note HNO ID: [id number] Author: YUKO DEY RT(R) Service: ? Author Type: Cloud Consultant Type: Progress Notes Filed: 08/05/2024 15:31 Note Text: Radiology Service Progress Note DATE OF SERVICE: August 05, 2024 TIME: 3:30 PM PATIENT IDENTITY VERIFICATION COMPLETED USING TWO (2) STANDARD IDENTIFIERS: Name and Date of confirmed by patient verbally. FALL SCREENING: Has the patient had 2 falls in the last year or 1 fall with injury or currently using an Ambulatory Assistive Device (Walker, Cane, Wheelchair, Crutches, etc.)? No PATIENT GENDER DATA: Assigned female at . status: : No status: NO. PATIENT RELEVANT IMPLANT DATA REVIEWED: Yes PATIENT PRESENTS WITH AN IMPLANTABLE OR ATTACHED SYSTEMS SPECIALIST: No ALLERGIES: Reviewed and unchanged CONTRAST ALLERGY: NO. EXAM: CT -CONTRAST INDUCED NEPHROPATHY RISK FACTORS: Patient age > 60 years CREATININE: Creatinine Date Value Ref Range Status 08/03/2024 0.72 0.58 - 0.96 mg/dL Final 03/22/2024 0.82 0.58 - 0.96 mg/dL Final 03/26/2021 0.77 0.58 - 0.96 mg/dL Final Estimated Glomerular Filtration Rate Date Value Ref Range Status 08/03/2024 89 >=60 mL/min/1.73m? Final Comment: Estimated Glomerular Filtration Rate (eGFR) is calculated using the 2020 CKD-EPI creatinine equation. This equation utilizes serum creatinine, sex, and age as parameters. The creatinine assay has traceable calibration to isotope dilution-mass spectrometry. Refer to KDIGO guidelines for clinical interpretation. In patients with unstable renal function, e.g. those with acute kidney injury, the eGFR may not accurately reflect actual GFR. eGFR- Date Value Ref Range Status 03/26/2021 >60 Final P.O.C.T. RESULTS: POC done: Yes, See Lab Tab August 05, 2024 TREATMENT: N/A PERIPHERAL IV DATA: Ambulatory: A peripheral IV was started in the Left antecubital site with a Angio cath: 22 gauge. RADIOLOGY DEPARTMENT: CT; Exam(s) Completed: Abdomen/Pelvis SIGNATURE: RT Anibal(R) PATIENT NAME: Tray Bobby DATE: August 05, 2024 TIME: 3:30 PM [facility] 08-02-2024 Telephone encounter Note Patient notified and transferred to imaging. [facility] appointment and aware [employer]/onc will reach out to her. Bonita Cruz RN [facility] 08-02-2024 Miscellaneous Notes Patient notified and transferred to imaging. She will get on mychart to schedule genetics appointment and aware [employer]/onc will reach out to her. Bonita Cruz RN Images from the original note were not included. Mk Morales MD P [facility] Ob-Disability Attorney [place] Please let the pt know I touched based with [employer] onc and they agree she does not need a D&C first. She recommended genetics referral, CTAP and [employer] onc consult so orders placed. Thanks Previous Messages ----- Message ----- From: Yani Casanova MD Sent: 08/02/2024 8:41 AM EST To: Mk Morales MD; [facility] Ob-Disability Attorney [place] No that is fine. She needs a CT A/P with oral and IV contrast though so that would be helpful to have done. Best order stat otherwise insurance can take 2 weeks to approve. She also needs to see genetics it sounds like if she has not had testing (or if her family has not been tested). Yani Astudillo ----- Message ----- From: Mk Morales MD Sent: 07/30/2024 5:27 PM EST To: Yani Casanova MD; [facility] Ob-Disability Attorney [facility] Yani I was hoping for your opinion on this patient. She was new to me today, and came to discuss a D&C. 73 y/o who had a pelvic US for bloating and pain. She has a small left ovarian cyst and CA-125 is 60. Strong family history of breast cancer (mother and 2 sisters). When I look at the images I have some concern that there are solid components to the cyst, rather than it being debris. She was sent to me to schedule a D&C because her EMS is thin at 2 mm but there was a small amount of fluid in the endometrial cavity. Her EMB was non diagnostic and she has not had PMB. I am a little more worried about the ovary. Would you want me to schedule a hysteroscopy D&C prior to referring her to you? She declined a repeat EMB today. Thanks for the help! Mk documented in this encounter [facility] 08-02-2024 Telephone encounter Note Images from the original note were not included. Mk Morales MD P [facility] Ob-Disability Attorney [place] Please let the pt know I touched based with [employer] onc and they agree she does not need a D&C first. She recommended genetics referral, CTAP and [employer] onc consult so orders placed. Thanks Previous Messages ----- Message ----- From: Yani Casanova MD Sent: 08/02/2024 8:41 AM EST To: Mk Morales MD; [facility] Ob-Disability Attorney [place] No that is fine. She needs a CT A/P with oral and IV contrast though so that would be helpful to have done. Best order stat otherwise insurance can take 2 weeks to approve. She also needs to see genetics it sounds like if she has not had testing (or if her family has not been tested). Yani Astudillo ----- Message ----- From: Mk Morales MD Sent: 07/30/2024 5:27 PM EST To: Yani Casanova MD; [facility] Ob-Disability Attorney [facility] Yani I was hoping for your opinion on this patient. She was new to me today, and came to discuss a D&C. 73 y/o who had a pelvic US for bloating and pain. She has a small left ovarian cyst and CA-125 is 60. Strong family history of breast cancer (mother and 2 sisters). When I look at the images I have some concern that there are solid components to the cyst, rather than it being debris. She was sent to me to schedule a D&C because her EMS is thin at 2 mm but there was a small amount of fluid in the endometrial cavity. Her EMB was non diagnostic and she has not had PMB. I am a little more worried about the ovary. Would you want me to schedule a hysteroscopy D&C prior to referring her to you? She declined a repeat EMB today. Thanks for the help! Mk [facility] 07-30-2024 Note HNO ID: [id number] Author: MK MORALES MD Service: ? Author Type: Physician Type: Progress Notes Filed: 07/30/2024 17:27 Note Text: Tray Bobby is a 73 year old female who presents to discuss a DANDC. Limited sampling on the EMB and here to discuss hysteroscopy DANDC. HPI: The patient was having bloating and pain which prompted the pelvic ultrasound. No PMB. Pelvic ultrasound shows a left ovarian cyst. Elevated CA 125. Mother had breast cancer in 70's. Her two sisters had breast cancer in 50's and 60's. Tray is unsure if there was genetic testing completed. She has never had PMB. OB History Gravida0 Para0 Term0 Preterm0 AB0 Living0 SAB0 IAB0 Ectopic0 Multiple0 Live Births0 Disability Attorney History LMP: Postmenopausal Age at Menarche: Age at First : Age at Menopause: Disability Attorney History Comments: Sexual Activity: Not Currently; Male Contraception: None PAST MEDICAL HISTORY Diagnosis Date Arthritis Calculus of gallbladder without mention of cholecystitis or obstruction cholecystectomy Coitus painful for female Endometriosis Infertility, female Ovarian cyst PAST SURGICAL HISTORY Procedure Laterality Date ABDOMINAL SURGERY HX BREAST BIOPSY X2- negative COLONOSCOPY FLX DX W/COLLJ SPEC WHEN PFRMD 05/04/2021 tubular adenoma, repeat in 5 years ENDOMETRIAL BIOPSY 06/25/2024 LAPS SURG CHOLECYSTECTOMY W/CHOLANGIOGRAPHY Jennifer OOPHORECTOMY PARTIAL/TOTAL UNI/BI 1983 RIGHT-ENDOMETRIOSIS TONSILLECTOMY AND ADENOIDECTOMY TONSILLECTOMY HX FAMILY HISTORY Problem Relation Age of Onset Breast Cancer Mother [place], CVA Skin Cancer Father Breast Cancer Sister Skin Cancer Sister Breast Cancer Sister Breast Cancer Paternal Grandmother Breast Cancer Other cousin Social History Tobacco Use Smoking status: Never Smokeless tobacco: Never Vaping Use Vaping status: Never Used Substance Use Topics Alcohol use: No Drug use: No No current outpatient medications on file. No current facility-administered medications for this visit. Allergies As of Date: 07/30/2024 Allergen Noted Reaction AMOXICILLIN 06/07/2005 Hives SULFA (SULFONAMIDE ANTIBIOTICS) 01/09/2016 Hives Fully Assessed 07/30/2024 REVIEW OF SYSTEMS Expanded ROS: N/A Allergies and current medication updated:Yes SENSITIVE EXAM: Sensitive exam not performed. EXAM: BP 114/60 Pulse 84 Resp 16 Wt 125 lb 6.4 oz (56.9kg) SpO2 97% GENERAL: pleasant, female in no apparent distress HEENT: Normocephalic and atraumatic NECK: full range of motion CHEST: Normal inspiratory effort NEURO: exam grossly non-focal EXTREMITIES: normal ASSESSMENT AND PLAN: Assessment AND Plan Fluid in endometrial cavity Bloating Cyst of ovary, unspecified laterality Elevated cancer antigen 125 (CA-125) Tray presents today to discuss a hysteroscopy DANDC. She has not had PMB. Had a pelvic US with EMS 2 mm and endometrial fluid noted. EMB non diagnostic. Pelvic US images and report reviewed in detail with patient. Given thin EMS and a small amount of endometrial fluid present, discussed likely benign but cannot rule out hyperplasia or malignancy. Some possible solid components vs debris in the ovarian cyst, elevated CA 125, and family history of breast cancer. Would want [employer] onc opinion first prior to scheduling her for a hysteroscopy DANDC regarding ovarian cyst and next steps. Patient declines repeat EMB today in the office as procedure was very painful for her. Will message [employer] oncology for an opinion. Discussed may need genetics referral at some point as well. Mk Morales, DO I spent 20 minutes in the visit, with more than 50% of the total [id number] time of the visit in counseling / coordination of care. [facility] 07-30-2024 History of Presen t illness Narrative Tray Bobby is a 73 year old female who presents to discuss a D&C. Limited sampling on the EMB and here to discuss hysteroscopy D&C. HPI: The patient was having bloating and pain which prompted the pelvic ultrasound. No PMB. Pelvic ultrasound shows a left ovarian cyst. Elevated CA 125. Mother had breast cancer in 70's. Her two sisters had breast cancer in 50's and 60's. Tray is unsure if there was genetic testing completed. She has never had PMB. OB History Gravida0 Para0 Term0 Preterm0 AB0 Living0 SAB0 IAB0 Ectopic0 Multiple0 Live Births0 Disability Attorney History LMP: Postmenopausal Age at Menarche: Age at First : Age at Menopause: Disability Attorney History Comments: Sexual Activity: Not Currently; Male Contraception: None PAST MEDICAL HISTORY Diagnosis Date Arthritis Calculus of gallbladder without mention of cholecystitis or obstruction cholecystectomy Coitus painful for female Endometriosis Infertility, female Ovarian cyst PAST SURGICAL HISTORY Procedure Laterality Date ABDOMINAL SURGERY HX BREAST BIOPSY X2- negative COLONOSCOPY FLX DX W/COLLJ SPEC WHEN PFRMD 05/04/2021 tubular adenoma, repeat in 5 years ENDOMETRIAL BIOPSY 06/25/2024 LAPS SURG CHOLECYSTECTOMY W/CHOLANGIOGRAPHY Jennifer OOPHORECTOMY PARTIAL/TOTAL UNI/BI 1983 RIGHT-ENDOMETRIOSIS TONSILLECTOMY & ADENOIDECTOMY <AGE 13 1956 TONSILLECTOMY HX FAMILY HISTORY Problem Relation Age of Onset Breast Cancer Mother [place], CVA Skin Cancer Father Breast Cancer Sister Skin Cancer Sister Breast Cancer Sister Breast Cancer Paternal Grandmother Breast Cancer Other cousin Social History Tobacco Use Smoking status: Never Smokeless tobacco: Never Vaping Use Vaping status: Never Used Substance Use Topics Alcohol use: No Drug use: No No current outpatient medications on file. No current facility-administered medications for this visit. Allergies As of Date: 07/30/2024 Allergen Noted Reaction AMOXICILLIN 06/07/2005 Hives SULFA (SULFONAMIDE ANTIBIOTICS) 01/09/2016 Hives Fully Assessed 07/30/2024 REVIEW OF SYSTEMS Expanded ROS: N/A Allergies and current medication updated:Yes SENSITIVE EXAM: Sensitive exam not performed. EXAM: BP 114/60 Pulse 84 Resp 16 Wt 125 lb 6.4 oz (56.9kg) SpO2 97% GENERAL: pleasant, female in no apparent distress HEENT: Normocephalic and atraumatic NECK: full range of motion CHEST: Normal inspiratory effort NEURO: exam grossly non-focal EXTREMITIES: normal ASSESSMENT AND PLAN: Assessment & Plan Fluid in endometrial cavity Bloating Cyst of ovary, unspecified laterality Elevated cancer antigen 125 (CA-125) Tray presents today to discuss a hysteroscopy D&C. She has not had PMB. Had a pelvic US with EMS 2 mm and endometrial fluid noted. EMB non diagnostic. Pelvic US images and report reviewed in detail with patient. Given thin EMS and a small amount of endometrial fluid present, discussed likely benign but cannot rule out hyperplasia or malignancy. Some possible solid components vs debris in the ovarian cyst, elevated CA 125, and family history of breast cancer. Would want [facility] opinion first prior to scheduling her for a hysteroscopy D&C regarding ovarian cyst and next steps. Patient declines repeat EMB today in the office as procedure was very painful for her. Will message [facility] for an opinion. Discussed may need genetics referral at some point as well. Mk Morales, I spent 20 minutes in the visit, with more than 50% of the total [id number] time of the visit in counseling / coordination of care. documented in this encounter [facility] 07-06-2024 Telephone encounter Note Patient notified. Appointment scheduled with SW to discuss. Emilee Amaya RN [facility] 07-06-2024 Telephone encounter Note ----- Message from Zulema Cavazos APRN.CNM sent at 07/06/2024 3:50 PM EST ----- Please call patient and let her know there was limited sampling on the EMB and would recommend hysteroscopy D&C. I would like her to have a better sample and also make sure everything else is ok. She can schedule with physician to discuss further for preop and management. Zulema Cavazos APRN.CNM [facility] 07-06-2024 Miscellaneous Notes Patient notified. Appointment scheduled with SW to discuss. Emilee Amaya RN ----- Message from Zulema Cavazos APRN.CNM sent at 07/06/2024 3:50 PM EST ----- Please call patient and let her know there was limited sampling on the EMB and would recommend hysteroscopy D&C. I would like her to have a better sample and also make sure everything else is ok. She can schedule with physician to discuss further for preop and management. Zulema Cavazos APRN.CNM documented in this encounter [facility] 06-25-2024 Instructions Scotty Blanc MA - 06/25/2024 8:03 AM EST YOUR RECOVERY After your biopsy you may have: Vaginal bleeding (less than a normal menstrual period) Mild cramping Do NOT put anything in the vagina for 1 week after your endometrial biopsy. This includes: tampons douches and refraining from having sexual intercourse If you have any discomfort, you may take an over the counter pain medication (motrin, advil, ibuprofen, tylenol, etc). If this does not relieve your discomfort, contact the office. It is okay to wear a sanitary pad until the discharge and spotting stops. RISKS Although problems seldom occur with endometrial biopsies, there can be some complications. You may feel faint during and shortly after the procedure as well as have some bleeding after the procedure. There is also a risk of infection after the procedure. These complications are rare and can be easily treated. You should contact you doctor is you have any of the following: Heavy bleeding (more than your normal period) Bleeding with clots Severe abdominal pain Fever (more than 100.4F) Foul smelling vaginal discharge RESULTS We will have the results of your biopsy in 1-2 weeks. If you do not hear the results of your biopsy after 2 weeks, please contact the office for the results. If you have any additional questions or concerns please do not hesitate to contact the office. documented in this encounter [facility] 06-25-2024 Note HNO ID: [id number] Author: ZULEMA CAVAZOS APRN.CNM Service: ? Author Type: Pipeline Construction Inspector Type: Progress Notes Filed: 06/25/2024 16:05 Note Text: Lockstitch Zipper Setter offered: patient jairo Werner is a 73 year old Female who presents today for an endometrial biopsy for fluid in endometrium. test: n/a UNIVERSAL PROTOCOL / SAFETY CHECKLIST Procedure to be Performed: Endometrial Biopsy Sign In: A Moment of CARE was completed. Personnel directly involved with the procedure wore the appropriate PPE (Personal Protective Equipment). No special equipment needed. Patient/Surrogate Stated/Verified: PATIENT VERIFIED(optional for EMERGENT procedures): Patient name, Date of , Relevant allergies, and The intended procedure Time Out Communication: Intended patient and procedure match the source documents. Consent documented and matches the intended procedure. Relevant labs, photos, and/or imaging studies have been reviewed. Correct side/site marked and visible. No medications required for procedure. No fire risk assessment and interventions applicable. No implant(s) inserted. Sign Out: SIGN OUT (optional for EMERGENT procedures): All specimen containers correctly labeled. All instruments, equipment, possible retained foreign bodies accounted for. Post-procedure follow-up management communicated and Plan of Care Visit completed when applicable. PROCEDURE: EXTERNAL GENITALIA: Normal in appearance without lesions VAGINA: Normal in appearance without lesions BIOPSY: Speculum placed into the vagina with excellent visualization of the cervix. Cervix cleaned with betadine. Anterior lip of cervix grasped with single toothed tenaculum. Pipelle inserted into the uterus without difficulty and endometrial biopsy obtained. Specimen labeled and sent to pathology. Hemostasis achieved. Procedure Summary: Patient tolerated procedure well. Indication bloating, pelvic pain Impression The uterus is anteverted and measures 51 mm x 15 mm x 30 mm. The endometrial thickness is 2 mm. There is fundal anechoic endometrial fluid. There is a left lateral wall posterior calcified fibroid that measures 7 mm x 7 mm x 5 mm. The right ovary is not visualized. There is a right 6 mm x 4 mm x 4 mm. simple paraovarian/paratubal cyst. The left ovary measures 22 mm x 27 mm x 11 mm and contains a 7 mm x 15 mm x 15 mm. Unilocular non-simple cyst (internal debris and/or incomplete septation) with smooth inner wall O-RADS 2 There is no free fluid visualized. Recommendations O-RADS 2 ovarian lesion, non-simple cyst, almost certainly benign. Follow up ultrasound is recommended in 6 months. Simple paraovarian/paratubal cyst, no follow up imaging is needed. Fibroid uterus. Clinical correlation is recommended. Consider endometrial sampling. Latest Ref Rng 06/08/2024 CA 125 <39 U/mL 60 (H) ASSESSMENT/PLAN: 1. Fluid in endometrial cavity - ICD9: 621.8, ICD10: N85.9 (primary diagnosis) - ENDOMETRIAL BIOPSY - SURGICAL PATHOLOGY 2. Elevated CA-125 - ICD9: 795.82, ICD10: R97.1 -Will consult ECOLOGICAL RISK ASSESSOR/ONC once EMB results. Discussed with previously and agrees with plan. PLAN: Specimens labeled and sent to Pathology. Will notify patient of results in 1-2 weeks. Follow up in 1-2 weeks to discuss results. Post-procedure instructions reviewed and written material given to the patient. Zulema Cavazos APRN.[facility] 06-25-2024 History of Presen t illness Narrative Lockstitch Zipper Setter offered: patient declined Tray is a 73 year old Female who presents today for an endometrial biopsy for fluid in endometrium. test: n/a UNIVERSAL PROTOCOL / SAFETY CHECKLIST Procedure to be Performed: Endometrial Biopsy Sign In: A Moment of CARE was completed. Personnel directly involved with the procedure wore the appropriate PPE (Personal Protective Equipment). No special equipment needed. Patient/Surrogate Stated/Verified: PATIENT VERIFIED(optional for EMERGENT procedures): Patient name, Date of , Relevant allergies, and The intended procedure Time Out Communication: Intended patient and procedure match the source documents. Consent documented and matches the intended procedure. Relevant labs, photos, and/or imaging studies have been reviewed. Correct side/site marked and visible. No medications required for procedure. No fire risk assessment and interventions applicable. No implant(s) inserted. Sign Out: SIGN OUT (optional for EMERGENT procedures): All specimen containers correctly labeled. All instruments, equipment, possible retained foreign bodies accounted for. Post-procedure follow-up management communicated and Plan of Care Visit completed when applicable. PROCEDURE: EXTERNAL GENITALIA: Normal in appearance without lesions VAGINA: Normal in appearance without lesions BIOPSY: Speculum placed into the vagina with excellent visualization of the cervix. Cervix cleaned with betadine. Anterior lip of cervix grasped with single toothed tenaculum. Pipelle inserted into the uterus without difficulty and endometrial biopsy obtained. Specimen labeled and sent to pathology. Hemostasis achieved. Procedure Summary: Patient tolerated procedure well. Indication bloating, pelvic pain Impression The uterus is anteverted and measures 51 mm x 15 mm x 30 mm. The endometrial thickness is 2 mm. There is fundal anechoic endometrial fluid. There is a left lateral wall posterior calcified fibroid that measures 7 mm x 7 mm x 5 mm. The right ovary is not visualized. There is a right 6 mm x 4 mm x 4 mm. simple paraovarian/paratubal cyst. The left ovary measures 22 mm x 27 mm x 11 mm and contains a 7 mm x 15 mm x 15 mm. Unilocular non-simple cyst (internal debris and/or incomplete septation) with smooth inner wall O-RADS 2 There is no free fluid visualized. Recommendations O-RADS 2 ovarian lesion, non-simple cyst, almost certainly benign. Follow up ultrasound is recommended in 6 months. Simple paraovarian/paratubal cyst, no follow up imaging is needed. Fibroid uterus. Clinical correlation is recommended. Consider endometrial sampling. Latest Ref Rng 06/08/2024 CA 125 <39 U/mL 60 (H) ASSESSMENT/PLAN: 1. Fluid in endometrial cavity - ICD9: 621.8, ICD10: N85.9 (primary diagnosis) - ENDOMETRIAL BIOPSY - SURGICAL PATHOLOGY 2. Elevated CA-125 - ICD9: 795.82, ICD10: R97.1 -Will consult ECOLOGICAL RISK ASSESSOR/ONC once EMB results. Discussed with previously and agrees with plan. PLAN: Specimens labeled and sent to Pathology. Will notify patient of results in 1-2 weeks. Follow up in 1-2 weeks to discuss results. Post-procedure instructions reviewed and written material given to the patient. Zulema Cavazos APRN.CNM documented in this encounter [facility] 06-18-2024 Telephone encounter Note Patient notified and voiced understanding of results and instructions. EMB appointment scheduled. Shannan Dunn RN [facility] 06-18-2024 Miscellaneous Notes Patient notified and voiced understanding of results and instructions. EMB appointment scheduled. Shannan Dunn RN Orders signed. Zulema Cavazos APRN.CNM Please file pended orders. Shannan Dunn RN ----- Message from Zulema Cavazos APRN.CNM sent at 06/18/2024 3:03 PM EST ----- Please assist patient in scheduling EMB with me and US in 6 months. I can discuss lab results and follow up plan at visit. Zulema Cavazos APRN.CNM ----- Message from Abi Garcia MD sent at 06/17/2024 3:25 PM EST ----- Let patient know that she has some fluid in endometrium. Recommend EMB and f/u US in 6 months. KISHORE patient, she can sign orders. Abi Garcia MD documented in this encounter [facility] 06-18-2024 Telephone encounter Note Orders signed. Zulema Cavazos APRN.CNM [facility] 06-18-2024 Telephone encounter Note Please file pended orders. Shannan Dunn RN [facility] 06-18-2024 Telephone encounter Note ----- Message from Zulema Cavazos APRN.CNM sent at 06/18/2024 3:03 PM EST ----- Please assist patient in scheduling EMB with me and US in 6 months. I can discuss lab results and follow up plan at visit. Zulema Cavazos APRN.CNM [facility] 06-17-2024 Telephone encounter Note ----- Message from Abi Garcia MD sent at 06/17/2024 3:25 PM EST ----- Let patient know that she has some fluid in endometrium. Recommend EMB and f/u US in 6 months. KISHORE patient, she can sign orders. Abi Garcia MD [facility] 06-15-2024 Note HNO ID: [id number] Author: ROLANDO ALBARADO MD Service: ? Author Type: Physician Type: Progress Notes Filed: 06/15/2024 13:10 Note Text: The patient presents for requested ultrasound. Full report available in the Imaging tab in [facility]. Rolando Albarado MD [facility] 06-15-2024 History of Presen t illness Narrative The patient presents for requested ultrasound. Full report available in the Imaging tab in [facility]. Rolando Albarado MD documented in this encounter [facility] 06-09-2024 Telephone encounter Note Patient called back. Moved appt to 06/15. Emilee Amaya RN [facility] 06-09-2024 Miscellaneous Notes Patient called back. Moved appt to 06/15. Emilee Amaya RN Left message for patient to call office. Need to move patient's 0830 pelvic ultrasound on 06/10. Please offer patient another day next week or a sooner appt in Radiology if she wants and ok with provider. Will need a new order if she wants in Radiology. Emilee Amaya RN documented in this encounter [facility] 06-09-2024 Telephone encounter Note Left message for patient to call office. Need to move patient's 0830 pelvic ultrasound on 06/10. Please offer patient another day next week or a sooner appt in Radiology if she wants and ok with provider. Will need a new order if she wants in Radiology. Emilee Amaya RN [facility] 06-08-2024 Note HNO ID: [id number] Author: ZULEMA CAVAZOS APRN.CNM Service: ? Author Type: Pipeline Construction Inspector Type: Progress Notes Filed: 06/08/2024 10:49 Note Text: Lockstitch Zipper Setter offered: Patient declines. Tray is a 73 year old who presents for an annual gynecologic exam with complaints. Mild pelvic pain/discomfort, bloating, and early satiety in the last year. Admits to some heartburn. Complains of vaginal dryness/burning. History of UTI but not frequent. Postmenopausal: Yes since late 40's, uncertain of age HRT use: No. Still get period: No LMP: NA Menopause symptoms: Vaginal dryness, will have vaginal burning and discomfort. History of UTI that caused chills and shaking. control frequency: Never HPV vaccine: No; Last pap smear: unsure History of abnormal pap: No, all prior PAP smears have been normal Colposcopy: No. Leep: No. Cone biopsy: No. Bothersome pelvic pain: Yes, pelvic pressure over last year Last mammogram: 2023 normal @ [facility] History of abnormal mammogram: Yes , very dense breast tissue, completed at [facility] and ordered by primary care provider. Mood swings: No Insomnia: No Exercise: Walks daily on treadmill or outside if weather is nice Diet: No restrictions Seatbelt use: Yes OB History T0 L0 SAB0 IAB0 Ectopic0 Multiple0 Live Births0 Disability Attorney History LMP: Postmenopausal Age at Menarche: Age at First : Age at Menopause: Disability Attorney History Comments: Sexual Activity: Not Currently; Male Contraception: None PAST MEDICAL HISTORY Diagnosis Date Arthritis Calculus of gallbladder without mention of cholecystitis or obstruction cholecystectomy Coitus painful for female Endometriosis Infertility, female Ovarian cyst PAST SURGICAL HISTORY Procedure Laterality Date ABDOMINAL SURGERY HX BREAST BIOPSY X2- negative COLONOSCOPY FLX DX W/COLLJ SPEC WHEN PFRMD 05/04/2021 tubular adenoma, repeat in 5 years LAPS SURG CHOLECYSTECTOMY W/CHOLANGIOGRAPHY Jennifer OOPHORECTOMY PARTIAL/TOTAL UNI/BI 1983 RIGHT-ENDOMETRIOSIS TONSILLECTOMY AND ADENOIDECTOMY TONSILLECTOMY HX FAMILY HISTORY Problem Relation Age of Onset Breast Cancer Mother [place], CVA Skin Cancer Father Breast Cancer Sister Skin Cancer Sister Breast Cancer Sister Breast Cancer Paternal Grandmother Breast Cancer Other cousin SOCIAL HISTORY Social History Tobacco Use Smoking status: Never Smokeless tobacco: Never Vaping Use Vaping status: Never Used Substance Use Topics Alcohol use: No Drug use: No REVIEW OF SYSTEMS Abdomen: No abdominal pain, nausea, vomiting, diarrhea, or constipation. No indigestion, or increased flatulence. Admits to bloating, early satiety, Bladder: No dysuria, gross hematuria, urinary frequency, urinary urgency, or incontinence Breast: No breast lumps, nipple d/c, overlying skin changes, redness or skin retraction Allergies and current medication updated:Yes SENSITIVE EXAM: The sensitive examination was discussed with the Patient or Patient's Authorized Labor Arbitrator Hearing Office. As applicable, any other physician, advance practice provider, medical student, or other health professional student that will be observing or involved in the sensitive examination for educational or training purposes was discussed with the Patient or Authorized Labor Arbitrator Hearing Office. The Patient or Authorized Labor Arbitrator Hearing Office has agreed to proceed with the sensitive examination. (Sensitive examination includes inspection and/or palpation of the breasts, pelvis, prostate and anorectal regions). EXAM: BP 110/66 Ht 5' 0 (1.52m) Wt 124 lb (56.2kg) BMI 24.22 kg/(m2). GENERAL: pleasant, female in no apparent distress HEENT: Normocephalic, atraumatic, mucus membranes moist, and no lesions NECK: Supple, full range of motion DERMATOLOGY: Normal, without lesions, non-icteric, and non-hirsute BREAST: soft, non-tender, symmetric, no dominant mass, normal nipple-areolar complex, no lymphadenopathy, and no nipple discharge. Left breast with scar on left upper outer breast quadrant from prior breast biopsy. Dense breast tissue bilaterally. CHEST: Normal inspiratory effort ABDOMEN: soft, non-tender, and no masses PELVIC: external genitalia normal, normal Bartholin's glands, urethra, [place]'s glands, no vulvar lesions, no cervical lesions, good vaginal support, physiologic discharge present, normal appearing perineal body and perianal region, atrophic changes BIMANUAL: uterus normal size, shape and consistency, no adnexal masses, and non-tender RECTOVAGINAL: deferred. NEURO: alert and oriented x3,exam grossly non-focal EXTREMITIES: normal ASSESSMENT/PLAN: 1. Encounter for gynecological examination with abnormal finding - ICD9: V72.31, ICD10: Z01.411 (primary diagnosis) - Completed pelvic and breast exam - Encouraged monthly BSE - Follow up for annual exam in one year. - PAP TEST 2. Encounter for screening mammogram for breast cancer (more content not included)... [facility] 06-08-2024 History of Presen t illness Narrative Lockstitch Zipper Setter offered: Patient declines. Tray is a 73 year old who presents for an annual gynecologic exam with complaints. Mild pelvic pain/discomfort, bloating, and early satiety in the last year. Admits to some heartburn. Complains of vaginal dryness/burning. History of UTI but not frequent. Postmenopausal: Yes since late 40's, uncertain of age HRT use: No. Still get period: No LMP: NA Menopause symptoms: Vaginal dryness, will have vaginal burning and discomfort. History of UTI that caused chills and shaking. control frequency: Never HPV vaccine: No; Last pap smear: unsure History of abnormal pap: No, all prior PAP smears have been normal Colposcopy: No. Leep: No. Cone biopsy: No. Bothersome pelvic pain: Yes, pelvic pressure over last year Last mammogram: 2023 normal @ [facility] History of abnormal mammogram: Yes , very dense breast tissue, completed at [facility] and ordered by primary care provider. Mood swings: No Insomnia: No Exercise: Walks daily on treadmill or outside if weather is nice Diet: No restrictions Seatbelt use: Yes OB History T0 L0 SAB0 IAB0 Ectopic0 Multiple0 Live Births0 Disability Attorney History LMP: Postmenopausal Age at Menarche: Age at First : Age at Menopause: Disability Attorney History Comments: Sexual Activity: Not Currently; Male Contraception: None PAST MEDICAL HISTORY Diagnosis Date Arthritis Calculus of gallbladder without mention of cholecystitis or obstruction cholecystectomy Coitus painful for female Endometriosis Infertility, female Ovarian cyst PAST SURGICAL HISTORY Procedure Laterality Date ABDOMINAL SURGERY HX BREAST BIOPSY X2- negative COLONOSCOPY FLX DX W/COLLJ SPEC WHEN PFRMD 05/04/2021 tubular adenoma, repeat in 5 years LAPS SURG CHOLECYSTECTOMY W/CHOLANGIOGRAPHY Jennifer OOPHORECTOMY PARTIAL/TOTAL UNI/BI 1983 RIGHT-ENDOMETRIOSIS TONSILLECTOMY & ADENOIDECTOMY <AGE 13 1956 TONSILLECTOMY HX FAMILY HISTORY Problem Relation Age of Onset Breast Cancer Mother [place], CVA Skin Cancer Father Breast Cancer Sister Skin Cancer Sister Breast Cancer Sister Breast Cancer Paternal Grandmother Breast Cancer Other cousin SOCIAL HISTORY Social History Tobacco Use Smoking status: Never Smokeless tobacco: Never Vaping Use Vaping status: Never Used Substance Use Topics Alcohol use: No Drug use: No REVIEW OF SYSTEMS Abdomen: No abdominal pain, nausea, vomiting, diarrhea, or constipation. No indigestion, or increased flatulence. Admits to bloating, early satiety, Bladder: No dysuria, gross hematuria, urinary frequency,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 for: Medicare Wellness, Mammogram HCC Score: 0.386 Outcome: 1st attempt - Spoke to patient Patient declined scheduling Medicare Wellness, Mammogram as currently driving - patient reports she will call the office back to schedule Reason for Outreach Care Gap/HCC or Scheduling Wellness Visits Care Gaps due: Medicare Annual Wellness Visit Breast Cancer Screening Patient Contacted: Spoke to patient/parent/or legal guardian Patient identified by name and : Yes Care Gap/HCC/Scheduling Wellness actions taken: Patient declined: Patient will call back later to schedule or asks for a call back HCC related Navigation Signature: Emilee Cesar MA October 06, 2023 8:02 AM documented in this encounter [facility] 04-18-2023 Miscellaneous Notes Patient notified the mammogram order has been faxed to [facility] as requested OK, please process. Patient asking pcp to send order for routine mammogram to [facility]. Pended. documented in this encounter [facility] 03-28-2023 History of Presen t illness Narrative Telemedicine Evaluation for COVID-19 Infection MyChart Zoom Video Visit was used for evaluation of this patient. I have communicated my name and active licensure. The patient's identity and physical location were verified at the time of this visit. Either the patient or their legal client care representative has been informed of the risks and benefits of -- and alternatives to -- treatment through a remote evaluation and consents to proceed with the evaluation remotely. SUBJECTIVE Tray Bobby is a 72 year old female who presents with 1 day of symptoms that are stable. positive Friday. She was first positive today Notes nasal drainage, congestion, cough, Symptoms include: Fever (?100.4F): No or Chills: No Cough: Yes Shortness of breath: No or Difficulty breathing: No Fatigue: Yes yesterday Muscle aches: No Headache: Yes New loss of smell or taste: No Sore throat: No Nasal congestion: Yes or Rhinorrhea: Yes Nausea: No or Vomiting: No Diarrhea: Yes yesterday OTC meds/remedies that patient has tried: NSAIDs, OTC cough syrup, throat lozenges, and pseudoephedrine. High risk category assessment Age > 60 years old Exposures: Sick contacts? Yes Family or close contacts with confirmed/probable COVID-19 in last 14 days? Yes Creatinine Date Value Ref Range Status 03/26/2021 0.77 0.58 - 0.96 mg/dL Final 01/10/2016 0.80 0.70 - 1.40 mg/dL Final OBJECTIVE VIDEO EXAM pulse ox 97%, temperature 97.7F, HR 76bpm GENERAL: Ill-appearing, but non-toxic HEENT: no conjunctival injection, pupils equal, moist mucous membranes, and oropharynx clear without erythema PULMONARY: breathing comfortably on room air , no coughing noted, and no wheezing noted ASSESSMENT/PLAN (U07.1) COVID-19 virus infection (primary encounter diagnosis) - Meets symptom-based criteria for testing and is high risk. - Discussed symptom monitoring and supportive care - Red flag symptoms requiring follow up discussed Nirmatrelvir/Ritonavir (Paxlovid) Considerations Paxlovid is FDA-approved for treatment of mild to moderate COVID-19 in adults who are at high risk for progression to severe COVID-19. Consider use of Paxlovid in the following examples of high risk patients (list is not all inclusive): Age over 65 years Cardiovascular and cerebrovascular disease Chronic disease state (kidney, liver, lung) Diabetes (type 1 or type 2) Immunocompromised state (cancer, solid organ or blood stem cell transplant, HIV) Obesity Paxlovid warnings include serious drug interactions (co-administration with drugs highly dependent on CYP3A for clearance), hypersensitivity reactions, hepatotoxicity, and risk of HIV-1 resistance development. Whit Flaherty APRN.CNS March 28, 2023 12:52 PM This patient encounter involved the screening or treatment of novel coronavirus infection (COVID-19). Nirmatrelvir/Ritonavir (Paxlovid) Considerations Paxlovid is FDA-approved for treatment of mild to moderate COVID-19 in adults who are at high risk for progression to severe COVID-19. Consider use of Paxlovid in the following examples of high risk patients (list is not all inclusive): Age over 65 years Cardiovascular and cerebrovascular disease Chronic disease state (kidney, liver, lung) Diabetes (type 1 or type 2) Immunocompromised state (cancer, solid organ or blood stem cell transplant, HIV) Obesity Paxlovid warnings include serious drug interactions (co-administration with drugs highly dependent on CYP3A for clearance), hypersensitivity reactions, hepatotoxicity, and risk of HIV-1 resistance development. Whit Flaherty APRN.CNS March 28, 2023 12:50 PM 20 min in video visit documented in this encounter [facility] 03-28-2023 Instructions Whit Flaherty APRN.CNS - 03/28/2023 11:47 AM EDT Images from the original note were not included. Beginning Home Isolation Isolation is used to separate people infected with SARS-CoV-2, the virus that causes COVID-19, from people who are not infected. People who are in isolation should stay home until it s safe for them to be around others. In the home, anyone sick or infected should separate themselves from others by staying in a specific sick room or area and using a separate bathroom (if available). Isolation or Quarantine: What's the difference? Quarantine keeps someone who might have been exposed to the virus away from others. Isolation keeps someone who is infected with the virus away from others, even in their home. Who needs to isolate People who have COVID-19 People who have symptoms of COVID-19 and are able to recover at home People who have no symptoms (are asymptomatic) but have tested positive for infection with SARS-CoV-2 Steps to take Stay home except to get medical care Monitor your symptoms. Stay in a separate room from other household members, if possible Use a separate bathroom, if possible Avoid contact with other members of the household and pets Don t share personal household items, like cups, towels, and utensils Wear a mask when around other people, if you are able to When to seek emergency medical attention Look for emergency warning signs* for COVID-19. If someone is showing any of these signs, seek emergency medical care immediately: Trouble breathing Persistent pain or pressure in the chest New confusion Inability to wake or stay awake Bluish lips or face *This list is not all possible symptoms. Please call your medical provider for any other symptoms that are severe or concerning to you. Call 911 or call ahead to your local emergency facility: Notify the tongue and groove machine operator that you are seeking care for someone who has or may have COVID-19. Ending Home Isolation - When you can be around others after you had or likely had COVID-19 When you can be around others after you had or likely had COVID-19 If You Test Positive for COVID-19 (Isolation) Everyone, regardless of vaccination status: Stay home for 5 days. Note: Day 0 is your first day of symptoms or the date of collection of a positive viral test if no symptoms. Day 1 is the first full day after symptoms developed or test specimen was collected. If you have no symptoms or your symptoms are resolving after 5 days, you can leave your house. Continue to wear a mask around others for 5 additional days. If you have a fever, continue to stay home until your fever resolves, even if it is longer than 5 days. If You Were Exposed to Someone with COVID-19 (Quarantine) If you: 1. Have been boosted OR 2. Completed the primary series of Pfizer or Moderna vaccine within the last 6 months OR 3. Completed the primary series of J&J vaccine within the last 2 months THEN: 1. Wear a mask around others for 10 days. 2. Test on day 5, if possible. If you develop symptoms get a test and stay home. If You Were Exposed to Someone with COVID-19 (Quarantine) If you: 1. Completed the primary series of Pfizer or Moderna vaccine over 6 months ago and are not boosted OR 2. Completed the primary series of J&J over 2 months ago and are not boosted OR 3. Are unvaccinated THEN: 1. Stay home for 5 days. After that continue to wear a mask around others for 5 additional days. 2. If you can't quarantine you must wear a mask for 10 days. 3. Test on day 5 if possible. If you develop symptoms get a test and stay home. I had COVID-19 or I tested positive for COVID-19 and I have a weakened immune system If you have a weakened immune system (immunocompromised) due to a health condition or medication, you might need to stay home and isolate longer than 10 days. Talk to your healthcare provider for more information. Your doctor may work with an infectious disease expert at your local health department to determine when you can be around others. How to Manage Common Symptoms Associated with COVID for Adults Fever- Fever is a temperature over 100.4 F and can occur when the body is fighting an infection. To help treat a fever: Drink plenty of fluids and stay well hydrated. Eat small amounts of easy to digest food. Rest. Your body needs rest to recover, but getting up and moving around the house frequently is a good idea. You should try to continue doing your normal daily activities (bathing, toileting, grooming, cooking), though you will probably feel tired, and need to rest often. Avoid any heavy activity or exercise, as this will increase your body temperature. Dress in light clothing and stay covered in a light sheet. Keep the room temperature cool. Take a slightly warm (not cold or cool) bath, or apply damp washcloths to the forehead and wrists. Cough- Cough is a common symptom associated with COVID and can be bothersome. To help treat a cough: Stay well hydrated. Try warm water or tea with lemon and/or honey to help soothe the cough. Use a humidifier to add moisture to the air. Try a product with menthol, like a cough drop or a rub for your chest such as Vicks, which can help reduce cough. Try cough drops. Avoid smoking and other strong odors or perfumes. Try breathing exercises to keep your lungs open and clear. Take a big deep breath through your nose and hold for 5 seconds before slowly releasing. Repeat frequently, while you are awake. Congestion- Runny nose or nasal congestion can occur with COVID. Treatment can help relieve symptoms: Try OTC nasal saline spray, or nasal saline rinse to relieve mucus congestion. Nasal strips can help keep nasal passages open, to increase airflow. Elevating your head with an extra pillow in bed can help reduce congestion. Using a humidifier can increase moisture in the air, and make breathing easier. Sore Throat- Another common symptom with COVID, can be managed at home by: Stay well hydrated. Gargle with salt water - mix teaspoon salt with 1 cup of warm water and gargle. This helps to loosen mucus in the back of the throat and may reduce discomfort. Try ice chips, popsicles or lozenges to soothe the throat. Nausea/Vomiting/Diarrhea- These are common symptoms, and staying hydrated is most important. If you are nauseous or vomiting, start with small sips of water every 10-15 minutes and increase as tolerated. You can try sucking an ice cube too. If tolerating, you can try pedialyte or Gatorade, or flat sprite or dewey-tevin. Start slowly and increase as you are able to. Instead of meals, try smaller, more frequent snacks. Try eating bland foods like crackers, toast, rice, and applesauce. Avoid spicy, greasy or fried foods and dairy containing foods. Even if you aren't feeling hungry due to lack of smell or taste, it is important to try to take in some food when you are able. After drinking and eating, rest in an upright position for up to two hours as needed to help decrease nauseous feelings. Try closing your eyes, avoid moving and watching TV. Avoid strong odors that can make you feel more nauseated. When to seek emergency medical attention Look for emergency warning signs for COVID-19. If having any of these symptoms, seek emergency medical care immediately: Trouble breathing Persistent pain or pressure in the chest New confusion Inability to wake or stay awake Bluish lips or face *This list is not all possible symptoms. Please call your medical provider for any other symptoms that are severe or concerning to you. FACT SHEET FOR PATIENTS, PARENTS, AND CAREGIVERS EMERGENCY USE AUTHORIZATION (EUA) OF PAXLOVID FOR CORONAVIRUS DISEASE 2019 (COVID-19) You are being given this Fact Sheet because your healthcare provider believes it is necessary to provide you with PAXLOVID for the treatment of wdcc-an-zizescpl coronavirus disease (COVID-19) caused by the SARS-CoV-2 virus. This Fact Sheet contains information to help you understand the risks and benefits of taking the PAXLOVID you may receive. This Fact Sheet also contains information about how to take PAXLOVID and how to report side effects or problems with the appearance or packaging of PAXLOVID. The [place].S. Food and Drug Administration (FDA) has issued an Emergency Use Authorization (EUA) to make PAXLOVID available for the treatment of abhu-bq-iidwklqt COVID-19 in adults and children 12 years of age and older weighing at least 88 pounds (40 kg) who are at high risk for progression to severe COVID-19, including hospitalization or (for more details about an EUA please see What is an Emergency Use Authorization? at the end of this document). Read this Fact Sheet for information about PAXLOVID. Talk to your healthcare provider about your options or if you have any questions. It is your choice to take PAXLOVID. What is COVID-19? COVID-19 is caused by a virus called a coronavirus. You can get COVID-19 through close contact with another person who has the virus. COVID-19 illnesses have ranged from very xrwa-nw-cvotyf, including illness resulting in . While information so far suggests that most COVID-19 illness is mild, serious illness can happen and may cause some of your other medical conditions to become worse. Older people and people of all ages with severe, long lasting (chronic) medical conditions like heart disease, lung disease, and diabetes, for example seem to be at higher risk of being hospitalized for COVID-19. What is PAXLOVID? PAXLOVID is a medicine that is available under EUA for the treatment of jlej-pb-sxkmhyeu COVID-19 in adults and children 12 years of age and older weighing at least 88 pounds (40 kg) who are at high risk for progression to severe COVID-19, including hospitalization or . Although PAXLOVID is FDA-approved for the treatment of COVID-19 in certain adults (see section What other treatment choices are there?), PAXLOVID use in children remains investigational because it is still being studied. There is limited information about the safety and effectiveness of using PAXLOVID to treat children with qmem-xt-ebczzdiy COVID-19. What is the most important information I should know about PAXLOVID? PAXLOVID can interact with other medicines causing severe or life-threatening side effects or . It is important to know the medicines that should not be taken with PAXLOVID. Do not take PAXLOVID if: you are taking any of the following medicines: o alfuzosin o amiodarone o apalutamide o carbamazepine o colchicine o dihydroergotamine o dronedarone o eletriptan o eplerenone o ergotamine o finerenone o flecainide o flibanserin o ivabradine o lomitapide o lovastatin o lumacaftor/ivacaftor o lurasidone o methylergonovine o midazolam (oral) o naloxegol o phenobarbital o phenytoin o pimozide o primidone o propafenone o quinidine o ranolazine o rifampin o rifapentine o Lynd s Wort (hypericum perforatum) o sildenafil (Revatio ) for pulmonary arterial hypertension o silodosin o simvastatin o tolvaptan o triazolam o ubrogepant o voclosporin These are not the only medicines that may cause serious or life-threatening side effects if taken with PAXLOVID. PAXLOVID may increase or decrease the levels of multiple other medicines. It is very important to tell your healthcare provider about all of the medicines you are taking because additional laboratory tests or changes in the dose of your other medicines may be necessary during treatment with PAXLOVID. Your healthcare provider may also tell you about specific symptoms to watch out for that may indicate that you need to stop or decrease the dose of some of your other medicines. you are allergic to nirmatrelvir, ritonavir, or any of the ingredients in PAXLOVID. See the end of this leaflet for a complete list of ingredients in PAXLOVID. See What are the important possible side effects of PAXLOVID? for signs and symptoms of allergic reactions. What should I tell my healthcare provider before I take PAXLOVID? Tell your healthcare provider if you: have kidney problems. You may need a different dose of PAXLOVID. have liver problems, including hepatitis. have Human Immunodeficiency Virus 1 (HIV-1) infection. PAXLOVID may lead to some HIV-1 medicines not working as well in the future. are or plan to become . It is not known if PAXLOVID can harm your unborn baby. Tell your healthcare provider right away if you are or if you become . are or plan to breastfeed. It is not known if PAXLOVID can pass into your breast milk. Talk to your healthcare provider about the best way to feed your baby during treatment with PAXLOVID. Some medicines may interact with PAXLOVID and may cause serious side effects. Tell your healthcare provider about all the medicines you take, including prescription and odkh-fhh-skiipnv medicines, vitamins, and herbal supplements. Your healthcare provider can tell you if it is safe to take PAXLOVID with other medicines. You can ask your healthcare provider or pharmacist for a list of medicines that interact with PAXLOVID. Do not start taking a new medicine without telling your healthcare provider. Tell your healthcare provider if you are taking combined control (hormonal contraceptive). PAXLOVID may affect how your hormonal contraceptives work. Females who are able to become should use another effective alternative form of contraception or an additional barrier method of contraception during treatment with PAXLOVID. Talk to your healthcare provider if you have any questions about contraceptive methods that might be right for you. How do I take PAXLOVID? Take PAXLOVID exactly as your healthcare provider tells you to take it. PAXLOVID consists of 2 medicines: nirmatrelvir tablets and ritonavir tablets. The 2 medicines are taken together 2 times each day for 5 days. Nirmatrelvir is an oval, pink tablet. Ritonavir is a white or off-white tablet. PAXLOVID is available in 2 Dose Packs (see Figures A and B below). Your healthcare provider will prescribe the PAXLOVID Dose Pack that is right for you. If you have kidney disease, your healthcare provider may prescribe a lower dose (see Figure B). Talk to your healthcare provider to make sure you receive the correct Dose Pack. Do not remove your PAXLOVID tablets from the blister card before you are ready to take your dose. Take your first dose of PAXLOVID in the morning or evening, depending on when you picking crew supervisor your prescription, or as your healthcare provider tells you to. Swallow the tablets whole. Do not chew, break, or crush the tablets. Take PAXLOVID with or without food. Do not stop taking PAXLOVID without talking to your healthcare provider, even if you feel better. If you miss a dose of PAXLOVID within 8 hours of the time it is usually taken, take it as soon as you remember. If you miss a dose by more than 8 hours, skip the missed dose and take the next dose at your regular time. Do not take 2 doses of PAXLOVID at the same time. If you take too much PAXLOVID, call your healthcare provider or go to the nearest hospital emergency room right away. If you are taking a ritonavir- or cobicistat-containing medicine to treat hepatitis C or HIV-1 infection, you should continue to take your medicine as prescribed by your healthcare provider. Talk to your healthcare provider if you do not feel better or if you feel worse after 5 days. What are the important possible side effects of PAXLOVID? PAXLOVID may cause serious side effects, including: Allergic reactions, including severe allergic reactions (anaphylaxis) have happened during treatment with PAXLOVID. Stop taking PAXLOVID and get medical help right away if you get any of the following symptoms of an allergic reaction: o skin rash, hives, blisters or peeling skin o painful sores or ulcers in the mouth, nose, throat or genital area o swelling of the mouth, lips, tongue or face o trouble swallowing or breathing o throat tightness o hoarseness Liver Problems. Tell your healthcare provider right away if you get any of the following signs and symptoms of liver problems during treatment with PAXLOVID: o loss of appetite o yellowing of your skin and the white of eyes o dark-colored urine o pale colored stools o itchy skin o stomach-area (abdominal) pain The most common side effects of PAXLOVID include: altered sense of taste and diarrhea. Other possible side effects include: headache vomiting abdominal pain nausea high blood pressure feeling generally unwell These are not all the possible side effects of PAXLOVID. For more information, ask your healthcare provider or pharmacist. What other treatment choices are there? PAXLOVID is FDA-approved for the treatment of sidj-en-hntfmdkm COVID-19 in certain adults; however, there are not sufficient quantities of the approved presentations (i.e., dose packs) of PAXLOVID at this time. This EUA continues to authorize the emergency use of PAXLOVID for the approved patient population to ensure continued access in order to meet the public health need. VEKLURY (remdesivir) is FDA-approved for the treatment of sfmv-mt-wnjddkwr COVID-19 in certain adults and children. Talk with your healthcare provider to see if VEKLURY is appropriate for you. For information on the emergency use of other medicines that are authorized by FDA to treat people with COVID-19, please go to https://www.fda.gov/emergency-pr hjzabqhcjy-ziu-kyxylqan/destiny-daniela buckleyg-jetbtrljzw-dzs-policy-framewor k/lmwvejkfo-skw-tgcgoffgompls. Your healthcare provider may talk with you about clinical trials for which you may be eligible. It is your choice to be treated or not to be treated with PAXLOVID. Should you decide not to receive it or for your child not to receive it, it will not change your standard medical care. What if I am or ? There is limited experience treating women or mothers with PAXLOVID. For a mother and unborn baby, the benefit of taking PAXLOVID may be greater than the risk from the treatment. If you are , discuss your options and specific situation with your healthcare provider. If you are , discuss your options and specific situation with your healthcare provider. How do I report side effects or problems with the appearance or packaging of PAXLOVID? Contact your healthcare provider if you have any side effects that bother you or do not go away. Report side effects or problems with the appearance or packaging of PAXLOVID (see Figures A and B above for examples of PAXLOVID Dose Packs) to FDA MedWatch at www.fda.gov/medwatch or call 4-742-ZQK-5595 or you can report side effects to [employer]. at the contact information provided below. How should I store PAXLOVID? Store PAXLOVID tablets at room temperature, between 68?F to 77?F (20?C to 25?C). Keep PAXLOVID and all medicines out of the reach of children. What if I have questions about the expiration date for my PAXLOVID? The FDA has extended the expiration date (shelf-life) for some lots of PAXLOVID. To find the extended expiration date, enter the lot number found on the side of carton or bottom of blister pack at this website: https://www.paxlovidlotexpiry.co m/ or talk with your healthcare provider. Information on the authorized shelf-life extensions for PAXLOVID may also be found at https://www.fda.gov/emergency-pr fzbrrbfjai-jxw-newqofws/mcm-lega d-nffaidpmgl-mzf-policy-framewor k/xboaxyfhfg-nrkdoo-sqsugkzrb. How can I learn more about COVID-19? Ask your healthcare provider. Visit https://www.cdc.gov/COVID19. Contact your local or state public health department. What is an Emergency Use Authorization (EUA)? The [place] FDA has made PAXLOVID available under an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 pain Cyst of ovary, unspecified laterality Elevated cancer antigen 125 (CA-125) Elevated cancer antigen 125 [CA 125] * Assessment & Plan Note - Mk Morales MD - 07/30/2024 5:27 PM ESTAssociated Problem(s): Fluid in endometrial cavity [facility] Diagnosis Fluid in endometrial cavity- Primary Other specified disorders of uterus, not elsewhere classified Bloating Flatulence, eructation, and gas pain Cyst of ovary, unspecified laterality Elevated cancer antigen 125 (CA-125) Elevated cancer antigen 125 [CA 125] Family history of breast cancer Family history of malignant neoplasm of breast Cyst of ovary, unspecified laterality Elevated cancer antigen 125 (CA-125) Elevated cancer antigen 125 [CA 125] [facility] Fluid in endometrial cavity- Primary Other specified disorders of uterus, not elsewhere classified Bloating Flatulence, eructation, and gas pain Cyst of ovary, unspecified laterality Elevated cancer antigen 125 (CA-125) Elevated cancer antigen 125 [CA 125] Family history of breast cancer Family history of malignant neoplasm of breast Cyst of ovary, unspecified laterality- Primary Elevated cancer antigen 125 (CA-125) Elevated cancer antigen 125 [CA 125] Fluid in endometrial cavity Other specified disorders of uterus, not elsewhere classified [facility] Diagnosis Fluid in endometrial cavity- Primary Other specified disorders of uterus, not elsewhere classified Bloating Flatulence, eructation, and gas pain Cyst of ovary, unspecified laterality Elevated cancer antigen 125 (CA-125) Elevated cancer antigen 125 [CA 125] Family history of breast cancer Family history of malignant neoplasm of breast Complex cyst of left ovary- Primary [facility] Diagnosis Fluid in endometrial cavity- Primary Other specified disorders of uterus, not elsewhere classified Bloating Flatulence, eructation, and gas pain Cyst of ovary, unspecified laterality Elevated cancer antigen 125 (CA-125) Elevated cancer antigen 125 [CA 125] Family history of breast cancer Family history of malignant neoplasm of breast Preoperative examination- Primary Preoperative examination, unspecified Cyst of ovary, unspecified laterality Fluid in endometrial cavity Other specified disorders of uterus, not elsewhere classified [facility] Diagnosis Fluid in endometrial cavity- Primary Other specified disorders of uterus, not elsewhere classified Bloating Flatulence, eructation, and gas pain Cyst of ovary, unspecified laterality Elevated cancer antigen 125 (CA-125) Elevated cancer antigen 125 [CA 125] Family history of breast cancer Family history of malignant neoplasm of breast Preop testing- Primary Preoperative examination, unspecified Mixed hyperlipidemia Complex cyst of left ovary [N83.292] Complex cyst of left ovary * Assessment & Plan Note - Kimberly Hsu APRN.CNP - 10/13/2024 1:06 PM EDT Associated Problem(s): Mixed hyperlipidemia Assessment: Diet controlled * Assessment & Plan Note - Kimberly Hsu APRN.CNP - 10/13/2024 7:46 AM EDT Associated Problem(s): Preop testing Assessment : See Note for medical conditions which may affect luz maria-operative course was addressed in visit today. [facility] Diagnosis Fluid in endometrial cavity- Primary Other specified disorders of uterus, not elsewhere classified Bloating Flatulence, eructation, and gas pain Cyst of ovary, unspecified laterality Elevated cancer antigen 125 (CA-125) Elevated cancer antigen 125 [CA 125] Family history of breast cancer Family history of malignant neoplasm of breast Preop testing- Primary Preoperative examination, unspecified Mixed hyperlipidemia Complex cyst of left ovary [N83.292] Postop check- Primary Follow-up examination, following unspecified surgery [facility] Additional Instructions Your workup today did not show any signs of infection such as UTI or pneumonia or COVID. Continue to monitor your temperature and if you develop any repeat fever that does not respond to Tylenol/Motrin or you have any further concerns or worsening symptoms please return to the ER [facility] Work Phone: Reason for referral (narrative)* Diagnostic Procedure Only (Routine) - Closed Specialty Diagnoses / Procedures Referred By Contac t Referred To Contact XR IMAGING Diagnoses Repetitive stress injury Neuroma Procedures XR FOOT GENERAL 3V AP/LAT/OBL LEFT RADEX FOOT COMPLETE MINIMUM 3 VIEWS Derrick Estrella [address] [place] [address] Xr Imaging Referral ID Status Reason Start Date Expiration Date V isits Requested Visits Authorized [id number] Closed Auto-Generate d Referral 07/29/2022 08/28/2023 1 1 [facility] for referral (narrative)* Diagnostic Procedure Only (Routine) - Closed Specialty Diagnoses / Procedures Referred By Contac t Referred To Contact XR IMAGING Diagnoses Repetitive stress injury Neuroma Procedures XR FOOT GENERAL 3V AP/LAT/OBL LEFT RADEX FOOT COMPLETE MINIMUM 3 VIEWS Derrick Estrella [address] [place] [address] [place] [address] Referral ID Status Reason Start Date Expiration Date V isits Requested Visits Authorized [id number] Closed Auto-Generate d Referral 07/29/2022 08/28/2023 1 1 [facility] for referral (narrative)* Diagnostic Procedure Only (Routine) - Pending Review Specialty Diagnoses / Procedures Referred By Contac t Referred To Contact BR IMAGING Diagnoses Encounter for screening mammogram for breast cancer Procedures NARESH SCREENING W ANDRES SCREENING DIGITAL BREAST TOMOSYNTHESIS BI SCREENING MAMMOGRAPHY BI 2-VIEW BREAST INC Whit Patrick, CONDUCTOR FREIGHT.RIM ROLLER SETTER [address] [place] [address] Br Imaging [address] [place] [address] Referral ID Status Reason Start Date Expiration Date Visits Requested Visits Authorized [id number] Pending Review Auto-Generat ed Referral 3 05/17/2024 1 1 [facility] for referral (narrative)* Diagnostic Procedure Only (Routine) - New Request Specialty Diagnoses / Procedures Referred By Kassie t Referred To Contact BR IMAGING Diagnoses Encounter for screening mammogram for breast cancer Procedures NARESH SCREENING W ANDRES SCREENING DIGITAL BREAST TOMOSYNTHESIS BI SCREENING MAMMOGRAPHY BI 2-VIEW BREAST INC Marielle Saenz APRN.CNP [address] [place] [address] [facility] [address] [place] [address] Referral ID Status Reason Start Date Expiration Date Visits Requested Visits Authorized [id number] New Request Auto-Generat ed Referral 4 05/19/2025 1 1 [facility] for referral (narrative)* Diagnostic Procedure Only (Routine) - Authorized Specialty Diagnoses / Procedures Referred By Kassie t Referred To Contact [facility] Diagnoses Bloating Early satiety Pelvic pain in female Procedures PELVIC US WHI US PELVIC NONOBSTETRIC REAL-TIME IMAGE COMPLETE Zulema Cavazos APRN.CNM [address] [place] [address] [facility] [address] [place] [address] Referral ID Status Reason Start Date Expiration Date Visits Requested Visits Authorized [id number] Authorized Auto-Generat ed Referral 06/08/2024 06/08/2025 1 1 * Diagnostic Procedure Only (Routine) - New Request Specialty Diagnoses / Procedures Referred By Kassie t Referred To Contact BR IMAGING Diagnoses Encounter for gynecological examination with abnormal finding Encounter for screening mammogram for breast cancer Dense breast tissue Procedures NARESH SCREENING W ANDRES SCREENING DIGITAL BREAST TOMOSYNTHESIS BI SCREENING MAMMOGRAPHY BI 2-VIEW BREAST INC Zulema Mcgrath APRN.CNM [address] [place] [address] Imaging [address] [place] [address] Referral ID Status Reason Start Date Expiration Date Visits Requested Visits Authorized [id number] New Request Auto-Generat ed Referral 06/08/2025 07/08/2025 1 1 [facility] for referral (narrative)* Diagnostic Procedure Only (Routine) - New Request Specialty Diagnoses / Procedures Referred By Contac t Referred To Contact [facility] Diagnoses Fluid in endometrial cavity Cyst of ovary, unspecified laterality Procedures PELVIC US WHI US PELVIC NONOBSTETRIC REAL-TIME IMAGE COMPLETE Zulema Cavazos APRN.CNM [address] [place] [address] [address] Referral ID Status Reason Start Date Expiration Date Visits Requested Visits Authorized [id number] New Request Auto-Generat ed Referral 12/16/2024 06/17/2025 1 1 * Outpatient Procedure (Routine) - Authorized Specialty Diagnoses / Procedures Referred By Contac t Referred To Contact [facility] Diagnoses Fluid in endometrial cavity Cyst of ovary, unspecified laterality Procedures ENDOMETRIAL BIOPSY ENDOMETRIAL BX W/WO ENDOCERVIX BX W/O DILAT SPX Zulema Cavazos APRN.CNM [address] [place] [address] [facility] [address] [place] [address] Referral ID Status Reason Start Date Expiration Date Visits Requested Visits Authorized [id number] Authorized Auto-Generat ed Referral 06/18/2024 06/17/2025 1 1 [facility] for referral (narrative)* Outpatient Procedure (Routine) - New Request Specialty Diagnoses / Procedures Referred By Contac t Referred To Contact [facility] Diagnoses Fluid in endometrial cavity Procedures ENDOMETRIAL BIOPSY ENDOMETRIAL BX W/WO ENDOCERVIX BX W/O DILAT SPX Zulema Cavazos APRN.CNM [address] [place] [address] [address] Referral ID Status Reason Start Date Expiration Date Visits Requested Visits Authorized [id number] New Request Auto-Generat ed Referral 06/25/2024 06/25/2025 1 1 [facility] for referral (narrative)No reason for referral information availableWParkwood Hospital Work Phone: [facility] for visit Narrative* Diagnostic Procedure Only (Routine) - Closed Specialty Diagnoses / Procedures Referred By Contac t Referred To Contact XR IMAGING Diagnoses Repetitive stress injury Neuroma Procedures XR FOOT GENERAL 3V AP/LAT/OBL LEFT RADEX FOOT COMPLETE MINIMUM 3 VIEWS Derrick Estrella [address] [place] [address] [place] [address] Referral ID Status Reason Start Date Expiration Date V isits Requested Visits Authorized [id number] Closed Auto-Generate d Referral 07/29/2022 08/28/2023 1 1 [facility] for visit Narrative* Diagnostic Procedure Only (Routine) - Closed Specialty Diagnoses / Procedures Referred By Contac t Referred To Contact [facility] Diagnoses Bloating Early satiety Pelvic pain in female Procedures PELVIC US WHI US PELVIC NONOBSTETRIC REAL-TIME IMAGE COMPLETE Zulema Cavazos APRN.CNM [address] [place] [address] [address] Referral ID Status Reason Start Date Expiration Date V isits Requested Visits Authorized [id number] Closed Auto-Generate d Referral 06/08/2024 06/08/2025 1 1 [facility] for visit Narrative* MRI/CT (Urgent) - Closed Specialty Diagnoses / Procedures Referred By Contac t Referred To Contact CT IMAGING Diagnoses Cyst of ovary, unspecified laterality Elevated cancer antigen 125 (CA-125) Procedures CT ABD/PEL W IVCON CT ABD & PELVIS W/CONTRAST Mk Morales MD [address] [place] [address] Phone: tel: fax: [place] [address] Referral ID Status Reason Start Date Expiration Date V isits Requested Visits Authorized [id number] Closed Auto-Generate d Referral 08/02/2024 09/01/2025 1 1 [facility] Chief Complaint and Reason for Visit Chief Complaint SCREENING Chief Complaint Admit Date FEVER October 27, 2024 7:23p m Reason for Referral Specialty Diagnoses / Procedures Referred By Controcio t Referred To Contact Diagnoses Family history of skin cancer Procedures CONSULT TO DERMATOLOGY Silva Pepper MD [facility] [place] [address] Mirna Guido PA-C [address] [place] [address] Referral ID Status Reason Start Date Expiration Date Visits Requested Visits Authorized [id number] Ref Not Required PCP Requested Referral 07/26/2022 07/26/2023 1 1 Specialty Diagnoses / Procedures Referred By Contac t Referred To Contact Podiatry Diagnoses Pain in both feet Procedures CONSULT TO PODIATRY OFFICE/OUTPATIENT [facility] 60-74 MINUTES Silva Pepper MD [address] [place] [address] Referral ID Status Reason Start Date Expiration Date Visits Requested Visits Authorized [id number] Pending Review PCP Requested Referral 07/26/2022 07/26/2023 1 1 Specialty Diagnoses / Procedures Referred By Contac t Referred To Contact Gynecology Diagnoses Women's annual routine gynecological examination Procedures CONSULT TO GYNECOLOGY OFFICE/OUTPATIENT [facility] MDM 60 MINUTES Marielle Lombardo APRN.HUSSEIN [address] [place] [address] Referral ID Status Reason Start Date Expiration Date Visits Requested Visits Authorized [id number] Authorized PCP Requested Referral Auto-Generate d Referral 4 04/19/2025 1 1 Specialty Diagnoses / Procedures Referred By Kassie zhang Referred To Contact Dermatology Diagnoses Family history of skin cancer Procedures CONSULT TO DERMATOLOGY Marielle Lombardo APRN.HOUSEKEEPER CAREGIVER [address] [place] [address] Referral ID Status Reason Start Date Expiration Date Visits Requested Visits Authorized [id number] Ref Not Required PCP Requested Referral 4 04/19/2025 1 1 Advance Directives No Advanced Directives Records Found Advance Directive Response Recorded Date/ Time Do you have a Healthcare Power of Foreign Collection Clerk? 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 Advance Directive(s) 10/20/2024 8:17 AM Summary Purpose Family History No Family History Records FoundNo Family History Records FoundNo Family History Records Found Additional Source Comments Goals (unrecognized section and content) Goals may be documented in a n alternate sectionGoals may be documented in an alternate sectionGoals may be documented in an alternate section Source Comments (unrecognize d section and content) In the event this informatio n is protected by the Federal Confidentiality of Alcohol and Drug Abuse Patient Records regulations: The Federal rules restrict any use of the information to criminally investigate or prosecute any alcohol or drug abuse patient.[facility] the event this information is protected by the Federal Confidentiality of Alcohol and Drug Abuse Patient Records regulations: The Federal rules restrict any use of the information to criminally investigate or prosecute any alcohol or drug abuse patient.[facility] the event this information is protected by the Federal Confidentiality of Alcohol and Drug Abuse Patient Records regulations: The Federal rules restrict any use of the information to criminally investigate or prosecute any alcohol or drug abuse patient.[facility] the event this information is protected by the Federal Confidentiality of Alcohol and Drug Abuse Patient Records regulations: The Federal rules restrict any use of the information to criminally investigate or prosecute any alcohol or drug abuse patient.[facility] the event this information is protected by the Federal Confidentiality of Alcohol and Drug Abuse Patient Records regulations: The Federal rules restrict any use of the information to criminally investigate or prosecute any alcohol or drug abuse patient.[facility] the event this information is protected by the Federal Confidentiality of Alcohol and Drug Abuse Patient Records regulations: The Federal rules restrict any use of the information to criminally investigate or prosecute any alcohol or drug abuse patient.[facility] the event this information is protected by the Federal Confidentiality of Alcohol and Drug Abuse Patient Records regulations: The Federal rules restrict any use of the information to criminally investigate or prosecute any alcohol or drug abuse patient.[facility] the event this information is protected by the Federal Confidentiality of Alcohol and Drug Abuse Patient Records regulations: The Federal rules restrict any use of the information to criminally investigate or prosecute any alcohol or drug abuse patient.[facility] the event this information is protected by the Federal Confidentiality of Alcohol and Drug Abuse Patient Records regulations: The Federal rules restrict any use of the information to criminally investigate or prosecute any alcohol or drug abuse patient.[facility] the event this information is protected by the Federal Confidentiality of Alcohol and Drug Abuse Patient Records regulations: The Federal rules restrict any use of the information to criminally investigate or prosecute any alcohol or drug abuse patient.[facility] the event this information is protected by the Federal Confidentiality of Alcohol and Drug Abuse Patient Records regulations: The Federal rules restrict any use of the information to criminally investigate or prosecute any alcohol or drug abuse patient.[facility] the event this information is protected by the Federal Confidentiality of Alcohol and Drug Abuse Patient Records regulations: The Federal rules restrict any use of the information to criminally investigate or prosecute any alcohol or drug abuse patient.[facility] the event this information is protected by the Federal Confidentiality of Alcohol and Drug Abuse Patient Records regulations: The Federal rules restrict any use of the information to criminally investigate or prosecute any alcohol or drug abuse patient.[facility] the event this information is protected by the Federal Confidentiality of Alcohol and Drug Abuse Patient Records regulations: The Federal rules restrict any use of the information to criminally investigate or prosecute any alcohol or drug abuse patient.[facility] the event this information is protected by the Federal Confidentiality of Alcohol and Drug Abuse Patient Records regulations: The Federal rules restrict any use of the information to criminally investigate or prosecute any alcohol or drug abuse patient.[facility] the event this information is protected by the Federal Confidentiality of Alcohol and Drug Abuse Patient Records regulations: The Federal rules restrict any use of the information to criminally investigate or prosecute any alcohol or drug abuse patient.[facility] the event this information is protected by the Federal Confidentiality of Alcohol and Drug Abuse Patient Records regulations: The Federal rules restrict any use of the information to criminally investigate or prosecute any alcohol or drug abuse patient.[facility] the event this information is protected by the Federal Confidentiality of Alcohol and Drug Abuse Patient Records regulations: The Federal rules restrict any use of the information to criminally investigate or prosecute any alcohol or drug abuse patient.[facility]In the event this information is protected by the Federal Confidentiality of Alcohol and Drug Abuse Patient Records regulations: The Federal rules restrict any use of the information to criminally investigate or prosecute any alcohol or drug abuse patient.[facility] the event this information is protected by the Federal Confidentiality of Alcohol and Drug Abuse Patient Records regulations: The Federal rules restrict any use of the information to criminally investigate or prosecute any alcohol or drug abuse patient.[facility] the event this information is protected by the Federal Confidentiality of Alcohol and Drug Abuse Patient Records regulations: The Federal rules restrict any use of the information to criminally investigate or prosecute any alcohol or drug abuse patient.[facility] the event this information is protected by the Federal Confidentiality of Alcohol and Drug Abuse Patient Records regulations: The Federal rules restrict any use of the information to criminally investigate or prosecute any alcohol or drug abuse patient.[facility] the event this information is protected by the Federal Confidentiality of Alcohol and Drug Abuse Patient Records regulations: The Federal rules restrict any use of the information to criminally investigate or prosecute any alcohol or drug abuse patient.[facility] the event this information is protected by the Federal Confidentiality of Alcohol and Drug Abuse Patient Records regulations: The Federal rules restrict any use of the information to criminally investigate or prosecute any alcohol or drug abuse patient.[facility] the event this information is protected by the Federal Confidentiality of Alcohol and Drug Abuse Patient Records regulations: The Federal rules restrict any use of the information to criminally investigate or prosecute any alcohol or drug abuse patient.[facility] the event this information is protected by the Federal Confidentiality of Alcohol and Drug Abuse Patient Records regulations: The Federal rules restrict any use of the information to criminally investigate or prosecute any alcohol or drug abuse patient.[facility] the event this information is protected by the Federal Confidentiality of Alcohol and Drug Abuse Patient Records regulations: The Federal rules restrict any use of the information to criminally investigate or prosecute any alcohol or drug abuse patient.[facility]In the event this information is protected by the Federal Confidentiality of Alcohol and Drug Abuse Patient Records regulations: The Federal rules restrict any use of the information to criminally investigate or prosecute any alcohol or drug abuse patient.[facility]In the event this information is protected by the Federal Confidentiality of Alcohol and Drug Abuse Patient Records regulations: The Federal rules restrict any use of the information to criminally investigate or prosecute any alcohol or drug abuse patient.[facility]In the event this information is protected by the Federal Confidentiality of Alcohol and Drug Abuse Patient Records regulations: The Federal rules restrict any use of the information to criminally investigate or prosecute any alcohol or drug abuse patient.[facility]In the event this information is protected by the Federal Confidentiality of Alcohol and Drug Abuse Patient Records regulations: The Federal rules restrict any use of the information to criminally investigate or prosecute any alcohol or drug abuse patient.[facility]In the event this information is protected by the Federal Confidentiality of Alcohol and Drug Abuse Patient Records regulations: The Federal rules restrict any use of the information to criminally investigate or prosecute any alcohol or drug abuse patient.[facility]In the event this information is protected by the Federal Confidentiality of Alcohol and Drug Abuse Patient Records regulations: The Federal rules restrict any use of the information to criminally investigate or prosecute any alcohol or drug abuse patient.[facility]In the event this information is protected by the Federal Confidentiality of Alcohol and Drug Abuse Patient Records regulations: The Federal rules restrict any use of the information to criminally investigate or prosecute any alcohol or drug abuse patient.[facility]In the event this information is protected by the Federal Confidentiality of Alcohol and Drug Abuse Patient Records regulations: The Federal rules restrict any use of the information to criminally investigate or prosecute any alcohol or drug abuse patient.[facility]In the event this information is protected by the Federal Confidentiality of Alcohol and Drug Abuse Patient Records regulations: The Federal rules restrict any use of the information to criminally investigate or prosecute any alcohol or drug abuse patient.[facility] Reason for Visit (unrecogniz ed section and content) Reason Comments Medicare Wellness Exam c/o feet issues Reason Comments New Pain Specialty Diagnoses / Procedures Referred By Contac t Referred To Contact Podiatry Diagnoses Pain in both feet Procedures CONSULT TO PODIATRY OFFICE/OUTPATIENT NEW HIGH MDM 60-74 MINUTES Silva Pepper MD [address] [place] [address] Referral ID Status Reason Start Date Expiration Date Visits Requested Visits Authorized [id number] Pending Review PCP Requested Referral 07/26/2022 07/26/2023 1 1 Reason Comments Full Body Skin Check Reason Comments Covid Positive Reason Comments Mammogram order Reason Onset Date Comments Population Health Navigation Outreach 10/06/2023 AeNiko kennedy [place] Reason Onset Date Comments Population Health Navigation Outreach 11/06/2023 AeNiko kennedyIggy Reason Comments ED Follow-up [facility] 12/10/23 Reason Onset Date Comments Allied Health Visit 02/09/2024 Medication A dherence Outreach Reason Onset Date Comments Population Health Navigation Outreach 02/11/2024 AeNiko kennedyIggy Reason Comments Patient Update Reason Comments Medicare Wellness Exam Annual Medicare W ellness Reason Comments Appointment Cancelled 04/20/24 - Provide r OUT Reason Comments Well Woman Specialty Diagnoses / Procedures Referred By Contac t Referred To Contact Gynecology Diagnoses Women's annual routine gynecological examination Procedures CONSULT TO GYNECOLOGY OFFICE/OUTPATIENT [facility] 60 MINUTES Marielle Lombardo APRN.HOUSEKEEPER CAREGIVER [address] [place] [address] Referral ID Status Reason Start Date Expiration Date V isits Requested Visits Authorized [id number] Closed PCP Requested Referral Auto-Generated Referral 04/19/2024 04/19/2025 1 1 Reason Comments Appointment Reason Comments Results Orders Reason Comments Endometrial Biopsy Specialty Diagnoses / Procedures Referred By Contac t Referred To Contact [facility] Diagnoses Fluid in endometrial cavity Cyst of ovary, unspecified laterality Procedures ENDOMETRIAL BIOPSY ENDOMETRIAL BX W/WO ENDOCERVIX BX W/O DILAT SPX Zulema Cavazos APRN.CNAdwoa [address] [address] [facility] [address] [place] [address] Referral ID Status Reason Start Date Expiration Date V isits Requested Visits Authorized [id number] Closed Auto-Generate d Referral 06/18/2024 06/17/2025 1 1 Reason Comments Results Reason Comments Problem Visit Reason Comments Referral Information Reason Comments Radiology CT Specialty Diagnoses / Procedures Referred By Contac t Referred To Contact [facility] Diagnoses Cyst of ovary, unspecified laterality Elevated cancer antigen 125 (CA-125) Procedures CT ABD/PEL W IVCON CT ABD & PELVIS W/CONTRAST Mk Morales MD [address] [place] [address] Phone: tel: fax: [place] [address] Referral ID Status Reason Start Date Expiration Date V isits Requested Visits Authorized [id number] Closed Auto-Generate d Referral 08/02/2024 09/01/2025 1 1 Reason Comments Consult Specialty Diagnoses / Procedures Referred By Contac t Referred To Contact Diagnoses Cyst of ovary, unspecified laterality Elevated cancer antigen 125 (CA-125) Procedures CONSULT TO GYNECOLOGIC/ONCOLOGY Mk Morales MD [address] [place] [address] Phone: tel: fax: Yani Casanova MD [address] [address] Phone: tel: fax: Referral ID Status Reason Start Date Expiration Date V isits Requested Visits Authorized [id number] Closed PCP Requested Referral 08/02/2024 08/02/2025 1 1 Reason Onset Date Comments Population Health Navigation Outreach 08/26/2024 [employer] High Risk Attempt One Reason Comments Discussion Reason Onset Date Comments 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 Reason Comments Post-Op Visit Reason Onset Date Comments Population Health Navigation Outreach 02/15/2025 [facility] (unrecognized sec tion and content) Cross Tie Maker Relationship Specialty Start Date End Date Silva Pepper MD [address] [place], [place] [id number] PCP - General Internal Medicine 12/10/17 Cross Tie Maker Relationship Specialty Start Date End Date Silva Pepper MD [address] [place], [place] [id number] PCP - General Internal Medicine 12/10/17 Cross Tie Maker Relationship Specialty Start Date End Date Silva Pepper MD [address] [place], [place] [address] PCP - General Internal Medicine 12/10/17 Cross Tie Maker Relationship Specialty Start Date End Date Silva Pepper MD [address] [place], [place] [address]482 [phone] PCP - General Internal Medicine 12/10/17 Cross Tie Maker Relationship Specialty Start Date End Date Silva Pepper MD [address] [place], [place] [address] PCP - General Internal Medicine 12/10/17 Cross Tie Maker Relationship Specialty Start Date End Date Silva Pepper MD [address] [place], [place] [address] PCP - General Internal Medicine 12/10/17 Team Status: Active Member Role Status Dates Dr. Silva Pepper MD Family Provider Active Dr. Silva Pepper MD Primary Care Provider Active Team Status: Inactive Member Role Status Dates Dr. Silva Pepper MD Primary Care Provider Active Whit Flaherty C PROGRAMMER, C PROGRAMMER-C Attending Provider, Referring Pr ovider Active Cross Tie Maker Relationship Specialty Start Date End Date Silva Pepper MD [address] [place] [address] PCP - General Internal Medicine 12/10/17 Cross Tie Maker Relationship Specialty Start Date End Date Silva Pepper MD [address] [place], [place] [id number] PCP - General Internal Medicine 12/10/17 Cross Tie Maker Relationship Specialty Start Date End Date Silva Pepper MD [address] [place], [place] [address]351 PCP - General Internal Medicine 12/10/17 Cross Tie Maker Relationship Specialty Start Date End Date Silva Pepper MD [address] [place], [place] [address] PCP - General Internal Medicine 12/10/17 Cross Tie Maker Relationship Specialty Start Date End Date Silva Pepper MD [address] [place] [address] PCP - General Internal Medicine 12/10/17 Cross Tie Maker Relationship Specialty Start Date End Date Silva Pepper MD [address] [place] [address] PCP - General Internal Medicine 12/10/17 Cross Tie Maker Relationship Specialty Start Date End Date Silva Pepper MD [address] [place] [address] PCP - General Internal Medicine 12/10/17 Renée Caraballo PA-C [address] [place] [address] Dairy Technician Family Medicine 05/09/24 Marielle Lombardo APRN.CNP [address] [place], [place] [address] Dairy Technician Internal Medicine 05/09/24 Carola Simeon PA-C [address] [place] [address] Dairy Technician Family Medicine 05/09/24 Cross Tie Maker Relationship Specialty Start Date End Date Silva Pepper MD [address] [place], [place] [id number] PCP - General Internal Medicine 12/10/17 Renée Caarballo PA-C [address] [place], [place] [phone] [facility] 05/09/24 Marielle Lombardo APRN.HOUSEKEEPER CAREGIVER [address] [facility] [place] [address] Dairy Technician Internal Medicine 05/09/24 Carola Simeon PA-C [address] [facility] [place] [place] [address] [facility] 05/09/24 Cross Tie Maker Relationship Specialty Start Date End Date Silva Pepper MD [address] [facility] [place] [place] [address] PCP - General Internal Medicine 12/10/17 Renée Caraballo PA-C [address] [place], [place] [phone] [facility] 05/09/24 Marielle Lombardo APRN.HOUSEKEEPER CAREGIVER [address] [facility] [place] [address] Dairy Technician Internal Medicine 05/09/24 Carola Simeon PA-C [address] [facility] [place] [address] [facility] 05/09/24 Cross Tie Maker Relationship Specialty Start Date End Date Silva Pepper MD [address] [facility] [place] [place] [address] PCP - General Internal Medicine 12/10/17 Renée Caraballo PA-C [address] [place] [address] Dairy Technician Family Medicine 05/09/24 Marielle Lombardo APRN.HOUSEKEEPER CAREGIVER [address] [place] [address] Dairy Technician Internal Medicine 05/09/24 Carola Simeon PA-C [address] [place] [address] Dairy Technician Family Medicine 05/09/24 Cross Tie Maker Relationship Specialty Start Date End Date Silva Pepper MD [address] [place] [address] PCP - General Internal Medicine 12/10/17 Renée Caraballo PA-C [address] [place] [address] Dairy Technician Family Medicine 05/09/24 Marielle Lombardo APRN.HOUSEKEEPER CAREGIVER [address] [place] [address] Dairy Technician Internal Medicine 05/09/24 Carola Simeon PA-C [address] [place] [address] Dairy Technician Family Medicine 05/09/24 Cross Tie Maker Relationship Specialty Start Date End Date Silva Pepper MD [address] [place] [address] PCP - General Internal Medicine 12/10/17 Renée Caraballo PA-C [address] [place] [address] Dairy Technician Family Medicine 05/09/24 Marielle Lombardo APRN.HOUSEKEEPER CAREGIVER [address] [place] [address] Dairy Technician Internal Medicine 05/09/24 Carola Simeon PA-C [address] [place] [address] Dairy Technician Family Medicine 05/09/24 Cross Tie Maker Relationship Specialty Start Date End Date Silva Pepper MD [address] [place] [address] PCP - General Internal Medicine 12/10/17 Renée Caraballo PA-C [address] [place] [address] [phone] Dairy Technician Family Medicine 05/09/24 Marielle Lombardo APRN.HOUSEKEEPER CAREGIVER [address] [place] [address] Dairy Technician Internal Medicine 05/09/24 Carola Simeon PA-C [address] [place] [address] [facility] 05/09/24 Cross Tie Maker Relationship Specialty Start Date End Date Silva Pepper MD [address] [place] [address] PCP - General Internal Medicine 12/10/17 Renée Caraballo PA-C [address] [place] [address] Dairy Technician Family Medicine 05/09/24 Marielle Lombardo APRN.HOUSEKEEPER CAREGIVER [address] [place] [address] Dairy Technician Internal Medicine 05/09/24 Carola Simeon PA-C [address] [place] [address] Dairy Technician Family Medicine 05/09/24 Cross Tie Maker Relationship Specialty Start Date End Date Silva Pepper MD [address] [place] [address] PCP - General Internal Medicine 12/10/17 Renée Caraballo PA-C [address] [place] [address] Dairy Technician Family Medicine 05/09/24 Marielle Lombardo APRN.HOUSEKEEPER CAREGIVER [address] [place] [address] Dairy Technician Internal Medicine 05/09/24 Carola Simeon PA-C [address] [place] [address] Dairy Technician Family Medicine 05/09/24 Cross Tie Maker Relationship Specialty Start Date End Date Silva Pepper MD [address] [place] [address] PCP - General Internal Medicine 12/10/17 Renée Caraballo PA-C [address] [place] [address] Dairy Technician Family Medicine 05/09/24 Marielle Lombardo APRN.HOUSEKEEPER CAREGIVER [address] [place] [address] Dairy Technician Internal Medicine 05/09/24 Carola Simeon PA-C [address] [place] [address] [facility] 05/09/24 Cross Tie Maker Relationship Specialty Start Date End Date Silva Pepper MD [address] [place] [address] PCP - General Internal Medicine 12/10/17 Marielle Lombardo APRN.HOUSEKEEPER CAREGIVER [address] [place] [address] [facility] Internal Medicine 05/09/24 Cross Tie Maker Relationship Specialty Start Date End Date Silva Pepper MD [address] [place] [address] PCP - General Internal Medicine 12/10/17 Marielle Lombardo APRN.HOUSEKEEPER CAREGIVER [address] [place] [address] [facility] Internal Medicine 05/09/24 Cross Tie Maker Relationship Specialty Start Date End Date Silva Pepper MD [address] [place] [address] PCP - General Internal Medicine 12/10/17 Marielle Lombardo APRN.HOUSEKEEPER CAREGIVER [address] [place] [address] [facility] Internal Medicine 05/09/24 Cross Tie Maker Relationship Specialty Start Date End Date Silva Pepper MD [address] [facility] [place] [address] PCP - General Internal Medicine 12/10/17 Marielle Lombardo APRN.HOUSEKEEPER CAREGIVER [address] [facility] [place] [address] Dairy Technician Internal Medicine 05/09/24 Cross Tie Maker Relationship Specialty Start Date End Date Silva Pepper MD [address] [facility] [place] [address] PCP - General Internal Medicine 12/10/17 Marielle Lombardo APRN.HOUSEKEEPER CAREGIVER [address] [place] [address] Dairy Technician Internal Medicine 05/09/24 Cross Tie Maker Relationship Specialty Start Date End Date Silva Pepper MD [address] [place] [address] PCP - General Internal Medicine 12/10/17 Marielle Lombardo APRN.HOUSEKEEPER CAREGIVER [address] [place] [address] Dairy Technician Internal Medicine 05/09/24 Team Status: Active Member Role Status Dates Dr. Silva Pepper MD Primary Care Provider Active Team Status: Inactive Member Role Status Dates Dr. Silva Pepper MD Primary Care Provider Active Start: October 27, 2024 End: October 27, 2024 Dr. Barrett Almendarez DO Referring Provider Active Start: October 27, 2024 End: October 27, 2024 Dr. Barrett Almendarez , Emergency Provider Active Start: October 27, 2024 End: October 27, 2024 Cross Tie Maker Relationship Specialty Start Date End Date Silva Pepper MD [address] [place] [address] PCP - General Internal Medicine 12/10/17 Marielle Lombardo APRN.HOUSEKEEPER CAREGIVER [address] [facility] [address] [facility] Internal [facility] 05/09/24 Cross Tie Maker Relationship Specialty Start Date End Date Silva Pepper MD [address] [facility] [place] [address] PCP - General Internal Medicine 12/10/17 Marielle Lombardo APRN.HOUSEKEEPER CAREGIVER [address] [place] [address] [facility] Internal [facility] 05/09/24 Cross Tie Maker Relationship Specialty Start Date End Date Silva Pepper MD [address] [place] [address] PCP - General Internal Medicine 12/10/17 Marielle Lombardo APRN.HOUSEKEEPER CAREGIVER [address] [facility] [place] [address] [facility] Internal [facility] 05/09/24 INFORMATION SOURCE (unrecogn ized section and content) DATE CREATED AUTHOR 11/01/2024 [facility] DATE CREATED AUTHOR AUTHOR'S ORGANIZ ATION 11/02/2024 [facility] DATE CREATED AUTHOR AUTHOR'S ORGANIZ ATION 02/16/2025 [facility] FOR RECORDS PERTAINING TO PATIENTS WHO ARE OR HAVE BEEN ENROLLED IN A CHEMICAL DEPENDENCY/SUBSTANCEABUSE PROGRAM, SOME INFORMATION MAY BE OMITTED. This clinical summary was aggregated from multiple sources. Caution should be exercised in using it in the provision of clinical care. This summary normalizes information from multiple sources, and as a consequence, information in this document may materially change the coding, format and clinical context of patient data. In addition, data may be omitted in some cases. CLINICAL DECISIONS SHOULD BE BASED ON THE PRIMARY CLINICAL RECORDS. [employer] provides no warranty or guarantee of the accuracy or completeness of information in this document.
== END | disposition home or self-care (01) ==
LOC: OPBI 10:02
PROVIDERS: PCP Internal Medicine; Referring Provider Nurse Practitioner; Visit Provider Nurse Practitioner
DX: Z12.31 Encounter for screening mammogram for malignant neoplasm of breast (principal)
CPT/HCPCS: 77063; 77067